=== PATIENT | female | born 1955 ===

== ENCOUNTER 2020-04-24 10:31 | Outpatient (REF) | payer MEDICARE, OTHER, SELFPAY ==
[2020-04-24 15:02] LABS: Creatinine Urine 90.99 mg/dL; Microalbum/Creatinine Ratio Ur 8.7 ug/mg cr
[2020-04-24 15:07] LABS: Alanine Aminotransferase 25 U/L (0-31); Albumin Level 4.7 g/dL (3.5-5.0); Alkaline Phosphatase 141 U/L (39-117); Anion Gap 14 (12-20); Aspartate Amino Transferase 27 U/L (5-31); Bilirubin Total 0.4 mg/dL (0.0-1.0); Blood Urea Nitrogen 20 mg/dL (9-16); Calcium 10.4 mg/dL (8.4-10.2); Carbon Dioxide 24 mmol/L (22-29); Chloride 108 mmol/L (96-108); Cholesterol 198 mg/dL; Estimated Glomerular Filt Rate > 60; Glucose Fasting 105 mg/dL (60-99); HDL Cholesterol 51 mg/dL; LDL Cholesterol Calculated 130 mg/dl; Sodium 141 mmol/L (135-145); Total Protein 7.5 g/dL (6.5-8.0); Triglycerides 89 mg/dL
== END 2020-04-24 10:32 | disposition home or self-care (01) ==
LOC: HO.WFDLDS 10:31
PROVIDERS: PCP Family Medicine; Visit Provider Family Medicine
DX: R73.01 Impaired fasting glucose (principal); E78.1 Pure hyperglyceridemia; Z20.828 Contact with and (suspected) exposure to other viral communicable diseases
CPT/HCPCS: 80053; 80061; 82043; 87635

== ENCOUNTER 2020-04-24 10:53 | Outpatient (REF) | payer MEDICARE, OTHER, SELFPAY | END 2020-04-24 10:54 | disposition home or self-care (01) | LOC: HO.WFDLDS 10:53 | PROVIDERS: Visit Provider Internal Medicine | DX: Z20.828 Contact with and (suspected) exposure to other viral communicable diseases (principal) ==

== ENCOUNTER 2020-05-08 11:03 | Outpatient (REF) | payer MEDICARE, OTHER, SELFPAY ==
[2020-05-14 18:16] LABS: Calprotectin, Fecal 127 mcg/g
== END 2020-05-08 11:04 | disposition home or self-care (01) ==
LOC: HO.LNP 11:03
PROVIDERS: Visit Provider Internal Medicine Gastroenterology
DX: K50.10 Crohn's disease of large intestine without complications (principal)
CPT/HCPCS: 83993

== ENCOUNTER 2020-06-17 14:50 | Outpatient (REF) | payer MEDICARE, OTHER, SELFPAY ==
[2020-06-21 18:22] LABS: Calprotectin, Fecal 90 mcg/g
== END 2020-06-17 14:51 | disposition home or self-care (01) ==
LOC: HO.LNP 14:50
PROVIDERS: Visit Provider Internal Medicine Gastroenterology
DX: K50.10 Crohn's disease of large intestine without complications (principal)
CPT/HCPCS: 83993

== ENCOUNTER 2020-08-04 08:00 | Outpatient (REF) | payer MEDICARE, OTHER, SELFPAY ==
[2020-08-04 11:06] LABS: Estimated Average Glucose 114 mg/dL; Hemoglobin A1c % 5.6 %
[2020-08-04 11:24] LABS: Alanine Aminotransferase 18 U/L (0-31); Albumin Level 4.6 g/dL (3.5-5.0); Alkaline Phosphatase 133 U/L (39-117); Anion Gap 15 (12-20); Aspartate Amino Transferase 19 U/L (5-31); Bilirubin Total 0.2 mg/dL (0.0-1.0); Blood Urea Nitrogen 19 mg/dL (9-16); Calcium 10.2 mg/dL (8.4-10.2); Carbon Dioxide 24 mmol/L (22-29); Chloride 105 mmol/L (96-108); Cholesterol 195 mg/dL; Estimated Glomerular Filt Rate > 60; Glucose Fasting 111 mg/dL (60-99); HDL Cholesterol 48 mg/dL; LDL Cholesterol Calculated 119 mg/dl; Potassium 4.9 mmol/l (3.3-5.1); Sodium 139 mmol/L (135-145); Total Protein 7.4 g/dL (6.5-8.0); Triglycerides 142 mg/dL
[2020-08-04 12:01] LABS: Creatinine Urine 143.73 mg/dL
== END 2020-08-04 08:01 | disposition home or self-care (01) ==
LOC: HO.WFDLDS 08:00
PROVIDERS: Visit Provider Family Medicine
DX: Z00.00 Encounter for general adult medical examination without abnormal findings (principal); R73.01 Impaired fasting glucose; E78.1 Pure hyperglyceridemia; I10 Essential (primary) hypertension
CPT/HCPCS: 36415; 80053; 80061; 82043; 83036

== ENCOUNTER 2020-08-27 09:12 | Outpatient (REF) | payer MEDICARE, OTHER, SELFPAY ==
--- NOTE | ~2020-08-27 | MM_ITS ---
EXAMINATION: MM SCREENING DIGITAL BREAST TOMOSYNTHESIS, BILATERAL CLINICAL INFORMATION: Screening. Asymptomatic. The lifetime risk of breast cancer based on the Tyrer-Cuzick Model is 3.9%. COMPARISON: Mammography: 02/11/2020 and studies dating back to 12/26/2009. TECHNIQUE: Digital breast tomosynthesis is performed in both the craniocaudal and mediolateral oblique views along with computer-aided detection (CAD). Synthesized 2D images are generated from the tomosynthesis. FINDINGS: There are scattered areas of fibroglandular density (ACR BI-RADS breast composition Category b). There is a stable parenchymal pattern within the right breast without new abnormal dominant mass or suspicious grouping of microcalcifications. Within the anterior aspect of the left breast, approximately 3 cm from the nipple, about the inferior aspect, there is an 8 x 4 mm lobular density which is circumscribed, question of a few microcalcifications. The density appears to have been present to some degree but is better seen on today's study. Recommend patient be called back for supplementary imaging with spot compression views of the left breast and left breast ultrasound. MM/MM tomosynthesis screening BI IMPRESSION: Left breast density for further evaluation as described. ASSESSMENT: BI-RADS 0: Incomplete - Need Additional Imaging Evaluation RECOMMENDATION: 1. Additional views of the left breast. 2. Targeted ultrasound if warranted after review of the additional views. 3. Radiology department staff will contact the patient for additional imaging. This patient's information was entered into a reminder system with a target due date for their next mammogram.
== END 2020-08-27 09:13 | disposition home or self-care (01) ==
LOC: HO.MAMMO 09:12
PROVIDERS: PCP Family Medicine; Visit Provider Family Medicine
DX: Z12.31 Encounter for screening mammogram for malignant neoplasm of breast (principal)
CPT/HCPCS: 77063; 77067

== ENCOUNTER 2020-09-19 07:53 | Outpatient (REF) | payer MEDICARE, OTHER, SELFPAY ==
--- NOTE | ~2020-09-19 | MM_ITS ---
EXAMINATION: MM DIAGNOSTIC DIGITAL BREAST TOMOSYNTHESIS, LEFT US DIAGNOSTIC ULTRASOUND BREAST, LEFT CLINICAL INFORMATION: Recall from screening for parenchymal asymmetry anterior lower left breast. The lifetime risk of breast cancer based on the Tyrer-Cuzick Model is 4%. COMPARISON: Mammography 08/27/2020, 08/22/2019, 07/12/2018, 06/30/2017, 05/19/2016, 05/08/2015 TECHNIQUE: Digital breast tomosynthesis is performed. 2D images are generated from the tomosynthesis. The following views are obtained: 3-D spot CC, 3-D spot MLO, 3-D spot ML. Ultrasound lower left breast is performed using grayscale imaging and color Doppler without and with harmonics. FINDINGS: There are scattered areas of fibroglandular density (ACR BI-RADS breast composition Category b). The additional view shows shifting fibroglandular densities without significant change from prior studies. There is no definite three-dimensional lesion or developing density. Ultrasound demonstrates no cystic or solid mass or focal duct ectasia. No architectural abnormality. Results are discussed with the patient at time of visit. Finding on recent screening mammography likely shifting fibroglandular densities. As a precaution to exclude subtle developing density, short interval six-month follow-up left mammography will be requested. MM/MM tomosynthesis added views L IMPRESSION: 1. Additional mammographic views show no definite changes from prior studies. 2. Unremarkable targeted left breast ultrasound. ASSESSMENT: BI-RADS 3: Probably Benign RECOMMENDATION: Diagnostic left mammography in 6 months. This patient's information was entered into a reminder system with a target due date for their next mammogram.
== END 2020-09-19 07:54 | disposition home or self-care (01) ==
LOC: HO.MAMMO 07:53
PROVIDERS: PCP Family Medicine; Visit Provider Family Medicine
DX: R92.2 Inconclusive mammogram (principal)
CPT/HCPCS: 76642; 77061; 77065

== ENCOUNTER 2020-10-01 11:24 | Outpatient (REF) | payer MEDICARE, OTHER, SELFPAY ==
[2020-10-08 22:16] LABS: Calprotectin, Fecal 125 mcg/g
== END 2020-10-01 11:25 | disposition home or self-care (01) ==
LOC: HO.LNP 11:24
PROVIDERS: Visit Provider Internal Medicine Gastroenterology
DX: K50.10 Crohn's disease of large intestine without complications (principal)
CPT/HCPCS: 83993

== ENCOUNTER 2020-11-08 07:44 | Outpatient (REF) | payer MEDICARE, OTHER, SELFPAY ==
[2020-11-14 18:47] LABS: Calprotectin, Fecal 85 mcg/g
== END 2020-11-08 07:45 | disposition home or self-care (01) ==
LOC: HO.LAB 07:44
PROVIDERS: PCP Internal Medicine Gastroenterology; Visit Provider Family Medicine
DX: K50.10 Crohn's disease of large intestine without complications (principal)
CPT/HCPCS: 83993

== ENCOUNTER → 2020-11-11 08:51 | Outpatient (BNVA) | payer MEDICARE, OTHER, SELFPAY | PROVIDERS: PCP Family Medicine; Visit Provider Internal Medicine Gastroenterology | DX: K50.10 Crohn's disease of large intestine without complications (principal); K86.2 Cyst of pancreas; Z79.899 Other long term (current) drug therapy | CPT/HCPCS: 99212 ==

== ENCOUNTER 2021-01-29 07:22 | Outpatient (REF) | payer MEDICARE, OTHER, SELFPAY ==
[2021-01-29 08:15] LABS: Estimated Average Glucose 117 mg/dL; Hemoglobin A1c % 5.7 %
[2021-01-29 08:18] LABS: Alanine Aminotransferase 10 U/L (0-31); Albumin Level 4.3 g/dL (3.5-5.0); Alkaline Phosphatase 124 U/L (39-117); Anion Gap 12 (12-20); Aspartate Amino Transferase 16 U/L (5-31); Bilirubin Total 0.3 mg/dL (0.0-1.0); Blood Urea Nitrogen 15 mg/dL (9-16); Calcium 10.2 mg/dL (8.4-10.2); Carbon Dioxide 24 mmol/L (22-29); Chloride 110 mmol/L (96-108); Cholesterol 202 mg/dL; Estimated Glomerular Filt Rate > 60; Glucose Fasting 117 mg/dL (60-99); HDL Cholesterol 58 mg/dL; LDL Cholesterol Calculated 124 mg/dl; Potassium 5.3 mmol/L (3.3-5.1); Sodium 141 mmol/L (135-145); Total Protein 7.1 g/dL (6.5-8.0); Triglycerides 103 mg/dL
== END 2021-01-29 07:23 | disposition home or self-care (01) ==
LOC: HO.LAB 07:22
PROVIDERS: PCP Family Medicine; Visit Provider Family Medicine
DX: Z00.00 Encounter for general adult medical examination without abnormal findings (principal); E78.1 Pure hyperglyceridemia; R73.01 Impaired fasting glucose
CPT/HCPCS: 36415; 80053; 80061; 83036

== ENCOUNTER 2021-02-02 11:09 | Inpatient (IN) | payer MEDICARE, OTHER, SELFPAY ==
--- NOTE | ~2021-02-02 | CT_ITS ---
EXAMINATION: CT ABDOMEN AND PELVIS WITH CONTRAST CLINICAL INFORMATION: Abdominal pain. History of Crohn's disease and diverticulitis. COMPARISON: Previous CT of the abdomen and pelvis most recent December 2019 TECHNIQUE: Multidetector volumetric images were obtained from the superior aspect of the liver through the pubic symphysis following administration 85 mL of Omnipaque 350 intravenous contrast. Sagittal and coronal reformatted images were obtained on the technologist's workstation. Oral contrast: Yes This CT examination was performed using dose optimization techniques as appropriate, variously including the following: *Automated exposure control *Adjustment of mA and/or kV according to patient size (this includes techniques or standardized protocols for targeted exams where dose is matched to indication/reason for exam; i.e. extremities or head) *Use of iterative reconstruction technique DLP: 445 mGy-cm FINDINGS: LUNG BASES: There is a 3 mm right middle lobe nodule axial image 2 series 5 that is stable. The lung bases are otherwise clear.. LIVER, GALLBLADDER, AND BILIARY TREE: The liver is low in attenuation suggestive of fatty infiltration. There is a small 1 cm cyst in the lateral segment of the left lobe of the liver. The gallbladder is been removed. There is no biliary duct dilatation. PANCREAS: Unremarkable. SPLEEN: Unremarkable. ADRENAL GLANDS: Unremarkable. KIDNEYS AND URETERS: There are small low-attenuation lesions in the right kidney suggestive of stones. BLADDER: Unremarkable. GASTROINTESTINAL TRACT: There is mild wall thickening and edema of the terminal ileum. There is mucosal enhancement of the terminal ileum. More proximal to this segment are dilated fluid and stool-filled loops of small bowel. Small bowel loops measure up to 3 cm in diameter. Appearance is suggestive of active Crohn's disease of the terminal ileum and partial more proximal obstruction. There is diverticulosis of the sigmoid colon. No evidence of diverticulitis is seen. There is low-attenuation in the wall of the colon, the ascending proximal transverse colon suggestive of fatty infiltration. This is a nonspecific finding but can be due to sequela of old colitis. ABDOMINAL WALL: No significant hernia is appreciated. LYMPH NODES: Normal. VASCULAR: Unremarkable. PELVIC VISCERA: Unremarkable. OSSEOUS STRUCTURES: There is a 5 mm anterior subluxation of L4 with respect L5. There are degenerative changes of the lower lumbar spine. CT/CT abdomen pelvis w con IMPRESSION: Active inflammatory bowel disease of the terminal ileum and more proximal small bowel partial obstruction. Diverticulosis of the colon. No evidence of diverticulitis. Fatty liver. Right renal and liver cysts.
[2021-02-02 11:14] VITALS: BP 149/84; PULSE 90; RESP 19; TEMP 36.8; O2SAT 98; BMI 23.9
[2021-02-02 11:41] LABS: Hematocrit 34.8 % (37-47); Hemoglobin 11.7 g/dl (12.0-16.0); Mean Corpuscular HGB Conc 33.6 g/dl (31.0-35.0); Mean Corpuscular Hemoglobin 29.8 pg (27.0-33.0); Mean Corpuscular Volume 88.8 fL (80-98); Mean Platelet Volume 9.7 fL (9.4-12.3); Platelet Count 404 X10*3/uL (160-400); Red Blood Count 3.92 X10*6/uL (4.20-5.50); Red Cell Distribution Width 12.5 % (11.0-16.0); White Blood Count 6.5 X10*3/uL (4.8-10.8)
--- NOTE | 2021-02-02 11:56 | ED.ABDPAIN ---
HPI - Abdominal Pain General Chief Complaint: Abdominal Pain Stated Complaint: abd pain Time Seen by Provider: 02/02/21 11:44 Source: patient Mode of arrival: ambulatory Limitations: no limitations History of Present Illness MD elicited complaint: abdominal pain Pertinent past history: diverticulitis and other (Crohn's) Onset (ago): day(s) (Tuesday) Pain Consistency: constant Location: periumbilical and LLQ Severity: severe Quality: fullness Radiation: none Migration to: no migration Exacerbating factors: movement Relieving factors: nothing Associated symptoms: nausea Related Data Home Medications Medication Instructions Recorded Confirmed calcium carbonate 500 mg(1,250 1 tab PO BID 04/24/20 mg)-vitamin D3 400 unit chewable tablet ergocalciferol (vitamin D2) 1,250 0 mcg PO 04/24/20 mcg (50,000 unit) capsule ibuprofen 800 mg tablet 800 mg PO TID 04/24/20 Previous Rx's Medication Instructions Recorded gemfibrozil 600 mg tablet 600 mg PO BID #180 tab 09/22/20 cyanocobalamin (vitamin B-12) 1,000 mcg IM DIRECTED #25 ml 09/30/20 1,000 mcg/mL injection solution famotidine 40 mg tablet 40 mg PO BEDTIME #90 tab 10/02/20 syringe with needle, safety 3 mL #50 ea 10/02/20 25 gauge x 1 rifaximin 550 mg tablet 550 mg PO TID 14 Days #42 tab 11/11/20 cholecalciferol (vitamin D3) 50 50 mcg PO DAILY #90 tab 12/30/20 mcg (2,000 unit) tablet Allergies Allergy/AdvReac Type Severity Reaction Status Date / Time Penicillins Allergy Severe ANAPHYLAXIS Verified 11/11/20 09:05 [id number]-Duw Reductase Allergy Intermediate muscle Verified 11/11/20 09:05 Inhibitor aches [[id number] REDUCTASE INHIBITOR] Review of Systems Review of Systems Constitutional : No Weight loss, No Fever, No Chills ENT/Mouth : No sore throat, No Rhinorrhea Eyes: No Swelling, No Redness Cardiovascular : No Chest Pain, No SOB, NoEdema Respiratory : No Cough, No Sputum, No Wheezing Gastrointestinal : Positive Nausea, no Vomiting, no Diarrhea, positive abdominal Pain, No Hematochezia, No Melena Genitourinary : No Dysuria, No Urinary Frequency, No Hematuria, No Urgency Musculoskeletal : No joint pain, No Myalgias, No Joint Swelling Skin : No Skin Lesions, No rash Neuro : No Weakness, No Numbness, No Dizziness, No Headache Psych : No Anxiety/Panic, No Depression Heme/Lymph: No Bruising, No Lymphadenopathy Endocrine : No Polyuria, No Polydipsia All other systems reviewed and are negative. Physical Exam Vital Signs: Vital Signs: Last Vital Signs Temp 98.2 F 02/02/21 11:14 Pulse 65 02/02/21 12:31 Resp 16 02/02/21 12:31 BP 159/66 H 02/02/21 12:31 Pulse Ox 98 02/02/21 11:14 Body Mass Index 23.9 Appearance: Alert. Oriented X3. No acute distress. Eyes: Pupils equal, round and reactive to light. ENT: Pharynx normal. Neck: Normal inspection. Neck supple. CVS: Normal heart rate and rhythm. Pulses normal. Respiratory: No respiratory distress. Breath sounds normal. Abdomen: Soft and mild distention with moderate ttp in LLQ no rebound or guarding Skin: Skin warm and dry. Normal skin color. Normal skin turgor. Extremities: No lower extremity edema. No calf ttp Neuro: Oriented X 3. No motor deficit. No sensory deficit. Course Course Course Narrative: message sent to surgery Dr. Moser and GI Dr. Humaira Moser aware most likely medical admit Dr. Gerardo aware recommend abx - has severe allergies to PCN so using levofloxacin and flagyl as well as IV solumedrol 20mg every 8 hours MDM - Abdominal Pain MDM Narrative Medical decision making narrative: 66 yo female with hx of Crohns not on medications at this time c/o pain since Tuesday she is having stool and passing gas at this time labs, IVF, IV morphine, CT scan for diveriticulitis/colitis dispo per results and findings. Differential Diagnosis Differential diagnosis: Likely constipation, diverticulitis and endometriosis; Unlikely aortic dissection Lab Data Result diagrams: 02/02/21 11:34 02/02/21 11:34 Labs: Lab Results 02/02/21 02/02/21 02/02/21 Range/Units 11:34 11:34 12:16 WBC 6.5 (4.8-10.8) X10*3/uL RBC 3.92 L (4.20-5.50) X10*6/uL Hgb 11.7 L (12.0-16.0) g/dl Hct 34.8 L (37-47) % MCV 88.8 (80-98) fL MCH 29.8 (27.0-33.0) pg MCHC 33.6 (31.0-35.0) g/dl RDW 12.5 (11.0-16.0) % Plt Count 404 H (160-400) X10*3/uL MPV 9.7 (9.4-12.3) fL Absolute Nucleated RBC 0.000 (0.0-0.012) X10*3/uL Nucleated RBC % (auto) 0.0 (0.0-0.2) /100WBC Sodium 139 (135-145) mmol/L Potassium 4.5 (3.3-5.1) mmol/L Chloride 109 H (96-108) mmol/L Carbon Dioxide 22 (22-29) mmol/L Anion Gap 13 (12-20) BUN 16 (9-16) mg/dL Creatinine 0.85 (0.5-1.4) mg/dL Estim Creat Clear Calc 51.4 Estimated GFR > 60 Random Glucose 114 (60-115) mg/dL Lactic Acid 1.1 (0.5-2.0) mmol/L Calcium 10.3 H (8.4-10.2) mg/dL Magnesium (1.6-2.6) mg/dL C-Reactive Protein (< or = 0.50) mg/dL Lipase 23 (8-78) U/L Urine Color Urine Appearance Urine pH (5.0-8.0) Ur Specific [place] (1.005-1.025) Urine Protein (NEG-TRACE) MG/DL Urine Glucose (UA) (NEG) MG/DL Urine Ketones (NEG) MG/DL Urine Blood (NEG) Urine Nitrite (NEG) Ur Leukocyte Esterase (NEG) 02/02/21 02/02/21 Range/Units 12:16 12:27 WBC (4.8-10.8) X10*3/uL RBC (4.20-5.50) X10*6/uL Hgb (12.0-16.0) g/dl Hct (37-47) % MCV (80-98) fL MCH (27.0-33.0) pg MCHC (31.0-35.0) g/dl RDW (11.0-16.0) % Plt Count (160-400) X10*3/uL MPV (9.4-12.3) fL Absolute Nucleated RBC (0.0-0.012) X10*3/uL Nucleated RBC % (auto) (0.0-0.2) /100WBC Sodium (135-145) mmol/L Potassium (3.3-5.1) mmol/L Chloride (96-108) mmol/L Carbon Dioxide (22-29) mmol/L Anion Gap (12-20) BUN (9-16) mg/dL Creatinine (0.5-1.4) mg/dL Estim Creat Clear Calc Estimated GFR Random Glucose (60-115) mg/dL Lactic Acid (0.5-2.0) mmol/L Calcium (8.4-10.2) mg/dL Magnesium 2.3 (1.6-2.6) mg/dL C-Reactive Protein 0.71 H (< or = 0.50) mg/dL Lipase (8-78) U/L Urine Color STRAW Urine Appearance CLEAR Urine pH 6.0 (5.0-8.0) Ur Specific [place] <= 1.005 (1.005-1.025) Urine Protein NEG (NEG-TRACE) MG/DL Urine Glucose (UA) NEG (NEG) MG/DL Urine Ketones NEG (NEG) MG/DL Urine Blood NEG (NEG) Urine Nitrite NEG (NEG) Ur Leukocyte Esterase NEG (NEG) Discharge Plan Discharge Clinical Impression: Abdominal pain Qualifiers: Abdominal location: lower abdomen, unspecified Qualified Code(s): R10.30 - Lower abdominal pain, unspecified Crohn's colitis Qualifiers: Digestive disease complication type: with intestinal obstruction Qualified Code(s): K50.112 - Crohn's disease of large intestine with intestinal obstruction Patient Disposition: Admitted As Inpatient [facility] Past Medical History Attestation statement: The following information was validated with the patient. Medical History (Updated 02/02/21 @ 13:21 by Fatou Joshi DO) Crohn's colitis Diverticulitis Hypertriglyceridemia Pancreas cyst Surgical History H/O colonoscopy History of cholecystectomy No history of previous surgery Family History Family History Father CVD (cardiovascular disease) Mother Hypertension Brother Diabetes mellitus Sister Diabetes mellitus Social History Social History (Updated 02/02/21 @ 12:09 by Fatou Joshi DO) Patient Tobacco Use Status: Former Tobacco user Use of substances other than those prescribed or required for medical reasons: Yes Substance Use Type: Marijuana Substance Use Frequency: Occasionally Advance Directives: No Advance Directives Information Provided: No
[2021-02-02 12:18] LABS: Anion Gap 13 (12-20); Blood Urea Nitrogen 16 mg/dL (9-16); Calcium 10.3 mg/dL (8.4-10.2); Carbon Dioxide 22 mmol/L (22-29); Chloride 109 mmol/L (96-108); Creatinine Clr Calc Pharmacy 51.4; Estimated Glomerular Filt Rate > 60; Glucose Random 114 mg/dL (60-115); Lipase 23 U/L (8-78); Potassium 4.5 mmol/L (3.3-5.1); Sodium 139 mmol/L (135-145)
[2021-02-02] MEDS: 0.9 % Sodium Chloride 1,000 ML 999 ML IVCONT (12:24)
[2021-02-02] MEDS: ondansetron HCL 4 MG/2 ML VIAL IVPUSH (12:24)
[2021-02-02] MEDS: Morphine Sulfate 4 MG/ML CARTRIDGE IVPUSH (12:25)
[2021-02-02 12:31] VITALS: BP 159/66; PULSE 65; RESP 16
--- NOTE | 2021-02-02 12:33 | PC.NURSE ---
off unit to ct scan at this time Medicated as charted for 04/26 llq abd pain denies n/v or bloody stools. UA sent. abd distended, +bs x 4 quads
[2021-02-02 12:35] LABS: Glucose Urine UA NEG (NEG); Leukocyte Esterase Urine NEG (NEG); Nitrite Urine NEG (NEG); Specific Gravity - Urine <= 1.005 (1.005-1.025); Urine Blood NEG (NEG); Urine Ketones NEG (NEG); Urine Protein NEG (NEG-TRACE)
[2021-02-02 12:38] LABS: Appearance Urine CLEAR; Color Urine STRAW
[2021-02-02] MEDS: iohexoL 350 MG/ML 100 ML INFUS..BTL 85 ML IV (12:43)
[2021-02-02 12:45] LABS: Lactic Acid 1.1 mmol/L (0.5-2.0)
[2021-02-02 12:52] LABS: C Reactive Protein 0.71 mg/dL (< or = 0.50); Magnesium 2.3 mg/dL (1.6-2.6)
--- NOTE | 2021-02-02 13:56 | PC.NURSE ---
Hospitalist at bedside for eval and plan during admission
[2021-02-02] MEDS: levoFLOXacin/D5W 500 MG/100 ML PIGGYBACK 100 MG IV (14:05)
[2021-02-02] MEDS: methylPREDNISolone Sod Succ 40 MG/ML VIAL 20 MG IVPUSH ×2 (14:05→22:18)
--- NOTE | 2021-02-02 14:07 | PM.IMHP ---
History of Present Illness Date of Service: 02/02/21 Chief Complaint: abdominal pain This is a relatively healthy 66-year-old female with a past medical history of Crohn's disease, currently not on any treatment, hyperlipidemia who presents to the hospital with complaints of abdominal pain of 3-4 days duration with associated nausea which began this morning. She reports that 4 days prior to arrival, her symptoms started with some left lower quadrant/flank pain without any associated nausea or vomiting, diarrhea. She did not make much of this but her pain has now progressed and so she sought care in the emergency room today. She endorses some chills but denies any fevers. In the emergency room her workup revealed a CT scan of the abdomen and pelvis which showed active inflammatory disease. Due to her persistent nausea and severity of her CT scan she will be admitted to the hospital for treatment of her Crohn's flare. The case was discussed by the ED provider with covering auto service instructor who recommended IV antibiotics and IV systemic steroids. Review of Systems Review of Systems: General - denies fevers, +chills HEENT -denies blurred vision, denies headache, denies sore throat Cardiovascular - denies chest pain or palpitations, denies edema Respiratory - denies shortness of breath, coughing, wheezing Gastrointestinal - +abdomina pain and nausea without vomiting or diarrhea - denies flank pain, denies dysuria, denies frequency or urgency Musculoskeletal - denies back pain, denies hip pain, denies knee pain, denies shoulder pain Neurological - denies any focal weakness or numbness Skin, denies any bruising or redness Psychiatric - denies any suicidal ideation, hallucinations, homicidal ideation Endocrinology - denies intolerance to hot / cold temperatures [facility] Medical History (Updated 02/02/21 @ 14:19 by Nelson Bianchi MD) Crohn's colitis Diverticulitis Hypertriglyceridemia Pancreas cyst Family History Father CVD (cardiovascular disease) Mother Hypertension Brother Diabetes mellitus Sister Diabetes mellitus Surgical History H/O colonoscopy History of cholecystectomy No history of previous surgery Social History (Updated 02/02/21 @ 12:09 by Fatou Joshi DO) Patient Tobacco Use Status: Former Tobacco user Use of substances other than those prescribed or required for medical reasons: Yes Substance Use Type: Marijuana Substance Use Frequency: Occasionally Advance Directives: No Advance Directives Information Provided: No Meds Allergies Allergy/AdvReac Type Severity Reaction Status Date / Time Penicillins Allergy Severe ANAPHYLAXIS Verified 11/11/20 09:05 Quaeohs-Fxh-Rta Reductase Allergy Intermediate muscle Verified 11/11/20 09:05 Inhibitor aches [[id number] REDUCTASE INHIBITOR] Active Medications: Current Medications Generic Name Dose Route Start Last Admin Trade Name Freq PRN Reason Stop Dose Admin Acetaminophen 650 mg 02/02/21 14:00 Acetaminophen 325 Mg Tablet PO Q6H PRN Pain, Mild (Pain Scale 1-3) Enoxaparin Sodium 40 mg 02/02/21 14:00 Enoxaparin Sodium 40 Mg/0.4 Ml Syringe SUBCUT Q24H [facility] Metronidazole 500 mg in 100 mls @ 100 mls/hr 02/02/21 13:17 Flagyl IV 02/02/21 14:16 ONCE ONE Levofloxacin 500 mg in 100 mls @ 100 mls/hr 02/02/21 13:18 02/02/21 14:05 Levaquin IV 02/02/21 14:17 100 mls/hr ONCE ONE Administration Dextrose/Sodium Chloride 1,000 mls @ 100 mls/hr 02/02/21 14:00 D51/2ns IVCONT .Q10H [facility] Levofloxacin 500 mg in 100 mls @ 100 mls/hr 02/03/21 14:00 Levaquin IV Q24H [facility] Metronidazole 500 mg in 100 mls @ 100 mls/hr 02/02/21 22:00 Flagyl IV Q8H [facility] Methylprednisolone Sodium Succinate 20 mg 02/02/21 22:00 Methylprednisolone Sod Succ 40 Mg/Ml Vial IVPUSH Q8H [facility] Morphine Sulfate 2 mg 02/02/21 14:05 Morphine Sulfate 4 Mg/Ml Cartridge IVPUSH Q4H PRN Pain, Severe (Pain Scale 7-10) Pharmacy Consult 1 each 02/02/21 13:12 Consult Rx Perform Med Rec MISCELLANE ONCE PRN Consult order Sodium Chloride 3 ml 02/02/21 16:00 0.9 % Sodium Chloride Flush 3 Ml [facility] Medications Medication Instructions Recorded Confirmed Last Taken Type fluticasone propionate [Flonase] 1 spray INTRANASAL DAILY 02/02/21 02/02/21 Unknown History ibuprofen 800 mg PO Q8H PRN 02/02/21 02/02/21 Unknown History loratadine [Claritin] 10 mg PO DAILY PRN 02/02/21 02/02/21 Unknown History multivitamin 1 tab PO DAILY 02/02/21 02/02/21 Unknown History Physical Exam Vital Signs and Narrative: Vital Signs: Last Vital Signs Temp 98.2 F 02/02/21 11:14 Pulse 65 02/02/21 12:31 Resp 16 02/02/21 12:31 BP 159/66 H 02/02/21 12:31 Pulse Ox 98 02/02/21 11:14 Body Mass Index 23.9 Const: Other: Constitutional - Awake and Alert, No apparent distress Eyes - PERRLA, EOMI Cardiovascular - S1S2, RRR, No edema Respiratory - Normal lung expansion, Normal respiratory effort, No respiratory distress, CTA bilaterally Gastrointestinal - Diffuse tenderness R > L; no rebound or guarding - No CVA tenderness Extremities - no calf tenderness bilaterally, no swelling Musculoskeletal - Normal inspection, normal ROM Skin - Warm/Dry Neurological - Alert & oriented x3, No focal deficit Psychological - Appropriate affect Results Labs CBC and Chem 7: 02/02/21 11:34 02/02/21 11:34 Labs: Laboratory Results - last 24 hr 02/02/21 02/02/21 02/02/21 11:34 11:34 12:16 MCV 88.8 MCH 29.8 MCHC 33.6 RDW 12.5 Plt Count 404 H MPV 9.7 Absolute Nucleated RBC 0.000 Nucleated RBC % (auto) 0.0 Anion Gap 13 Estim Creat Clear Calc 51.4 Estimated GFR > 60 Random Glucose 114 Lactic Acid 1.1 Calcium 10.3 H Magnesium C-Reactive Protein Lipase 23 Urine Color Urine Appearance Urine pH Ur Specific [place] Urine Protein Urine Glucose (UA) Urine Ketones Urine Blood Urine Nitrite Ur Leukocyte Esterase 02/02/21 02/02/21 12:16 12:27 MCV MCH MCHC RDW Plt Count MPV Absolute Nucleated RBC Nucleated RBC % (auto) Anion Gap Estim Creat Clear Calc Estimated GFR Random Glucose Lactic Acid Calcium Magnesium 2.3 C-Reactive Protein 0.71 H Lipase Urine Color STRAW Urine Appearance CLEAR Urine pH 6.0 Ur Specific [place] <= 1.005 Urine Protein NEG Urine Glucose (UA) NEG Urine Ketones NEG Urine Blood NEG Urine Nitrite NEG Ur Leukocyte Esterase NEG Imaging Radiologist's Impressions: Impressions Abdomen/Pelvis CT 02/02/21 12:02 IMPRESSION: Active inflammatory bowel disease of the terminal ileum and more proximal small bowel partial obstruction. Diverticulosis of the colon. No evidence of diverticulitis. Fatty liver. Right renal and liver cysts. Assessment and Plan (1) Acute Crohn's disease: Status: Acute This is a 66 yo F with a PMH of Crohn's -- not currently on treatment who presents to the hospital with complaints of abdominal pain and nausea. Her CT scan and clinical history is consistant with acute Crohn's flare. She will be admitted for further management. 1. Acute Crohn's flare IV solu-medrol 20mg TID (needs IV steroids as her nausea preclude the use of oral steroids IV levaquin + flagyl (per GI recs) clear liquids GI on board 2. HLD continue home meds once completed Full Code DVT pptxTomy Anticipate that, due the severity of presentation, she will need >2 midnights in the hospital to treat her condition. Quality Stroke Does the patient have a stroke diagnosis?: No VTE Prior VTE?: No VTE Risk Level:: Medical - moderate - high VTE Device Contraindication: Treatment Not Indicated VTE Drug Contraindication: N/A - Med Ordered
[2021-02-02 14:11] VITALS: BP 145/67; PULSE 80; RESP 16; O2SAT 100
--- NOTE | 2021-02-02 14:18 | PHA.MEDREC ---
Pharmacy Consult ? Medication Reconciliation Pharmacy has completed the medication reconciliation. No remarkable issues for provider attention. Amanda Neumann, NicolaD
[2021-02-02 14:23] LABS: COVID-19 Test Negative (Negative)
[2021-02-02] MEDS: metroNIDAZOLE/NS 500 MG/100 ML PIGGYBACK 100 MG IV ×2 (15:18→22:18)
--- NOTE | 2021-02-02 15:40 | PC.NURSE ---
Pt aware/agreeable for plan to admit. ABX continue to infuse as ordered. Pt given jello as requested and tolerating well. Family at bedside.. Reports pain worse with movement, no facial grimace or guarding with rest noted. Using bedpan to void.
[2021-02-02 16:09] VITALS: BP 145/74; PULSE 70; RESP 20; TEMP 36.4; O2SAT 95
[2021-02-02] MEDS: Dextrose 5 % and 0.45 % NaCl 1,000 ML 100 ML IVCONT (16:55)
[2021-02-02] MEDS: 0.9 % Sodium Chloride Flush 3 ML SYRINGE IVFLUSH (16:57)
[2021-02-02] MEDS: Enoxaparin Sodium 40 MG/0.4 ML SYRINGE SUBCUT (17:05)
[2021-02-02] MEDS: Morphine Sulfate 4 MG/ML CARTRIDGE 2 MG IVPUSH ×2 (17:11→22:27)
--- NOTE | 2021-02-02 17:13 | PC.NURSE ---
fLUIDS INFUSING D5 IN 0.45 ns AT 100ML/HR. mORPHIINE GIVEN FOR LLQ ABD PAIN 02/24
[2021-02-02 19:35] VITALS: BP 137/70; PULSE 72; RESP 17; TEMP 36.5; O2SAT 99
--- NOTE | 2021-02-02 19:36 | PC.NURSE ---
Pt aaox4, resting on stretcher in NAD breathing with ease on RA, pt endorses mild pain. Pt offers no additional complaints. Pt VSS. Pt awaiting bed assignment. Stretcher in low locked position, rails raised, call downing within reach
--- NOTE | 2021-02-02 20:07 | P.CNGI_ITS ---
History of Present Illness Data of Consult Service Date: 02/02/21 Requesting physician: Fatou Joshi Primary Care Provider: Lopez Cote MD [facility] Reason for consult: crohns flare 66-year-old female with a past medical history of Crohn's disease, who had been in remission and hyperlipidemia who I am seeing for assessment for crohns flare up. She c/o severe 10/10 abdominal pain of 3-4 days duration with associated nausea which began this morning and which was mostly in the left flank and lower quadrant. She has poor appetite, no nausea or vomiting. She did not eat any bad foods, and no one around her has been sick. She has passed normal stool, no diarrhea, rectal bleeding or melena. She does feel bloated. CT scan of the abdomen and pelvis which showed active inflammatory disease primarily in the terminal ileum with proximal small bowel partial obstruction.. She is receiving IV antibiotics and IV solumedrol. From my office notes: TESTS: colonoscopy 2005-- normal, mild diverticulitis colonoscopy 2015--diffsue colitis, erosions, from cecum to ascending col on, TI not freely intubated, mild diverticular disease bx TI--enteritis, ascending colon colitis, and descending mild colitis (this was actually a screening colonoscopy but she had some diarrheal sx at the time as well for 1 year at least, she had also been on a lot of nsiads for knee arthritis at the time) MRI 04/2019-- ?pancreas cyst, otherwise normal pancreas CT - no active inflammation, submucosal fat in TI, diverticular disase, spondylolisthesis MRI--03/2020--hepatic steatosis, 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, panc cysts LABS: neg fecal blanca, neg CRP, mild raised ESR< nml HGB, nml ferritin raised alk phos, AMA negative fecal calprotectin has been fluctuating up and down from borderline to mildly positive Review of Systems Review of Systems: General - denies fevers, +chills HEENT -denies blurred vision, denies headache, denies sore throat Cardiovascular - denies chest pain or palpitations, denies edema Respiratory - denies shortness of breath, coughing, wheezing Gastrointestinal - +abdomina pain and nausea without vomiting or diarrhea - denies flank pain, denies dysuria, denies frequency or urgency Musculoskeletal - denies back pain, denies hip pain, denies knee pain, denies shoulder pain Neurological - denies any focal weakness or numbness Skin, denies any bruising or redness Psychiatric - denies any suicidal ideation, hallucinations, homicidal ideation Endocrinology - denies intolerance to hot / cold temperatures [facility] Past Medical History Medical History (Updated 02/02/21 @ 14:19 by Nelson Bianchi MD) Crohn's colitis Diverticulitis Hypertriglyceridemia Pancreas cyst Family History Family History Father CVD (cardiovascular disease) Mother Hypertension Brother Diabetes mellitus Sister Diabetes mellitus Surgical History Surgical History H/O colonoscopy History of cholecystectomy No history of previous surgery Social History Social History (Updated 02/02/21 @ 12:09 by Fatou Joshi DO) Patient Tobacco Use Status: Former Tobacco user Use of substances other than those prescribed or required for medical reasons: Yes Substance Use Type: Marijuana Substance Use Frequency: Occasionally Advance Directives: No Advance Directives Information Provided: No Meds Allergies Allergy/AdvReac Type Severity Reaction Status Date / Time Penicillins Allergy Severe ANAPHYLAXIS Verified 11/11/20 09:05 Vozfvnr-Nlv-Miu Reductase Allergy Intermediate muscle Verified 11/11/20 09:05 Inhibitor aches [[id number]-[id number]-FSR REDUCTASE INHIBITOR] Active Medications: Current Medications Generic Name Dose Route Start Last Admin Trade Name Freq PRN Reason Stop Dose Admin Acetaminophen 650 mg 02/02/21 14:00 Acetaminophen 325 Mg Tablet PO Q6H PRN Pain, Mild (Pain Scale 1-3) Enoxaparin Sodium 40 mg 02/02/21 18:00 02/02/21 17:05 Enoxaparin Sodium 40 Mg/0.4 Ml Syringe SUBCUT 40 mg Q24H PRESTON Administration Dextrose/Sodium Chloride 1,000 mls @ 100 mls/hr 02/02/21 14:00 02/02/21 16:55 D51/2ns IVCONT 100 mls/hr .Q10H PRESTON Administration Levofloxacin 500 mg in 100 mls @ 100 mls/hr 02/03/21 14:00 Levaquin IV Q24H PRESTON Metronidazole 500 mg in 100 mls @ 100 mls/hr 02/02/21 22:00 Flagyl IV Q8H PRESTON Methylprednisolone Sodium Succinate 20 mg 02/02/21 22:00 Methylprednisolone Sod Succ 40 Mg/Ml Vial IVPUSH Q8H PRESTON Morphine Sulfate 2 mg 02/02/21 14:05 02/02/21 17:11 Morphine Sulfate 4 Mg/Ml Cartridge IVPUSH 2 mg Q4H PRN Administration Pain, Severe (Pain Scale 7-10) Pharmacy Consult 1 each 02/02/21 13:12 Consult Rx Perform Med Rec MISCELLANE ONCE PRN Consult order Sodium Chloride 3 ml 02/02/21 16:00 02/02/21 16:57 0.9 % Sodium Chloride Flush 3 Ml Syringe IVFLUSH 3 ml QSHIFT [facility] Administration Home Medications Medication Instructions Recorded Confirmed Last Taken Type fluticasone propionate [Flonase] 1 spray INTRANASAL DAILY 02/02/21 02/02/21 Unknown History ibuprofen 800 mg PO Q8H PRN 02/02/21 02/02/21 Unknown History loratadine [Claritin] 10 mg PO DAILY PRN 02/02/21 02/02/21 Unknown History multivitamin 1 tab PO DAILY 02/02/21 02/02/21 02/02/21 History Physical Exam Vital Signs: Vital Signs: Last Vital Signs Temp 97.7 F 02/02/21 19:35 Pulse 72 02/02/21 19:35 Resp 17 02/02/21 19:35 BP 137/70 02/02/21 19:35 Pulse Ox 99 02/02/21 19:35 Body Mass Index 23.9 Const: Other: Constitutional - Awake and Alert, No apparent distress Eyes - PERRLA, EOMI Cardiovascular - S1S2, RRR, No edema Respiratory - Normal lung expansion, Normal respiratory effort, No respiratory distress, CTA bilaterally Gastrointestinal - Diffuse tenderness R > L; no rebound or guarding - No CVA tenderness Extremities - no calf tenderness bilaterally, no swelling Musculoskeletal - Normal inspection, normal ROM Skin - Warm/Dry Neurological - Alert & oriented x3, No focal deficit Psychological - Appropriate affect Results Labs CBC & Chem 7: 02/02/21 11:34 02/02/21 11:34 Labs: Short CBC 02/02/21 Range/Units 11:34 WBC 6.5 (4.8-10.8) X10*3/uL Hgb 11.7 L (12.0-16.0) g/dl Hct 34.8 L (37-47) % Plt Count 404 H (160-400) X10*3/uL BMP 02/02/21 11:34 Sodium 139 Potassium 4.5 Chloride 109 H Carbon Dioxide 22 BUN 16 Creatinine 0.85 Calcium 10.3 H Urine 02/02/21 Range/Units 12:27 Urine Color STRAW Urine Appearance CLEAR Urine pH 6.0 (5.0-8.0) Ur Specific [place] <= 1.005 (1.005-1.025) Urine Protein NEG (NEG-TRACE) MG/DL Urine Glucose (UA) NEG (NEG) MG/DL Assessment and Plan (1) Acute Crohn's disease: Status: Acute 1/ Acute crohns flare of small bowel, has had prior disease involving large and small bowel. She did appear to be in biochemical and radiological remission for some time and was doing well but unfortunately it seems to have made a dramatic come back. PLAN: 1/ Can allow clears as tolerated and advance diet as allowed 2/ Solumedrol IV 20 mg q8h for 48-72 hrs 3/ Abx for 7 d due to high risk of bacterial translocation, and pneunomia etc 4/ will need steorid taper on dc/ and plan for biologic eventually, check hep b/c and tb screen, will need pneumovax if not had 5/ o/p colonoscopy in near future Procedures Date of Service Date of Service: 02/02/21
--- NOTE | 2021-02-02 21:32 | PC.NURSE ---
This RN attempted report. Previously, Geno SLATERrn discharge attempted report and was told accepting RN would return call.
[2021-02-02 22:03] VITALS: BP 157/82; PULSE 99; RESP 14; TEMP 36.5; O2SAT 99
[2021-02-03] VITALS: BP 118/61; PULSE 74; RESP 16; TEMP 36.9; O2SAT 99
[2021-02-03 04:00] VITALS: BP 116/55; PULSE 59; RESP 16; TEMP 36.1; O2SAT 96
[2021-02-03] MEDS: Dextrose 5 % and 0.45 % NaCl 1,000 ML 100 ML IVCONT ×2 (06:12→19:52)
[2021-02-03] MEDS: metroNIDAZOLE/NS 500 MG/100 ML PIGGYBACK 100 MG IV ×3 (06:13→21:52)
[2021-02-03] MEDS: methylPREDNISolone Sod Succ 40 MG/ML VIAL 20 MG IVPUSH ×2 (06:13→13:28)
[2021-02-03] MEDS: Acetaminophen 325 MG TABLET 650 MG PO ×3 (06:21→21:52)
[2021-02-03] MEDS: Morphine Sulfate 4 MG/ML CARTRIDGE 2 MG IVPUSH (06:22)
[2021-02-03 06:48] LABS: Hematocrit 34.2 % (37-47); Hemoglobin 11.1 g/dl (12.0-16.0); Mean Corpuscular HGB Conc 32.5 g/dl (31.0-35.0); Mean Corpuscular Hemoglobin 29.5 pg (27.0-33.0); Mean Platelet Volume 10.1 fL (9.4-12.3); Platelet Count 383 X10*3/uL (160-400); Red Blood Count 3.76 X10*6/uL (4.20-5.50); Red Cell Distribution Width 12.3 % (11.0-16.0); White Blood Count 7.2 X10*3/uL (4.8-10.8)
[2021-02-03 07:08] LABS: Anion Gap 11 (12-20); Blood Urea Nitrogen 10 mg/dL (9-16); Calcium 9.7 mg/dL (8.4-10.2); Carbon Dioxide 23 mmol/L (22-29); Chloride 111 mmol/L (96-108); Creatinine Clr Calc Pharmacy 59.9; Estimated Glomerular Filt Rate > 60; Glucose Random 163 mg/dL (60-115); Sodium 140 mmol/L (135-145)
[2021-02-03 07:29] VITALS: BP 109/57; PULSE 57; RESP 16; TEMP 36.4; O2SAT 98
[2021-02-03 11:35] VITALS: BP 106/57; PULSE 67; RESP 16; TEMP 36.8; O2SAT 100
--- NOTE | 2021-02-03 12:03 | HO.PM.IMPN ---
Subjective Subjective Date of Service: 02/03/21 Interval History: seen and examined this AM complains of L sided pain for which morphine helps denies any n/v/d denies any fevers ROS General - no fevers or chills Cardiovascular - no chest pain Respiratory - no shortness of breath or cough Abdominal- +left sided pain, negative for: nausea, vomiting, diarrhea Physical Exam Vital Signs: Vital Signs: Last Vital Signs Temp 98.2 F 02/03/21 11:35 Pulse 67 02/03/21 11:35 Resp 16 02/03/21 11:35 BP 106/57 L 02/03/21 11:35 Pulse Ox 100 02/03/21 11:35 Body Mass Index 23.9 Const: Other: General - no acute distress, appears comfortable Cardiovascular - regular rate and rhythm, S1-S2 Lungs - normal respiratory effort, clear to auscultation bilaterally, no wheezing Abdomen - soft, left sided TTP, no rebound or guarding Extremities - no edema bilaterally Neuro - awake and alert, no focal deficits Objective Data Current Medications Generic Name Dose Route Start Last Admin Trade Name Barbara PRN Reason Stop Dose Admin Acetaminophen 650 mg 02/02/21 14:00 02/03/21 06:21 Acetaminophen 325 Mg Tablet PO 650 mg Q6H PRN Administration Pain, Mild (Pain Scale 1-3) Enoxaparin Sodium 40 mg 02/02/21 18:00 02/02/21 17:05 Enoxaparin Sodium 40 Mg/0.4 Ml Syringe SUBCUT 40 mg Q24H PRESTON Administration Dextrose/Sodium Chloride 1,000 mls @ 100 mls/hr 02/02/21 14:00 02/03/21 06:12 D51/2ns IVCONT 100 mls/hr .Q10H PRESTON Administration Levofloxacin 500 mg in 100 mls @ 100 mls/hr 02/03/21 14:00 Levaquin IV Q24H PRESTON Metronidazole 500 mg in 100 mls @ 100 mls/hr 02/02/21 22:00 02/03/21 07:21 Flagyl IV Infused Q8H PRESTON Infusion Methylprednisolone Sodium Succinate 20 mg 02/02/21 22:00 02/03/21 06:13 Methylprednisolone Sod Succ 40 Mg/Ml Vial IVPUSH 20 mg Q8H PRESTON Administration Morphine Sulfate 2 mg 02/02/21 14:05 02/03/21 06:22 Morphine Sulfate 4 Mg/Ml Cartridge IVPUSH 2 mg Q4H PRN Administration Pain, Severe (Pain Scale 7-10) Pharmacy Consult 1 each 02/02/21 13:12 Consult Rx Perform Med Rec MISCELLANE ONCE PRN Consult order Sodium Chloride 3 ml 02/02/21 16:00 02/03/21 11:53 0.9 % Sodium Chloride Flush 3 Ml Syringe IVFLUSH Not Given QSHIFT [facility] Labs CBC & Chem 7: 02/03/21 06:04 02/03/21 06:04 Labs: Laboratory Results - last 24 hr 02/02/21 02/02/21 02/02/21 11:34 12:16 12:16 WBC RBC Hgb Hct MCV MCH MCHC RDW Plt Count MPV Absolute Nucleated RBC Nucleated RBC % (auto) Sodium 139 Potassium 4.5 Chloride 109 H Carbon Dioxide 22 Anion Gap 13 BUN 16 Creatinine 0.85 Estim Creat Clear Calc 51.4 Estimated GFR > 60 Random Glucose 114 Lactic Acid 1.1 Calcium 10.3 H Magnesium 2.3 C-Reactive Protein 0.71 H Lipase 23 Urine Color Urine Appearance Urine pH Ur Specific [place] Urine Protein Urine Glucose (UA) Urine Ketones Urine Blood Urine Nitrite Ur Leukocyte Esterase COVID-19 ([facility]) COVID-NewACT Com 02/02/21 02/02/21 02/03/21 12:27 14:00 06:04 WBC 7.2 RBC 3.76 L Hgb 11.1 L Hct 34.2 L MCV 91.0 MCH 29.5 MCHC 32.5 RDW 12.3 Plt Count 383 MPV 10.1 Absolute Nucleated RBC 0.000 Nucleated RBC % (auto) 0.0 Sodium Potassium Chloride Carbon Dioxide Anion Gap BUN Creatinine Estim Creat Clear Calc Estimated GFR Random Glucose Lactic Acid Calcium Magnesium C-Reactive Protein Lipase Urine Color STRAW Urine Appearance CLEAR Urine pH 6.0 Ur Specific [place] <= 1.005 Urine Protein NEG Urine Glucose (UA) NEG Urine Ketones NEG Urine Blood NEG Urine Nitrite NEG Ur Leukocyte Esterase NEG COVID-19 ([facility]) Negative COVID-[facility] Com See Note 02/03/21 06:04 WBC RBC Hgb Hct MCV MCH MCHC RDW Plt Count MPV Absolute Nucleated RBC Nucleated RBC % (auto) Sodium 140 Potassium 5.0 Chloride 111 H Carbon Dioxide 23 Anion Gap 11 L BUN 10 Creatinine 0.73 Estim Creat Clear Calc 59.9 Estimated GFR > 60 Random Glucose 163 H D Lactic Acid Calcium 9.7 Magnesium C-Reactive Protein Lipase Urine Color Urine Appearance Urine pH Ur Specific [place] Urine Protein Urine Glucose (UA) Urine Ketones Urine Blood Urine Nitrite Ur Leukocyte Esterase COVID-19 ([facility]) COVID-19 Clin Com Quality Stroke Does the patient have a stroke diagnosis?: No VTE Prior VTE?: No VTE Risk Level:: Medical - moderate - high VTE Device Contraindication: Treatment Not Indicated VTE Drug Contraindication: N/A - Med Ordered Assessment and Plan (1) Acute Crohn's disease: Status: Acute Assessment and Plan: This is a 66 yo F with a PMH of Crohn's -- not currently on treatment who presents to the hospital with complaints of abdominal pain and nausea. Her CT scan and clinical history is consistant with acute Crohn's flare. She will be admitted for further management. 1. Acute Crohn's flare clinically improving IV solu-medrol 20mg TID for an additional 24 hours IV levaquin + flagyl (per GI recs) - day #2 advance to full iquids GI on board 2. HLD continue home meds Full Code DVT pptx, Lovenox
[2021-02-03] MEDS: Cholecalciferol (Vitamin D3) 25 MCG TABLET 50 MCG PO (12:19)
[2021-02-03] MEDS: Multivitamin TABLET 1 TAB PO (12:19)
--- NOTE | 2021-02-03 13:14 | MHC.CM.PN ---
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 patient is retired , she lives alone and her daughter ned (also her hcp) lives in the apartment above her, she is retired from the schoold departement , she has not had a flare up in about two years ago she has been followed by dr daniel domingo. uses some marijuana prn, she walks 7 miles a days.she has no vna or dme services in the home and does not anticipated requiring any. plan -iv solumederol for 48hrs, iv levaquin qnd iv flagyl gi consult discharge plan home no services pcp dr natalie arrington, transportation family hcp requested copy be brought in
[2021-02-03] MEDS: levoFLOXacin/D5W 500 MG/100 ML PIGGYBACK 100 MG IV (13:28)
[2021-02-03 15:13] VITALS: BP 126/60; PULSE 74; RESP 15; TEMP 36.3; O2SAT 100
[2021-02-03] MEDS: Enoxaparin Sodium 40 MG/0.4 ML SYRINGE SUBCUT (17:14)
[2021-02-03 19:33] VITALS: BP 104/55; PULSE 63; RESP 15; TEMP 36.3; O2SAT 99
[2021-02-03] MEDS: gemfibroziL 600 MG TABLET PO (21:51)
[2021-02-03] MEDS: Famotidine 20 MG TABLET 40 MG PO (21:51)
[2021-02-03] MEDS: 0.9 % Sodium Chloride Flush 3 ML SYRINGE IVFLUSH (21:52)
[2021-02-04] VITALS: BP 111/55; PULSE 53; RESP 16; TEMP 36.1; O2SAT 93
--- NOTE | 2021-02-04 03:54 | PM.EVENT ---
Event Note Date of Service: 02/04/21 Event Note: Solumedrol Allergy: Patient reported that after she takes Solu-Medrol she felt facial flushing/rash. Mentioned that similar episode happened in the past. Patient reported that she tolerated Budesonide PO well in the past. Defer to the a.m. team to speak to the pharmacy to keep the patient on budesonide as it is non formulary.
[2021-02-04 04:00] VITALS: BP 114/84; PULSE 73; RESP 16; TEMP 36.4; O2SAT 97
[2021-02-04] MEDS: metroNIDAZOLE/NS 500 MG/100 ML PIGGYBACK 100 MG IV (05:51)
[2021-02-04] MEDS: Dextrose 5 % and 0.45 % NaCl 1,000 ML 100 ML IVCONT (06:38)
[2021-02-04 07:32] VITALS: BP 133/70; PULSE 66; RESP 16; TEMP 36.6; O2SAT 97
[2021-02-04] MEDS: Cholecalciferol (Vitamin D3) 25 MCG TABLET 50 MCG PO (07:33)
[2021-02-04] MEDS: gemfibroziL 600 MG TABLET PO (07:33)
[2021-02-04] MEDS: Multivitamin TABLET 1 TAB PO (07:38)
[2021-02-04] MEDS: levoFLOXacin 500 MG TABLET PO (10:23)
[2021-02-04] MEDS: metroNIDAZOLE 500 MG TABLET PO (10:23)
[2021-02-04 11:55] VITALS: BP 150/77; PULSE 79; RESP 18; TEMP 36.2; O2SAT 99
[2021-02-04 15:23] VITALS: BP 132/71; PULSE 61; RESP 14; TEMP 36.2; O2SAT 99
--- NOTE | 2021-02-04 16:28 | P.DS_ITS ---
DS: Providers Provider Date of Service: 02/04/21 Date of admission: 02/02/21 14:01 Date of discharge: 02/04/21 Primary care physician: Lopez Cote MD Consults: 02/02/21 14:00 Consult to Gastroenterology Routine Consulting Provider: Mel Gerardo Reason for consultation: Crohn's flare DS: Diagnosis Discharge Diagnosis (1) Acute Crohn's disease: Status: Acute DS: Medications Discharge Medications Home Medications: Home Medications Medication Instructions Recorded Confirmed fluticasone propionate 1 spray INTRANASAL DAILY 02/02/21 02/02/21 loratadine [Claritin] 10 mg PO DAILY PRN 02/02/21 02/02/21 multivitamin 1 tab PO DAILY 02/02/21 02/02/21 Previous Rx's Medication Instructions Recorded gemfibrozil 600 mg tablet 600 mg PO BID #180 tab 09/22/20 cyanocobalamin (vitamin B-12) 1,000 mcg IM DIRECTED #25 ml 09/30/20 1,000 mcg/mL injection solution famotidine 40 mg tablet 40 mg PO BEDTIME #90 tab 10/02/20 syringe with needle, safety 3 mL #50 ea 10/02/20 25 gauge x 1 cholecalciferol (vitamin D3) 50 50 mcg PO DAILY #90 tab 12/30/20 mcg (2,000 unit) tablet budesonide 3 mg PO DAILY #60 ea MDD take 02/04/21 budesonide 3mg (3 tabs) levofloxacin 500 mg PO Q24H #5 tab 02/04/21 metronidazole 500 mg PO Q12H #10 tab 02/04/21 DS: Summary Hospital Course Hospital Course: History of presenting illness Chief Complaint: abdominal pain This is a relatively healthy 66-year-old female with a past medical history of Crohn's disease, currently not on any treatment, hyperlipidemia who presents to the hospital with complaints of abdominal pain of 3-4 days duration with associated nausea which began this morning. She reports that 4 days prior to arrival, her symptoms started with some left lower quadrant/flank pain without any associated nausea or vomiting, diarrhea. She did not make much of this but her pain has now progressed and so she sought care in the emergency room today. She endorses some chills but denies any fevers. In the emergency room her workup revealed a CT scan of the abdomen and pelvis which showed active inflammatory disease. Due to her persistent nausea and severity of her CT scan she will be admitted to the hospital for treatment of her Crohn's flare. The case was discussed by the ED provider with covering cartoonist special effects who recommended IV antibiotics and IV systemic steroids. Hospital course 66 yo F with a PMH of Crohn's not currently on treatment who presents to the hospital with complaints of abdominal pain and nausea, CT abdomen consistant with acute Crohn's flare, patient admitted to medical floor and started on IV fluid, IV Solu Medrol and IV antibiotic, patient was followed closely by Dr. Shen from Gastroenterology patient's symptoms improved gradually her diet was advanced currently she is tolerating regular diet her abdominal pain nausea vomiting has resolved therefore she is being discharged home on 5 more days of by mouth Flagyl and Levaquin to finish a total 7 day course of antibiotic she is also being discharged on wound budesonide 9 mg daily for 10 days followed by 6 mg daily further taper as per GI. Time Spent with Patient Time attestation: Total time spent providing and/or coordinating discharge services: Discharge coordination time: Greater than 30 minutes Quality: Stroke Does the patient have a stroke diagnosis?: No Physical Exam Vital Signs: Vital Signs: Last Vital Signs Temp 97.2 F 02/04/21 15:23 Pulse 61 02/04/21 15:23 Resp 14 02/04/21 15:23 BP 132/71 02/04/21 15:23 Pulse Ox 99 02/04/21 15:23 Body Mass Index 23.9 General - no acute distress, appears comfortable Cardiovascular - regular rate and rhythm, S1-S2 Lungs - normal respiratory effort, clear to auscultation bilaterally, no wheezing Abdomen - abdomen soft nontender bowel sounds are audible Extremities - no edema bilaterally Neuro - awake and alert, no focal deficits DS: Data Data Completed and Pending Labs on day of discharge: Preliminary micro results at discharge 02/02/21 14:00 Blood Culture - Preliminary Blood - Venous No growth after 48 hours. 02/02/21 14:00 Blood Culture - Preliminary Blood - Venous No growth after 48 hours. Discharge Plan Discharge Patient Disposition: Home, Self-Care Discharge Diagnosis: Acute Crohn's flare Referrals: Lopez Cote MD [Primary Care Provider] - 1 Week Discharge Medications: New metronidazole 500 mg Tablet 500 mg PO Q12H Qty: 10 RF: 0 levofloxacin 500 mg Tablet 500 mg PO Q24H Qty: 5 RF: 0 budesonide 3 mg capsule,delayed,extend.release 3 mg PO DAILY MDD take budesonide 3mg (3 tabs) Qty: 60 RF: 0 Continued gemfibrozil 600 mg tablet 600 mg PO BID Qty: 180 RF: 2 cyanocobalamin (vitamin B-12) 1,000 mcg/mL solution 1,000 mcg IM DIRECTED Qty: 25 RF: 2 famotidine 40 mg tablet 40 mg PO BEDTIME Qty: 90 RF: 1 cholecalciferol (vitamin D3) [Vitamin D3] 50 mcg (2,000 unit) tablet 50 mcg PO DAILY Qty: 90 RF: 0 multivitamin Tablet 1 tab PO DAILY RF: 0 fluticasone propionate 50 mcg/actuation [place],Suspension 1 spray INTRANASAL DAILY RF: 0 loratadine [Claritin] 10 mg Tablet 10 mg PO DAILY PRN (Reason: Allergy Symptoms) RF: 0 Discontinued ibuprofen 800 mg Tablet 800 mg PO Q8H PRN (Reason: Pain) RF: 0 No Action (DME) BD SafetyGlide Syringe 3 mL 25 gauge x 1 syringe See Rx Instructions .ROUTE .MEDSUPPLY Qty: 50 RF: 1 Discharge Orders: Discharge Order (Routine); Ordered 02/04/21 Ordered By: Nona Tillman Diet: advance to usual diet Activity on Discharge: As tolerated Stand Alone Forms: Patient Portal Discharge page Care Plan Goals: Acute Crohn's flare, take Levaquin/Flagyl for 5 more days as prescribed, take budesonide 3 mg tablet, take (3 tablets daily) for total 9 mg for 10 days then take 2 tablets (6 mg daily) for 10 days further tapering as per Gastroenterology Take low residue diet Health Concerns: Take all medications as prescribed Plan of Treatment: Follow up with Dr. Shen and 7-10 days Assessment: As above
== END 2021-02-04 17:33 | disposition home or self-care (01) | DRG 387 ==
LOC: HO.ED 13:21 → HO.EDOVER 15:14 → HO.S3 19:50
PROVIDERS: Admitting Provider Family Medicine; Emergency Provider Emergency Medicine; PCP Family Medicine; Visit Provider Hospitalist
DX: K50.90 Crohn's disease, unspecified, without complications (principal); E78.5 Hyperlipidemia, unspecified; Z20.822 Contact with and (suspected) exposure to COVID-19; Z87.891 Personal history of nicotine dependence; Z88.0 Allergy status to penicillin; Z79.51 Long term (current) use of inhaled steroids; Z79.899 Other long term (current) drug therapy
CPT/HCPCS: 36415; 74177; 80048; 81003; 83605; 83690; 83735; 85027; 86140; 87040; 87635; 99285; J1650; J1956; J2270; J2405; J2920; Q9967

== ENCOUNTER → 2021-02-12 10:51 | Outpatient (BNVA) | payer MEDICARE, OTHER, SELFPAY | PROVIDERS: PCP Family Medicine; Visit Provider Dietitian, Registered | DX: R73.01 Impaired fasting glucose (principal) | CPT/HCPCS: 97802 ==

== ENCOUNTER 2021-03-06 14:49 | Outpatient (REF) | payer MEDICARE, OTHER, SELFPAY ==
[2021-03-06 16:08] LABS: Anion Gap 13 (12-20); Blood Urea Nitrogen 18 mg/dL (9-16); Calcium 10.8 mg/dL (8.4-10.2); Carbon Dioxide 26 mmol/L (22-29); Chloride 106 mmol/L (96-108); Estimated Glomerular Filt Rate > 60; Glucose Random 114 mg/dL (60-115); Potassium 4.6 mmol/L (3.3-5.1); Sodium 140 mmol/L (135-145)
== END 2021-03-06 14:50 | disposition home or self-care (01) ==
LOC: HO.LAB 14:49
PROVIDERS: PCP Family Medicine; Visit Provider Internal Medicine Gastroenterology
DX: K50.10 Crohn's disease of large intestine without complications (principal)
CPT/HCPCS: 36415; 80048

== ENCOUNTER 2021-03-10 13:58 | Outpatient (REF) | payer MEDICARE, OTHER, SELFPAY ==
--- NOTE | ~2021-03-10 | CT_ITS ---
EXAMINATION: CT ENTEROGRAPHY ABDOMEN AND PELVIS WITH CONTRAST CLINICAL INFORMATION: Periumbilical pain COMPARISON: Previous CT scans most recent January 2021, MRI of the abdomen April 2019 and CTA of the abdomen February 2019 TECHNIQUE: Study performed with oral VoLumen (1350 mL) and 480 mL of water to distend the abdomen. The patient was injected with 85 mL Omnipaque 350 intravenous contrast which was administered without adverse effect. Coronal and sagittal reformatted images were obtained at the technologist's workstation. This CT examination was performed using dose optimization techniques as appropriate, variously including the following: *Automated exposure control *Adjustment of mA and/or kV according to patient size (this includes techniques or standardized protocols for targeted exams where dose is matched to indication/reason for exam; i.e. extremities or head) *Use of iterative reconstruction technique DLP: 305 mGy-cm FINDINGS: GASTROINTESTINAL FINDINGS: Stomach: Well-distended and normal in appearance. Small intestine: There is mild dilatation of the distal loops of small bowel and small bowel feces sign probably representing small bowel stasis. All bowel loops measure up to 2 cm. The previously identified small bowel wall thickening and edema on January 2021 exam is no longer seen. Large intestine: Mild diverticulosis of the distal colon. Well-distended and otherwise normal in appearance. No perirectal changes demonstrated. The appendix is is not identified. Additional findings: No abnormal enhancement of the vasa recta or significant mesenteric or retroperitoneal lymphadenopathy is seen. No abdominal abscess or fistulous tract demonstrated. ABDOMINAL AND PELVIC CT FINDINGS: Liver, gallbladder, biliary tract: The liver is low in attenuation suggestive of fatty infiltration. There is a 1 cm cyst in the lateral segment of the left lobe of the liver. The gallbladder is normal. There is no biliary duct dilatation. Pancreas: There is a round high attenuation area in the body of the pancreas. This measures 1 cm axial image 87 series 3. This is similar to previous February 2019 CT and older exams going back to 2016 and 2017. Spleen: There is a 1 cm cyst in the spleen. Adrenal glands and kidneys: The adrenal glands are normal. There are small low-attenuation right renal lesions probably representing small cysts. Largest measures 7 mm in the lower pole of the right kidney. The kidneys are otherwise unremarkable. Ureters and bladder: Normal Lymphovascular structures: Normal Bones: There are degenerative changes of the spine. There is mild anterior subluxation of L4 with respect L5 that is stable. Lung bases: Normal CT/CT enterography IMPRESSION: Mild diverticulosis of the colon. Slightly distended loops of small bowel with small bowel feces sign suggestive of small bowel stasis. No evidence of active inflammatory bowel disease is seen. 1 cm enhancing round enhancing area in the body of the pancreas similar to previous exams. Appearance is questionable for a hypervascular pancreas lesion, particularly a neuroendocrine lesion. Stable small liver, splenic and right renal cysts. Fatty liver.
[2021-03-10] MEDS: Sorbitol/Mannit/Xanth Imaging 500 ML LIQUID 1500 ML PO (15:12)
[2021-03-10] MEDS: iohexoL 350 MG/ML 100 ML INFUS..BTL 85 ML IV (15:12)
== END 2021-03-10 13:59 | disposition home or self-care (01) ==
LOC: HO.US 13:58
PROVIDERS: Visit Provider Internal Medicine Gastroenterology
DX: R10.33 Periumbilical pain (principal)
CPT/HCPCS: 74177; Q9967

== ENCOUNTER 2021-03-25 12:55 | Outpatient (REF) | payer MEDICARE, OTHER, SELFPAY ==
--- NOTE | ~2021-03-25 | MM_ITS ---
EXAMINATION: MM DIAGNOSTIC DIGITAL BREAST TOMOSYNTHESIS, LEFT CLINICAL INFORMATION: Short interval six-month follow-up probable benign fibroglandular density anterior inferior left breast. Assess for developing density. The lifetime risk of breast cancer based on the Tyrer-Cuzick Model is 4%. COMPARISON: Mammography: 09/19/2020, 08/27/2020 (BI-RADS 0), 08/22/2019, 07/12/2018, targeted left breast ultrasound 09/19/2020. TECHNIQUE: Digital breast tomosynthesis is performed in both the craniocaudal and mediolateral oblique views along with computer-aided detection (CAD). Synthesized 2D images are generated from the tomosynthesis. FINDINGS: There are scattered areas of fibroglandular density (ACR BI-RADS breast composition Category b). Parenchymal pattern is similar to prior exam. There is no developing density or interval mass or architectural abnormality. There are no abnormal calcifications. The skin contours are smooth. Left breast will be reassessed again at time of annual bilateral mammography, due in 6 months. Results are provided to the patient at time of visit by the technologist. MM/MM tomosynthesis diagnostic LT IMPRESSION: No developing density. No significant changes. ASSESSMENT: BI-RADS 3: Probably Benign RECOMMENDATION: Diagnostic mammography at time of annual bilateral exam, due in 6 months. This patient's information was entered into a reminder system with a target due date for their next mammogram.
== END 2021-03-25 12:56 | disposition home or self-care (01) ==
LOC: HO.MAMMO 12:55
PROVIDERS: Visit Provider Family Medicine
DX: R92.2 Inconclusive mammogram (principal)
CPT/HCPCS: 77061; 77065

== ENCOUNTER → 2021-04-06 09:21 | Outpatient (BNVA) | payer MEDICARE, OTHER, SELFPAY | PROVIDERS: PCP Family Medicine; Visit Provider Hospitalist | DX: G47.33 Obstructive sleep apnea (adult) (pediatric) (principal); R91.1 Solitary pulmonary nodule | CPT/HCPCS: 99202 ==

== ENCOUNTER 2021-04-21 13:53 | Outpatient (REF) | payer MEDICARE, OTHER, SELFPAY ==
--- NOTE | ~2021-04-21 | CT_ITS ---
EXAMINATION: CT CHEST WITHOUT CONTRAST CLINICAL INFORMATION: Solitary pulmonary nodule. COMPARISON: CT abdomen and pelvis 02/02/2021. TECHNIQUE: Multidetector volumetric CT imaging of the chest was done. Axial MIP volume rendering provided. Sagittal and coronal reformatted images were obtained. This CT examination was performed using dose optimization techniques as appropriate, variously including the following: *Automated exposure control *Adjustment of mA and/or kV according to patient size (this includes techniques or standardized protocols for targeted exams where dose is matched to indication/reason for exam; i.e. extremities or head) *Use of iterative reconstruction technique DLP: 180 mGy-cm FINDINGS: SUPERVISOR LINE DEPARTMENT: Unremarkable. LUNGS: The lungs are well-expanded. There is a 3 mm intrabronchial nodule or debris, image 217/8; 3 mm intrabronchial nodule or debris right lower lobe, image 276/8; minimal peripheral bronchiolar thickening appearing target-like lesion image 24/8; few micronodules in the right lower lobe measuring less than 2 mm, axial image 301/8; target-like lesion right middle lobe, axial image 324/8; 3 mm lesion right middle lobe, axial image 373/8; 2 mm target-like lesion right middle lobe, axial image 366/8. No consolidation or mass seen. MEDIASTINUM: The thyroid lobes are symmetrical and normal. The central trachea and the bronchi are widely patent. Heart size and the great vessels are normal caliber. No abnormal-size mediastinal lymph nodes or mass seen. There is no pericardial effusion. PLEURA: There is no pleural effusion. No pleural mass or thickening. AXILLA: The axilla and the chest wall are unremarkable. UPPER ABDOMEN: 9 mm hypodense lesion is seen in the left hepatic lobe. No additional lesions seen. The gallbladder has been surgically removed. OSSEOUS STRUCTURES: No lytic or sclerotic process seen. CT/CT chest wo con IMPRESSION: Multiple intrabronchial nodules/debris and bronchial wall thickening appearing as target lesion suggestive of small vessel or terminal bronchiolar inflammatory or infectious etiology. The pulmonary nodule seen in the right middle lobe on the previous study is stable. There is no bronchiectasis. No mass or consolidation. No abnormal mediastinal or axillary lymph nodes seen.
== END 2021-04-21 13:54 | disposition home or self-care (01) ==
LOC: HO.CT 13:53
PROVIDERS: PCP Family Medicine; Visit Provider Hospitalist
DX: R91.1 Solitary pulmonary nodule (principal); K50.10 Crohn's disease of large intestine without complications; Z90.49 Acquired absence of other specified parts of digestive tract
CPT/HCPCS: 71250

== ENCOUNTER → 2021-04-22 12:59 | Outpatient (REF) | payer MEDICARE, OTHER, SELFPAY | LOC: HO.SL 12:59 | PROVIDERS: PCP Family Medicine; Visit Provider Hospitalist | DX: G47.33 Obstructive sleep apnea (adult) (pediatric) (principal) | CPT/HCPCS: 95806 ==

== ENCOUNTER 2021-05-28 07:53 | Outpatient (REF) | payer MEDICARE, OTHER, SELFPAY ==
[2021-05-28 09:01] LABS: Appearance Urine CLEAR; Color Urine YELLOW; Glucose Urine UA NEG (NEG); Leukocyte Esterase Urine 1+ (NEG); Nitrite Urine NEG (NEG); Specific Gravity - Urine 1.015 (1.005-1.025); Urine Blood NEG (NEG); Urine Ketones NEG (NEG); Urine Protein NEG (NEG-TRACE)
[2021-05-28 09:14] LABS: Hyaline Casts Urine 0-2 /LPF; RBC Urine 0 /HPF (0); Squamous Epithelial Cell Urine 2+ /LPF
[2021-05-28 09:34] LABS: Alanine Aminotransferase 15 U/L (0-31); Albumin Level 4.6 g/dL (3.5-5.0); Alkaline Phosphatase 132 U/L (39-117); Anion Gap 11 (12-20); Aspartate Amino Transferase 19 U/L (5-31); Bilirubin Total 0.4 mg/dL (0.0-1.0); Blood Urea Nitrogen 13 mg/dL (9-16); Calcium 10.2 mg/dL (8.4-10.2); Carbon Dioxide 25 mmol/L (22-29); Chloride 108 mmol/L (96-108); Cholesterol 212 mg/dL; Estimated Glomerular Filt Rate > 60; Glucose Fasting 111 mg/dL (60-99); HDL Cholesterol 54 mg/dL; LDL Cholesterol Calculated 139 mg/dl; Potassium 5.4 mmol/L (3.3-5.1); Sodium 139 mmol/L (135-145); Total Protein 7.4 g/dL (6.5-8.0); Triglycerides 96 mg/dL
[2021-05-28 09:56] LABS: TSH reflex Free T4 1.08 uIU/mL (0.32-4.0)
== END 2021-05-28 07:54 | disposition home or self-care (01) ==
LOC: HO.LAB 07:53
PROVIDERS: PCP Family Medicine; Visit Provider Family Medicine
DX: Z00.00 Encounter for general adult medical examination without abnormal findings (principal); K50.10 Crohn's disease of large intestine without complications
CPT/HCPCS: 36415; 80053; 80061; 81001; 81003; 84443

== ENCOUNTER 2021-06-18 10:24 | Day surgery (SDC) | payer MEDICARE, OTHER, SELFPAY ==
[2021-06-10 13:09] VITALS: BMI 23.8
--- NOTE | 2021-06-17 13:06 | P.CONAN_ITS ---
Documented by User: Aury Araujo NP 06/17/21 13:07 HPI - Anesthesia Eval Consult details Narrative: 66yo F for Colonoscopy Recent ear infx with drops rx'd 06/17/21 [facility] Active Problems Active Problems: All Active Problems (Updated 06/17/21 @ 08:41 by Nancy Roy NP) Recurrent otitis externa of left ear (Acute) Elevated fasting blood sugar (Acute) Abnormal breast exam (Acute) Encounter for immunization (Acute) Bilateral knee pain (Acute) Pain of left sacroiliac joint (Acute) Fatigue (Acute) Snoring (Acute) Burn of hand (Acute) Hyperlipidemia (Acute) Pancreas cyst (Acute) Postnasal drip (Acute) Otalgia of left ear (Acute) Otitis media, left (Acute) YASMIN (obstructive sleep apnea) (Acute) Pulmonary nodule (Acute) Crohn's colitis (Acute) Past Medical History Medical History (Updated 06/17/21 @ 08:41 by Nancy Roy NP) Arthritis Crohn's colitis Diverticulitis Environmental allergies GERD (gastroesophageal reflux disease) Hx of Lyme disease Hypertriglyceridemia YASMIN (obstructive sleep apnea) Pancreas cyst Pulmonary nodule Seasonal allergies Family History Family History Father CVD (cardiovascular disease) Mother Hypertension Brother Diabetes mellitus Sister Diabetes mellitus Surgical History Surgical History (Updated 06/10/21 @ 13:08 by Sarah Castillo RN) H/O colonoscopy History of cholecystectomy Social History Social History Household Members: Family Housing: House Do you presently have visiting nurse or other home services: No Patient Tobacco Use Status: Former Tobacco user Quit Date: 2015 Substance Use Type: Marijuana Are you DNR?: No Advance Directives: No Advance Directives Information Provided: Yes Advance Directives on File: No service: No Current occupational status: retired Meds Allergies Allergy/AdvReac Type Severity Reaction Status Date / Time methylprednisolone Allergy Severe Rash, Verified 06/17/21 08:25 [From Solu-Medrol] facial swelling Penicillins Allergy Severe ANAPHYLAXIS Verified 06/17/21 08:25 [place]naah-AOA-RhA Reductase Allergy Intermediate muscle Verified 06/17/21 08:25 Inhibitor aches [LCDDAAL-VHG-EDV REDUCTASE INHIBITOR] Home Medications Medication Instructions Recorded Confirmed Last Taken Type fluticasone propionate 50 1 spray INTRANASAL DAILY 02/02/21 06/17/21 Unknown History mcg/actuation nasal spray,suspension loratadine 10 mg tablet (Claritin) 10 mg PO DAILY PRN 02/02/21 06/17/21 Unknown History multivitamin 1 tab PO DAILY 02/02/21 06/17/21 02/02/21 History syringe with needle 3 mL 25 gauge #1 ea 03/05/21 06/17/21 Unknown History x 1 (BD Luer-Lucian Syringe) cetirizine 10 mg capsule (Zyrtec) 10 mg PO DAILY 06/10/21 06/17/21 Unknown History Exam Exam Date and Time: June 17, 2021 1306 Height,Weight and Vital Signs: Height 5 ft 2 in Weight 58.967 kg Assessment and Plan Assessment Anesthesia Assessment: Chart Reviewed Documented by User: Kristen Pastor MD 06/18/21 10:50 [facility] Past Medical History Medical History (Updated 06/17/21 @ 08:41 by Nancy Roy NP) Arthritis Crohn's colitis Diverticulitis Environmental allergies GERD (gastroesophageal reflux disease) Hx of Lyme disease Hypertriglyceridemia YASMIN (obstructive sleep apnea) Pancreas cyst Pulmonary nodule Seasonal allergies Family History Family History Father CVD (cardiovascular disease) Mother Hypertension Brother Diabetes mellitus Sister Diabetes mellitus Family history of problems with anesthesia: No Surgical History Surgical History (Updated 06/10/21 @ 13:08 by Sarah Castillo RN) H/O colonoscopy History of cholecystectomy History of Problems with Anesthesia: No Social History Social History Household Members: Family Housing: House Do you presently have visiting nurse or other home services: No Patient Tobacco Use Status: Former Tobacco user Quit Date: 2015 Substance Use Type: Marijuana Are you DNR?: No Advance Directives: No Advance Directives Information Provided: Yes Advance Directives on File: No service: No Current occupational status: retired Meds Allergies Allergy/AdvReac Type Severity Reaction Status Date / Time methylprednisolone Allergy Severe Rash, Verified 06/17/21 08:25 [From Solu-Medrol] facial swelling Penicillins Allergy Severe ANAPHYLAXIS Verified 06/17/21 08:25 Pusdorz-DMN-OpD Reductase Allergy Intermediate muscle Verified 06/17/21 08:25 Inhibitor aches [[id number] REDUCTASE INHIBITOR] Home Medications Medication Instructions Recorded Confirmed Last Taken Type fluticasone propionate 50 1 spray INTRANASAL DAILY 02/02/21 06/17/21 Unknown History mcg/actuation nasal spray,suspension loratadine 10 mg tablet (Claritin) 10 mg PO DAILY PRN 02/02/21 06/17/21 Unknown History multivitamin 1 tab PO DAILY 02/02/21 06/17/21 02/02/21 History syringe with needle 3 mL 25 gauge #1 ea 03/05/21 06/17/21 Unknown History x 1 (BD Luer-Lucian Syringe) cetirizine 10 mg capsule (Zyrtec) 10 mg PO DAILY 06/10/21 06/17/21 Unknown History Exam Airway Mallampati Class: II TM Dist: >3cm Neck ROM: Full Assessment and Plan Final Anesthetic Review Family History of Problems with Anesthesia: No History of Problems with Anesthesia: No NPO: Yes ASA Class: II Final Preanesthetic Review: No Changes in Pt Med Stat and Consent Obtained/Reviewed Patient Risk: Low Procedure Risk: Low Anesthetic Plan Anesthetic Plan: MAC: Disposition: Standard PACU
--- NOTE | 2021-06-18 10:36 | P.HPSUR_ITS ---
Pre-Procedural Eval Section A Date of Service: 06/18/21 Section B Chief Complaint: Screening Relevant Family History (Specify if Yes): No Relevant Social History: None (THC) Present Medications: see Short Stay Collaborative assessment Medical History: Significant History (Arthritis Crohn's colitis Diverticulitis Environmental allergies GERD (gastroesophageal reflux disease) Hx of Lyme disease Hypertriglyceridemia YASMIN (obstructive sleep apnea) Pancreas cyst Pulmonary nodule Seasonal allergies) History of Previous Operations: Relevant previous surgery/procedure and date(s) (H/O colonoscopy History of cholecystectomy) Allergies: Allergies Allergy/AdvReac Type Severity Reaction Status Date / Time methylprednisolone Allergy Severe Rash, Verified 06/17/21 08:25 [From Solu-Medrol] facial swelling Penicillins Allergy Severe ANAPHYLAXIS Verified 06/17/21 08:25 Phgzxop-VVB-PkA Reductase Allergy Intermediate muscle Verified 06/17/21 08:25 Inhibitor aches [PELQSGK-ZRS-TVR REDUCTASE INHIBITOR] Review of Systems Sugical H&P ROS: Negative: Constitution, Cardiovascular, Respiratory, Neurological, Psychiatric, Hem-Onc, Allergic/Immunologic, Gastrointestinal, Genitourinary, Musculoskeletal, Integumentary, Endocrine and Eyes/Ears /Nose/Throat Exam Surgical H&P Exam: Normal: HEENT, Normal: Heart, Normal: Lungs, Normal: Extremities, Normal: Abdomen, Normal: Skin and Normal: Neurological Plan Diagnosis/Plan: Unchanged I have reviewed the history and physical and performed a pertinent physical examination on my patient. No changes have occurred unless specified.
[2021-06-18] MEDS: Lactated Ringers 1,000 ML 100 ML IVCONT (11:13)
[2021-06-18 11:14] VITALS: BP 131/74; RESP 20
--- NOTE | 2021-06-18 11:15 | P.BOP_ITS ---
Brief Operative Note Date of Service: 06/18/21 Pre-op diagnosis: crohns disease Post-op diagnosis: same Procedure: see op note Surgeon: Mel Gerardo MD Anesthesia: MAC Was an French Translator used for this Procedure?: No Estimated blood loss (mL): 0 Condition: stable Disposition: PACU
--- NOTE | 2021-06-18 11:16 | P.OP_ITS ---
Operative Note Operative Note Date of Service: 06/18/21 Narrative: Operative Information Procedure Description: Colonoscopy COLONOSCOPY Instrument: Olympus variable stiffness pediatric scope 190L Colonoscopy Monitoring: Vital signs and clinical assessment, continuous EKG monitoring, Pulse oximetry, Carbon Dioxide monitoring and blood pressure monitoring were done throughout the procedure. Colon withdrawal time was 10 minutes. Procedure: The patient was placed in the left lateral decubitis position and pre-procedure medications were administered. After a digital rectal examination of the ano-rectum, the video colonoscope was inserted into the rectum and advanced through the colon to the cecum/TI. The colonoscope was slowly withdrawn in a retrograde panoramic fashion and the colon mucosa was carefully examined including a retroflexed view of the rectum. Findings and interventions are described below. Procedure Difficulty: easy Findings: Terminal Ileum-few erosions and mild erythema noted, bx taken bx taken from right colon, then left/transverse and rectum in separate jars Cecum:normal Ascending Colon: normal Transverse Colon -normal Descending Colon:normal Sigmoid Colon: normal Rectum: Retroflexion with small internal hemorrhoids, grade I, mild erythema in distal rectum, bx taken Anorectum - normal Colon preparation: [place] Bowel Preparation Scale Right colon; 3 Transverse colon: 3 Left colon; 3 (0 = Unprepared colon segment with mucosa not seen due to solid stool that cannot be cleared. 1 = Portion of mucosa of the colon segment seen, but other areas of the colon segment not well seen due to staining, residual stool and/or opaque liquid. 2 = Minor amount of residual staining, small fragments of stool and/or opaque liquid, but mucosa of colon segment seen well. 3 = Entire mucosa of colon segment seen well with no residual staining, small fragments of stool or opaque liquid) Impression and Post Procedure Diagnosis: ileitis mild proctitis internal hemorrhoids Plan: High fiber diet leaflet Avoid straining at stool, epsom salts and sitz bath, anusol supps or cream Repeat Colonoscopy in 3-5 years due to hx of crohns or earlier if clinically indicated o/p capsule endoscopy Above findings were reviewed with the patient and relevant handouts were provided if indicated.
[2021-06-18 11:45] VITALS: BP 116/59; PULSE 78; RESP 15; TEMP 36.4; O2SAT 100
[2021-06-18 12:01] VITALS: BP 108/69; PULSE 79; RESP 16; TEMP 36.3; O2SAT 100
== END 2021-06-18 12:27 | disposition home or self-care (01) ==
PROVIDERS: PCP Family Medicine; Visit Provider Internal Medicine Gastroenterology
PROC: 0DJD8ZZ Inspection of Lower Intestinal Tract, Via Natural or Artificial Opening Endoscopic (ICD-10-PCS; CPT 45378; principal; 2021-06-18 11:40)
DX: Z12.11 Encounter for screening for malignant neoplasm of colon (principal); K50.80 Crohn's disease of both small and large intestine without complications; K62.89 Other specified diseases of anus and rectum; K64.0 First degree hemorrhoids; K86.2 Cyst of pancreas; K21.9 Gastro-esophageal reflux disease without esophagitis; R53.83 Other fatigue; R73.01 Impaired fasting glucose; Z79.51 Long term (current) use of inhaled steroids; Z79.899 Other long term (current) drug therapy; Z88.0 Allergy status to penicillin; Z88.8 Allergy status to other drugs, medicaments and biological substances; Z90.49 Acquired absence of other specified parts of digestive tract; Z87.891 Personal history of nicotine dependence; F12.90 Cannabis use, unspecified, uncomplicated
CPT/HCPCS: 45380; 88305

== ENCOUNTER → 2021-08-19 08:26 | Outpatient (BNVA) | payer MEDICARE, OTHER, SELFPAY | PROVIDERS: PCP Family Medicine; Referring Provider Family Medicine; Visit Provider Internal Medicine Gastroenterology | DX: Z13.89 Encounter for screening for other disorder (principal) ==

== ENCOUNTER 2021-08-26 08:06 | Outpatient (REF) | payer MEDICARE, OTHER, SELFPAY ==
[2021-08-26 09:55] LABS: Blood Urea Nitrogen 18 mg/dL (9-16); Estimated Glomerular Filt Rate 57
[2021-08-26 10:08] LABS: Appearance Urine CLEAR; Color Urine YELLOW; Glucose Urine UA NEG (NEG); Leukocyte Esterase Urine TRACE (NEG); Nitrite Urine NEG (NEG); PH 5.5 (5.0-8.0); Specific Gravity - Urine >= 1.030 (1.005-1.025); Urine Blood NEG (NEG); Urine Ketones NEG (NEG); Urine Protein NEG (NEG-TRACE)
[2021-08-26 10:52] LABS: Mucus Urine 1+ /LPF; Renal Epithelial Cells Urine TRACE /LPF; Squamous Epithelial Cell Urine 1+ /LPF
[2021-08-26 10:53] LABS: RBC Urine 0-2 /HPF (0)
== END 2021-08-26 08:07 | disposition home or self-care (01) ==
LOC: HO.LAB 08:06
PROVIDERS: Absent Provider Family Medicine; PCP Family Medicine; Visit Provider Internal Medicine Gastroenterology
DX: K50.10 Crohn's disease of large intestine without complications (principal)
CPT/HCPCS: 36415; 81001; 82565; 84520

== ENCOUNTER → 2021-08-31 13:42 | Outpatient (BNVA) | payer MEDICARE, OTHER, SELFPAY | PROVIDERS: PCP Family Medicine; Referring Provider Family Medicine; Visit Provider Internal Medicine Gastroenterology | DX: K50.10 Crohn's disease of large intestine without complications (principal); Z98.890 Other specified postprocedural states | CPT/HCPCS: 99212 ==

== ENCOUNTER 2021-09-16 09:58 | Emergency (ER) | payer MEDICARE, OTHER, SELFPAY ==
--- NOTE | ~2021-09-16 | CT_ITS ---
EXAMINATION: CT ABDOMEN AND PELVIS WITH CONTRAST CLINICAL INFORMATION: Upper and right February 02, 2021 Lower quadrant pain. History of Crohn's. MRI of April 17, 2019 COMPARISON: None TECHNIQUE: Multidetector volumetric images were obtained from the superior aspect of the liver through the pubic symphysis following administration 85 mL of Omnipaque 350 intravenous contrast. Sagittal and coronal reformatted images were obtained on the technologist's workstation. Oral contrast: No This CT examination was performed using dose optimization techniques as appropriate, variously including the following: *Automated exposure control *Adjustment of mA and/or kV according to patient size (this includes techniques or standardized protocols for targeted exams where dose is matched to indication/reason for exam; i.e. extremities or head) *Use of iterative reconstruction technique DLP: 439 mGy-cm FINDINGS: LUNG BASES: The visualized lung bases are unremarkable. No pleural or pericardial effusion. LIVER, GALLBLADDER, AND BILIARY TREE: There are a few stable subcentimeter low-density lesions consistent with cyst within the liver largest being 8 mm in diameter within segment 2. No intrahepatic bile duct dilatation is seen. Status post cholecystectomy. PANCREAS: There is a 1.2 x 1.1 x 1.1 cm homogeneously enhancing lesion within the body of the pancreas. This has been present dating back to studies of February 22, 2019. SPLEEN: There is a stable low-density lesions seen within the anterior aspect of the spleen. ADRENAL GLANDS: Unremarkable. KIDNEYS AND URETERS: There are again noted to be some subcentimeter low-density lesions bilaterally consistent with cysts. There is fullness of the right upper collecting system and proximal right ureter but without definite radiopaque calculus or stricture identified. BLADDER: Unremarkable GASTROINTESTINAL TRACT: No dilated loops of large or small bowel are seen. No free fluid or free air is identified. There is sigmoid diverticulosis without evidence of acute diverticulitis. There is some fat within the wall of the terminal ileum without adjacent inflammatory stranding within fat. The appendix is not visualized. ABDOMINAL WALL: No significant hernia is appreciated. LYMPH NODES: No lymphadenopathy is seen. VASCULAR: Unremarkable. PELVIC VISCERA: Unremarkable. OSSEOUS STRUCTURES: No destructive bony lesions identified. There is a grade 1 spondylolisthesis L4-L5 with L4-L5 facet arthropathy bilaterally. CT/CT abdomen pelvis w con IMPRESSION: No evidence of free air or free fluid. No specific findings to suggest bowel obstruction. Terminal ileum with fat within its wall but without acute inflammatory change within adjacent fat. Stable pancreatic body lesion. Mild bilateral renal pelvic fullness right greater than left. Hepatic, renal, and splenic low-density lesions consistent with cysts.
[2021-09-16 10:03] VITALS: BP 160/94; PULSE 100; RESP 16; TEMP 36.2; O2SAT 100; BMI 23.0
--- NOTE | 2021-09-16 11:06 | ECG_ITS ---
Test Reason : ABDOMINAL PAIN Blood Pressure : / mmHG Vent. Rate : 069 BPM Atrial Rate : 069 BPM P-R Int : 160 ms QRS Dur : 078 ms QT Int : 360 ms P-R-T Axes : 047 064 051 degrees QTc Int : 385 ms Normal sinus rhythm Normal ECG When compared with ECG of 10-JAN-2020 17:43, No significant change was found Referred By: Marlene Correia Electronically Signed By:Albino Dyer
[2021-09-16] MEDS: 0.9 % Sodium Chloride 1,000 ML 999 ML IV (11:56)
[2021-09-16 12:02] LABS: MANUAL DIFF FLAG NO
[2021-09-16 12:03] LABS: Basophils Percent Auto 0.6 % (0-2); Eosinophils Absolute Auto 0.2 X10*3/uL (0.0-0.4); Eosinophils Percent Auto 2.3 % (0-4); Hematocrit 37.8 % (37.0-47.0); Hemoglobin 12.5 g/dl (12.0-16.0); Imm Gran Abs Auto 0.02 X10*3/uL (0.00-0.03); Imm Gran Pct Auto 0.3 % (0.0-0.4); Lymphocytes Absolute Auto 1.9 X10*3/uL (1.2-4.9); Lymphocytes Percent Auto 26.6 % (20-40); Mean Corpuscular HGB Conc 33.1 g/dl (31.0-35.0); Mean Corpuscular Volume 90.6 fL (80.0-98.0); Mean Platelet Volume 10.1 fL (9.4-12.3); Monocytes Absolute Auto 0.7 X10*3/uL (0.1-1.2); Monocytes Percent Auto 9.2 % (2-11); Neutrophils Absolute Auto 4.3 x10*3/uL (2.0-8.3); Platelet Count 392 X10*3/uL (160-400); Red Blood Count 4.17 X10*6/uL (4.20-5.50); Red Cell Distribution Width 12.6 % (11.0-16.0); White Blood Count 7.1 X10*3/uL (4.8-10.8)
[2021-09-16 12:03] LABS: Appearance Urine CLEAR; Color Urine STRAW; Glucose Urine UA NEG (NEG); Leukocyte Esterase Urine NEG (NEG); Nitrite Urine NEG (NEG); PH 5.5 (5.0-8.0); Specific Gravity - Urine <= 1.005 (1.005-1.025); Urine Blood NEG (NEG); Urine Ketones NEG (NEG); Urine Protein NEG (NEG-TRACE)
[2021-09-16 12:22] LABS: Alanine Aminotransferase 16 U/L (0-31); Albumin Level 4.7 g/dL (3.5-5.0); Alkaline Phosphatase 122 U/L (39-117); Anion Gap 12 (12-20); Aspartate Amino Transferase 20 U/L (5-31); Bilirubin Total 0.3 mg/dL (0.0-1.0); Blood Urea Nitrogen 15 mg/dL (9-16); Calcium 10.8 mg/dL (8.4-10.2); Carbon Dioxide 27 mmol/L (22-29); Chloride 107 mmol/L (96-108); Creatinine Clr Calc Pharmacy 53.8; Estimated Glomerular Filt Rate > 60; Glucose Random 101 mg/dL (60-115); Lipase 25 U/L (8-78); Magnesium 2.4 mg/dL (1.6-2.6); Potassium 4.6 mmol/L (3.3-5.1); Sodium 141 mmol/L (135-145); Total Protein 7.6 g/dL (6.5-8.0)
[2021-09-16 12:23] LABS: COVID-19 Test Negative (Negative); IDNOW Serial# 16C4AD1C
--- NOTE | 2021-09-16 12:24 | ED_ITS ---
HPI - Abdominal Pain General Chief Complaint: Abdominal Pain Stated Complaint: possible pancreatitis Time Seen by Provider: 09/16/21 10:02 Source: patient Mode of arrival: ambulatory History of Present Illness HPI narrative: 66-year-old female with a past medical history of Crohn's, diverticulitis, GERD, YASMIN, HLD, presenting to the ED complaining of LUQ upper abdominal pain since last night described as burning. Denies nausea, vomiting, diarrhea, dysuria/hematuria, fever, chills, flank pain, CP/SOB MD elicited complaint: abdominal pain Onset (ago): day(s) Related Data Home Medications Medication Instructions Recorded Confirmed fluticasone propionate 50 1 spray INTRANASAL DAILY 02/02/21 06/17/21 mcg/actuation nasal spray,suspension loratadine 10 mg tablet (Claritin) 10 mg PO DAILY PRN 02/02/21 06/17/21 multivitamin 1 tab PO DAILY 02/02/21 06/17/21 syringe with needle 3 mL 25 gauge #1 ea 03/05/21 06/17/21 x 1 (BD Luer-Lucian Syringe) Previous Rx's Medication Instructions Recorded syringe with needle, safety 3 mL #50 ea 10/02/20 25 gauge x 1 (BD SafetyGlide Syringe) metronidazole 500 mg tablet 500 mg PO Q12H #10 tab 02/04/21 cyanocobalamin (vitamin B-12) 1,000 mcg IM DIRECTED #25 ml 03/02/21 1,000 mcg/mL injection solution gemfibrozil 600 mg tablet 600 mg PO BID #180 tab 05/05/21 cephalexin 500 mg tablet 500 mg PO Q12H 10 Days #20 tab 07/03/21 cyclobenzaprine 10 mg tablet 10 mg PO BID PRN 10 Days #20 tab 07/08/21 famotidine 40 mg tablet 40 mg PO BID #90 tab 07/31/21 cholecalciferol (vitamin D3) 50 50 mcg PO DAILY #90 cap 08/31/21 mcg (2,000 unit) capsule (Vitamin D3) aluminum-mag hydroxide-simethicone 5 ml PO 5XD PRN #30 ml 09/16/21 200 mg-200 mg-20 mg/5 mL oral susp (Maalox Advanced) dicyclomine 20 mg tablet 20 mg PO TID 5 Days #15 tab 09/16/21 famotidine 20 mg tablet (Pepcid) 20 mg PO DAILY #14 tab 09/16/21 Allergies Allergy/AdvReac Type Severity Reaction Status Date / Time methylprednisolone Allergy Severe Rash, Verified 08/31/21 13:47 [From Solu-Medrol] facial swelling Penicillins Allergy Severe ANAPHYLAXIS Verified 08/31/21 13:47 [id number]-[id number] Reductase Allergy Intermediate muscle Verified 08/31/21 13:47 Inhibitor aches [[id number] REDUCTASE INHIBITOR] Review of Systems Review of Systems Constitutional: No Fever, No Chills, No Fatigue, No Malaise ENT/Mouth: No Ear Pain, No Nasal Congestion, No sore throat, No Rhinorrhea, No Swallowing Difficulty Eyes: No Eye Pain, No Swelling, No Redness, No Discharge Cardiovascular: No Chest Pain, No SOB, No Edema, No Palpitations Respiratory: No Cough, No Sputum, No Dyspnea Gastrointestinal: No Nausea, No Vomiting, No Diarrhea, No Constipation, + Abdominal pain Genitourinary: No Dysuria, No Urinary Frequency, No Hematuria, No Urinary Incontinence, No Urgency, No Flank Pain, No Urinary Flow Changes Musculoskeletal: No joint pain, No Myalgias, No Joint Swelling Skin: No Skin Lesions, No rash Neuro: No Weakness, No Numbness, No Dizziness, No Headache Yes all other systems are reviewed and are negative [facility] Past Medical History Attestation statement: The following information was validated with the patient. Medical History Arthritis Crohn's colitis Diverticulitis Environmental allergies GERD (gastroesophageal reflux disease) Hx of Lyme disease Hypertriglyceridemia YASMIN (obstructive sleep apnea) Pancreas cyst Pulmonary nodule Seasonal allergies Surgical History H/O colonoscopy History of cholecystectomy Family History Family History Father CVD (cardiovascular disease) Mother Hypertension Brother Diabetes mellitus Sister Diabetes mellitus Other Mental health disorder Social History Social History Household Members: Family Housing: House Do you presently have visiting nurse or other home services: No Patient Tobacco Use Status: Former Tobacco user Quit Date: 2015 e-Cigarette/Vaping Use: Never Used Substance Use Type: Marijuana Advance Directives: No Advance Directives Information Provided: No service: No Current occupational status: retired Cognitive needs: No Hearing needs: No Vision needs: No Physical Exam ED Vital Signs: Vital Signs - 24 hr 09/16/21 10:03 09/16/21 12:26 09/16/21 13:44 Temperature 97.2 F 97.7 F Pulse Rate 100 86 86 Respiratory Rate 16 16 16 Blood Pressure 160/94 H 138/75 135/61 Pulse Oximetry 100 100 98 09/16/21 15:19 Temperature Pulse Rate 82 Respiratory Rate 18 Blood Pressure 134/59 L Pulse Oximetry 100 BMI result Body Mass Index 23.0 Const General: cooperative, healthy appearing, no acute distress, alert and awake Orientation/consciousness: patient oriented x3 Limitations: no limitations HENMT Head: Yes normal to inspection Ears: hearing grossly normal bilaterally General nose exam: Normal external nose present Face and sinus: Yes normal facial exam Eyes General: appearance normal, both eyes and all related structures EOM: EOMs intact bilaterally Neck Neck: Yes normal visual inspection and Yes no meningeal signs Resp Effort & Inspection: normal respiratory effort and no respiratory distress Auscultation: clear to auscultation bilaterally, no rales, no rhonchi and no wheezes Cardio Rate: regular rate Heart sounds: S1 normal heart sound present and S2 normal heart sound present GI Inspection: Yes normal to inspection Palpation (GI): Soft to palpation, Tenderness to palpation present (GI) in the epigastrum, in the LLQ, in the RLQ and in the RUQ, no guarding and not rigid General: Yes no CVA tenderness Back/Spine/Pelvis Back: no CVA tenderness Skin Rashes: no rashes Wounds: no wounds Neuro General: patient oriented x3 and no meningeal signs Gait exam (Neuro): Normal gait present Extrem General: Yes normal to inspection Course Course Course Narrative: -no leukocytosis. H&H stable. Labs otherwise unremarkable. UA negative -ESR elevated to 36, ESR wnl. COVID negative -1523--CT abdomen pelvis w con IMPRESSION: No evidence of free air or free fluid. No specific findings to suggest bowel obstruction. Terminal ileum with fat within its wall but without acute inflammatory change within adjacent fat. Stable pancreatic body lesion. Mild bilateral renal pelvic fullness right greater than left. Hepatic, renal, and splenic low-density lesions consistent with cysts. >> case discussed with patient's GI doctor, Dr. Gerardo -Unlikely colitis based on patient's labs and CT. Patient given GI cocktail. Labs and imaging discussed, reports symptomatic improvement since ED arrival. Discussed worrisome signs and symptoms and strict return precautions and needed close follow-up with PCP/GI, she verbalized understanding feel safe for discharge home at this time MDM - Abdominal Pain MDM Narrative Medical decision making narrative: 66-year-old female with a past medical history of Crohn's, diverticulitis, GERD, YASMIN, HLD, presenting to the ED complaining of LUQ upper abdominal pain since last night described as burning. On exam vital signs stable, NAD/nontoxic, con cern for pancreatitis vs appendicitis vs cholecystitis/cholelithiasis vs Crohn's flare vs early shingles without noted rash yet. Plan: EKG, Labs, UA, CT abdomen/pelvis, IVF, re-evaluation Differential Diagnosis Differential diagnosis: Likely abdominal pain, acute appendicitis, diverticulitis, gastroenteritis, gastritis, pancreatitis and small bowel obstruction Medical Records Attestation: I reviewed the patient's medical records. Lab Data Attestation: I reviewed the patient's lab results. Result diagrams: 09/16/21 11:51 09/16/21 11:51 Labs: Lab Results 09/16/21 09/16/21 09/16/21 Range/Units 11:51 11:51 11:51 WBC 7.1 (4.8-10.8) X10*3/uL RBC 4.17 L (4.20-5.50) X10*6/uL Hgb 12.5 (12.0-16.0) g/dl Hct 37.8 (37.0-47.0) % MCV 90.6 (80.0-98.0) fL MCH 30.0 (27.0-33.0) pg MCHC 33.1 (31.0-35.0) g/dl RDW 12.6 (11.0-16.0) % Plt Count 392 (160-400) X10*3/uL MPV 10.1 (9.4-12.3) fL Immature Gran % (Auto) 0.3 (0.0-0.4) % Neut % (Auto) 61.0 (45-73) % Lymph % (Auto) 26.6 (20-40) % [place] % (Auto) 9.2 (2-11) % Eos % (Auto) 2.3 (0-4) % Baso % (Auto) 0.6 (0-2) % Lymph # (Auto) 1.9 (1.2-4.9) X10*3/uL [place] # (Auto) 0.7 (0.1-1.2) X10*3/uL Eos # (Auto) 0.2 (0.0-0.4) X10*3/uL Baso # (Auto) 0.0 (0.0-0.2) X10*3/uL Abs Immat Gran (auto) 0.02 (0.00-0.03) X10*3/uL Absolute Neuts (auto) 4.3 (2.0-8.3) x10*3/uL Absolute Nucleated RBC 0.000 (0.0-0.012) X10*3/uL Nucleated RBC % (auto) 0.0 (0.0-0.2) /100WBC ESR (0-20) MM/HR Sodium 141 (135-145) mmol/L Potassium 4.6 (3.3-5.1) mmol/L Chloride 107 (96-108) mmol/L Carbon Dioxide 27 (22-29) mmol/L Anion Gap 12 (12-20) BUN 15 (9-16) mg/dL Creatinine 0.85 (0.5-1.4) mg/dL Estim Creat Clear Calc 53.8 Estimated GFR > 60 Random Glucose 101 (60-115) mg/dL Calcium 10.8 H (8.4-10.2) mg/dL Magnesium 2.4 (1.6-2.6) mg/dL Total Bilirubin 0.3 (0.0-1.0) mg/dL Direct Bilirubin < 0.2 (0.0-0.5) mg/dL AST 20 (5-31) U/L ALT 16 (0-31) U/L Alkaline Phosphatase 122 H (39-117) U/L C-Reactive Protein 0.24 (< or = 0.50) mg/dL Total Protein 7.6 (6.5-8.0) g/dL Albumin 4.7 (3.5-5.0) g/dL Lipase 25 (8-78) U/L Urine Color Urine Appearance Urine pH (5.0-8.0) Ur Specific Natalia (1.005-1.025) Urine Protein (NEG-TRACE) MG/DL Urine Glucose (UA) (NEG) MG/DL Urine Ketones (NEG) MG/DL Urine Blood (NEG) Urine Nitrite (NEG) Ur Leukocyte Esterase (NEG) COVID-19 (ROCK) Negative (Negative) COVID-19 Clin Com See Note 09/16/21 09/16/21 Range/Units 11:51 11:55 WBC (4.8-10.8) X10*3/uL RBC (4.20-5.50) X10*6/uL Hgb (12.0-16.0) g/dl Hct (37.0-47.0) % MCV (80.0-98.0) fL MCH (27.0-33.0) pg MCHC (31.0-35.0) g/dl RDW (11.0-16.0) % Plt Count (160-400) X10*3/uL MPV (9.4-12.3) fL Immature Gran % (Auto) (0.0-0.4) % Neut % (Auto) (45-73) % Lymph % (Auto) (20-40) % [place] % (Auto) (2-11) % Eos % (Auto) (0-4) % Baso % (Auto) (0-2) % Lymph # (Auto) (1.2-4.9) X10*3/uL [place] # (Auto) (0.1-1.2) X10*3/uL Eos # (Auto) (0.0-0.4) X10*3/uL Baso # (Auto) (0.0-0.2) X10*3/uL Abs Immat Gran (auto) (0.00-0.03) X10*3/uL Absolute Neuts (auto) (2.0-8.3) x10*3/uL Absolute Nucleated RBC (0.0-0.012) X10*3/uL Nucleated RBC % (auto) (0.0-0.2) /100WBC ESR 36 H (0-20) MM/HR Sodium (135-145) mmol/L Potassium (3.3-5.1) mmol/L Chloride (96-108) mmol/L Carbon Dioxide (22-29) mmol/L Anion Gap (12-20) BUN (9-16) mg/dL Creatinine (0.5-1.4) mg/dL Estim Creat Clear Calc Estimated GFR Random Glucose (60-115) mg/dL Calcium (8.4-10.2) mg/dL Magnesium (1.6-2.6) mg/dL Total Bilirubin (0.0-1.0) mg/dL Direct Bilirubin (0.0-0.5) mg/dL AST (5-31) U/L ALT (0-31) U/L Alkaline Phosphatase (39-117) U/L C-Reactive Protein (< or = 0.50) mg/dL Total Protein (6.5-8.0) g/dL Albumin (3.5-5.0) g/dL Lipase (8-78) U/L Urine Color STRAW Urine Appearance CLEAR Urine pH 5.5 (5.0-8.0) Ur Specific Natalia <= 1.005 (1.005-1.025) Urine Protein NEG (NEG-TRACE) MG/DL Urine Glucose (UA) NEG (NEG) MG/DL Urine Ketones NEG (NEG) MG/DL Urine Blood NEG (NEG) Urine Nitrite NEG (NEG) Ur Leukocyte Esterase NEG (NEG) COVID-19 (ROCK) (Negative) COVID-19 Clin Com Discharge Plan Discharge Clinical Impression: Abdominal pain Patient Disposition: Home, Self-Care Instructions: Abdominal Pain (ED) Additional Instructions: Your blood work and CT scan were reassuring today in the emergency department Maalox and Pepcid will help with abdominal acid reduction Bentyl is an antispasmodic Please make sure tolerating enough fluids. Practice bland diet Is possible you have early shingles without a rash, keep a close eye on area, if you do develop a rash please follow-up with her PCP If symptoms persist or worsen, pain becomes unbearable, he developed fever, diarrhea, persistent nausea or vomiting please return to the ED Prescriptions: New famotidine [Pepcid] 20 mg tablet 20 mg PO DAILY Qty: 14 0RF alum-mag hydroxide-simeth [Maalox Advanced] 200-200-20 mg/5 mL suspension 5 ml PO 5XD PRN (Reason: dyspepsia) Qty: 30 0RF Rx Instructions: administer between meals and at bedtime dicyclomine 20 mg tablet 20 mg PO TID 5 Days Qty: 15 0RF No Action (DME) BD SafetyGlide Syringe 3 mL 25 gauge x 1 syringe See Rx Instructions .ROUTE .MEDSUPPLY Qty: 50 1RF Rx Instructions: As directed cyanocobalamin (vitamin B-12) 1,000 mcg/mL solution 1,000 mcg IM DIRECTED Qty: 25 2RF gemfibrozil 600 mg tablet 600 mg PO BID Qty: 180 2RF famotidine 40 mg tablet 40 mg PO BID Qty: 90 1RF multivitamin Tablet 1 tab PO DAILY 0RF fluticasone propionate 50 mcg/actuation [place],Suspension 1 spray INTRANASAL DAILY 0RF loratadine [Claritin] 10 mg Tablet 10 mg PO DAILY PRN (Reason: Allergy Symptoms) 0RF metronidazole 500 mg Tablet 500 mg PO Q12H Qty: 10 0RF (DME) BD Luer-Lucian Syringe 3 mL 25 gauge x 1 syringe See Rx Instructions ea .ROUTE DIRECTED Qty: 1 0RF Rx Instructions: As directed cephalexin 500 mg tablet 500 mg PO Q12H 10 Days Qty: 20 0RF cyclobenzaprine 10 mg tablet 10 mg PO BID PRN (Reason: muscle spasm) 10 Days Qty: 20 0RF cholecalciferol (vitamin D3) [Vitamin D3] 50 mcg (2,000 unit) capsule 50 mcg PO DAILY Qty: 90 0RF Referrals: Lopez Cote MD [Primary Care Provider] - 2 days Mel Gerardo MD [Physician] - 5 days
[2021-09-16 12:26] VITALS: BP 138/75; PULSE 86; RESP 16; TEMP 36.5; O2SAT 100
[2021-09-16 12:38] LABS: Bilirubin Direct < 0.2 mg/dL (0.0-0.5)
[2021-09-16 13:15] LABS: C Reactive Protein 0.24 mg/dL (< or = 0.50)
[2021-09-16 13:44] VITALS: BP 135/61; PULSE 86; RESP 16; O2SAT 98
[2021-09-16] MEDS: iohexoL 350 MG/ML 100 ML INFUS..BTL IV (13:54)
[2021-09-16 13:58] LABS: Erythrocyte Sedimentation Rate 36 MM/HR (0-20)
[2021-09-16 15:19] VITALS: BP 134/59; PULSE 82; RESP 18; O2SAT 100
== END 2021-09-16 16:20 | disposition home or self-care (01) ==
PROVIDERS: Physician Assistant; Emergency Provider Emergency Medicine; PCP Family Medicine
DX: R10.12 Left upper quadrant pain (principal); Z20.822 Contact with and (suspected) exposure to COVID-19; K50.10 Crohn's disease of large intestine without complications
CPT/HCPCS: 36415; 74177; 80048; 80076; 81003; 83690; 83735; 85025; 85652; 86140; 87635; 93005; 96361; 96374; 99284; Q9967

== ENCOUNTER 2021-09-25 09:13 | Outpatient (REF) | payer MEDICARE, OTHER, SELFPAY ==
--- NOTE | ~2021-09-25 | MR_ITS ---
EXAMINATION: MR ABDOMEN AND PELVIS WITH AND WITHOUT CONTRAST CLINICAL INFORMATION: Crohn's disease of the large intestine. COMPARISON: Previous CT of the abdomen and pelvis September [address] enterography February 2021. TECHNIQUE: Sagittal axial and coronal sequences through the abdomen and pelvis with and without IV contrast and following 3, 500 mL bottles of oral Breeza contrast. Patient received 6 mL Gadavist contrast. Exam is limited due to motion. FINDINGS: The lung bases are clear. The liver is normal in size, shape and contour. There is slight signal loss in the liver on [id number] sequences suggestive of mild fatty infiltration. There is a 1 cm cyst in the lateral segment of the left lobe of the liver. No other focal liver lesion is seen. The gallbladder has been removed. There is no biliary duct dilatation. The pancreas is normal. There is a 1 cm lesion in the anterior spleen that is stable and probably represents a small hemangioma. The adrenal glands are normal. There are small right renal cysts. The kidneys are otherwise normal. Evaluation of the bowel is limited due to motion. There is mild diverticulosis of the colon. There is stool throughout the colon suggestive of constipation. No abnormal wall thickening or abnormal signal or enhancement is seen in the colon to suggest active colitis. There is mild wall thickening of the terminal ileum. There is question of mild enhancement. The small bowel is otherwise unremarkable. The appendix is not seen. The stomach is unremarkable. No adenopathy, prominent vasa recta, abscess or sinus tract or fistula is seen. The rectum is normal. The bladder is unremarkable. The uterus and adnexa are unremarkable. No ascites or adenopathy is seen. Vascular structures are normal. There is no hernia. There is mild anterior subluxation of L4 with respect to L5. MR/MR abdomen wo/w con IMPRESSION: Diverticulosis of the colon and stool throughout the colon suggestive of constipation. No evidence of active colitis seen. Mild wall thickening of the terminal ileum and question mild enhancement.
--- NOTE | ~2021-09-25 | MR_ITS ---
EXAMINATION: MR ABDOMEN AND PELVIS WITH AND WITHOUT CONTRAST CLINICAL INFORMATION: Crohn's disease of the large intestine. COMPARISON: Previous CT of the abdomen and pelvis September [address] enterography February 2021. TECHNIQUE: Sagittal axial and coronal sequences through the abdomen and pelvis with and without IV contrast and following 3, 500 mL bottles of oral Breeza contrast. Patient received 6 mL Gadavist contrast. Exam is limited due to motion. FINDINGS: The lung bases are clear. The liver is normal in size, shape and contour. There is slight signal loss in the liver on [id number] sequences suggestive of mild fatty infiltration. There is a 1 cm cyst in the lateral segment of the left lobe of the liver. No other focal liver lesion is seen. The gallbladder has been removed. There is no biliary duct dilatation. The pancreas is normal. There is a 1 cm lesion in the anterior spleen that is stable and probably represents a small hemangioma. The adrenal glands are normal. There are small right renal cysts. The kidneys are otherwise normal. Evaluation of the bowel is limited due to motion. There is mild diverticulosis of the colon. There is stool throughout the colon suggestive of constipation. No abnormal wall thickening or abnormal signal or enhancement is seen in the colon to suggest active colitis. There is mild wall thickening of the terminal ileum. There is question of mild enhancement. The small bowel is otherwise unremarkable. The appendix is not seen. The stomach is unremarkable. No adenopathy, prominent vasa recta, abscess or sinus tract or fistula is seen. The rectum is normal. The bladder is unremarkable. The uterus and adnexa are unremarkable. No ascites or adenopathy is seen. Vascular structures are normal. There is no hernia. There is mild anterior subluxation of L4 with respect to L5. MR/MR pelvis wo/w con IMPRESSION: Diverticulosis of the colon and stool throughout the colon suggestive of constipation. No evidence of active colitis seen. Mild wall thickening of the terminal ileum and question mild enhancement.
== END 2021-09-25 09:14 | disposition home or self-care (01) ==
LOC: HO.MRI 09:13
PROVIDERS: Visit Provider Internal Medicine Gastroenterology
DX: K50.10 Crohn's disease of large intestine without complications (principal)
CPT/HCPCS: 72197; 74183

== ENCOUNTER 2021-09-28 09:22 | Outpatient (REF) | payer MEDICARE, OTHER, SELFPAY ==
--- NOTE | ~2021-09-28 | MM_ITS ---
EXAMINATION: MM DIAGNOSTIC DIGITAL BREAST TOMOSYNTHESIS, BILATERAL CLINICAL INFORMATION: Due for yearly. Also follow-up probable benign fibroglandular density anterior inferior left breast. No known family history breast cancer. The lifetime risk of breast cancer based on the Tyrer-Cuzick Model is 4%. COMPARISON: Mammography: 03/25/2021, 09/19/2020, 08/27/2020 (BI-RADS 0), 02/11/2020, 08/22/2019, targeted left breast ultrasound 09/19/2020. TECHNIQUE: Digital breast tomosynthesis is performed in both the craniocaudal and mediolateral oblique views along with computer-aided detection (CAD). Synthesized 2D images are generated from the tomosynthesis. FINDINGS: There are scattered areas of fibroglandular density (ACR BI-RADS breast composition Category b). Parenchymal pattern is similar to prior studies. There is no interval mass or architectural abnormality or abnormal calcifications. There is no developing density in the area of recent concern anterior inferior left breast. Left breast will be reassessed again at time of annual bilateral exam, due in 12 months. The axilla and skin contours are unremarkable. No significant changes. Results are provided to the patient at time of visit by the technologist. MM/MM tomosynthesis diagnostic BI IMPRESSION: No mammographic evidence of malignancy. No developing density anterior inferior left breast. ASSESSMENT: BI-RADS 3: Probably Benign RECOMMENDATION: Diagnostic mammography at time of next annual exam, due in 12 months. This patient's information was entered into a reminder system with a target due date for their next mammogram.
== END 2021-09-28 09:23 | disposition home or self-care (01) ==
LOC: HO.MAMMO 09:22
PROVIDERS: Visit Provider Family Medicine
DX: R92.2 Inconclusive mammogram (principal)
CPT/HCPCS: 77062; 77066

== ENCOUNTER 2021-11-01 10:43 | Emergency (ER) | payer MEDICARE, OTHER, SELFPAY ==
--- NOTE | ~2021-11-01 | CT_ITS ---
EXAMINATION: CT ABDOMEN AND PELVIS WITH CONTRAST CLINICAL INFORMATION: 66-year-old female with abdominal pain, distention, vomiting, nausea COMPARISON: 09/16/2021 TECHNIQUE: Multidetector volumetric images were obtained from the superior aspect of the liver through the pubic symphysis following administration 85 mL of Omnipaque 350 intravenous contrast. Sagittal and coronal reformatted images were obtained on the technologist's workstation. Oral contrast: No This CT examination was performed using dose optimization techniques as appropriate, variously including the following: *Automated exposure control *Adjustment of mA and/or kV according to patient size (this includes techniques or standardized protocols for targeted exams where dose is matched to indication/reason for exam; i.e. extremities or head) *Use of iterative reconstruction technique DLP: 427 mGy-cm FINDINGS: LUNG BASES: There is 0.2 cm nodule in the right medial lobe LIVER, GALLBLADDER, AND BILIARY TREE: The liver is normal in size, shape, and attenuation. There is 1.1 cm cyst in the left hepatic lobe stable since previous study. Or biliary ductal dilatation is present. Gallbladder is surgically absent. PANCREAS: Negative all lesion in the pancreatic body identified measured 1.1 x 1.2 x 1.1 cm. SPLEEN: Unremarkable. ADRENAL GLANDS: Unremarkable. KIDNEYS AND URETERS: Small cortical cysts seen through the right kidney stable since previous study. There is no hydroureteronephrosis bilaterally and no nephrolithiasis. BLADDER: Unremarkable. GASTROINTESTINAL TRACT: The small and large bowel are unremarkable. The appendix is not identified ABDOMINAL WALL: No significant hernia is appreciated. LYMPH NODES: Normal. VASCULAR: Unremarkable. PELVIC VISCERA: Unremarkable. OSSEOUS STRUCTURES: There is grade 1 anterior listhesis of L4 over L5 and facets hypertrophy at the level of L4 -L5 and L5-S1 CT/CT abdomen pelvis w con IMPRESSION: Stable pancreatic body lesion, stable mild right renal cysts. Stable cyst in the liver. Right middle lobe nodule. Fleischner guidelines were followed.
[2021-11-01 11:33] VITALS: BP 175/84; PULSE 78; RESP 18; TEMP 36.1; O2SAT 100; BMI 23.0
--- NOTE | 2021-11-01 12:42 | ED_ITS ---
HPI - Abdominal Pain General Chief Complaint: Abdominal Pain Stated Complaint: Crohns flare Time Seen by Provider: 11/01/21 12:31 Source: patient Mode of arrival: ambulatory Limitations: no limitations History of Present Illness HPI narrative: 66 y/o female with history of Crohn's disease of the small and large intestine, pancreatic lesion, who presents to the ER for reports of abdominal aching and bloating that started 4 days ago. patient reports 4 days ago she had acute onset of several episodes of nonbloody loose stools and some intermittent bloating. The next day she had 1 episode of vomiting after eating toast in the morning, with decreased appetite throughout that day. Yesterday she was feeling normal. Last night she started developing recurrent abdominal distension and soreness / achiness of the abdomen. Her daughter noted her belly was significantly distended this morning so she came to the ER for further evaluation. MD elicited complaint: abdominal pain Pertinent past history: other ( Crohn's disease) Onset (ago): day(s) (4) Pain Consistency: intermittent Location: diffuse Severity: moderate Quality: aching Radiation: none Migration to: no migration Exacerbating factors: eating Relieving factors: nothing Associated symptoms: nausea, vomiting and diarrhea Related Data Home Medications Medication Instructions Recorded Confirmed fluticasone propionate 50 1 spray INTRANASAL DAILY 02/02/21 06/17/21 mcg/actuation nasal spray,suspension loratadine 10 mg tablet (Claritin) 10 mg PO DAILY PRN 02/02/21 06/17/21 multivitamin 1 tab PO DAILY 02/02/21 06/17/21 syringe with needle 3 mL 25 gauge #1 ea 03/05/21 06/17/21 x 1 (BD Luer-Lucian Syringe) Previous Rx's Medication Instructions Recorded syringe with needle, safety 3 mL #50 ea 10/02/20 25 gauge x 1 (BD SafetyGlide Syringe) metronidazole 500 mg tablet 500 mg PO Q12H #10 tab 02/04/21 gemfibrozil 600 mg tablet 600 mg PO BID #180 tab 05/05/21 cephalexin 500 mg tablet 500 mg PO Q12H 10 Days #20 tab 07/03/21 cyclobenzaprine 10 mg tablet 10 mg PO BID PRN 10 Days #20 tab 07/08/21 famotidine 40 mg tablet 40 mg PO BID #90 tab 07/31/21 aluminum-mag hydroxide-simethicone 5 ml PO 5XD PRN #30 ml 09/16/21 200 mg-200 mg-20 mg/5 mL oral susp (Maalox Advanced) dicyclomine 20 mg tablet 20 mg PO TID 5 Days #15 tab 09/16/21 famotidine 20 mg tablet (Pepcid) 20 mg PO DAILY #14 tab 09/16/21 cholecalciferol (vitamin D3) 50 50 mcg PO DAILY #90 cap 10/08/21 mcg (2,000 unit) capsule (Vitamin D3) cyanocobalamin (vitamin B-12) 1,000 mcg IM DIRECTED #3 ml 10/08/21 1,000 mcg/mL injection solution Allergies Allergy/AdvReac Type Severity Reaction Status Date / Time methylprednisolone Allergy Severe Rash, Verified 08/31/21 13:47 [From Solu-Medrol] facial swelling Penicillins Allergy Severe ANAPHYLAXIS Verified 08/31/21 13:47 Gytases-WKL-FdR Reductase Allergy Intermediate muscle Verified 08/31/21 13:47 Inhibitor aches [[id number] REDUCTASE INHIBITOR] Review of Systems Review of Systems Constitutional: No Fever, No Chills ENT/Mouth: No sore throat, No Rhinorrhea, No Swallowing Difficulty Eyes: No Eye Pain, No Swelling, No Redness Cardiovascular: No Chest Pain, No SOB, No Orthopnea, No Edema Respiratory: No Cough, No Sputum, No Wheezing, No dyspnea Gastrointestinal: + Nausea, +Vomiting, + Diarrhea, + abdominal Pain, No Hematochezia, No Melena Genitourinary: No Dysuria, No Urinary Frequency, No Hematuria Musculoskeletal: No joint pain, No Myalgias Skin: No Skin Lesions, No rash Neuro: No Weakness, No Numbness, No Dizziness, No Headache Psych: + Anxiety/Panic, No Depression Heme/Lymph: No Bruising, No Lymphadenopathy Endocrine: No Polyuria, No Polydipsia PMFSH Past Medical History Medical History Arthritis Crohn's colitis Diverticulitis Environmental allergies GERD (gastroesophageal reflux disease) Hx of Lyme disease Hypertriglyceridemia YASMIN (obstructive sleep apnea) Pancreas cyst Pulmonary nodule Seasonal allergies Surgical History H/O colonoscopy History of cholecystectomy Family History Family History Father CVD (cardiovascular disease) Mother Hypertension Brother Diabetes mellitus Sister Diabetes mellitus Other Mental health disorder Social History Social History Household Members: Family Housing: House Do you presently have visiting nurse or other home services: No Patient Tobacco Use Status: Former Tobacco user Quit Date: 2015 e-Cigarette/Vaping Use: Never Used Substance Use Type: Marijuana Advance Directives: No service: No Current occupational status: retired Cognitive needs: No Hearing needs: No Vision needs: No Physical Exam ED Vital Signs: Vital Signs - 24 hr 11/01/21 11:33 11/01/21 16:08 Temperature 97.0 F 97.6 F Pulse Rate 78 73 Respiratory Rate 18 16 Blood Pressure 175/84 H 125/63 Pulse Oximetry 100 97 BMI result Body Mass Index 23.0 Course Course Course Narrative: 66-year-old female with a history of question Crohn's disease not on any current therapy who presents to the ER with 34 days have intermittent loose stools, abdominal bloating and discomfort. She denies the presence of pain is just sore and she is significantly distended this morning. She is passing gas and not vomiting today. She tolerated some oatmeal this morning with some discomfort. examination she is slightly distended but soft. Will get lab workup and CT scan for further evaluation. Reevaluation(s) Reevaluation #1: Labs show mildly elevated ESR and CRP. These are nonspecific. Her flu and COVID are negative. She appears well. Her abdomen remains soft. CT scan done does not show any evidence of acute colitis or Crohn's flare. Case was dis cussed with Dr. White, at this time she does not require inpatient level of care or any oral steroids given no colitis or inflammatory changes were seen on CT scan. Patient would like to hold off on budesonide, which has worked for her in the past given there are no findings of inflammation on the scan. She will follow-up with Dr. Gerardo and give a trial of simethicone for bloating. Stable for DC. MDM - Abdominal Pain Lab Data Result diagrams: 11/01/21 13:09 11/01/21 13:09 Labs: Lab Results 11/01/21 11/01/21 11/01/21 Range/Units 13:09 13:09 13:09 WBC 6.4 (4.8-10.8) X10*3/uL RBC 4.03 L (4.20-5.50) X10*6/uL Hgb 12.1 (12.0-16.0) g/dl Hct 35.3 L (37.0-47.0) % MCV 87.6 (80.0-98.0) fL MCH 30.0 (27.0-33.0) pg MCHC 34.3 (31.0-35.0) g/dl RDW 12.0 (11.0-16.0) % Plt Count 401 H (160-400) X10*3/uL MPV 9.9 (9.4-12.3) fL Immature Gran % (Auto) 0.2 (0.0-0.4) % Neut % (Auto) 54.0 (45-73) % Lymph % (Auto) 33.4 (20-40) % [place] % (Auto) 9.7 (2-11) % Eos % (Auto) 2.2 (0-4) % Baso % (Auto) 0.5 (0-2) % Lymph # (Auto) 2.1 (1.2-4.9) X10*3/uL [place] # (Auto) 0.6 (0.1-1.2) X10*3/uL Eos # (Auto) 0.1 (0.0-0.4) X10*3/uL Baso # (Auto) 0.0 (0.0-0.2) X10*3/uL Abs Immat Gran (auto) 0.01 (0.00-0.03) X10*3/uL Absolute Neuts (auto) 3.4 (2.0-8.3) x10*3/uL Absolute Nucleated RBC 0.000 (0.0-0.012) X10*3/uL Nucleated RBC % (auto) 0.0 (0.0-0.2) /100WBC ESR 44 H (0-20) MM/HR PT 11.7 (9.9-13.0) SEC INR 1.0 (0.9-1.1) APTT 31.2 (24.1-38.0) SEC Sodium (135-145) mmol/L Potassium (3.3-5.1) mmol/L Chloride (96-108) mmol/L Carbon Dioxide (22-29) mmol/L Anion Gap (12-20) BUN (9-16) mg/dL Creatinine (0.5-1.4) mg/dL Estim Creat Clear Calc Estimated GFR Random Glucose (60-115) mg/dL Lactic Acid (0.5-2.0) mmol/L Calcium (8.4-10.2) mg/dL Magnesium (1.6-2.6) mg/dL Total Bilirubin (0.0-1.0) mg/dL Direct Bilirubin (0.0-0.5) mg/dL AST (5-31) U/L ALT (0-31) U/L Alkaline Phosphatase (39-117) U/L C-Reactive Protein (< or = 0.50) mg/dL Total Protein (6.5-8.0) g/dL Albumin (3.5-5.0) g/dL Lipase (8-78) U/L Urine Color Urine Appearance Urine pH (5.0-8.0) Ur Specific [place] (1.005-1.025) Urine Protein (NEG-TRACE) MG/DL Urine Glucose (UA) (NEG) MG/DL Urine Ketones (NEG) MG/DL Urine Blood (NEG) Urine Nitrite (NEG) Ur Leukocyte Esterase (NEG) COVID-19 (ROCK) (Negative) COVID-19 Clin Com Influenza Type A (YANIQUE) (Negative) Influenza Type B (YANIQUE) (Negative) Influenza A & B Note 11/01/21 11/01/21 11/01/21 Range/Units 13:09 13:09 13:35 WBC (4.8-10.8) X10*3/uL RBC (4.20-5.50) X10*6/uL Hgb (12.0-16.0) g/dl Hct (37.0-47.0) % MCV (80.0-98.0) fL MCH (27.0-33.0) pg MCHC (31.0-35.0) g/dl RDW (11.0-16.0) % Plt Count (160-400) X10*3/uL MPV (9.4-12.3) fL Immature Gran % (Auto) (0.0-0.4) % Neut % (Auto) (45-73) % Lymph % (Auto) (20-40) % [place] % (Auto) (2-11) % Eos % (Auto) (0-4) % Baso % (Auto) (0-2) % Lymph # (Auto) (1.2-4.9) X10*3/uL [place] # (Auto) (0.1-1.2) X10*3/uL Eos # (Auto) (0.0-0.4) X10*3/uL Baso # (Auto) (0.0-0.2) X10*3/uL Abs Immat Gran (auto) (0.00-0.03) X10*3/uL Absolute Neuts (auto) (2.0-8.3) x10*3/uL Absolute Nucleated RBC (0.0-0.012) X10*3/uL Nucleated RBC % (auto) (0.0-0.2) /100WBC ESR (0-20) MM/HR PT (9.9-13.0) SEC INR (0.9-1.1) APTT (24.1-38.0) SEC Sodium 139 (135-145) mmol/L Potassium 4.0 (3.3-5.1) mmol/L Chloride 106 (96-108) mmol/L Carbon Dioxide 21 L (22-29) mmol/L Anion Gap 16 (12-20) BUN 16 (9-16) mg/dL Creatinine 0.82 (0.5-1.4) mg/dL Estim Creat Clear Calc 55.8 Estimated GFR > 60 Random Glucose 106 (60-115) mg/dL Lactic Acid 0.8 (0.5-2.0) mmol/L Calcium 10.6 H (8.4-10.2) mg/dL Magnesium 2.0 (1.6-2.6) mg/dL Total Bilirubin 0.2 (0.0-1.0) mg/dL Direct Bilirubin < 0.2 (0.0-0.5) mg/dL AST 22 (5-31) U/L ALT 19 (0-31) U/L Alkaline Phosphatase 119 H (39-117) U/L C-Reactive Protein 1.26 H (< or = 0.50) mg/dL Total Protein 7.6 (6.5-8.0) g/dL Albumin 4.6 (3.5-5.0) g/dL Lipase 26 (8-78) U/L Urine Color Urine Appearance Urine pH (5.0-8.0) Ur Specific [place] (1.005-1.025) Urine Protein (NEG-TRACE) MG/DL Urine Glucose (UA) (NEG) MG/DL Urine Ketones (NEG) MG/DL Urine Blood (NEG) Urine Nitrite (NEG) Ur Leukocyte Esterase (NEG) COVID-19 (ROCK) Negative (Negative) COVID-19 Clin Com See Note Influenza Type A (YANIQUE) (Negative) Influenza Type B (YANIQUE) (Negative) Influenza A & B Note 11/01/21 11/01/21 Range/Units 13:35 13:35 WBC (4.8-10.8) X10*3/uL RBC (4.20-5.50) X10*6/uL Hgb (12.0-16.0) g/dl Hct (37.0-47.0) % MCV (80.0-98.0) fL MCH (27.0-33.0) pg MCHC (31.0-35.0) g/dl RDW (11.0-16.0) % Plt Count (160-400) X10*3/uL MPV (9.4-12.3) fL Immature Gran % (Auto) (0.0-0.4) % Neut % (Auto) (45-73) % Lymph % (Auto) (20-40) % [place] % (Auto) (2-11) % Eos % (Auto) (0-4) % Baso % (Auto) (0-2) % Lymph # (Auto) (1.2-4.9) X10*3/uL [place] # (Auto) (0.1-1.2) X10*3/uL Eos # (Auto) (0.0-0.4) X10*3/uL Baso # (Auto) (0.0-0.2) X10*3/uL Abs Immat Gran (auto) (0.00-0.03) X10*3/uL Absolute Neuts (auto) (2.0-8.3) x10*3/uL Absolute Nucleated RBC (0.0-0.012) X10*3/uL Nucleated RBC % (auto) (0.0-0.2) /100WBC ESR (0-20) MM/HR PT (9.9-13.0) SEC INR (0.9-1.1) APTT (24.1-38.0) SEC Sodium (135-145) mmol/L Potassium (3.3-5.1) mmol/L Chloride (96-108) mmol/L Carbon Dioxide (22-29) mmol/L Anion Gap (12-20) BUN (9-16) mg/dL Creatinine (0.5-1.4) mg/dL Estim Creat Clear Calc Estimated GFR Random Glucose (60-115) mg/dL Lactic Acid (0.5-2.0) mmol/L Calcium (8.4-10.2) mg/dL Magnesium (1.6-2.6) mg/dL Total Bilirubin (0.0-1.0) mg/dL Direct Bilirubin (0.0-0.5) mg/dL AST (5-31) U/L ALT (0-31) U/L Alkaline Phosphatase (39-117) U/L C-Reactive Protein (< or = 0.50) mg/dL Total Protein (6.5-8.0) g/dL Albumin (3.5-5.0) g/dL Lipase (8-78) U/L Urine Color STRAW Urine Appearance CLEAR Urine pH 5.5 (5.0-8.0) Ur Specific [place] <= 1.005 (1.005-1.025) Urine Protein NEG (NEG-TRACE) MG/DL Urine Glucose (UA) NEG (NEG) MG/DL Urine Ketones NEG (NEG) MG/DL Urine Blood NEG (NEG) Urine Nitrite NEG (NEG) Ur Leukocyte Esterase NEG (NEG) COVID-19 (ROCK) (Negative) COVID-19 Clin Com Influenza Type A (YANIQUE) Negative (Negative) Influenza Type B (YANIQUE) Negative (Negative) Influenza A & B Note See Note Critical Care Time Critical Care Time Critical Care Time: No Discharge Plan Discharge Clinical Impression: Abdominal distension Patient Disposition: Home, Self-Care Instructions: Gas and Bloating (ED) Additional Instructions: your lab workup and CT scans today in the emergency room unremarkable. Recommend [id number] simethicone for gas and bloating. Recommend keeping a food diary to keep track of your symptoms and see if foods correlate. Recommend following up with your GI doctor this week if possible. If you develop new or worsening symptoms call 911 or come back to the ER for further evaluation. Prescriptions: No Action (DME) BD SafetyGlide Syringe 3 mL 25 gauge x 1 syringe See Rx Instructions .ROUTE .MEDSUPPLY Qty: 50 1RF Rx Instructions: As directed gemfibrozil 600 mg tablet 600 mg PO BID Qty: 180 2RF famotidine 40 mg tablet 40 mg PO BID Qty: 90 1RF cholecalciferol (vitamin D3) [Vitamin D3] 50 mcg (2,000 unit) capsule 50 mcg PO DAILY Qty: 90 0RF cyanocobalamin (vitamin B-12) 1,000 mcg/mL solution 1,000 mcg IM DIRECTED Qty: 3 12RF multivitamin Tablet 1 tab PO DAILY 0RF fluticasone propionate 50 mcg/actuation [place],Suspension 1 spray INTRANASAL DAILY 0RF loratadine [Claritin] 10 mg Tablet 10 mg PO DAILY PRN (Reason: Allergy Symptoms) 0RF metronidazole 500 mg Tablet 500 mg PO Q12H Qty: 10 0RF famotidine [Pepcid] 20 mg tablet 20 mg PO DAILY Qty: 14 0RF alum-mag hydroxide-simeth [Maalox Advanced] 200-200-20 mg/5 mL suspension 5 ml PO 5XD PRN (Reason: dyspepsia) Qty: 30 0RF Rx Instructions: administer between meals and at bedtime dicyclomine 20 mg tablet 20 mg PO TID 5 Days Qty: 15 0RF (DME) BD Luer-Lucian Syringe 3 mL 25 gauge x 1 syringe See Rx Instructions ea .ROUTE DIRECTED Qty: 1 0RF Rx Instructions: As directed cephalexin 500 mg tablet 500 mg PO Q12H 10 Days Qty: 20 0RF cyclobenzaprine 10 mg tablet 10 mg PO BID PRN (Reason: muscle spasm) 10 Days Qty: 20 0RF Referrals: Lopez Cote MD [Primary Care Provider] - 1 week (abdominal bloating) Gerardo,Tuyyab, MD [Physician] - 1 week ( Abdominal pain and bloating, acute on chronic)
[2021-11-01 13:14] LABS: MANUAL DIFF FLAG NO
[2021-11-01 13:16] LABS: Basophils Percent Auto 0.5 % (0-2); Eosinophils Absolute Auto 0.1 X10*3/uL (0.0-0.4); Eosinophils Percent Auto 2.2 % (0-4); Hematocrit 35.3 % (37.0-47.0); Hemoglobin 12.1 g/dl (12.0-16.0); Imm Gran Abs Auto 0.01 X10*3/uL (0.00-0.03); Imm Gran Pct Auto 0.2 % (0.0-0.4); Lymphocytes Absolute Auto 2.1 X10*3/uL (1.2-4.9); Lymphocytes Percent Auto 33.4 % (20-40); Mean Corpuscular HGB Conc 34.3 g/dl (31.0-35.0); Mean Corpuscular Volume 87.6 fL (80.0-98.0); Mean Platelet Volume 9.9 fL (9.4-12.3); Monocytes Absolute Auto 0.6 X10*3/uL (0.1-1.2); Monocytes Percent Auto 9.7 % (2-11); Neutrophils Absolute Auto 3.4 x10*3/uL (2.0-8.3); Platelet Count 401 X10*3/uL (160-400); Red Blood Count 4.03 X10*6/uL (4.20-5.50); White Blood Count 6.4 X10*3/uL (4.8-10.8)
[2021-11-01 13:26] LABS: Lactic Acid 0.8 mmol/L (0.5-2.0)
[2021-11-01] MEDS: Ketorolac Tromethamine 30 MG/ML VIAL IVPUSH (13:29)
[2021-11-01] MEDS: 0.9 % Sodium Chloride 1,000 ML 999 ML IVCONT (13:30)
[2021-11-01 13:34] LABS: Alanine Aminotransferase 19 U/L (0-31); Albumin Level 4.6 g/dL (3.5-5.0); Alkaline Phosphatase 119 U/L (39-117); Anion Gap 16 (12-20); Aspartate Amino Transferase 22 U/L (5-31); Bilirubin Direct < 0.2 mg/dL (0.0-0.5); Bilirubin Total 0.2 mg/dL (0.0-1.0); Blood Urea Nitrogen 16 mg/dL (9-16); C Reactive Protein 1.26 mg/dL (< or = 0.50); Calcium 10.6 mg/dL (8.4-10.2); Carbon Dioxide 21 mmol/L (22-29); Chloride 106 mmol/L (96-108); Creatinine Clr Calc Pharmacy 55.8; Estimated Glomerular Filt Rate > 60; Glucose Random 106 mg/dL (60-115); Lipase 26 U/L (8-78); Sodium 139 mmol/L (135-145); Total Protein 7.6 g/dL (6.5-8.0)
[2021-11-01 13:35] LABS: Prothrombin Time 11.7 SEC (9.9-13.0)
[2021-11-01 13:38] LABS: Partial Thromboplastin Time 31.2 SEC (24.1-38.0)
[2021-11-01 13:43] LABS: Appearance Urine CLEAR; Color Urine STRAW; Glucose Urine UA NEG (NEG); Leukocyte Esterase Urine NEG (NEG); Nitrite Urine NEG (NEG); PH 5.5 (5.0-8.0); Specific Gravity - Urine <= 1.005 (1.005-1.025); Urine Blood NEG (NEG); Urine Ketones NEG (NEG); Urine Protein NEG (NEG-TRACE)
[2021-11-01 13:58] LABS: COVID-19 Test Negative (Negative); IDNOW Serial# 16C4AD1C; Influenza A Negative (Negative); Influenza B2 Negative (Negative)
[2021-11-01 14:03] LABS: Erythrocyte Sedimentation Rate 44 MM/HR (0-20)
[2021-11-01] MEDS: iohexoL 350 MG/ML 100 ML INFUS..BTL 85 ML IV (15:23)
[2021-11-01 16:08] VITALS: BP 125/63; PULSE 73; RESP 16; TEMP 36.4; O2SAT 97
== END 2021-11-01 17:19 | disposition home or self-care (01) ==
PROVIDERS: Physician Assistant; Emergency Provider Emergency Medicine; PCP Family Medicine
DX: R14.0 Abdominal distension (gaseous) (principal); R70.0 Elevated erythrocyte sedimentation rate; R79.82 Elevated C-reactive protein (CRP); K50.80 Crohn's disease of both small and large intestine without complications; Z20.822 Contact with and (suspected) exposure to COVID-19
CPT/HCPCS: 74177; 80048; 80076; 81003; 83605; 83690; 83735; 85025; 85610; 85652; 85730; 86140; 87040; 87502; 87635; 96361; 96374; 96375; 99283; 99284; J1885; Q9967

== ENCOUNTER 2021-11-19 07:15 | Outpatient (REF) | payer MEDICARE, OTHER, SELFPAY ==
[2021-11-19 08:12] LABS: Alanine Aminotransferase 15 U/L (0-31); Albumin Level 4.3 g/dL (3.5-5.0); Alkaline Phosphatase 110 U/L (39-117); Anion Gap 13 (12-20); Aspartate Amino Transferase 17 U/L (5-31); Bilirubin Total 0.4 mg/dL (0.0-1.0); Blood Urea Nitrogen 14 mg/dL (9-16); Calcium 10.3 mg/dL (8.4-10.2); Carbon Dioxide 24 mmol/L (22-29); Chloride 108 mmol/L (96-108); Cholesterol 227 mg/dL; Estimated Glomerular Filt Rate > 60; Glucose Fasting 107 mg/dL (60-99); HDL Cholesterol 48 mg/dL; LDL Cholesterol Calculated 150 mg/dl; Potassium 5.2 mmol/L (3.3-5.1); Sodium 140 mmol/L (135-145); Triglycerides 148 mg/dL
[2021-11-19 08:33] LABS: Appearance Urine CLEAR; Color Urine YELLOW; Glucose Urine UA NEG (NEG); Leukocyte Esterase Urine NEG (NEG); Nitrite Urine NEG (NEG); Specific Gravity - Urine >= 1.030 (1.005-1.025); Urine Blood NEG (NEG); Urine Ketones NEG (NEG); Urine Protein NEG (NEG-TRACE)
[2021-11-19 08:34] LABS: TSH reflex Free T4 1.15 uIU/mL (0.32-4.0)
[2021-11-19 09:01] LABS: Creatinine Urine 140.58 mg/dL; Microalbum/Creatinine Ratio Ur 13.5 ug/mg cr
== END 2021-11-19 07:16 | disposition home or self-care (01) ==
LOC: HO.LAB 07:15
PROVIDERS: PCP Family Medicine; Visit Provider Family Medicine
DX: Z00.00 Encounter for general adult medical examination without abnormal findings (principal); I10 Essential (primary) hypertension
CPT/HCPCS: 36415; 80053; 80061; 81003; 82043; 84443

== ENCOUNTER 2021-12-29 14:00 | Outpatient (REF) | payer MEDICARE, OTHER, SELFPAY ==
[2021-12-29 14:19] LABS: MANUAL DIFF FLAG NO
[2021-12-29 14:57] LABS: Basophils Percent Auto 0.6 % (0-2); Eosinophils Absolute Auto 0.1 X10*3/uL (0.0-0.4); Eosinophils Percent Auto 1.7 % (0-4); Hematocrit 36.7 % (37.0-47.0); Hemoglobin 12.2 g/dl (12.0-16.0); Imm Gran Abs Auto 0.02 X10*3/uL (0.00-0.03); Imm Gran Pct Auto 0.3 % (0.0-0.4); Lymphocytes Absolute Auto 2.5 X10*3/uL (1.2-4.9); Lymphocytes Percent Auto 35.5 % (20-40); Mean Corpuscular HGB Conc 33.2 g/dl (31.0-35.0); Mean Corpuscular Volume 90.2 fL (80.0-98.0); Mean Platelet Volume 9.8 fL (9.4-12.3); Monocytes Absolute Auto 0.7 X10*3/uL (0.1-1.2); Monocytes Percent Auto 9.5 % (2-11); Neutrophils Absolute Auto 3.7 x10*3/uL (2.0-8.3); Neutrophils Percent Auto 52.4 % (45-73); Platelet Count 378 X10*3/uL (160-400); Red Blood Count 4.07 X10*6/uL (4.20-5.50); Red Cell Distribution Width 12.8 % (11.0-16.0)
[2021-12-29 15:25] LABS: Alanine Aminotransferase 18 U/L (0-31); Albumin Level 4.4 g/dL (3.5-5.0); Alkaline Phosphatase 97 U/L (39-117); Anion Gap 11 (12-20); Aspartate Amino Transferase 16 U/L (5-31); Bilirubin Total 0.3 mg/dL (0.0-1.0); Blood Urea Nitrogen 17 mg/dL (9-16); C Reactive Protein 0.29 mg/dL (< or = 0.50); Calcium 10.1 mg/dL (8.4-10.2); Carbon Dioxide 27 mmol/L (22-29); Chloride 104 mmol/L (96-108); Estimated Glomerular Filt Rate > 60; Glucose Random 114 mg/dL (60-115); Sodium 137 mmol/L (135-145); Total Protein 7.1 g/dL (6.5-8.0)
[2021-12-29 15:45] LABS: Ferritin 111 ng/mL (10-250)
[2021-12-29 15:47] LABS: Erythrocyte Sedimentation Rate 20 MM/HR (0-20)
== END 2021-12-29 14:01 | disposition home or self-care (01) ==
LOC: HO.LAB 14:00
PROVIDERS: PCP Family Medicine; Visit Provider Internal Medicine Gastroenterology
DX: K50.10 Crohn's disease of large intestine without complications (principal); K75.81 Nonalcoholic steatohepatitis (NASH)
CPT/HCPCS: 36415; 80053; 82728; 85025; 85652; 86140

== ENCOUNTER → 2022-01-01 10:11 | Outpatient (BNVA) | payer MEDICARE, OTHER, SELFPAY | PROVIDERS: PCP Family Medicine; Referring Provider Family Medicine; Visit Provider Internal Medicine Gastroenterology | DX: K50.819 Crohn's disease of both small and large intestine with unspecified complications (principal); K86.89 Other specified diseases of pancreas; Z90.49 Acquired absence of other specified parts of digestive tract | CPT/HCPCS: 99212 ==

== ENCOUNTER 2022-02-19 07:20 | Outpatient (REF) | payer MEDICARE, OTHER, SELFPAY ==
[2022-02-19 08:19] LABS: Cholesterol 211 mg/dL; HDL Cholesterol 66 mg/dL; LDL Cholesterol Calculated 137 mg/dl; Triglycerides 40 mg/dL
== END 2022-02-19 07:21 | disposition home or self-care (01) ==
LOC: HO.LAB 07:20
PROVIDERS: PCP Family Medicine; Visit Provider Family Medicine
DX: Z00.00 Encounter for general adult medical examination without abnormal findings (principal); E78.5 Hyperlipidemia, unspecified
CPT/HCPCS: 36415; 80061

== ENCOUNTER 2022-04-26 10:12 | Outpatient (REF) | payer MEDICARE, OTHER, SELFPAY ==
--- NOTE | ~2022-04-26 | MR_ITS ---
EXAMINATION: MR ABDOMEN WITHOUT AND WITH CONTRAST CLINICAL INFORMATION: Pancreatic cyst COMPARISON: Previous MRI September 2021 and [address] of the abdomen and pelvis, most recent October 2021 TECHNIQUE: MR abdomen was performed without and with use of 5.5 mL intravenous Gadavist gadolinium contrast. Postcontrast images are performed in multiphase dynamic sequences. Imaging was performed in 3 planes. MRCP sequences were also performed. These are limited due to motion artifact. FINDINGS: LUNG BASES: The visualized lung bases are unremarkable. LIVER, GALLBLADDER, AND BILIARY TREE: The liver is normal in size and shape. There is slight signal loss in the liver on out of phase sequences suggestive of mild fatty infiltration. There is a 1 cm cyst in the lateral segment of the left lobe of the liver. No other focal liver lesion is seen. The gallbladder is not seen and has presumably been removed. There is no intra or extrahepatic biliary duct dilatation. MRCP sequences are significantly limited due to motion artifact. PANCREAS: Pancreas is normal in signal. No focal pancreatic lesion or abnormal enhancement of the pancreas is appreciated by MRI. The main pancreatic duct does not appear dilated. There is question of a tiny cyst in the exophytic to the anterior of the pancreas measuring 1 to 2 mm for example axial T2 image 13 series 4. SPLEEN: There is a small cyst in the anterior spleen that is stable. The spleen is otherwise normal. ADRENAL GLANDS: Normal. KIDNEYS AND URETERS: There are small cysts in the right kidney. The kidneys are otherwise normal. GASTROINTESTINAL TRACT: Unremarkable. No ascites. ABDOMINAL WALL: No significant hernia is appreciated. LYMPH NODES: No lymphadenopathy. VASCULAR: Unremarkable. OSSEOUS STRUCTURES: There are degenerative changes of the spine. No fracture or abnormal bone marrow signal is seen. MR/MR abdomen wo/w con IMPRESSION: 1 cm area of increased enhancement in the tail of the pancreas seen by CT not appreciated by MRI. Mild fatty infiltration of the liver. MRCP sequences are limited due to motion artifact. Small liver, spleen and right renal cysts.
== END 2022-04-26 10:13 | disposition home or self-care (01) ==
LOC: HO.MRI 10:12
PROVIDERS: Visit Provider Internal Medicine Gastroenterology
DX: K86.2 Cyst of pancreas (principal)
CPT/HCPCS: 74183; A9585

== ENCOUNTER 2022-05-28 07:19 | Outpatient (REF) | payer MEDICARE, OTHER, SELFPAY ==
[2022-05-28 08:58] LABS: Alanine Aminotransferase 14 U/L (0-31); Albumin Level 4.5 g/dL (3.5-5.0); Alkaline Phosphatase 111 U/L (39-117); Anion Gap 17 (12-20); Aspartate Amino Transferase 15 U/L (5-31); Bilirubin Total 0.4 mg/dL (0.0-1.0); Blood Urea Nitrogen 17 mg/dL (9-16); Calcium 10.6 mg/dL (8.4-10.2); Carbon Dioxide 23 mmol/L (22-29); Chloride 105 mmol/L (96-108); Cholesterol 208 mg/dL; Estimated Glomerular Filt Rate 59; Glucose Fasting 109 mg/dL (60-99); HDL Cholesterol 65 mg/dL; LDL Cholesterol Calculated 130 mg/dl; Potassium 4.8 mmol/L (3.3-5.1); Sodium 140 mmol/L (135-145); Total Protein 7.3 g/dL (6.5-8.0); Triglycerides 66 mg/dL
== END 2022-05-28 07:20 | disposition home or self-care (01) ==
LOC: HO.LAB 07:19
PROVIDERS: Visit Provider Family Medicine
DX: Z00.00 Encounter for general adult medical examination without abnormal findings (principal)
CPT/HCPCS: 36415; 80053; 80061

== ENCOUNTER 2022-08-07 10:48 | Outpatient (REF) | payer MEDICARE, OTHER, SELFPAY ==
[2022-08-07 13:32] LABS: Appearance Urine Cloudy; Color Urine Yellow; Glucose Urine UA Negative (Negative); Leukocyte Esterase Urine Large (3+) (Negative); Nitrite Urine Negative (Negative); PH 5.5 (5.0-9.0); UMIC TRIGGER UACC YES; Urine Blood Small (1+) (Negative); Urine Ketones Negative (Negative); Urine Protein Negative (Neg-Trace)
[2022-08-07 13:40] LABS: Bacteria Urine Trace (None Seen); Hyaline Casts Urine 0-2 /LPF (0-2); RBC Urine 0-2 /HPF (0-2); UACC Culture Trigger YES; WBC Urine >50 /HPF (0-5)
== END 2022-08-07 10:49 | disposition home or self-care (01) ==
LOC: HO.LAB 10:48
PROVIDERS: Visit Provider Nurse Practitioner Acute Care
DX: R30.0 Dysuria (principal)
CPT/HCPCS: 81001; 87086; 87088; 87186

== ENCOUNTER 2022-08-25 07:24 | Outpatient (REF) | payer MEDICARE, OTHER, SELFPAY ==
[2022-08-25 07:33] LABS: MANUAL DIFF FLAG NO
[2022-08-25 07:43] LABS: Basophils Percent Auto 0.6 % (0-2); Eosinophils Absolute Auto 0.1 X10*3/uL (0.0-0.4); Eosinophils Percent Auto 0.8 % (0-4); Hemoglobin 12.6 g/dl (12.0-16.0); Imm Gran Abs Auto 0.02 X10*3/uL (0.00-0.03); Imm Gran Pct Auto 0.3 % (0.0-0.4); Lymphocytes Absolute Auto 1.4 X10*3/uL (1.2-4.9); Lymphocytes Percent Auto 21.3 % (20-40); Mean Corpuscular HGB Conc 34.1 g/dl (31.0-35.0); Mean Corpuscular Hemoglobin 30.6 pg (27.0-33.0); Mean Corpuscular Volume 89.8 fL (80.0-98.0); Mean Platelet Volume 9.8 fL (9.4-12.3); Monocytes Absolute Auto 0.6 X10*3/uL (0.1-1.2); Monocytes Percent Auto 8.8 % (2-11); Neutrophils Absolute Auto 4.5 x10*3/uL (2.0-8.3); Neutrophils Percent Auto 68.2 % (45-73); Platelet Count 471 X10*3/uL (160-400); Red Blood Count 4.12 X10*6/uL (4.20-5.50); Red Cell Distribution Width 12.5 % (11.0-16.0); White Blood Count 6.6 X10*3/uL (4.8-10.8)
[2022-08-25 07:49] LABS: Estimated Average Glucose 117 mg/dL; Hemoglobin A1c % 5.7 %
[2022-08-25 08:20] LABS: Alanine Aminotransferase 15 U/L (0-31); Albumin Level 4.8 g/dL (3.5-5.0); Alkaline Phosphatase 123 U/L (39-117); Anion Gap 17 (12-20); Aspartate Amino Transferase 18 U/L (5-31); Bilirubin Total 0.4 mg/dL (0.0-1.0); Blood Urea Nitrogen 18 mg/dL (9-16); Calcium 10.9 mg/dL (8.4-10.2); Carbon Dioxide 20 mmol/L (22-29); Chloride 107 mmol/L (96-108); Estimated Glomerular Filt Rate 53; Glucose Fasting 128 mg/dL (60-99); Potassium 5.3 mmol/L (3.3-5.1); Sodium 139 mmol/L (135-145); Total Protein 7.5 g/dL (6.5-8.0)
[2022-08-25 08:34] LABS: TSH reflex Free T4 1.24 uIU/mL (0.32-4.0)
[2022-08-25 08:58] LABS: Appearance Urine Clear; Color Urine Yellow; Glucose Urine UA Negative (Negative); Leukocyte Esterase Urine Trace (Negative); Nitrite Urine Negative (Negative); PH 5.5 (5.0-9.0); Specific Gravity - Urine <= 1.005 (1.005-1.025); UMIC TRIGGER UA YES; UMIC TRIGGER UACC YES; Urine Blood Negative (Negative); Urine Ketones Negative (Negative); Urine Protein Negative (Neg-Trace)
[2022-08-25 09:01] LABS: Bacteria Urine None Seen (None Seen); Hyaline Casts Urine 0-2 /LPF (0-2); RBC Urine 0-2 /HPF (0-2); WBC Urine 0-5 /HPF (0-5)
[2022-08-25 09:30] LABS: Creatinine Urine 82.21 mg/dL; Microalbum/Creatinine Ratio Ur 14.5 ug/mg cr
== END 2022-08-25 07:25 | disposition home or self-care (01) ==
LOC: HO.LAB 07:24
PROVIDERS: Nurse Practitioner Acute Care; PCP Family Medicine; Visit Provider Family Medicine
DX: Z00.00 Encounter for general adult medical examination without abnormal findings (principal); R73.01 Impaired fasting glucose; I10 Essential (primary) hypertension
CPT/HCPCS: 36415; 80053; 81001; 82043; 83036; 84443; 85025

== ENCOUNTER 2022-09-06 09:25 | Outpatient (REF) | payer MEDICARE, OTHER, SELFPAY ==
[2022-09-06 09:33] LABS: MANUAL DIFF FLAG NO
[2022-09-06 09:45] LABS: Basophils Absolute Auto 0.1 X10*3/uL (0.0-0.2); Basophils Percent Auto 0.7 % (0-2); Eosinophils Absolute Auto 0.2 X10*3/uL (0.0-0.4); Eosinophils Percent Auto 2.7 % (0-4); Hematocrit 35.6 % (37.0-47.0); Hemoglobin 11.7 g/dl (12.0-16.0); Imm Gran Abs Auto 0.02 X10*3/uL (0.00-0.03); Imm Gran Pct Auto 0.3 % (0.0-0.4); Lymphocytes Absolute Auto 2.4 X10*3/uL (1.2-4.9); Lymphocytes Percent Auto 33.5 % (20-40); Mean Corpuscular HGB Conc 32.9 g/dl (31.0-35.0); Mean Corpuscular Hemoglobin 30.3 pg (27.0-33.0); Mean Corpuscular Volume 92.2 fL (80.0-98.0); Mean Platelet Volume 9.9 fL (9.4-12.3); Monocytes Absolute Auto 0.9 X10*3/uL (0.1-1.2); Monocytes Percent Auto 12.3 % (2-11); Neutrophils Absolute Auto 3.6 x10*3/uL (2.0-8.3); Neutrophils Percent Auto 50.5 % (45-73); Platelet Count 415 X10*3/uL (160-400); Red Blood Count 3.86 X10*6/uL (4.20-5.50); Red Cell Distribution Width 12.6 % (11.0-16.0); White Blood Count 7.1 X10*3/uL (4.8-10.8)
[2022-09-06 10:14] LABS: Alanine Aminotransferase 12 U/L (0-31); Albumin Level 4.1 g/dL (3.5-5.0); Alkaline Phosphatase 106 U/L (39-117); Anion Gap 13 (12-20); Aspartate Amino Transferase 14 U/L (5-31); Bilirubin Total 0.3 mg/dL (0.0-1.0); Blood Urea Nitrogen 18 mg/dL (9-16); Calcium 10.1 mg/dL (8.4-10.2); Carbon Dioxide 24 mmol/L (22-29); Chloride 102 mmol/L (96-108); Estimated Glomerular Filt Rate > 60; Glucose Random 95 mg/dL (60-115); Potassium 5.1 mmol/L (3.3-5.1); Sodium 134 mmol/L (135-145); Total Protein 6.5 g/dL (6.5-8.0)
== END 2022-09-06 09:26 | disposition home or self-care (01) ==
LOC: HO.LAB 09:25
PROVIDERS: PCP Family Medicine; Visit Provider Family Medicine
DX: D75.839 Thrombocytosis, unspecified (principal); E87.5 Hyperkalemia
CPT/HCPCS: 36415; 80053; 85025

== ENCOUNTER → 2022-09-17 09:57 | Outpatient (BNVA) | payer MEDICARE, OTHER, SELFPAY | PROVIDERS: PCP Family Medicine; Visit Provider Internal Medicine Gastroenterology | DX: R53.83 Other fatigue (principal); R14.0 Abdominal distension (gaseous); Z90.49 Acquired absence of other specified parts of digestive tract | CPT/HCPCS: 99212 ==

== ENCOUNTER 2022-10-07 08:56 | Outpatient (REF) | payer MEDICARE, OTHER, SELFPAY ==
--- NOTE | ~2022-10-07 | MM_ITS ---
EXAMINATION: MM DIAGNOSTIC DIGITAL BREAST TOMOSYNTHESIS, BILATERAL CLINICAL INFORMATION: Due for yearly. Also follow-up probable benign fibroglandular density anterior left breast, initially described on screening exam 08/27/2020. The lifetime risk of breast cancer based on the Tyrer-Cuzick Model is 3%. COMPARISON: Multiple prior breast imaging exams, most recent 09/28/2021. TECHNIQUE: Digital breast tomosynthesis is performed in both the craniocaudal and mediolateral oblique views along with computer-aided detection (CAD). Synthesized 2D images are generated from the tomosynthesis. FINDINGS: There are scattered areas of fibroglandular density (ACR BI-RADS breast composition Category b). There are no significant masses, abnormal calcifications, or other abnormalities. Parenchymal pattern is similar to prior studies. There is no developing density or architectural abnormality. The axilla and skin contours are unremarkable. No significant changes. Results are provided to the patient at time of visit by the technologist. Return to screening. MM/MM tomosynthesis diagnostic BI IMPRESSION: No mammographic evidence of malignancy. ASSESSMENT: BI-RADS 1: Negative RECOMMENDATION: Routine annual mammography screening. This patient's information was entered into a reminder system with a target due date for their next mammogram.
== END 2022-10-07 08:57 | disposition home or self-care (01) ==
LOC: HO.MAMMO 08:56
PROVIDERS: PCP Family Medicine; Visit Provider Family Medicine
DX: N64.59 Other signs and symptoms in breast (principal)
CPT/HCPCS: 77062; 77066

== ENCOUNTER 2022-10-08 12:37 | Emergency (ER) | payer MEDICARE, OTHER, SELFPAY ==
--- NOTE | ~2022-10-08 | CT_ITS ---
EXAMINATION: CT ABDOMEN AND PELVIS WITH CONTRAST CLINICAL INFORMATION: Diffuse pain COMPARISON: 11/01/2021 TECHNIQUE: Multidetector volumetric images were obtained from the superior aspect of the liver through the pubic symphysis following administration 85 mL of Omnipaque 350 intravenous contrast. Sagittal and coronal reformatted images were obtained on the technologist's workstation. Oral contrast: No This CT examination was performed using dose optimization techniques as appropriate, variously including the following: *Automated exposure control *Adjustment of mA and/or kV according to patient size (this includes techniques or standardized protocols for targeted exams where dose is matched to indication/reason for exam; i.e. extremities or head) *Use of iterative reconstruction technique DLP: 376 mGy-cm FINDINGS: LUNG BASES: The visualized lung bases are unremarkable. LIVER, GALLBLADDER, AND BILIARY TREE: Hepatic cysts stable. No new abnormality. No biliary ductal dilatation. Clips consistent with cholecystectomy. PANCREAS: Stable. Known hyperenhancing distal pancreatic body/tail lesion similar. No pancreatic duct dilatation. SPLEEN: Unremarkable. ADRENAL GLANDS: Unremarkable. KIDNEYS AND URETERS: The kidneys are normal in size, shape, and attenuation. No hydronephrosis, hydroureter, or calculi seen. No perinephric stranding. No change in low-density lesions lower pole and midpole cortex right kidney. BLADDER: Unremarkable. GASTROINTESTINAL TRACT: Relative pronounced diverticulosis throughout the colon. No acute inflammatory changes grossly. No small bowel pathology. ABDOMINAL WALL: No significant hernia is appreciated. LYMPH NODES: Normal. VASCULAR: Unremarkable. PELVIC VISCERA: Unremarkable. OSSEOUS STRUCTURES: Unremarkable. CT/CT abdomen pelvis w IV con IMPRESSION: No acute findings. Stable findings as above. Incidental diverticulosis without definite acute inflammatory changes. Pancreatic lesion similar. Fleischner guidelines were followed.
[2022-10-08 12:54] VITALS: BP 142/87; PULSE 88; RESP 16; TEMP 36.6; O2SAT 100; BMI 21.2
--- NOTE | 2022-10-08 12:54 | ED.ABDPAIN ---
HPI - Abdominal Pain General Chief Complaint: Abdominal Pain <JU Durant - Last Filed: 10/08/22 12:59> Stated Complaint: ABD PAIN CHRONS DISEASE <JU Durant Last Filed: 10/08/22 12:59> Time Seen by Provider: 10/08/22 16:23 <JU Durant - Last Filed: 10/08/22 12:59> Source: patient <JU Gregory - Last Filed: 10/08/22 19:04> Mode of arrival: ambulatory <JU Gregory Last Filed: 10/08/22 19:04> Limitations: no limitations <JU Gregory Last Filed: 10/08/22 19:04> History of Present Illness HPI narrative: 67-year-old female, GERD, obstructive sleep apnea, Anxiety, Crohn's Disease, endocrine neoplasm, meningioma in the frontal lobe, presenting to the emergency department for evaluation of diffuse abdominal pain, nausea, diarrhea (started today soft stool not completly liquid), fatigue, bloating going on for the past few weeks progressively worsening over the past few days. Tells me this feels like a Crohns flare. Patient is followed by Dr. Gerardo and recently had a medication change ( Rifaximin added to meds and taking for the past two weeks), however, feels like its not helping. Denies fevers, vomiting, hematochezia, chest pain, shortness of breath, changes in diet, recent antibiotic use, recent travel. <JU Gregory Last Filed: 10/08/22 19:04> Related Data Home Medications: Home Medications Medication Instructions Recorded Confirmed fluticasone propionate 50 1 spray intranasal DAILY 02/02/21 10/05/22 mcg/actuation nasal spray,suspension multivitamin 1 tab PO DAILY 02/02/21 10/05/22 syringe with needle, safety 3 mL #50 ea 03/02/22 10/05/22 25 gauge x 1 (BD Integra Syringe) loratadine 10 mg tablet (Claritin) 10 mg PO DAILY 10/05/22 10/05/22 Previous Rx's Medication Instructions Recorded cyanocobalamin (vitamin B-12) 1,000 mcg IM DIRECTED #3 mL 10/08/21 1,000 mcg/mL injection solution cholecalciferol (vitamin D3) 50 50 mcg PO DAILY 90 days #90 caps 04/02/22 mcg (2,000 unit) capsule gemfibrozil 600 mg tablet 600 mg PO BID 90 days #180 tabs 04/02/22 rifaximin 550 mg tablet 550 mg PO TID 2 weeks #42 tabs 09/17/22 famotidine 40 mg tablet 40 mg PO BID #180 tabs 09/20/22 rifaximin 200 mg tablet 400 mg PO TID 2 weeks #84 tabs 09/21/22 loperamide 2 mg capsule 2 mg PO Q6H PRN loose stool #20 10/08/22 caps ondansetron 4 mg disintegrating 4 mg PO Q6H PRN nausea and 10/08/22 tablet vomiting #14 tabs simethicone 180 mg capsule 180 mg PO BID PRN abdominal 10/08/22 distention #20 caps <JU Durant - Last Filed: 10/08/22 12:59> Allergies/Adverse Reactions: Allergies Allergy/AdvReac Type Severity Reaction Status Date / Time methylprednisolone Allergy Severe Rash, Verified 09/21/22 12:47 [From Solu-Medrol] facial swelling Penicillins Allergy Severe ANAPHYLAXIS Verified 09/21/22 12:47 [id number]-[id number] Reductase Allergy Intermediate muscle Verified 09/21/22 12:47 Inhibitor aches [[id number] REDUCTASE INHIBITOR] <JU Durant - Last Filed: 10/08/22 12:59> Review of Systems Review of Systems Constitutional : No Weight loss, No Fever, No Chills, No Fatigue, No Malaise ENT/Mouth : No sore throat, No Rhinorrhea Eyes: No Eye Pain, No Swelling, No Redness Cardiovascular : No Chest Pain, No SOB, No Dyspnea on Exertion, No Orthopnea, No Edema, No Palpitations Respiratory : No Cough, No Sputum, No Wheezing Gastrointestinal : + Nausea, No Vomiting, + Diarrhea, No Constipation, + abdominal Pain, No Hematochezia, No Melena Genitourinary : No Dysuria, No Urinary Frequency, No Hematuria, Musculoskeletal : No joint pain, No Myalgias, No Joint Swelling Skin : No Skin Lesions, No rash Neuro : No Weakness, No Numbness, No Dizziness, No Headache Psych : No Anxiety/Panic, No Depression All other systems reviewed and are negative <JU Gregory - Last Filed: 10/08/22 19:04> Yes all other systems are reviewed and are negative <JU Gregory - Last Filed: 10/08/22 19:04> PMFSH Past Medical History Attestation statement: The following information was validated with the patient. <JU Gregory - Last Filed: 10/08/22 19:04> Source: old records reviewed and nursing notes reviewed <JU Gregory - Last Filed: 10/08/22 19:04> Medical History: Medical History Arthritis Crohn's colitis Diverticulitis Environmental allergies GERD (gastroesophageal reflux disease) Hx of Lyme disease Hypertriglyceridemia YASMIN (obstructive sleep apnea) Pancreas cyst Pulmonary nodule Seasonal allergies <JU Durant - Last Filed: 10/08/22 12:59> Surgical History: Surgical History H/O colonoscopy History of cholecystectomy History of cholecystectomy <JU Durant - Last Filed: 10/08/22 12:59> Family History Family History: Family History Father CVD (cardiovascular disease) Mother Hypertension Renal failure Blood disorder Brother Diabetes mellitus Sister Diabetes mellitus <JU Durant - Last Filed: 10/08/22 12:59> Social History Social History: Social History Household Members: Family Housing: Apartment Do you presently have visiting nurse or other home services: No Patient Tobacco Use Status: Former Tobacco user Quit Date: 2015 Tobacco use type: Cigarette Smoked in Last 30 Days: No e-Cigarette/Vaping Use: Never Used Second Hand Smoke Exposure: No Use of substances other than those prescribed or required for medical reasons: No Substance Use Type: Marijuana Advance Directives: No Advance Directives Information Provided: No service: No Current occupational status: retired Current occupational exposures/hazards: No Cognitive needs: No Hearing needs: No Vision needs: No <UJ Durant - Last Filed: 10/08/22 12:59> Physical Exam ED Vital Signs: Vital Signs - 24 hr 10/08/22 12:54 Temperature 97.9 F Pulse Rate 88 Respiratory Rate 16 Blood Pressure 142/87 H Pulse Oximetry 100 Oxygen Delivery Method Room Air BMI result Body Mass Index 21.2 <JU Durant - Last Filed: 10/08/22 12:59> Vital Signs - 24 hr 10/08/22 12:54 Temperature 97.9 F Pulse Rate 88 Respiratory Rate 16 Blood Pressure 142/87 H Pulse Oximetry 100 Oxygen Delivery Method Room Air BMI result Body Mass Index 21.2 vss <JU Gregory - Last Filed: 10/08/22 19:04> Appearance: Alert.? Oriented X3.? No acute distress.? Head: Normocephalic, atraumatic, no step-offs or deformities Eyes: Pupils equal, round and reactive to light.? Neck: Normal inspection.? Neck supple.? CVS: Normal heart rate and rhythm.? Pulses normal.? Respiratory: No respiratory distress.? Breath sounds normal.? Abdomen: Soft and diffusely tender slightly distended w/ nomoactive bowel sounds throughout. Skin: Skin warm and dry.? Normal skin color.? Normal skin turgor.? Extremities: No lower extremity edema.? No calf ttp. 5/5 strength to bilateral upper and lower extremities Neuro: Oriented X 3.? No motor deficit.? No sensory deficit. CN 2-12 intact <JU Gregory - Last Filed: 10/08/22 19:04> Course Course Course Narrative: RME--67yo F w/PMHx chron's disease, HERD, YASMIN, c/o abdominal pain, bloating, nausea, diarrhea and fatigue x few weeks. Recently saw Dr. Gerardo has been on Rifaximin x2 weeks w/o relief. Denies fever, vomiting VSS, NAD, non toxic appearing Labs, UA ordered <JU Durant - Last Filed: 10/08/22 12:59> Reevaluation(s) Reevaluation #1: Spoke to Dr. Minor, recommends CT scan for further eval if inflammation then 125 mg of solumedrol then hospital admission for IV steroids. <JU Gregory - Last Filed: 10/08/22 19:04> Time: 17:29 <JU Gregory - Last Filed: 10/08/22 19:04> Reevaluation #2: CBC within normal limits. Chemistry unremarkable. Normal CRP, slightly elevated ESR, unlikely acute Crohn's flare, likely viral illness. Patient tolerating p.o. without difficulty. Tells me she is feeling much better. Tells me the simethicone worked well. Abdomen no longer tender to palpation. Patient comfortable appearing. Will have her follow-up with GI. No signs of acute abdomen, SBP, ascites. Patient to be discharged home. Will give her Zofran, loperamide for diarrhea. Educated patient on diagnosis and treatment plan, answered all question, patient verbalizes understanding. At this time patient will be discharged home, advised to return with new or worsening symptoms. Educated on worrisome signs and symptoms and when to return. At this time I feel comfortable discharge home. <JU Gregory - Last Filed: 10/08/22 19:04> Time: 19:03 <JU Gregory - Last Filed: 10/08/22 19:04> Medical Decision Making Medical Decision Making [facility] Narrative: [id number] 67 year old female presents w/ nausea, diarrhea, fatigue, diffuse abd pain times a few weeks Recent medication changes by Gastroenterology. PE w/ Soft and diffusely tender slightly distended w/ nomoactive bowel sounds throughout. Likely crohns colitis. Unlikely Cdiff, acute abdomen, obstruction. Plan- labs, CT abd and pelvis, inflammatory markers, UA. Will give simethacone and steroids. Upon chart review: Patient was seen by Dr. Gerardo on 09/17/22 where she presented w/ a similar presentation plan at that time was She may have had crohns disease vs nsaid related colitis but her sx and objective data seem to suggest she is in biochemical and clinical remission with neg calprotectin and CTe, some of her symptoms maybe due to IBS or SIBO vs carb rich diet. she was advised to stop pentasa and given rifaximin Based off of GI note fecal calprotectin has been fluctuating up and down from borderline to mild + <JU Gregory - Last Filed: 10/08/22 19:04> Differential Diagnosis Differential Diagnoses: The differential diagnosis associated with the presentation includes <JU Gregory - Last Filed: 10/08/22 19:04> Likely crohns colitis. Unlikle Cdiff, acute abdomen, obstruction. <JU Gregory - Last Filed: 10/08/22 19:04> Admission/Observation Consideration of admission/observation: Escalation of care including admission/observation considered <JU Gregory - Last Filed: 10/08/22 19:04> No indicated <JU Gregory - Last Filed: 10/08/22 19:04> Consult Healthcare Provider Management of the patient was discussed with: Union Steward (GI Dr. Minor ) <JU Gregory - Last Filed: 10/08/22 19:04> Lab Data MDM Lab Attestation statement: I reviewed the patient's lab results. <JU Gregory - Last Filed: 10/08/22 19:04> Result Diagrams: 10/08/22 13:47 10/08/22 13:47 <JU Durant - Last Filed: 10/08/22 12:59> Labs: Lab Results 10/08/22 10/08/22 10/08/22 Range/Units 13:47 13:47 13:47 WBC 6.6 (4.8-10.8) X10*3/uL RBC 4.07 L (4.20-5.50) X10*6/uL Hgb 12.4 (12.0-16.0) g/dl Hct 37.4 (37.0-47.0) % MCV 91.9 (80.0-98.0) fL MCH 30.5 (27.0-33.0) pg MCHC 33.2 (31.0-35.0) g/dl RDW 12.5 (11.0-16.0) % Plt Count 403 H (160-400) X10*3/uL MPV 10.1 (9.4-12.3) fL Immature Gran % (Auto) 0.5 H (0.0-0.4) % Neut % (Auto) 59.7 (45-73) % Lymph % (Auto) 28.4 (20-40) % Potter % (Auto) 9.1 (2-11) % Eos % (Auto) 1.7 (0-4) % Baso % (Auto) 0.6 (0-2) % Lymph # (Auto) 1.9 (1.2-4.9) X10*3/uL Potter # (Auto) 0.6 (0.1-1.2) X10*3/uL Eos # (Auto) 0.1 (0.0-0.4) X10*3/uL Baso # (Auto) 0.0 (0.0-0.2) X10*3/uL Abs Immat Gran (auto) 0.03 (0.00-0.03) X10*3/uL Absolute Neuts (auto) 3.9 (2.0-8.3) x10*3/uL Absolute Nucleated RBC 0.000 (0.0-0.012) X10*3/uL Nucleated RBC % (auto) 0.0 (0.0-0.2) /100WBC ESR 29 H (0-20) MM/HR Sodium 142 (135-145) mmol/L Potassium 4.5 (3.3-5.1) mmol/L Chloride 110 H (96-108) mmol/L Carbon Dioxide 23 (22-29) mmol/L Anion Gap 14 (12-20) BUN 16 (9-16) mg/dL Creatinine 0.83 (0.5-1.4) mg/dL Estim Creat Clear Calc 54.4 Estimated GFR > 60 Random Glucose 93 (60-115) mg/dL Calcium 10.3 H (8.4-10.2) mg/dL Magnesium 2.3 (1.6-2.6) mg/dL Total Bilirubin 0.3 (0.0-1.0) mg/dL Direct Bilirubin < 0.2 (0.0-0.5) mg/dL AST 16 (5-31) U/L ALT 13 (0-31) U/L Alkaline Phosphatase 113 (39-117) U/L C-Reactive Protein 0.17 (< or = 0.50) mg/dL Total Protein 6.8 (6.5-8.0) g/dL Albumin 4.2 (3.5-5.0) g/dL Lipase 14 (8-78) U/L Urine Color Urine Appearance Urine pH (5.0-9.0) Ur Specific [place] (1.005-1.025) Urine Protein (Neg-Trace) mg/dL Urine Glucose (UA) (Negative) mg/dL Urine Ketones (Negative) mg/dL Urine Blood (Negative) Urine Nitrite (Negative) Ur Leukocyte Esterase (Negative) Urine RBC (0-2) /HPF Urine WBC (0-5) /HPF Ur Squamous Epith Cells (0-2) /HPF Urine Bacteria (None Seen) Hyaline Casts (0-2) /LPF 10/08/22 Range/Units 17:08 WBC (4.8-10.8) X10*3/uL RBC (4.20-5.50) X10*6/uL Hgb (12.0-16.0) g/dl Hct (37.0-47.0) % MCV (80.0-98.0) fL MCH (27.0-33.0) pg MCHC (31.0-35.0) g/dl RDW (11.0-16.0) % Plt Count (160-400) X10*3/uL MPV (9.4-12.3) fL Immature Gran % (Auto) (0.0-0.4) % Neut % (Auto) (45-73) % Lymph % (Auto) (20-40) % Potter % (Auto) (2-11) % Eos % (Auto) (0-4) % Baso % (Auto) (0-2) % Lymph # (Auto) (1.2-4.9) X10*3/uL Potter # (Auto) (0.1-1.2) X10*3/uL Eos # (Auto) (0.0-0.4) X10*3/uL Baso # (Auto) (0.0-0.2) X10*3/uL Abs Immat Gran (auto) (0.00-0.03) X10*3/uL Absolute Neuts (auto) (2.0-8.3) x10*3/uL Absolute Nucleated RBC (0.0-0.012) X10*3/uL Nucleated RBC % (auto) (0.0-0.2) /100WBC ESR (0-20) MM/HR Sodium (135-145) mmol/L Potassium (3.3-5.1) mmol/L Chloride (96-108) mmol/L Carbon Dioxide (22-29) mmol/L Anion Gap (12-20) BUN (9-16) mg/dL Creatinine (0.5-1.4) mg/dL Estim Creat Clear Calc Estimated GFR Random Glucose (60-115) mg/dL Calcium (8.4-10.2) mg/dL Magnesium (1.6-2.6) mg/dL Total Bilirubin (0.0-1.0) mg/dL Direct Bilirubin (0.0-0.5) mg/dL AST (5-31) U/L ALT (0-31) U/L Alkaline Phosphatase (39-117) U/L C-Reactive Protein (< or = 0.50) mg/dL Total Protein (6.5-8.0) g/dL Albumin (3.5-5.0) g/dL Lipase (8-78) U/L Urine Color Yellow Urine Appearance Clear Urine pH 6.0 (5.0-9.0) Ur Specific [place] <= 1.005 (1.005-1.025) Urine Protein Negative (Neg-Trace) mg/dL Urine Glucose (UA) Negative (Negative) mg/dL Urine Ketones Negative (Negative) mg/dL Urine Blood Negative (Negative) Urine Nitrite Negative (Negative) Ur Leukocyte Esterase Small (1+) H (Negative) Urine RBC 0-2 (0-2) /HPF Urine WBC 0-5 (0-5) /HPF Ur Squamous Epith Cells 0-2 (0-2) /HPF Urine Bacteria None Seen (None Seen) Hyaline Casts 0-2 (0-2) /LPF <JU Durant - Last Filed: 10/08/22 12:59> Lab Results 10/08/22 10/08/22 10/08/22 Range/Units 13:47 13:47 13:47 WBC 6.6 (4.8-10.8) X10*3/uL RBC 4.07 L (4.20-5.50) X10*6/uL Hgb 12.4 (12.0-16.0) g/dl Hct 37.4 (37.0-47.0) % MCV 91.9 (80.0-98.0) fL MCH 30.5 (27.0-33.0) pg MCHC 33.2 (31.0-35.0) g/dl RDW 12.5 (11.0-16.0) % Plt Count 403 H (160-400) X10*3/uL MPV 10.1 (9.4-12.3) fL Immature Gran % (Auto) 0.5 H (0.0-0.4) % Neut % (Auto) 59.7 (45-73) % Lymph % (Auto) 28.4 (20-40) % Potter % (Auto) 9.1 (2-11) % Eos % (Auto) 1.7 (0-4) % Baso % (Auto) 0.6 (0-2) % Lymph # (Auto) 1.9 (1.2-4.9) X10*3/uL Potter # (Auto) 0.6 (0.1-1.2) X10*3/uL Eos # (Auto) 0.1 (0.0-0.4) X10*3/uL Baso # (Auto) 0.0 (0.0-0.2) X10*3/uL Abs Immat Gran (auto) 0.03 (0.00-0.03) X10*3/uL Absolute Neuts (auto) 3.9 (2.0-8.3) x10*3/uL Absolute Nucleated RBC 0.000 (0.0-0.012) X10*3/uL Nucleated RBC % (auto) 0.0 (0.0-0.2) /100WBC ESR 29 H (0-20) MM/HR Sodium 142 (135-145) mmol/L Potassium 4.5 (3.3-5.1) mmol/L Chloride 110 H (96-108) mmol/L Carbon Dioxide 23 (22-29) mmol/L Anion Gap 14 (12-20) BUN 16 (9-16) mg/dL Creatinine 0.83 (0.5-1.4) mg/dL Estim Creat Clear Calc 54.4 Estimated GFR > 60 Random Glucose 93 (60-115) mg/dL Calcium 10.3 H (8.4-10.2) mg/dL Magnesium 2.3 (1.6-2.6) mg/dL Total Bilirubin 0.3 (0.0-1.0) mg/dL Direct Bilirubin < 0.2 (0.0-0.5) mg/dL AST 16 (5-31) U/L ALT 13 (0-31) U/L Alkaline Phosphatase 113 (39-117) U/L C-Reactive Protein 0.17 (< or = 0.50) mg/dL Total Protein 6.8 (6.5-8.0) g/dL Albumin 4.2 (3.5-5.0) g/dL Lipase 14 (8-78) U/L Urine Color Urine Appearance Urine pH (5.0-9.0) Ur Specific [place] (1.005-1.025) Urine Protein (Neg-Trace) mg/dL Urine Glucose (UA) (Negative) mg/dL Urine Ketones (Negative) mg/dL Urine Blood (Negative) Urine Nitrite (Negative) Ur Leukocyte Esterase (Negative) Urine RBC (0-2) /HPF Urine WBC (0-5) /HPF Ur Squamous Epith Cells (0-2) /HPF Urine Bacteria (None Seen) Hyaline Casts (0-2) /LPF 10/08/22 Range/Units 17:08 WBC (4.8-10.8) X10*3/uL RBC (4.20-5.50) X10*6/uL Hgb (12.0-16.0) g/dl Hct (37.0-47.0) % MCV (80.0-98.0) fL MCH (27.0-33.0) pg MCHC (31.0-35.0) g/dl RDW (11.0-16.0) % Plt Count (160-400) X10*3/uL MPV (9.4-12.3) fL Immature Gran % (Auto) (0.0-0.4) % Neut % (Auto) (45-73) % Lymph % (Auto) (20-40) % Potter % (Auto) (2-11) % Eos % (Auto) (0-4) % Baso % (Auto) (0-2) % Lymph # (Auto) (1.2-4.9) X10*3/uL Potter # (Auto) (0.1-1.2) X10*3/uL Eos # (Auto) (0.0-0.4) X10*3/uL Baso # (Auto) (0.0-0.2) X10*3/uL Abs Immat Gran (auto) (0.00-0.03) X10*3/uL Absolute Neuts (auto) (2.0-8.3) x10*3/uL Absolute Nucleated RBC (0.0-0.012) X10*3/uL Nucleated RBC % (auto) (0.0-0.2) /100WBC ESR (0-20) MM/HR Sodium (135-145) mmol/L Potassium (3.3-5.1) mmol/L Chloride (96-108) mmol/L Carbon Dioxide (22-29) mmol/L Anion Gap (12-20) BUN (9-16) mg/dL Creatinine (0.5-1.4) mg/dL Estim Creat Clear Calc Estimated GFR Random Glucose (60-115) mg/dL Calcium (8.4-10.2) mg/dL Magnesium (1.6-2.6) mg/dL Total Bilirubin (0.0-1.0) mg/dL Direct Bilirubin (0.0-0.5) mg/dL AST (5-31) U/L ALT (0-31) U/L Alkaline Phosphatase (39-117) U/L C-Reactive Protein (< or = 0.50) mg/dL Total Protein (6.5-8.0) g/dL Albumin (3.5-5.0) g/dL Lipase (8-78) U/L Urine Color Yellow Urine Appearance Clear Urine pH 6.0 (5.0-9.0) Ur Specific [place] <= 1.005 (1.005-1.025) Urine Protein Negative (Neg-Trace) mg/dL Urine Glucose (UA) Negative (Negative) mg/dL Urine Ketones Negative (Negative) mg/dL Urine Blood Negative (Negative) Urine Nitrite Negative (Negative) Ur Leukocyte Esterase Small (1+) H (Negative) Urine RBC 0-2 (0-2) /HPF Urine WBC 0-5 (0-5) /HPF Ur Squamous Epith Cells 0-2 (0-2) /HPF Urine Bacteria None Seen (None Seen) Hyaline Casts 0-2 (0-2) /LPF <JU Gregory - Last Filed: 10/08/22 19:04> Independent Interpretation I performed an independent interpretation of an: CT Scan (CT/CT abdomen pelvis w IV con IMPRESSION: No acute findings. Stable findings as above. Incidental diverticulosis without definite acute inflammatory changes. Pancreatic lesion similar. Fleischner guidelines were followed.) <JU Gregory - Last Filed: 10/08/22 19:04> Radiology Impression Discussion of test interpretation with radiology: I have reviewed the radiologist's reading. <JU Gregory - Last Filed: 10/08/22 19:04> Core Measures AMI core measures followed: Yes <JU Gregory - Last Filed: 10/08/22 19:04> Measure exclusions: not indicated <JU Gregory - Last Filed: 10/08/22 19:04> Medications Administered Discontinued Medications Generic Name Dose Route Start Last Admin Trade Name Freq PRN Reason Stop Dose Admin Iohexol 100 ml 10/08/22 17:25 10/08/22 17:26 Iohexol 350 Mg/Ml 100 Ml Infus..Btl IV 10/08/22 17:26 85 ml ONCE ONE Administration Morphine Sulfate 4 mg 10/08/22 17:29 10/08/22 17:37 Morphine Sulfate 4 Mg/Ml Cartridge IVPUSH 10/08/22 17:30 4 mg ONCE ONE Administration Protocol Simethicone 80 mg 10/08/22 16:28 10/08/22 16:37 Simethicone 80 Mg Tab.Chew PO 10/08/22 16:29 80 mg ONCE ONE Administration <JU Durant - Last Filed: 10/08/22 12:59> Medications Administered Discontinued Medications Generic Name Dose Route Start Last Admin Trade Name Freq PRN Reason Stop Dose Admin Iohexol 100 ml 10/08/22 17:25 10/08/22 17:26 Iohexol 350 Mg/Ml 100 Ml Infus..Btl IV 10/08/22 17:26 85 ml ONCE ONE Administration Morphine Sulfate 4 mg 10/08/22 17:29 10/08/22 17:37 Morphine Sulfate 4 Mg/Ml Cartridge IVPUSH 10/08/22 17:30 4 mg ONCE ONE Administration Protocol Simethicone 80 mg 10/08/22 16:28 10/08/22 16:37 Simethicone 80 Mg Tab.Chew PO 10/08/22 16:29 80 mg ONCE ONE Administration <JU Gregory Last Filed: 10/08/22 19:04> Critical Care Time Critical Care Time Critical Care Time: No <JU Gregory Last Filed: 10/08/22 19:04> Discharge Plan Discharge Clinical Impression: Abdominal pain, Abdominal bloating <JU Durant Last Filed: 10/08/22 12:59> Patient Disposition: Home, Self-Care <JU Durant Last Filed: 10/08/22 12:59> Instructions: Gas and Bloating (ED), Abdominal Pain (ED) <JU Durant Last Filed: 10/08/22 12:59> Additional Instructions: Take your medications as prescribed. If you were prescribed antibiotics today, it is important that you take your medication to their entirety, do not skip any doses, do not finish them early. Follow-up with your primary care provider this week. Follow up with GI in the next day or two Return to the emergency department with new or worsening symptoms. Such as fevers, chills, chest pain, shortness of breath, nausea, vomiting, dizziness, headache, vision changes, lethargy In case of emergency call 911 Loperamide has been sent to her pharmacy for diarrhea. Zofran has been sent for nausea and vomiting. Simethicone for gas pain CT/CT abdomen pelvis w IV con IMPRESSION: No acute findings. Stable findings as above. Incidental diverticulosis without definite acute inflammatory changes. Pancreatic lesion similar. ? Fleischner guidelines were followed. <JU Durant Last Filed: 10/08/22 12:59> Prescriptions: New simethicone 180 mg capsule 180 mg PO BID PRN (Reason: abdominal distention) Qty: 20 0RF loperamide 2 mg capsule 2 mg PO Q6H PRN (Reason: loose stool) Qty: 20 0RF ondansetron 4 mg tablet,disintegrating 4 mg PO Q6H PRN (Reason: nausea and vomiting) Qty: 14 0RF No Action cyanocobalamin (vitamin B-12) 1,000 mcg/mL solution 1,000 mcg IM DIRECTED Qty: 3 12RF cholecalciferol (vitamin D3) 50 mcg (2,000 unit) capsule 50 mcg PO DAILY 90 Days Qty: 90 3RF gemfibrozil 600 mg tablet 600 mg PO BID 90 Days Qty: 180 2RF famotidine 40 mg tablet 40 mg PO BID Qty: 180 0RF rifaximin 200 mg tablet 400 mg PO TID 14 Days Qty: 84 0RF multivitamin Tablet 1 tab PO DAILY fluticasone propionate 50 mcg/actuation Adah,Suspension 1 spray INTRANASAL DAILY loratadine [Claritin] 10 mg Tablet 10 mg PO DAILY (DME) BD Integra Syringe 3 mL 25 gauge x 1 syringe See Rx Instructions .ROUTE DIRECTED Qty: 50 Rx Instructions: As directed rifaximin 550 mg tablet 550 mg PO TID 14 Days Qty: 42 0RF <JU Durant - Last Filed: 10/08/22 12:59> Referrals: Lopez Cote MD [Primary Care Provider] - 2 days <JU Durant - Last Filed: 10/08/22 12:59> Stand Alone Forms: Work/School Release <JU Durant - Last Filed: 10/08/22 12:59>
[2022-10-08 13:56] LABS: MANUAL DIFF FLAG NO
[2022-10-08 14:03] LABS: Basophils Percent Auto 0.6 % (0-2); Eosinophils Absolute Auto 0.1 X10*3/uL (0.0-0.4); Eosinophils Percent Auto 1.7 % (0-4); Hematocrit 37.4 % (37.0-47.0); Hemoglobin 12.4 g/dl (12.0-16.0); Imm Gran Abs Auto 0.03 X10*3/uL (0.00-0.03); Imm Gran Pct Auto 0.5 % (0.0-0.4); Lymphocytes Absolute Auto 1.9 X10*3/uL (1.2-4.9); Lymphocytes Percent Auto 28.4 % (20-40); Mean Corpuscular HGB Conc 33.2 g/dl (31.0-35.0); Mean Corpuscular Hemoglobin 30.5 pg (27.0-33.0); Mean Corpuscular Volume 91.9 fL (80.0-98.0); Mean Platelet Volume 10.1 fL (9.4-12.3); Monocytes Absolute Auto 0.6 X10*3/uL (0.1-1.2); Monocytes Percent Auto 9.1 % (2-11); Neutrophils Absolute Auto 3.9 x10*3/uL (2.0-8.3); Neutrophils Percent Auto 59.7 % (45-73); Platelet Count 403 X10*3/uL (160-400); Red Blood Count 4.07 X10*6/uL (4.20-5.50); Red Cell Distribution Width 12.5 % (11.0-16.0); White Blood Count 6.6 X10*3/uL (4.8-10.8)
[2022-10-08 14:28] LABS: Alanine Aminotransferase 13 U/L (0-31); Albumin Level 4.2 g/dL (3.5-5.0); Alkaline Phosphatase 113 U/L (39-117); Anion Gap 14 (12-20); Aspartate Amino Transferase 16 U/L (5-31); Bilirubin Direct < 0.2 mg/dL (0.0-0.5); Bilirubin Total 0.3 mg/dL (0.0-1.0); Blood Urea Nitrogen 16 mg/dL (9-16); C Reactive Protein 0.17 mg/dL (< or = 0.50); Calcium 10.3 mg/dL (8.4-10.2); Carbon Dioxide 23 mmol/L (22-29); Chloride 110 mmol/L (96-108); Creatinine Clr Calc Pharmacy 54.4; Estimated Glomerular Filt Rate > 60; Glucose Random 93 mg/dL (60-115); Lipase 14 U/L (8-78); Magnesium 2.3 mg/dL (1.6-2.6); Potassium 4.5 mmol/L (3.3-5.1); Sodium 142 mmol/L (135-145); Total Protein 6.8 g/dL (6.5-8.0)
[2022-10-08 14:52] LABS: Erythrocyte Sedimentation Rate 29 MM/HR (0-20)
[2022-10-08] MEDS: Simethicone 80 MG TAB.CHEW PO ×2 (16:37→19:06)
[2022-10-08 17:20] LABS: Appearance Urine Clear; Color Urine Yellow; Glucose Urine UA Negative (Negative); Leukocyte Esterase Urine Small (1+) (Negative); Nitrite Urine Negative (Negative); Specific Gravity - Urine <= 1.005 (1.005-1.025); UMIC TRIGGER UACC YES; Urine Blood Negative (Negative); Urine Ketones Negative (Negative); Urine Protein Negative (Neg-Trace)
[2022-10-08] MEDS: iohexoL 350 MG/ML 100 ML INFUS..BTL IV (17:26)
[2022-10-08 17:34] LABS: Bacteria Urine None Seen (None Seen); Hyaline Casts Urine 0-2 /LPF (0-2); RBC Urine 0-2 /HPF (0-2); Squamous Epithelial Cell Urine 0-2 /HPF (0-2); UACC Culture Trigger YES; WBC Urine 0-5 /HPF (0-5)
[2022-10-08] MEDS: Morphine Sulfate 4 MG/ML CARTRIDGE IVPUSH (17:37)
--- NOTE | 2022-10-08 18:57 | PC.NURSE ---
Report received from day shift team.
== END 2022-10-08 19:16 | disposition home or self-care (01) ==
PROVIDERS: Physician Assistant; Emergency Provider Emergency Medicine; PCP Family Medicine
DX: R14.0 Abdominal distension (gaseous) (principal); K50.10 Crohn's disease of large intestine without complications; G47.33 Obstructive sleep apnea (adult) (pediatric); Z87.891 Personal history of nicotine dependence; Z79.899 Other long term (current) drug therapy
CPT/HCPCS: 36415; 74177; 80048; 80076; 81001; 83690; 83735; 85025; 85652; 86140; 87086; 96374; 99284; J2270; Q9967

== ENCOUNTER 2023-01-10 14:57 | Emergency (ER) | payer MEDICARE, OTHER, SELFPAY ==
--- NOTE | ~2023-01-10 | CT_ITS ---
EXAMINATION: CT ABDOMEN AND PELVIS WITH CONTRAST CLINICAL INFORMATION: Crohn's disease, abdominal distention diffuse pain COMPARISON: CT abdomen and pelvis without contrast 10/08/2022 TECHNIQUE: Multidetector volumetric images were obtained from the superior aspect of the liver through the pubic symphysis following administration 85 mL of Omnipaque 350 intravenous contrast. Sagittal and coronal reformatted images were obtained on the technologist's workstation. Oral contrast: No This CT examination was performed using dose optimization techniques as appropriate, variously including the following: *Automated exposure control *Adjustment of mA and/or kV according to patient size (this includes techniques or standardized protocols for targeted exams where dose is matched to indication/reason for exam; i.e. extremities or head) *Use of iterative reconstruction technique DLP: 375 mGy-cm FINDINGS: LUNG BASES: The visualized lung bases are unremarkable. LIVER, GALLBLADDER, AND BILIARY TREE: The liver is normal in size, shape, and attenuation. There is a left hepatic cyst which appears stable. Mild prominence of intrahepatic ducts is noted. The gallbladder has been surgically removed. PANCREAS: Unremarkable. SPLEEN: Unremarkable. ADRENAL GLANDS: Unremarkable. KIDNEYS AND URETERS: The kidneys are normal in size, shape, and attenuation. No hydronephrosis, hydroureter, or calculi seen. No perinephric stranding. There are small hypodense areas in the right kidney probable small cyst. There are stable BLADDER: Unremarkable. GASTROINTESTINAL TRACT: There is scattered stool, diverticula and gas seen throughout the colon without distention or diverticulitis. There is intramural fat in the terminal ileum, nonspecific and unchanged. Rest of the small bowel loops are unremarkable. The stomach is nondistended and appears unremarkable. ABDOMINAL WALL: No significant hernia is appreciated. LYMPH NODES: Normal. VASCULAR: Unremarkable. PELVIC VISCERA: The uterus is anteverted and appears unremarkable. There is no adnexal mass or free fluid. OSSEOUS STRUCTURES: Mild degenerative disc changes with vacuum disc phenomena and spondylosis L5-S1 disc level. There is grade [address] over L[address]/CT abdomen pelvis w IV con IMPRESSION: Colonic diverticulosis without diverticulitis. Mild constipation. Nonspecific intramural fat stranding distal ileum. This can be secondary to chronic long-standing Crohn's disease. No active inflammatory process seen. Right renal cyst and left hepatic lobe cyst are stable. New intrahepatic mild ductal dilatation. Cholecystectomy is stable. Fleischner guidelines were followed.
[2023-01-10 15:24] VITALS: BP 157/69; PULSE 75; RESP 18; TEMP 36.1; O2SAT 99; BMI 21.6
--- NOTE | 2023-01-10 15:26 | ED_ITS ---
HPI - Abdominal Pain General Chief Complaint: Abdominal Pain Stated Complaint: Abd pain/Nausea/Weakness Time Seen by Provider: 01/10/23 16:01 Source: patient and other (Friend, Rodri) Mode of arrival: ambulatory Limitations: no limitations History of Present Illness HPI narrative: 67-year-old female who presents emergency department for evaluation of nausea, abdominal pain, fatigue and bloated sensation. Patient states she has a history of Crohn's disease but has not had any abdominal surgeries. She states that since Tuesday (2 days prior to evaluation) she has developed a non comfortable abdominal sensation which is located diffusely throughout her abdomen. She states that the pain is constant and is 10/10. The pain is gotten worse. She states the pain is exacerbated by eating but she has been able to eat small amounts of food . She states she can drink liquids without any difficulty. Patient states she has a history of Crohn's disease but does not take any medications for the Crohn's. She cannot recount when she last had a Crohn's flare-up. She believes that her pain feels like an exacerbation of her Crohn's disease. She denied fever, chills, cough, chest pain, shortness of breath. The patient had nausea with no vomiting or diarrhea. She has not noticed any blood per rectum, dark tarry stools or melanotic stools. She denied frequency, urgency or dysuria. Patient did contact her covering machine operator Dr. Gerardo who advised the patient to go to the emergency department for evaluation. Related Data Home Medications Medication Instructions Recorded Confirmed fluticasone propionate 50 1 spray intranasal DAILY 02/02/21 10/05/22 mcg/actuation nasal spray,suspension multivitamin 1 tab PO DAILY 02/02/21 10/05/22 syringe with needle, safety 3 mL #50 ea 03/02/22 10/05/22 25 gauge x 1 (BD Integra Syringe) loratadine 10 mg tablet (Claritin) 10 mg PO DAILY 10/05/22 10/05/22 Previous Rx's Medication Instructions Recorded cholecalciferol (vitamin D3) 50 50 mcg PO DAILY 90 days #90 caps 04/02/22 mcg (2,000 unit) capsule rifaximin 550 mg tablet 550 mg PO TID 2 weeks #42 tabs 09/17/22 famotidine 40 mg tablet 40 mg PO BID #180 tabs 09/20/22 rifaximin 200 mg tablet 400 mg PO TID 2 weeks #84 tabs 09/21/22 loperamide 2 mg capsule 2 mg PO Q6H PRN loose stool #20 10/08/22 caps ondansetron 4 mg disintegrating 4 mg PO Q6H PRN nausea and 10/08/22 tablet vomiting #14 tabs simethicone 180 mg capsule 180 mg PO BID PRN abdominal 10/08/22 distention #20 caps cyanocobalamin (vitamin B-12) 1,000 mcg IM DIRECTED #3 mL 10/21/22 1,000 mcg/mL injection solution gemfibrozil 600 mg tablet 600 mg PO BID 90 days #180 tabs 01/03/23 aluminum hydrox-magnesium carb 254 10 ml PO QID PRN dyspepsia #355 mL 01/10/23 mg-237.5 mg/5 mL oral suspension (Gaviscon Extra Strength) morphine 15 mg immediate release 15 mg PO Q4-6H PRN pain #8 tabs 01/10/23 tablet Allergies Allergy/AdvReac Type Severity Reaction Status Date / Time methylprednisolone Allergy Severe Rash, Verified 01/10/23 15:33 [From Solu-Medrol] facial swelling Penicillins Allergy Severe ANAPHYLAXIS Verified 01/10/23 15:33 Uomogoe-EVT-PmE Reductase Allergy Intermediate muscle Verified 01/10/23 15:33 Inhibitor aches [[id number] REDUCTASE INHIBITOR] Review of Systems Review of Systems Yes all other systems are reviewed and are negative [facility] Past Medical History [facility] Narrative: Social history: She denies tobacco, alcohol and drug use. Medical History Arthritis Crohn's colitis Diverticulitis Environmental allergies GERD (gastroesophageal reflux disease) Hx of Lyme disease Hypertriglyceridemia YASMIN (obstructive sleep apnea) Pancreas cyst Pulmonary nodule Seasonal allergies Surgical History H/O colonoscopy History of cholecystectomy History of cholecystectomy Family History Family History Father CVD (cardiovascular disease) Mother Hypertension Renal failure Blood disorder Brother Diabetes mellitus Sister Diabetes mellitus Social History Social History Household Members: Family Housing: Apartment Do you presently have visiting nurse or other home services: No Patient Tobacco Use Status: Former Tobacco user Quit Date: 2015 Tobacco use type: Cigarette Smoked in Last 30 Days: No e-Cigarette/Vaping Use: Never Used Second Hand Smoke Exposure: No Use of substances other than those prescribed or required for medical reasons: No Substance Use Type: Marijuana Advance Directives: No Advance Directives Information Provided: No service: No Current occupational status: retired Current occupational exposures/hazards: No Cognitive needs: No Hearing needs: No Vision needs: No Physical Exam ED Vital Signs: Vital Signs - 24 hr 01/10/23 15:24 01/10/23 16:34 01/10/23 17:20 Temperature 96.9 F Pulse Rate 75 Respiratory Rate 18 14 14 Blood Pressure 157/69 H Pulse Oximetry 99 Oxygen Delivery Method Room Air BMI result Body Mass Index 21.6 Const General: cooperative and no acute distress Orientation/consciousness: oriented to person and oriented to place Limitations: no limitations HENMT Head: Yes normal to inspection, Yes normocephalic and Yes atraumatic Ears: external ears normal General nose exam: Normal external nose present Face and sinus: Yes normal facial exam Mouth: Normal oral and palatal mucosa present Throat: Yes posterior oropharynx normal Eyes General: appearance normal, both eyes and all related structures Pupils: Equal, round and reactive pupils present Neck Neck: Yes normal visual inspection, Yes no lymphadenopathy, Yes trachea midline and Yes supple Chest Chest palpation & inspection: normal inspection of the chest and normal palpation of entire chest wall Resp Effort & Inspection: normal respiratory effort and able to speak in complete sentences Auscultation: clear to auscultation bilaterally Cardio Rate: regular rate Rhythm: regular rhythm Heart sounds: S1 normal heart sound present, S2 normal heart sound present and no murmurs GI Other: Patient's abdomen does appear to be distended, she has normoactive bowel sounds, she has diffuse, [id number] tenderness with no localizing tenderness, she has no voluntary or involuntary guarding General: Yes no CVA tenderness Back/Spine/Pelvis Back: no CVA tenderness Skin General skin exam: no rashes or lesions noted Neuro General: oriented to person and oriented to place Cranial nerves: Yes Equal, round and reactive pupils present Cognition (Neuro): normal cognition Motor exam (neuro): 5/5 motor strength present throughout Extrem General: Yes normal to inspection Psych Appearance: grossly normal Speech and movement: Normal speech and movement present Affect: normal affect Attitude: cooperative Course Course Course Narrative: RME - 67 yo female with history of Crohn's disease, pancreatic endocrine tumor (following at [facility]) who presents to the ER for evaluation of a couple of days of worsening abdominal pain, nausea, and weakness. Reporting nonbloody mushy stools. Follows w/ Dr. Gerardo who recommended she come to the ER for evaluation. Plan: lab workup, defer imaging for now (ask Humaira what he prefers?) Medical Decision Making Medical Decision Making [facility] Narrative: 67-year-old female with a history of Crohn's disease, no abdominal surgeries who presents emergency department for evaluation of 2 days of abdominal distension, diffuse abdominal pain, nausea with no vomiting, diarrhea, fever or chills. Patient states the pain is worse with eating food but she has been able eat and she is able to drink fluids without any difficulty. She states that the pain feels like a Crohn's flare up. She took Tylenol with no relief for symptoms. Examination did reveal distended abdomen with normoactive bowel sounds and [id number] diffuse tenderness. Following tests were ordered: CBC, BMP, LFTs, magnesium, lipase, urinalysis, CT scan of the abdomen pelvis with IV contrast 1837: Patient's laboratory evaluation was unremarkable. CT scan abdomen pelvis did not reveal a etiology for the patient's pain, there was some nonspecific intramural fat stranding to the distal ileum for which the radial felt was chronic . There were no clear signs of a Crohn's exacerbation. Patient is feeling better, she still feels bloated Patient was advised to continue taking her medications as prescribed, she was started on extra-strength Gaviscon 10 cc 4 times a day for the next 3-4 days see if this improves her symptoms She was advised to take Tylenol for pain and for pain not relieved by Tylenol she was prescribed morphine 15 mg every 6 hours as needed dispense 8 pills She was advised to follow-up with her GI doctor for re-evaluation Differential Diagnosis Differential diagnosis includes was not limited to bowel obstruction, diverticulitis, Crohn's exacerbation, GERD, IBS Admission/Observation Consideration of admission/observation: Escalation of care including admission/observation considered Lab Data [facility] Lab Attestation statement: I reviewed the patient's lab results. My interpretation patient's laboratory evaluation: CBC, CMP magnesium lipase unremarkable. 01/10/23 15:51 01/10/23 15:51 Labs: Lab Results 01/10/23 01/10/23 01/10/23 Range/Units 15:51 15:51 17:45 WBC 6.1 (4.8-10.8) X10*3/uL RBC 4.06 L (4.20-5.50) X10*6/uL Hgb 12.1 (12.0-16.0) g/dl Hct 36.5 L (37.0-47.0) % MCV 89.9 (80.0-98.0) fL MCH 29.8 (27.0-33.0) pg MCHC 33.2 (31.0-35.0) g/dl RDW 12.7 (11.0-16.0) % Plt Count 367 (160-400) X10*3/uL MPV 9.7 (9.4-12.3) fL Immature Gran % (Auto) 0.3 (0.0-0.4) % Neut % (Auto) 52.8 (45-73) % Lymph % (Auto) 34.6 (20-40) % [place] % (Auto) 9.6 (2-11) % Eos % (Auto) 2.0 (0-4) % Baso % (Auto) 0.7 (0-2) % Lymph # (Auto) 2.1 (1.2-4.9) X10*3/uL [place] # (Auto) 0.6 (0.1-1.2) X10*3/uL Eos # (Auto) 0.1 (0.0-0.4) X10*3/uL Baso # (Auto) 0.0 (0.0-0.2) X10*3/uL Abs Immat Gran (auto) 0.02 (0.00-0.03) X10*3/uL Absolute Neuts (auto) 3.2 (2.0-8.3) x10*3/uL Absolute Nucleated RBC 0.000 (0.0-0.012) X10*3/uL Nucleated RBC % (auto) 0.0 (0.0-0.2) /100WBC Sodium 143 (135-145) mmol/L Potassium 3.6 (3.3-5.1) mmol/L Chloride 110 H (96-108) mmol/L Carbon Dioxide 25 (22-29) mmol/L Anion Gap 12 (12-20) BUN 15 (9-16) mg/dL Creatinine 0.76 (0.5-1.4) mg/dL Estim Creat Clear Calc 59.4 Estimated GFR > 60 Random Glucose 86 (60-115) mg/dL Calcium 10.7 H (8.4-10.2) mg/dL Magnesium 2.3 (1.6-2.6) mg/dL Total Bilirubin 0.3 (0.0-1.0) mg/dL Direct Bilirubin 0.1 (0.0-0.5) mg/dL AST 18 (5-31) U/L ALT 14 (0-31) U/L Alkaline Phosphatase 113 (39-117) U/L Total Protein 7.2 (6.5-8.0) g/dL Albumin 4.3 (3.5-5.0) g/dL Lipase 20 (8-78) U/L Urine Color Yellow Urine Appearance Clear Urine pH 6.0 (5.0-9.0) Ur Specific [place] 1.015 (1.005-1.025) Urine Protein Negative (Neg-Trace) mg/dL Urine Glucose (UA) Negative (Negative) mg/dL Urine Ketones Negative (Negative) mg/dL Urine Blood Negative (Negative) Urine Nitrite Negative (Negative) Ur Leukocyte Esterase Trace H (Negative) Urine RBC 0-2 (0-2) /HPF Urine WBC 0-5 (0-5) /HPF Ur Squamous Epith Cells 0-2 (0-2) /HPF Urine Bacteria None Seen (None Seen) Hyaline Casts 0-2 (0-2) /LPF Radiology Impression Discussion of test interpretation with radiology: I have reviewed the radiologist's reading. Radiologist Impression: IMPRESSION: Colonic diverticulosis without diverticulitis. Mild constipation. Nonspecific intramural fat stranding distal ileum. This can be secondary to chronic long-standing Crohn's disease. No active inflammatory process seen. Right renal cyst and left hepatic lobe cyst are stable. New intrahepatic mild ductal dilatation. Cholecystectomy is stable. Fleischner guidelines were followed. Dictated By:aG York MD Independent Historian Clinical information obtained from an independent historian. History obtained from or confirmed by: Other (Friend, Rodri) External Record Review External record reviewed: Office record Prescription Management I considered prescription management with: Pain Medication and Other (Antacid) Chronic Conditions Patient?s care impacted by: Other (Crohn's disease) Medications Administered Discontinued Medications Generic Name Dose Route Start Last Admin Trade Name Freshannan PRN Reason Stop Dose Admin Sodium Chloride 1,000 mls @ 999 mls/hr 01/10/23 16:16 01/10/23 17:35 Ns IV 01/10/23 17:16 Infused .Q1H1M STA Infusion Iohexol 85 ml 01/10/23 17:25 01/10/23 17:25 Iohexol 350 Mg/Ml 75 Ml Infus..Btl IV 01/10/23 17:26 85 ml ONCE ONE Administration Morphine Sulfate 4 mg 01/10/23 16:16 01/10/23 16:34 Morphine Sulfate 4 Mg/Ml Cartridge IVPUSH 01/10/23 16:17 4 mg ONCE STA Administration Protocol Ondansetron HCl 4 mg 01/10/23 16:16 01/10/23 16:34 Ondansetron Hcl 4 Mg/2 Ml Vial IVPUSH 01/10/23 16:17 4 mg ONCE ONE Administration Discharge Plan Discharge Clinical Impression: Abdominal bloating Abdominal pain Qualifiers: Abdominal location: generalized Qualified Code(s): R10.84 - Generalized abdominal pain Patient Disposition: Home, Self-Care Additional Instructions: Your blood work was normal. The CT scan of your abdomen pelvis with IV contrast did not reveal a clear cause for your pain, there is no evidence on the CT scan for flare-up of your Crohn's disease I am going to treat you for increase acid increased gas with extra-strength Gaviscon 10 mL (2 tsp) 4 times a day as needed for abdominal pain. Take Tylenol (acetaminophen) 2 pills every 4-6 hours as needed for pain. For pain not relieved by extra-strength Gaviscon and Tylenol take morphine 15 mg pills, 1 pill every 6 hours as needed for pain. This medication will make you sleepy, do not drive or work while taking this medication. Morphine is a narcotic medication and can be addicting. If you are concerned about addiction you can ask the pharmacist for less pills or do not get this prescription filled. Follow-up with your doctor in 2 days. Follow-up with your covering machine operator in 1 week Please return to the emergency department if your symptoms get worse or if you develop any symptoms that are concerning to you. Prescriptions: New Gaviscon Extra Strength 254-237.5 mg/5 mL suspension 10 ml PO QID PRN (Reason: dyspepsia) Qty: 355 0RF morphine 15 mg tablet 15 mg PO Q4-6H PRN (Reason: pain) Qty: 8 0RF Rx Instructions: The patient may ask for partial fill; Partial Fill upon patient request. No Action cholecalciferol (vitamin D3) 50 mcg (2,000 unit) capsule 50 mcg PO DAILY 90 Days Qty: 90 3RF famotidine 40 mg tablet 40 mg PO BID Qty: 180 0RF rifaximin 200 mg tablet 400 mg PO TID 14 Days Qty: 84 0RF cyanocobalamin (vitamin B-12) 1,000 mcg/mL solution 1,000 mcg IM DIRECTED Qty: 3 12RF gemfibrozil 600 mg tablet 600 mg PO BID 90 Days Qty: 180 2RF multivitamin Tablet 1 tab PO DAILY fluticasone propionate 50 mcg/actuation [place],Suspension 1 spray INTRANASAL DAILY loratadine [Claritin] 10 mg Tablet 10 mg PO DAILY simethicone 180 mg capsule 180 mg PO BID PRN (Reason: abdominal distention) Qty: 20 0RF loperamide 2 mg capsule 2 mg PO Q6H PRN (Reason: loose stool) Qty: 20 0RF ondansetron 4 mg tablet,disintegrating 4 mg PO Q6H PRN (Reason: nausea and vomiting) Qty: 14 0RF (DME) BD Integra Syringe 3 mL 25 gauge x 1 syringe See Rx Instructions .ROUTE DIRECTED Qty: 50 Rx Instructions: As directed rifaximin 550 mg tablet 550 mg PO TID 14 Days Qty: 42 0RF
[2023-01-10 15:56] LABS: MANUAL DIFF FLAG NO
[2023-01-10 15:59] LABS: Basophils Percent Auto 0.7 % (0-2); Eosinophils Absolute Auto 0.1 X10*3/uL (0.0-0.4); Hematocrit 36.5 % (37.0-47.0); Hemoglobin 12.1 g/dl (12.0-16.0); Imm Gran Abs Auto 0.02 X10*3/uL (0.00-0.03); Imm Gran Pct Auto 0.3 % (0.0-0.4); Lymphocytes Absolute Auto 2.1 X10*3/uL (1.2-4.9); Lymphocytes Percent Auto 34.6 % (20-40); Mean Corpuscular HGB Conc 33.2 g/dl (31.0-35.0); Mean Corpuscular Hemoglobin 29.8 pg (27.0-33.0); Mean Corpuscular Volume 89.9 fL (80.0-98.0); Mean Platelet Volume 9.7 fL (9.4-12.3); Monocytes Absolute Auto 0.6 X10*3/uL (0.1-1.2); Monocytes Percent Auto 9.6 % (2-11); Neutrophils Absolute Auto 3.2 x10*3/uL (2.0-8.3); Neutrophils Percent Auto 52.8 % (45-73); Platelet Count 367 X10*3/uL (160-400); Red Blood Count 4.06 X10*6/uL (4.20-5.50); Red Cell Distribution Width 12.7 % (11.0-16.0); White Blood Count 6.1 X10*3/uL (4.8-10.8)
[2023-01-10 16:16] LABS: Alanine Aminotransferase 14 U/L (0-31); Albumin Level 4.3 g/dL (3.5-5.0); Alkaline Phosphatase 113 U/L (39-117); Anion Gap 12 (12-20); Aspartate Amino Transferase 18 U/L (5-31); Bilirubin Direct 0.1 mg/dL (0.0-0.5); Bilirubin Total 0.3 mg/dL (0.0-1.0); Blood Urea Nitrogen 15 mg/dL (9-16); Calcium 10.7 mg/dL (8.4-10.2); Carbon Dioxide 25 mmol/L (22-29); Chloride 110 mmol/L (96-108); Creatinine Clr Calc Pharmacy 59.4; Estimated Glomerular Filt Rate > 60; Glucose Random 86 mg/dL (60-115); Lipase 20 U/L (8-78); Magnesium 2.3 mg/dL (1.6-2.6); Potassium 3.6 mmol/L (3.3-5.1); Sodium 143 mmol/L (135-145); Total Protein 7.2 g/dL (6.5-8.0)
[2023-01-10 16:34] VITALS: RESP 14
[2023-01-10] MEDS: Morphine Sulfate 4 MG/ML CARTRIDGE IVPUSH (16:34)
[2023-01-10] MEDS: ondansetron HCL 4 MG/2 ML VIAL IVPUSH (16:34)
[2023-01-10] MEDS: 0.9 % Sodium Chloride 1,000 ML 999 ML IV (16:34)
--- NOTE | 2023-01-10 16:40 | PC.NURSE ---
Pt medicated per sep. Pts friend at bedside. Iv fluid started. wctm.
[2023-01-10 17:20] VITALS: RESP 14
[2023-01-10] MEDS: iohexoL 350 MG/ML 75 ML INFUS..BTL 85 ML IV (17:25)
[2023-01-10 17:53] LABS: Appearance Urine Clear; Color Urine Yellow; Glucose Urine UA Negative (Negative); Leukocyte Esterase Urine Trace (Negative); Nitrite Urine Negative (Negative); Specific Gravity - Urine 1.015 (1.005-1.025); UMIC TRIGGER UACC YES; Urine Blood Negative (Negative); Urine Ketones Negative (Negative); Urine Protein Negative (Neg-Trace)
[2023-01-10 17:58] LABS: Bacteria Urine None Seen (None Seen); Hyaline Casts Urine 0-2 /LPF (0-2); RBC Urine 0-2 /HPF (0-2); Squamous Epithelial Cell Urine 0-2 /HPF (0-2); WBC Urine 0-5 /HPF (0-5)
--- NOTE | 2023-01-10 18:22 | PC.NURSE ---
Pt ca&ox3 requesting to turn lights down. Friend remains at bedside. Reports pain 01/24. wctm.
== END 2023-01-10 19:30 | disposition home or self-care (01) ==
PROVIDERS: Physician Assistant; Emergency Provider Emergency Medicine Emergency Medical Services; PCP Family Medicine
DX: R14.0 Abdominal distension (gaseous) (principal); K50.90 Crohn's disease, unspecified, without complications; F12.90 Cannabis use, unspecified, uncomplicated; Z87.891 Personal history of nicotine dependence; Z79.899 Other long term (current) drug therapy
CPT/HCPCS: 36415; 74177; 80048; 80076; 81001; 83690; 83735; 85025; 96374; 96375; 99284; J2270; J2405; Q9967

== ENCOUNTER 2023-02-09 07:29 | Outpatient (REF) | payer MEDICARE, OTHER, SELFPAY ==
[2023-02-09 09:09] LABS: Alanine Aminotransferase 14 U/L (0-31); Albumin Level 4.3 g/dL (3.5-5.0); Alkaline Phosphatase 129 U/L (39-117); Anion Gap 12 (12-20); Aspartate Amino Transferase 16 U/L (5-31); Bilirubin Total 0.3 mg/dL (0.0-1.0); Blood Urea Nitrogen 14 mg/dL (9-16); Calcium 10.3 mg/dL (8.4-10.2); Carbon Dioxide 25 mmol/L (22-29); Chloride 108 mmol/L (96-108); Cholesterol 186 mg/dL; Estimated Glomerular Filt Rate > 60; Glucose Fasting 103 mg/dL (60-99); HDL Cholesterol 62 mg/dL; LDL Cholesterol Calculated 113 mg/dl; Potassium 4.8 mmol/L (3.3-5.1); Sodium 140 mmol/L (135-145); Total Protein 7.4 g/dL (6.5-8.0); Triglycerides 58 mg/dL
[2023-02-09 09:27] LABS: TSH reflex Free T4 0.97 uIU/mL (0.32-4.0)
[2023-02-09 10:15] LABS: Appearance Urine Clear; Color Urine Yellow; Glucose Urine UA Negative (Negative); Leukocyte Esterase Urine Small (1+) (Negative); Nitrite Urine Negative (Negative); PH 5.5 (5.0-9.0); Specific Gravity - Urine 1.015 (1.005-1.025); UMIC TRIGGER UA YES; Urine Blood Negative (Negative); Urine Ketones Negative (Negative); Urine Protein Negative (Neg-Trace)
[2023-02-09 10:56] LABS: Bacteria Urine None Seen (None Seen); Hyaline Casts Urine 0-2 /LPF (0-2); RBC Urine 0-2 /HPF (0-2); WBC Urine 0-5 /HPF (0-5)
[2023-02-09 11:16] LABS: Microalbum/Creatinine Ratio Ur 8.5 ug/mg cr
== END 2023-02-09 07:30 | disposition home or self-care (01) ==
LOC: HO.LAB 07:29
PROVIDERS: PCP Family Medicine; Visit Provider Family Medicine
DX: Z00.00 Encounter for general adult medical examination without abnormal findings (principal); I10 Essential (primary) hypertension
CPT/HCPCS: 36415; 80053; 80061; 81001; 82043; 84443

== ENCOUNTER 2023-03-11 11:38 | Outpatient (AMB) | payer MEDICARE, OTHER, SELFPAY ==
[2023-03-11 11:59] VITALS: BP 118/68; TEMP 36.7; BMI 21.7
--- NOTE | 2023-03-11 11:59 | MHC.PC.OV ---
Vital Signs 03/11/23 11:59 Height 5 ft 3 in Weight 122 lb 6 oz BMI 21.7 BP 118/68 Blood Pressure Location Rt radial Temp 98.1 F Temp Source Oral Intake Visit Reasons: follow up chronic conditions Intake Note: Patient is here for follow up on chronic conditions, feels she may have a sinus infection, and has a stye in her eye. Allergies methylprednisolone [From Solu-Medrol] Allergy (Severe, Verified 03/11/23 12:04) Rash, facial swelling Penicillins Allergy (Severe, Verified 03/11/23 12:04) ANAPHYLAXIS Pymkwtf-YII-QvJ Reductase Inhibitor [JFABKNG-MKU-COW REDUCTASE INHIBITOR] Allergy (Intermediate, Verified 03/11/23 12:04) muscle aches Tobacco use date assessed: 03/11/23 Fall risk assessment: No Falls in past year Last assessed Fall Risk: 03/11/23 Dental Screening Dental Screen Date: 03/11/23 Did you have a dental visit in the last 12 months?: Yes Did you have a dental problem in the last 6 months where you did not have access to dental care?: No Was dental information given to patient?: Patient has dentist HPI follow up chronic conditions HPI Details 68 y/o female presents to f/u chronic conditions. Hx of Pancreas cyst and meningioma, she had undergone a PET scan and had found an incidental pituitary cyst. She continues to follow up with [facility] and has an appt. with them March. Pt has ? of a sinus infection today. She also has complaints of a stye. HPI Comments History of Present Illness Details Documentation assistance for Lopez Cote MD, was provided by Cameron Cruz,? Box Strapper on 03/11/2023 12:34 PM EDGAR. I, Dr. Cote, have read, observed, and verified documentation.? PFSH Medical History Arthritis Crohn's colitis Diverticulitis Environmental allergies GERD (gastroesophageal reflux disease) Hx of Lyme disease Hypertriglyceridemia YASMIN (obstructive sleep apnea) Pancreas cyst Pulmonary nodule Seasonal allergies Surgical History H/O colonoscopy History of cholecystectomy History of cholecystectomy Family History Father CVD (cardiovascular disease) Mother Hypertension Renal failure Blood disorder Brother Diabetes mellitus Sister Diabetes mellitus Social History Household Members: Family Housing: Apartment Do you presently have visiting nurse or other home services: No Patient Tobacco Use Status: Former Tobacco user Quit Date: 2015 Tobacco use type: Cigarette e-Cigarette/Vaping Use: Never Used Second Hand Smoke Exposure: No Substance Use Type: Marijuana service: No Current occupational status: retired Current occupational exposures/hazards: No Cognitive needs: No Hearing needs: No Vision needs: No Questionnaire Thrive Questionnaire Date Thrive assessed: 09/01/22 TREI-7 AMB Questionnaire TERI-7 Date TERI - 7 assessed: 09/01/22 Source: Developed by Drs. Yasmani Rodriguez, Sophia Torres, Manuel Olson and colleagues, with an educational rubi from [employer]. Physical exam (Primary Care) Vital Signs: Last Vital Signs Temp 98.1 F 03/11/23 11:59 BP 118/68 03/11/23 11:59 BMI result Body Mass Index 21.7 Tobacco/Smoking Status: Tobacco use Status Tobacco use date assessed 03/11/23 03/11/23 12:06 Patient Tobacco Use Status Former Tobacco user 03/11/23 12:06 Tobacco use type Cigarette 03/11/23 12:06 e-Cigarette/Vaping Use Never Used 03/11/23 12:06 Thrive Assessment: Date of Thrive Assessment Date Thrive assessed 09/01/22 03/11/23 12:06 Assessment and Plan Assessment & Plan (1) Sinusitis: Code(s): J32.9 - Chronic sinusitis, unspecified Plan: Likely bacterial sinus infection Allergic to penicillins Will give her levofloxacin. Advised her to watch for any GI tract issues. She will call me if she has any problems Advised warm compresses on face (2) Stye: Code(s): H00.019 - Hordeolum externum unspecified eye, unspecified eyelid Plan: Right eye stye Warm compresses should help this resolve (3) Mild anemia: Code(s): D64.9 - Anemia, unspecified Plan: Mild anemia and Heme-Onc has evaluated. Mild iron deficiency anemia with reactive thrombocytosis. Anemia likely secondary to Crohn's She declines iron infusion Encouraged her to look for foods that she tolerates that have plenty of iron Will repeat her CBC prior to her next visit. (4) Pancreatic tumor: Code(s): D49.0 - Neoplasm of unspecified behavior of digestive system Plan: History of pancreatic neuroendocrine tumor Followed by [facility] and gets regular PET scans and MRI She has declined biopsies and surgical intervention in favor of close surveillance No changes in pancreatic tumor thus far. However PET scan has showed meningioma and a pituitary cyst - see below (5) Pituitary cyst: Code(s): E23.6 - Other disorders of pituitary gland Plan: Likely benign but Hematology-Oncology recommends surveillance along with meningiomas below. Follow-up with Hematology-Oncology as recommended (6) Meningioma: Code(s): D32.9 - Benign neoplasm of meninges, unspecified Plan: Follow-up with Hematology-Oncology as recommended Orders: Orders Vitamin B12 and Folate Today E53.8 - Deficiency of other specified B group vitamins Comprehensive Bertrand. Panel Fast Today Z00.00 - Encounter for general adult medical examination without abnormal findings Lipid Panel Today Z00.00 - Encounter for general adult medical examination without abnormal findings TSH reflex Free T4 Today Z00.00 - Encounter for general adult medical examination without abnormal findings Vitamin D 25-OH Total Today E55.9 - Vitamin D deficiency, unspecified Microalbumin, Random (w Creat) Today I10 - Essential (primary) hypertension Complete Blood Count Auto Diff Today Z00.00 - Encounter for general adult medical examination without abnormal findings UA and rflx microscopic Today Z00.00 - Encounter for general adult medical examination without abnormal findings Coding Level of Care Code Est Pt Level 4 (56830) Diagnoses Sinusitis J32.9 Stye H00.019 Mild anemia D64.9 Pancreatic tumor D49.0 Pituitary cyst E23.6 Meningioma D32.9
== END 2023-03-11 13:17 | disposition home or self-care (01) ==
PROVIDERS: PCP Family Medicine; Visit Provider Family Medicine
DX: J32.9 Chronic sinusitis, unspecified (principal); D32.9 Benign neoplasm of meninges, unspecified; E23.6 Other disorders of pituitary gland; H00.013 Hordeolum externum right eye, unspecified eyelid; D64.9 Anemia, unspecified; D49.0 Neoplasm of unspecified behavior of digestive system
CPT/HCPCS: 99214

== ENCOUNTER 2023-03-25 09:53 | Outpatient (REF) | payer MEDICARE, OTHER, SELFPAY ==
[2023-03-25 12:23] LABS: Alanine Aminotransferase 15 U/L (0-31); Albumin Level 4.8 g/dL (3.5-5.0); Alkaline Phosphatase 117 U/L (39-117); Anion Gap 13 (12-20); Aspartate Amino Transferase 18 U/L (5-31); Bilirubin Total 0.3 mg/dL (0.0-1.0); Blood Urea Nitrogen 14 mg/dL (9-16); Calcium 11.3 mg/dL (8.4-10.2); Carbon Dioxide 26 mmol/L (22-29); Chloride 107 mmol/L (96-108); Estimated Glomerular Filt Rate 58; Glucose Random 110 mg/dL (60-115); Phosphorus 2.5 mg/dL (2.7-4.5); Sodium 142 mmol/L (135-145); Total Protein 8.1 g/dL (6.5-8.0)
[2023-03-25 12:29] LABS: Vitamin D 25-OH Total 106.3 ng/mL (>30)
[2023-03-25 12:45] LABS: Folate > 20.0 ng/mL (> or = 4.0); Vitamin B12 370 pg/mL (200-900)
[2023-03-27 12:39] LABS: PTHI 82 pg/mL (16-77)
[2023-03-28 20:53] LABS: Lyme Abs Screen <0.90 index
[2023-03-31 10:59] LABS: Calcium, Ionized 5.6 mg/dL (4.7-5.5)
[2023-03-31 17:48] LABS: Alk.Phos Iso. Macrohepatic 0 % (<=0); Alk.Phos Isoenzymes Bone 28 % (28-66); Alk.Phos Isoenzymes Intest 16 % (1-24); Alk.Phos Isoenzymes Liver 56 % (25-69); Alk.Phos Isoenzymes Placental 0 % (<=0); Alk.Phos Isoenzymes Total 104 U/L (37-153)
[2023-04-01 18:24] LABS: Parathyroid Hormone Related Pr 14 pg/mL (11-20)
== END 2023-03-25 09:54 | disposition home or self-care (01) ==
LOC: HO.LAB 09:53
PROVIDERS: PCP Family Medicine; Visit Provider Internal Medicine Gastroenterology
DX: E83.52 Hypercalcemia (principal); D49.0 Neoplasm of unspecified behavior of digestive system; M25.561 Pain in right knee; M25.562 Pain in left knee; R53.83 Other fatigue; K75.81 Nonalcoholic steatohepatitis (NASH)
CPT/HCPCS: 36415; 80053; 82306; 82330; 82607; 82746; 83519; 83970; 84080; 84100; 86617; 86618; 99212

== ENCOUNTER 2023-03-25 09:53 | Outpatient (AMB) | payer MEDICARE, OTHER, SELFPAY ==
--- NOTE | 2023-03-25 09:55 | A.OFFVIS_ITS ---
Intake Vital Signs 03/25/23 09:57 Height 5 ft 3 in Weight 123 lb 7.342 oz BMI 21.9 BP 177/78 H Blood Pressure Location Lt brachial Position Sitting Pulse 83 Intake Visit Reasons: 6 month fu Intake Note: Renu presents in the office as a 6 month follow up. CC: She states that she is concerned of her iron. She is tired and not sure because of her Crohn's disease she is unable to take iron pills. Allergies methylprednisolone [From Solu-Medrol] Allergy (Severe, Verified 03/25/23 09:58) Rash, facial swelling Penicillins Allergy (Severe, Verified 03/25/23 09:58) ANAPHYLAXIS Guwnodw-ZYH-JpM Reductase Inhibitor [UJUGNAA-UCB-JKQ REDUCTASE INHIBITOR] Allergy (Intermediate, Verified 03/25/23 09:58) muscle aches HPI 6 month fu HPI Details 68 yr old f w hx of cholecystectomy michelle g seen for f/u? RECAP:index visit 08/07/2019 ? Her major issue wass fatigue and bloating ? she has indigestion all her life, if she eats fried foods she can feel reflux ? eggs make her feel really unwell ? weight is going up, she is on crohns diet, full of carbs ? she has bursitis left shoudler and chronuc right knee pain from meniscal tear ? no skin rashes or eye complaints ? no jaundice ? denies stress or anxiety ?She may have had crohns disease vs nsaid related colitis but her sx and objective data seem to suggest she is in biochemical and clinical remission with neg calprotectin and CTe, some of her symptoms maybe due to IBS or SIBO vs carb rich diet ? she was advised to stop pentasa and given rifaximin TESTS: ? colonoscopy 2005-- normal, mild diverticulitis ? colonoscopy 2016--diffsue colitis, erosions, from cecum to ascending colon, TI not freely intubated, mild diverticular disease ? bx TI--enteritis, ascending colon colitis, and descending mild colitis ? (this was actually a screening colonoscopy but she had some diarrheal sx at the time as well for 1 year at least, she had also been on a lot of nsiads for knee arthritis at the time) ? MRI 04/2019-- ?pancreas cyst, otherwise normal pancreas ? CT -2019- no active inflammation, submucosal fat in TI, diverticular disase, spondylolisthesis ? MRI--03/2020--hepatic steatosis, 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, panc cysts CT 02/2021---?hypervascular pancreas lesion, otherwise nml MRI 04/2021-- pancreas cysts, ?neuroendocrine focus--[place] [facility] [place] 09/2021- diverticulosis, ?mild enhancement TI CT 10/2021- stable pancreas lesion, no acute findings . LABS: neg fecal blanca, neg CRP, mild raised ESR< nml HGB, nml ferritin ? ? ? raised alk phos, AMA negative fecal calprotectin has been fluctuating up and down from borderline to mildly positive ? Colonoscopy:06/2021--ileal erosions noted PATH: A.? Terminal ileum, biopsy:? Chronic active ileitis with mild activity. B.? Colon, right, biopsy:? Colonic mucosa within normal limits; negative for active, chronic or microscopic colitis.? C.? Colon, transverse and left, biopsy:? Colonic mucosa within normal limits; negative for active, chronic or microscopic colitis.? D.? Rectum, biopsy:? Chronic inactive colitis. INTERIM: she is feeling overwhelmed by her different health issues she is feeling tired all the time following [place] [facility] [place] her frontal lobe tumor, ? XRT no abdominal pain ?no blood in stool no nausea or vomiting appetite is good following up with pancreas center at [facility] as well-on surveillance LABS: 02/06-- borderline HGB, and Na, LFT nml, ferritin 111 from 09/2022 ? EXAM: GENERAL: The patient is well developed and nontoxic. VITAL SIGNS:see workflow HEENT: Nonicteric sclerae, PERRLA, EOMI. Oropharynx clear. Moist mucous membranes. Conjunctivae appear well perfused. No thyroid mass. CHEST: Chest wall is nontender. HEART: Regular rate and rhythm without murmurs. LUNGS: Clear to auscultation bilaterally. ABDOMEN: Soft, positive bowel sounds, mildly tender epigastrium, no organomegaly.no flank tenderness SKIN: No rash, no excessive bruising, petechiae, or purpura. NEUROLOGIC: Cranial nerves II-XII intact without motor/sensory deficit. ? Psych--appropriate affect ? Assessments ? 1. Crohn''s disease of small and large i ntestines with complication, stable at this time 2. Pancreatic lesion with cysts and sple nule, went to [facility] and following there for this 3. meningioma, 4. borderline Ca, PLAN: 1/ check labs as below for Ix for Hyperc alcemia and her fatigue 2/ check stool lactoferrin [facility] Medical History (Updated 03/25/23 @ 10:11 by Mel Gerardo MD) Arthritis Hx of Lyme disease Environmental allergies Seasonal allergies GERD (gastroesophageal reflux disease) YASMIN (obstructive sleep apnea) Pulmonary nodule Diverticulitis Pancreas cyst Hypertriglyceridemia Crohn's colitis Surgical History (Updated 03/25/23 @ 09:57 by ENE Craft) Hx of right cataract extraction History of cholecystectomy History of cholecystectomy H/O colonoscopy Family History Father CVD (cardiovascular disease) Mother Hypertension Renal failure Blood disorder Brother Diabetes mellitus Sister Diabetes mellitus Social History Household Members: Family Housing: Apartment Do you presently have visiting nurse or other home services: No Patient Tobacco Use Status: Former Tobacco user Quit Date: 2015 Tobacco use type: Cigarette e-Cigarette/Vaping Use: Never Used Second Hand Smoke Exposure: No Substance Use Type: Marijuana service: No Current occupational status: retired Current occupational exposures/hazards: No Cognitive needs: No Hearing needs: No Vision needs: No Assessment & Plan Assessment & Plan (1) Hypercalcemia: Code(s): E83.52 - Hypercalcemia (2) Pancreatic tumor: Code(s): D49.0 - Neoplasm of unspecified behavior of digestive system Orders: Orders Calcium, Ionized Today D49.0 - Neoplasm of unspecified behavior of digestive system, E83.52 - Hypercalcemia Parathyroid Hormone Related Pr Today D49.0 - Neoplasm of unspecified behavior of digestive system, E83.52 - Hypercalcemia Lactoferrin, Fecal, Quant. Today K51.50 - Left sided colitis without complications Comprehensive Met. Panel Today D49.0 - Neoplasm of unspecified behavior of digestive system, E83.52 - Hypercalcemia, K75.81 - Nonalcoholic steatohepatitis (DIAZ) Vitamin D 25-OH Total Today D49.0 - Neoplasm of unspecified behavior of digestive system, E83.52 - Hypercalcemia Alkaline Phosphatase Isoenzyme Today D49.0 - Neoplasm of unspecified behavior of digestive system, E83.52 - Hypercalcemia Phosphorus Today D49.0 - Neoplasm of unspecified behavior of digestive system, E83.52 - Hypercalcemia PTHI Today D49.0 - Neoplasm of unspecified behavior of digestive system, E83.52 - Hypercalcemia Coding Level of Care Code Est Pt Level 3 (76164) Diagnoses Hypercalcemia E83.52 Pancreatic tumor D49.0
[2023-03-25 09:57] VITALS: BP 177/78; PULSE 83; BMI 21.9
== END 2023-03-25 10:19 | disposition home or self-care (01) ==
PROVIDERS: PCP Family Medicine; Visit Provider Internal Medicine Gastroenterology
DX: E83.52 Hypercalcemia (principal); D49.0 Neoplasm of unspecified behavior of digestive system
CPT/HCPCS: 99213

== ENCOUNTER 2023-03-28 11:41 | Outpatient (REF) | payer MEDICARE, OTHER, SELFPAY ==
[2023-04-02 17:13] LABS: Lactoferrin, Fecal, Quant. <6.25 mcg/mL (<7.25)
== END 2023-03-28 11:42 | disposition home or self-care (01) ==
LOC: HO.LNP 11:41
PROVIDERS: Visit Provider Internal Medicine Gastroenterology
DX: K51.50 Left sided colitis without complications (principal)
CPT/HCPCS: 83631

== ENCOUNTER 2023-05-18 14:11 | Outpatient (REF) | payer MEDICARE, OTHER, SELFPAY ==
--- NOTE | ~2023-05-18 | MM_ITS ---
EXAMINATION: BONE DENSITOMETRY CLINICAL INDICATION: Encounter for screening for osteoporosis. COMPARISON: Previous BD dated 02/05/2020 and baseline BD dated 04/03/2013. TECHNIQUE: Using a [employer] DXA System (software version: 13.1) manufactured by [employer], dual-energy x-ray absorptiometry was performed of the lumbar spine and left hip. The images are of good technical quality. Summary results are attached. FINDINGS: LEFT FEMUR, NECK: Current: BMD 0.666 g/cm2, Z-score -0.8, T-score -2.7, osteoporosis. Prior: BMD 0.700 g/cm2. Baseline: BMD 0.777 g/cm2. LEFT FEMUR, TOTAL: Current: BMD 0.736 g/cm2, Z-score -0.5, T-score -2.2, osteopenia, 3.8% decrease from previous, 13.0% decrease from baseline (<5% change is not significant). Prior: BMD 0.765 g/cm2. Baseline: BMD 0.846 g/cm2. AP SPINE L1-L4: Current: BMD 0.987 g/cm2, Z-score 0.4, T-score -1.6, osteopenia, 10.6% decrease from previous, 14.8% decrease from baseline (<5% change is not significant). Prior: BMD 1.105 g/cm2. Baseline: BMD 1.158 g/cm2. LEFT FOREARM RADIUS 33%: BMD 0.637 g/cm2, Z-score -1.1, T-score -2.7, osteoporosis. IDENTIFIED RISK FACTORS: Glucocorticoids (chronic), history of fracture (adult), hyperparathyroid, menopause, secondary osteoporosis. HISTORY OF FRACTURE: Wrist. MEDICATIONS: Vitamin D. MM/XR DEXA axial skeleton IMPRESSION: 1. DIAGNOSIS: Severe osteoporosis based on the lowest T-score value of -2.7 in the femur neck and forearm radius 33%, and the history of a wrist fracture, applying World Health Organization criteria. 2. 10-YEAR FRACTURE RISK PREDICTION, FRAX: According to the guidelines, FRAX calculation should only be performed on patients in the osteopenia bone density category. Therefore, FRAX was not performed on this patient. 3. Treatment Recommendations: NOF guidelines recommend consideration for treatment in postmenopausal women and men age 50 and older presenting with the following: -A hip or vertebral (clinical or morphometric) fracture. -T-score less than or equal to -2.5 at the femoral neck or spine after appropriate evaluation to exclude secondary causes. -Low bone mass at the hip or spine and a 10-year fracture probability by FRAX of greater than or equal to 3% for hip fracture or greater than or equal to 20% for major osteoporotic fracture based on the [place] adapted WHO algorithm. 4. Other Recommendations: All treatment decisions require clinical judgment and consideration of individual patient factors, including patient preferences, comorbidities, previous drug use, risk factors not captured in the FRAX model (e.g. frailty, falls, vitamin D deficiency, increased bone turnover, interval significant decline in bone density) and possible under or overestimation of fracture risk by FRAX. Additional medical evaluation for secondary cause of low bone mineral density may be appropriate. FUTURE SCAN RECOMMENDATION: People with diagnosed cases of osteoporosis or at high risk for fracture should have regular bone mineral density tests. For patients eligible for Medicare, routine testing is allowed once every 2 years. The testing frequency can be increased to one year for patients who have rapidly progressing disease, those who are receiving or discontinuing medical therapy to restore bone mass, or have additional risk factors.
== END 2023-05-18 14:12 | disposition home or self-care (01) ==
LOC: HO.MAMMO 14:11
PROVIDERS: PCP Family Medicine; Visit Provider Internal Medicine Endocrinology, Diabetes & Metabolism
DX: Z13.820 Encounter for screening for osteoporosis (principal); Z78.0 Asymptomatic menopausal state; E21.3 Hyperparathyroidism, unspecified
CPT/HCPCS: 77080

== ENCOUNTER 2023-06-20 10:55 | Outpatient (REF) | payer MEDICARE, OTHER, SELFPAY ==
[2023-06-20 11:13] LABS: MANUAL DIFF FLAG NO
[2023-06-20 11:42] LABS: Basophils Absolute Auto 0.1 X10*3/uL (0.0-0.2); Eosinophils Absolute Auto 0.2 X10*3/uL (0.0-0.4); Eosinophils Percent Auto 2.9 % (0-4); Hematocrit 38.7 % (37.0-47.0); Hemoglobin 12.5 g/dl (12.0-16.0); Imm Gran Abs Auto 0.01 X10*3/uL (0.00-0.03); Imm Gran Pct Auto 0.2 % (0.0-0.4); Lymphocytes Absolute Auto 1.9 X10*3/uL (1.2-4.9); Lymphocytes Percent Auto 36.3 % (20-40); Mean Corpuscular HGB Conc 32.3 g/dl (31.0-35.0); Mean Corpuscular Hemoglobin 29.7 pg (27.0-33.0); Mean Corpuscular Volume 91.9 fL (80.0-98.0); Mean Platelet Volume 10.2 fL (9.4-12.3); Monocytes Absolute Auto 0.6 X10*3/uL (0.1-1.2); Monocytes Percent Auto 11.8 % (2-11); Neutrophils Absolute Auto 2.5 x10*3/uL (2.0-8.3); Neutrophils Percent Auto 47.8 % (45-73); Platelet Count 349 X10*3/uL (160-400); Red Blood Count 4.21 X10*6/uL (4.20-5.50); Red Cell Distribution Width 12.4 % (11.0-16.0); White Blood Count 5.3 X10*3/uL (4.8-10.8)
[2023-06-20 12:23] LABS: Alanine Aminotransferase 12 U/L (0-31); Albumin Level 4.3 g/dL (3.5-5.0); Alkaline Phosphatase 120 U/L (39-117); Anion Gap 12 (12-20); Aspartate Amino Transferase 16 U/L (5-31); Bilirubin Total 0.3 mg/dL (0.0-1.0); Blood Urea Nitrogen 20 mg/dL (9-16); C Reactive Protein 0.23 mg/dL (< or = 0.50); Calcium 10.3 mg/dL (8.4-10.2); Carbon Dioxide 25 mmol/L (22-29); Chloride 110 mmol/L (96-108); Estimated Glomerular Filt Rate > 60; Glucose Random 121 mg/dL (60-115); Potassium 4.6 mmol/L (3.3-5.1); Sodium 142 mmol/L (135-145); Total Protein 7.4 g/dL (6.5-8.0)
[2023-06-20 12:29] LABS: Erythrocyte Sedimentation Rate 22 MM/HR (0-20); Ferritin 120 ng/mL (10-250)
== END 2023-06-20 10:56 | disposition home or self-care (01) ==
LOC: HO.LAB 10:55
PROVIDERS: PCP Family Medicine; Visit Provider Internal Medicine Gastroenterology
DX: K75.81 Nonalcoholic steatohepatitis (NASH) (principal); K50.10 Crohn's disease of large intestine without complications
CPT/HCPCS: 36415; 80053; 82728; 85025; 85652; 86140

== ENCOUNTER 2023-06-21 08:49 | Outpatient (REF) | payer MEDICARE, OTHER, SELFPAY ==
[2023-06-25 15:28] LABS: Lactoferrin, Fecal, Quant. <6.25 mcg/mL (<7.25)
== END 2023-06-21 08:50 | disposition home or self-care (01) ==
LOC: HO.LNP 08:49
PROVIDERS: Visit Provider Internal Medicine Gastroenterology
DX: K50.10 Crohn's disease of large intestine without complications (principal)
CPT/HCPCS: 83631

== ENCOUNTER 2023-07-22 09:53 | Outpatient (AMB) | payer MEDICARE, OTHER, SELFPAY ==
--- NOTE | 2023-07-22 09:55 | MHC.OFFVIS ---
Intake Vital Signs 07/22/23 09:59 Height 5 ft 3 in Weight 125 lb 10.616 oz BMI 22.3 BP 116/64 Blood Pressure Location Lt brachial Position Sitting Pulse 73 Intake Visit Reasons: 4 month follow up Intake Note: Renu presents in the office as a 4 month follow up. CC: She states that she was having blood in her stools and was not feeling good. She hasnt seen blood since it occured. She was told by her pancreatic Dr that she needs a Colonoscopy. Allergies methylprednisolone [From Solu-Medrol] Allergy (Severe, Verified 07/22/23 09:59) Rash, facial swelling Penicillins Allergy (Severe, Verified 07/22/23 09:59) ANAPHYLAXIS Ucmidde-HPM-VqY Reductase Inhibitor [EHTWFSD-HKQ-YTQ REDUCTASE INHIBITOR] Allergy (Intermediate, Verified 07/22/23 09:59) muscle aches HPI 4 month follow up HPI Details 68 yr old f w hx of cholecystectomy being seen for f/u? RECAP:index visit 08/07/2019 ? Her major issue wass fatigue and bloating ? she has indigestion all her life, if she eats fried foods she can feel reflux ? eggs make her feel really unwell ? weight is going up, she is on crohns diet, full of carbs ? she has bursitis left shoudler and chronuc right knee pain from meniscal tear ? no skin rashes or eye complaints ? no jaundice ? denies stress or anxiety ?She may have had crohns disease vs nsaid related colitis but her sx and objective data seem to suggest she is in biochemical and clinical remission with neg calprotectin and CTe, some of her symptoms maybe due to IBS or SIBO vs carb rich diet ? she was advised to stop pentasa and given rifaximin TESTS: ? colonoscopy 2005-- normal, mild diverticulitis ? colonoscopy 2016--diffsue colitis, erosions, from cecum to ascending colon, TI not freely intubated, mild diverticular disease ? bx TI--enteritis, ascending colon colitis, and descending mild colitis ? (this was actually a screening colonoscopy but she had some diarrheal sx at the time as well for 1 year at least, she had also been on a lot of nsiads for knee arthritis at the time) ? MRI 04/2019-- ?pancreas cyst, otherwise normal pancreas ? CT -2019- no active inflammation, submucosal fat in TI, diverticular disase, spondylolisthesis ? 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 LABS: neg fecal blanca, neg CRP, mild raised ESR< nml HGB, nml ferritin ? ? ? raised alk phos, AMA negative fecal calprotectin has been fluctuating up and down from borderline to mildly positive ? Colonoscopy:06/2021--ileal erosions noted PATH: A.? Terminal ileum, biopsy:? Chronic active ileitis with mild activity. B.? Colon, right, biopsy:? Colonic mucosa within normal limits; negative for active, chronic or microscopic colitis.? C.? Colon, transverse and left, biopsy:? Colonic mucosa within normal limits; negative for active, chronic or microscopic colitis.? D.? Rectum, biopsy:? Chronic inactive colitis. INTERIM: she is still getting ca work up--parathyroid scan was neg she has fatigue and tiredness she had an episode of rectal bleeding, no nausea or vomiting appetite is good still seeing pancreas center for her cysts monitoring for her frontal lobe tumour LABS: `07/09-- HGB 12, ? EXAM: GENERAL: The patient is well developed and nontoxic. VITAL SIGNS:see workflow HEENT: Nonicteric sclerae, PERRLA, EOMI. Oropharynx clear. Moist mucous membranes. Conjunctivae appear well perfused. No thyroid mass. CHEST: Chest wall is nontender. HEART: Regular rate and rhythm without murmurs. LUNGS: Clear to auscultation bilaterally. ABDOMEN: Soft, positive bowel sounds, mildly tender epigastrium, no organomegaly.no flank tenderness SKIN: No rash, no excessive bruising, petechiae, or purpura. NEUROLOGIC: Cranial nerves II-XII intact without motor/sensory deficit. ? Psych--appropriate affect ? Assessments ? 1. Crohn''s disease of small and large intestines, rectal bleeding 2. Pancreatic lesion with cysts and splenule, went to [facility] and following there for this 3. meningioma, 4. borderline Ca, getting work up, might be causing some of her sx PLAN: 1/ colonoscopy now with suprep 2/ advised to take bisphosphanates roni as she has osteoporosis and this will also help her high calcium PFSH Medical History Arthritis Hx of Lyme disease Environmental allergies Seasonal allergies GERD (gastroesophageal reflux disease) YASMIN (obstructive sleep apnea) Pulmonary nodule Diverticulitis Pancreas cyst Hypertriglyceridemia Crohn's colitis Surgical History Hx of right cataract extraction History of cholecystectomy History of cholecystectomy H/O colonoscopy Family History Father CVD (cardiovascular disease) Mother Hypertension Renal failure Blood disorder Brother Diabetes mellitus Sister Diabetes mellitus Social History Household Members: Family Housing: Apartment Do you presently have visiting nurse or other home services: No Patient Tobacco Use Status: Former Tobacco user Quit Date: 2015 Tobacco use type: Cigarette e-Cigarette/Vaping Use: Never Used Second Hand Smoke Exposure: No Substance Use Type: Marijuana service: No Current occupational status: retired Current occupational exposures/hazards: No Cognitive needs: No Hearing needs: No Vision needs: No Physical Exam Vital Signs: Last Vital Signs Pulse 73 07/22/23 09:59 BP 116/64 07/22/23 09:59 BMI result Body Mass Index 22.3 Assessment & Plan Assessment & Plan (1) Crohn's colitis: Code(s): K50.10 - Crohn's disease of large intestine without complications Plan ? 1. Crohn''s disease of small and large intestines, rectal bleeding 2. Pancreatic lesion with cysts and splenule, went to [facility] and following there for this 3. meningioma, 4. borderline Ca, getting work up, might be causing some of her sx PLAN: 1/ colonoscopy now with suprep 2/ advised to take bisphosphanates roni as she has osteoporosis and this will also help her high calcium Coding Level of Care Code Est Pt Level 3 (45862) Diagnoses Crohn's colitis K50.10
[2023-07-22 09:59] VITALS: BP 116/64; PULSE 73; BMI 22.3
== END 2023-07-22 10:38 | disposition home or self-care (01) ==
PROVIDERS: PCP Family Medicine; Visit Provider Internal Medicine Gastroenterology
DX: K50.10 Crohn's disease of large intestine without complications (principal)
CPT/HCPCS: 99213

== ENCOUNTER → 2023-07-22 09:53 | Outpatient (BNVA) | payer MEDICARE, OTHER, SELFPAY | PROVIDERS: PCP Family Medicine; Visit Provider Internal Medicine Gastroenterology | DX: K50.10 Crohn's disease of large intestine without complications (principal) | CPT/HCPCS: 99212 ==

== ENCOUNTER 2023-07-27 07:54 | Day surgery (SDC) | payer MEDICARE, OTHER, SELFPAY ==
--- NOTE | 2023-07-26 10:53 | HO.ANESPROP2 ---
Documented by User: Aury Araujo NP 07/26/23 10:57 HPI - Anesthesia Eval Consult details Narrative: 68yo F for Colonoscopy PMFSH Active Problems Active Problems: All Active Problems (Updated 03/25/23 @ 10:11 by Mel Gerardo MD) Hypercalcemia (Acute) Stye (Acute) Sinusitis (Acute) Pituitary cyst (Acute) Elevated fasting blood sugar (Acute) Abnormal breast exam (Acute) Encounter for immunization (Acute) Bilateral knee pain (Acute) Pain of left sacroiliac joint (Acute) Fatigue (Acute) Snoring (Acute) Burn of hand (Acute) Hyperlipidemia (Acute) Pancreas cyst (Acute) Postnasal drip (Acute) Otalgia of left ear (Acute) Otitis media, left (Acute) Recurrent otitis externa of left ear (Acute) Screening for colon cancer (Acute) Left serous otitis media (Acute) Environmental allergies (Acute) Elevated blood pressure reading (Acute) Dental abscess (Acute) TMJ (dislocation of temporomandibular joint) (Acute) Anxiety (Acute) Atypical chest pain (Acute) Elevated fasting blood sugar (Acute) Screening breast examination (Acute) Abdominal bloating (Acute) Prediabetes (Acute) Abnormal mammogram (Acute) Acute sinusitis (Acute) Urinary tract infection (Acute) Dysuria (Acute) Breast cancer screening by mammogram (Acute) Screening for cervical cancer (Acute) Adult general medical exam (Acute) Meningioma (Acute) Allergies (Acute) Screening for osteoporosis (Acute) Thrombocytosis (Acute) Mild anemia (Acute) Pancreatic tumor (Acute) Hyperkalemia (Acute) Hyponatremia (Acute) YASMIN (obstructive sleep apnea) (Acute) Pulmonary nodule (Acute) Crohn's colitis (Acute) Past Medical History Medical History Arthritis Hx of Lyme disease Environmental allergies Seasonal allergies GERD (gastroesophageal reflux disease) YASMIN (obstructive sleep apnea) Pulmonary nodule Diverticulitis Pancreas cyst Hypertriglyceridemia Crohn's colitis Family History Family History Father CVD (cardiovascular disease) Mother Hypertension Renal failure Blood disorder Brother Diabetes mellitus Sister Diabetes mellitus Family history of problems with anesthesia: No Surgical History Surgical History Hx of right cataract extraction History of cholecystectomy History of cholecystectomy H/O colonoscopy History of Problems with Anesthesia: No Social History Social History Household Members: Family Housing: Apartment Do you presently have visiting nurse or other home services: No Patient Tobacco Use Status: Former Tobacco user Quit Date: 2015 Tobacco use type: Cigarette e-Cigarette/Vaping Use: Never Used Second Hand Smoke Exposure: No Substance Use Type: Marijuana Are you DNR?: No Advance Directives: No Advance Directives Information Provided: Yes Nutrition Risks: No Nutritional Risk service: No Current occupational status: retired Current occupational exposures/hazards: No Cognitive needs: No Hearing needs: No Vision needs: No Meds Allergies Allergy/AdvReac Type Severity Reaction Status Date / Time methylprednisolone Allergy Severe Rash, Verified 07/22/23 09:59 [From Solu-Medrol] facial swelling Penicillins Allergy Severe ANAPHYLAXIS Verified 07/22/23 09:59 Bfrlbag-TJN-BuG Reductase Allergy Intermediate muscle Verified 07/22/23 09:59 Inhibitor aches [CWRRMMK-KJD-NQJ REDUCTASE INHIBITOR] Home Medications Medication Instructions Recorded Confirmed Last Taken Type fluticasone propionate 50 1 spray intranasal DAILY 02/02/21 10/05/22 06/18/21 07:30 History mcg/actuation nasal spray,suspension multivitamin 1 tab PO DAILY 02/02/21 10/05/22 02/02/21 History syringe with needle, safety 3 mL #50 ea 03/02/22 10/05/22 Unknown History 25 gauge x 1 (BD Integra Syringe) loratadine 10 mg tablet (Claritin) 10 mg PO DAILY 10/05/22 10/05/22 Unknown History aluminum hydrox-magnesium carb 254 10 ml PO QID PRN dyspepsia 03/25/23 Unknown History mg-237.5 mg/5 mL oral suspension (Gaviscon Extra Strength) Exam Pertinent Lab Results Pertinent Lab Results: Laboratory Tests 06/20/23 11:12 WBC 5.3 Hgb 12.5 Hct 38.7 Plt Count 349 Sodium 142 Potassium 4.6 Chloride 110 H Carbon Dioxide 25 BUN 20 H Creatinine 0.84 Assessment and Plan Assessment Anesthesia Assessment: Chart Reviewed Final Anesthetic Review Family History of Problems with Anesthesia: No History of Problems with Anesthesia: No Documented by User: Sandra Kang MD 07/27/23 09:15 PMFSH Past Medical History Medical History Arthritis Hx of Lyme disease Environmental allergies Seasonal allergies GERD (gastroesophageal reflux disease) YASMIN (obstructive sleep apnea) Pulmonary nodule Diverticulitis Pancreas cyst Hypertriglyceridemia Crohn's colitis Family History Family History Father CVD (cardiovascular disease) Mother Hypertension Renal failure Blood disorder Brother Diabetes mellitus Sister Diabetes mellitus Surgical History Surgical History Hx of right cataract extraction History of cholecystectomy History of cholecystectomy H/O colonoscopy Social History Social History Household Members: Family Housing: Apartment Do you presently have visiting nurse or other home services: No Patient Tobacco Use Status: Former Tobacco user Quit Date: 2015 Tobacco use type: Cigarette e-Cigarette/Vaping Use: Never Used Second Hand Smoke Exposure: No Substance Use Type: Marijuana Are you DNR?: No Advance Directives: No Advance Directives Information Provided: Yes Nutrition Risks: No Nutritional Risk service: No Current occupational status: retired Current occupational exposures/hazards: No Cognitive needs: No Hearing needs: No Vision needs: No Meds Allergies Allergy/AdvReac Type Severity Reaction Status Date / Time methylprednisolone Allergy Severe Rash, Verified 07/22/23 09:59 [From Solu-Medrol] facial swelling Penicillins Allergy Severe ANAPHYLAXIS Verified 07/22/23 09:59 Wyrxqoe-DRN-WuA Reductase Allergy Intermediate muscle Verified 07/22/23 09:59 Inhibitor aches [[id number] REDUCTASE INHIBITOR] Home Medications Medication Instructions Recorded Confirmed Last Taken Type fluticasone propionate 50 1 spray intranasal DAILY 02/02/21 10/05/22 06/18/21 07:30 History mcg/actuation nasal spray,suspension multivitamin 1 tab PO DAILY 02/02/21 10/05/22 02/02/21 History syringe with needle, safety 3 mL #50 ea 03/02/22 10/05/22 Unknown History 25 gauge x 1 (BD Integra Syringe) loratadine 10 mg tablet (Claritin) 10 mg PO DAILY 10/05/22 10/05/22 Unknown History aluminum hydrox-magnesium carb 254 10 ml PO QID PRN dyspepsia 03/25/23 Unknown History mg-237.5 mg/5 mL oral suspension (Gaviscon Extra Strength) Exam Airway Mallampati Class: II (caps laterally, one too front right) TM Dist: >3cm Neck ROM: Full Heart: rrr Lungs: cta Assessment and Plan Assessment Anesthesia Assessment: Anesthesia Plan Discussed Final Anesthetic Review NPO: Yes ASA Class: II Final Preanesthetic Review: No Changes in Pt Med Stat, Meds/Allgs Chart Reviewed and Consent Obtained/Reviewed Patient Risk: Intermediate Procedure Risk: Intermediate Anesthetic Plan Anesthetic Plan: MAC: Disposition: Standard PACU
[2023-07-27 08:01] VITALS: BP 139/83; PULSE 82; RESP 18; TEMP 36.2; O2SAT 97; BMI 21.7
[2023-07-27] MEDS: Lactated Ringers 1,000 ML 100 ML IVCONT (08:21)
--- NOTE | 2023-07-27 09:14 | MHC.SHP ---
Pre-Procedural Eval Section A Date of Service: 07/27/23 The patient is an INPATIENT: No The History & Physical has been completed within 30 days and I have reviewed it.: Yes Section B Chief Complaint: rectal bleeding Allergies: Allergies Allergy/AdvReac Type Severity Reaction Status Date / Time methylprednisolone Allergy Severe Rash, Verified 07/22/23 09:59 [From Solu-Medrol] facial swelling Penicillins Allergy Severe ANAPHYLAXIS Verified 07/22/23 09:59 Ofsrobw-KAM-WmI Reductase Allergy Intermediate muscle Verified 07/22/23 09:59 Inhibitor aches [KTLBMOB-BSD-AHN REDUCTASE INHIBITOR] Plan Diagnosis/Plan: Unchanged I have reviewed the history and physical and performed a pertinent physical examination on my patient. No changes have occurred unless specified. Time Spent With Patient Time: Total time managing care of this patient today ____ minutes.
--- NOTE | 2023-07-27 09:14 | W.PM.OPN ---
Operative Note Operative Note Date of Service: 07/27/23 Narrative: Operative Information Procedure Description: Colonoscopy Indication: rectal bleeding Anesthesia: MAC COLONOSCOPY Instrument: Olympus variable stiffness pediatric scope 190L Colonoscopy Monitoring: Vital signs and clinical assessment, continuous EKG monitoring, Pulse oximetry, Carbon Dioxide monitoring and blood pressure monitoring were done throughout the procedure. Colon withdrawal time was 6 minutes. Procedure: The patient was placed in the left lateral decubitis position and pre-procedure medications were administered. After a digital rectal examination of the ano-rectum, the video colonoscope was inserted into the rectum and advanced through the colon to the cecum/TI. The colonoscope was slowly withdrawn in a retrograde panoramic fashion and the colon mucosa was carefully examined including a retroflexed view of the rectum. Findings and interventions are described below. Procedure Difficulty: easy Findings: Terminal Ileum- scattered erosions and ulcerations Cecum: mild erythema and one erosion, bx taken Ascending Colon: 5-6 mm sessile polyp removed with cold forceps Transverse Colon -normal Descending Colon:normal Sigmoid Colon: moderate diverticulosis, 8-9 mm sessile polyp removed with cold snare Rectum: Retroflexion with small internal hemorrhoids, grade I Anorectum - normal Colon preparation: Humphreys Bowel Preparation Scale Right colon; 2 Transverse colon: 2 Left colon; 3 (0 = Unprepared colon segment with mucosa not seen due to solid stool that cannot be cleared. 1 = Portion of mucosa of the colon segment seen, but other areas of the colon segment not well seen due to staining, residual stool and/or opaque liquid. 2 = Minor amount of residual staining, small fragments of stool and/or opaque liquid, but mucosa of colon segment seen well. 3 = Entire mucosa of colon segment seen well with no residual staining, small fragments of stool or opaque liquid) Impression and Post Procedure Diagnosis: polyps internal hemorrhoids diverticular disease erosive ileitis midl coltiis Plan: High fiber diet leaflet Avoid straining at stool, epsom salts and sitz bath, anusol supps or cream Repeat Colonoscopy in 1-2 years or earlier if clinically indicated consider katelyn Above findings were reviewed with the patient and relevant handouts were provided if indicated.
[2023-07-27 10:08] VITALS: BP 101/57; PULSE 79; RESP 16; TEMP 36.2; O2SAT 98
[2023-07-27 10:23] VITALS: BP 126/68; PULSE 74; RESP 16; TEMP 36.1; O2SAT 100
== END 2023-07-27 11:21 | disposition home or self-care (01) ==
PROVIDERS: PCP Family Medicine; Visit Provider Internal Medicine Gastroenterology
PROC: 0DJD8ZZ Inspection of Lower Intestinal Tract, Via Natural or Artificial Opening Endoscopic (ICD-10-PCS; CPT 45378; principal; 2023-07-27 10:00)
DX: K62.5 Hemorrhage of anus and rectum (principal); K63.5 Polyp of colon; K51.40 Inflammatory polyps of colon without complications; K57.30 Diverticulosis of large intestine without perforation or abscess without bleeding; K52.89 Other specified noninfective gastroenteritis and colitis; K64.0 First degree hemorrhoids; K50.80 Crohn's disease of both small and large intestine without complications; K86.2 Cyst of pancreas; E78.1 Pure hyperglyceridemia; E83.52 Hypercalcemia; G47.33 Obstructive sleep apnea (adult) (pediatric); M81.0 Age-related osteoporosis without current pathological fracture; Z79.51 Long term (current) use of inhaled steroids; Z79.899 Other long term (current) drug therapy; Z88.0 Allergy status to penicillin; Z88.8 Allergy status to other drugs, medicaments and biological substances; Z90.49 Acquired absence of other specified parts of digestive tract; Z87.891 Personal history of nicotine dependence
CPT/HCPCS: 45385; 45380; 88305; J2704

== ENCOUNTER → 2023-07-27 07:54 | Outpatient (BNV) | payer MEDICARE, OTHER, SELFPAY | PROVIDERS: PCP Family Medicine; Visit Provider Internal Medicine Gastroenterology | DX: K62.5 Hemorrhage of anus and rectum (principal); K63.5 Polyp of colon; K52.9 Noninfective gastroenteritis and colitis, unspecified | CPT/HCPCS: 45380; 45385 ==

== ENCOUNTER 2023-08-26 07:30 | Outpatient (REF) | payer MEDICARE, OTHER, SELFPAY ==
[2023-08-26 07:46] LABS: MANUAL DIFF FLAG NO
[2023-08-26 08:08] LABS: Appearance Urine Clear; Basophils Percent Auto 0.4 % (0-2); Color Urine Yellow; Eosinophils Absolute Auto 0.2 X10*3/uL (0.0-0.4); Eosinophils Percent Auto 3.7 % (0-4); Glucose Urine UA Negative (Negative); Hematocrit 36.4 % (37.0-47.0); Hemoglobin 12.1 g/dl (12.0-16.0); Imm Gran Abs Auto 0.02 X10*3/uL (0.00-0.03); Imm Gran Pct Auto 0.4 % (0.0-0.4); Leukocyte Esterase Urine Small (1+) (Negative); Lymphocytes Absolute Auto 1.9 X10*3/uL (1.2-4.9); Mean Corpuscular HGB Conc 33.2 g/dl (31.0-35.0); Mean Corpuscular Hemoglobin 29.8 pg (27.0-33.0); Mean Corpuscular Volume 89.7 fL (80.0-98.0); Mean Platelet Volume 10.2 fL (9.4-12.3); Monocytes Absolute Auto 0.6 X10*3/uL (0.1-1.2); Neutrophils Absolute Auto 2.2 x10*3/uL (2.0-8.3); Neutrophils Percent Auto 44.5 % (45-73); Nitrite Urine Negative (Negative); Platelet Count 343 X10*3/uL (160-400); Red Blood Count 4.06 X10*6/uL (4.20-5.50); Red Cell Distribution Width 12.4 % (11.0-16.0); UMIC TRIGGER UA YES; Urine Blood Negative (Negative); Urine Ketones Negative (Negative); Urine Protein Negative (Neg-Trace); White Blood Count 4.8 X10*3/uL (4.8-10.8)
[2023-08-26 08:35] LABS: Bacteria Urine None Seen (None Seen); Hyaline Casts Urine 0-2 /LPF (0-2); RBC Urine 0-2 /HPF (0-2); WBC Urine 0-5 /HPF (0-5)
[2023-08-26 08:43] LABS: Alanine Aminotransferase 10 U/L (0-31); Albumin Level 3.9 g/dL (3.5-5.0); Alkaline Phosphatase 113 U/L (39-117); Anion Gap 12 (12-20); Aspartate Amino Transferase 13 U/L (5-31); Bilirubin Total 0.3 mg/dL (0.0-1.0); Blood Urea Nitrogen 17 mg/dL (9-16); Calcium 9.7 mg/dL (8.4-10.2); Carbon Dioxide 25 mmol/L (22-29); Chloride 108 mmol/L (96-108); Cholesterol 202 mg/dL (<200); Estimated Glomerular Filt Rate > 60; Glucose Fasting 102 mg/dL (60-99); HDL Cholesterol 49 mg/dL (>40); LDL Cholesterol Calculated 130 mg/dL (<100); Potassium 4.8 mmol/L (3.3-5.1); Sodium 140 mmol/L (135-145); Total Protein 6.9 g/dL (6.5-8.0); Triglycerides 119 mg/dL (<150)
[2023-08-26 08:52] LABS: Microalbumin Urine < 5.0 mg/L
[2023-08-26 09:03] LABS: TSH reflex Free T4 1.14 uIU/mL (0.32-4.0); Vitamin D 25-OH Total 63.1 ng/mL (>30)
[2023-08-26 09:11] LABS: Folate 9.1 ng/mL (> or = 4.0); Vitamin B12 792 pg/mL (200-900)
== END 2023-08-26 07:31 | disposition home or self-care (01) ==
LOC: HO.LAB 07:30
PROVIDERS: PCP Family Medicine; Visit Provider Family Medicine
DX: Z00.00 Encounter for general adult medical examination without abnormal findings (principal); I10 Essential (primary) hypertension; E55.9 Vitamin D deficiency, unspecified; E53.8 Deficiency of other specified B group vitamins
CPT/HCPCS: 36415; 80053; 80061; 81001; 82306; 82570; 82607; 82746; 84443; 85025

== ENCOUNTER 2023-09-02 08:59 | Outpatient (AMB) | payer MEDICARE, OTHER, SELFPAY ==
[2023-09-02 09:06] VITALS: BP 124/76; PULSE 76; O2SAT 100; BMI 22.0
--- NOTE | 2023-09-02 09:06 | A.OFFPC_ITS ---
Vital Signs 09/02/23 09:06 Height 5 ft 3 in Weight 124 lb 2 oz BMI 22.0 BP 124/76 Pulse 76 Pulse Source Pulse Oximeter Pulse Oximetry (%) 100 Oxygen Delivery Method Room Air Intake Visit Reasons: CPE Intake Note: Patient is here for her physical today. Allergies methylprednisolone [From Solu-Medrol] Allergy (Severe, Verified 09/02/23 09:09) Rash, facial swelling Penicillins Allergy (Severe, Verified 09/02/23 09:09) ANAPHYLAXIS Tpeuuef-RWF-SgB Reductase Inhibitor [RUGZLZA-VPQ-SZR REDUCTASE INHIBITOR] Allergy (Intermediate, Verified 09/02/23 09:09) muscle aches Tobacco use date assessed: 09/02/23 Fall risk assessment: No Falls in past year Last assessed Fall Risk: 09/02/23 Dental Screening Dental Screen Date: 09/02/23 Did you have a dental visit in the last 12 months?: Yes Did you have a dental problem in the last 6 months where you did not have access to dental care?: No Was dental information given to patient?: Patient has dentist HPI CPE HPI Details 68 y/o female presents for an extended e xam with f/u labs and health maintenance. Labs were drawn 08/26/23. Reviewed labs with pt. Mild anemia. Elevated fasting glucose of 102. A1c today 09/02/23 is 7.0%. She has crohn's and has difficulty tolerating food, eats and tolerates carbs. Triglycerides 119. C 202. LDL 130. HDL 49. She is on gemfibrozil 600mg b.i.d. Pt reports abdominal pain. [facility] Medical History Arthritis Hx of Lyme disease Environmental allergies Seasonal allergies GERD (gastroesophageal reflux disease) YASMIN (obstructive sleep apnea) Pulmonary nodule Diverticulitis Pancreas cyst Hypertriglyceridemia Crohn's colitis Surgical History Hx of right cataract extraction History of cholecystectomy History of cholecystectomy H/O colonoscopy Family History Father CVD (cardiovascular disease) Mother Hypertension Renal failure Blood disorder Brother Diabetes mellitus Sister Diabetes mellitus Social History Household Members: Family Housing: Apartment Do you presently have visiting nurse or other home services: No Patient Tobacco Use Status: Former Tobacco user Quit Date: 2015 Tobacco use type: Cigarette e-Cigarette/Vaping Use: Never Used Second Hand Smoke Exposure: No Substance Use Type: Marijuana service: No Current occupational status: retired Current occupational exposures/hazards: No Cognitive needs: No Hearing needs: No Vision needs: No Questionnaire PHQ-9 Over the last 2 weeks, how often have you been bothered by any of the following problems? 1. Little interest or pleasure in doing things: not at all 2. Feeling down, depressed, or hopeless: not at all 3. Trouble falling or staying asleep, or sleeping too much: not at all 4. Feeling tired or having little energy: not at all 5. Poor appetite or overeating: not at all 6. Feeling bad about yourself - or that you are a failure or have let yourself or your family down: not at all 7. Trouble concentrating on things, such as reading the newspaper or watching television: not at all 8. Moving or speaking so slowly that other people could have noticed. Or the opposite - being so fidgety or restless that you have been moving around a lot more than usual: not at all 9. Thoughts that you would be better off or of hurting yourself in some way: not at all Total score: 0 Source: Developed by Drs. Yasmani Rodriguez, Sophia Torres, Manuel Olson and colleagues, with an educational rubi from [employer]. Thrive Questionnaire Date Thrive assessed: 09/02/23 I am a: Patient What is your living situation today?: I have a steady place to live Within the past 12 months, did the food you bought not last and you didn't have the money to get more?: Never true Within the past 12 months, did you worry whether your food would run out before you got money to buy more?: Never true Do you have trouble paying for medicines?: No Do you have trouble getting transportation to medical appointments?: No Do you have trouble paying your heating and electricity bill?: No Do you have trouble taking care of your child, family member or friend?: No Do you have trouble with day-to-day activities such as bathing, preparing meals, shopping, managing finances, etc.?: No Are you currently unemployed and looking for a job?: No Are you interested in more education?: No THRIVE Score: 0 AUDIT C Alcohol Use Questionnaire (AUDIT-C) 1. How often do you have a drink containing alcohol?: Never 3. How often do you have six or more drinks on one occasion?: Never Total Score: 0 TERI-7 AMB Questionnaire TERI-7 Date TERI - 7 assessed: 09/02/23 Feeling nervous, anxious, or on edge: 0 = Not at all Not being able to stop or control worryin = Not at all Worrying too much about different things: 0 = Not at all Trouble relaxin = Not at all Being so restless that it is hard to sit still: 0 = Not at all Becoming easily annoyed or irritable: 0 = Not at all Feeling afraid as if something awful might happen: 0 = Not at all Total TERI-7 score (0-4 normal; 5-9 mild; 10-14 moderate; 15-21 severe): 0 Source: Developed by Drs. Yasmani Rodriguez, Sophia Torres, Manuel Olson and colleagues, with an educational rubi from [employer]. Review of Systems Const Denies chills, Denies fatigue, Denies fever(s), Denies headache(s) and Denies weakness Eyes Denies change in vision ENT Denies dizziness, Denies headache(s), Denies hearing loss, Denies nasal congestion, Denies sinus pain, Denies sinus pressure and Denies sore throat Card Denies chest pain, Denies lightheadedness, Denies dyspnea and Denies other (palpitations) Resp Denies cough, Denies dyspnea and Denies wheezing GI Reports abdominal pain, Denies melena, Denies hematochezia, Denies change in bowel habits, Denies dyspepsia and Denies nausea Denies hematuria and Denies dysuria Musc Denies abnormal gait, Denies myalgias, Denies arthralgias, Denies numbness and Denies tingling Skin/Breast Denies rash, Denies unusual bruising and Denies wounds Neuro Denies abnormal gait, Denies dizziness, Denies headache(s), Denies memory loss, Denies numbness, Denies Sensory deficit (Neuro), Denies tingling and Denies weakness Psych Denies anxiety, Denies depression and Denies memory loss Endo Denies cold intolerance, Denies fatigue, Denies heat intolerance, Denies polydipsia and Denies polyuria Jonathan/Lymph Denies easy bleeding and Denies easy bruising Aller/Immun Denies wheezing Physical exam (Primary Care) Vital Signs: Last Vital Signs Pulse 76 09/02/23 09:06 BP 124/76 09/02/23 09:06 Pulse Ox 100 09/02/23 09:06 Oxygen Delivery Method Room Air 09/02/23 09:06 BMI result Body Mass Index 22.0 Tobacco/Smoking Status: Tobacco use Status Tobacco use date assessed 09/02/23 09/02/23 09:10 Patient Tobacco Use Status Former Tobacco user 09/02/23 09:10 Tobacco use type Cigarette 09/02/23 09:10 e-Cigarette/Vaping Use Never Used 09/02/23 09:10 PHQ-9: PHQ-9 Score PHQ-9: Total score 0 09/02/23 09:31 Thrive Assessment: Date of Thrive Assessment Date Thrive assessed 09/02/23 09/02/23 09:18 Const General: no acute distress, well developed, alert and awake Nutritional Appearance: well nourished Orientation/consciousness: patient oriented x3 HENMT Head: Yes normocephalic and Yes atraumatic Ears: hearing grossly normal bilaterally and TM's normal bilaterally General nose exam: Normal external nose present and Normal nares present Mouth: Normal oral and palatal mucosa present and moist mucous membranes Teeth and gingiva: dentition normal Throat: Yes posterior oropharynx normal Eyes General: appearance normal, both eyes and all related structures Pupils: Equal, round and reactive pupils present and Pupil accommodation reflex normal EOM: EOMs intact bilaterally Neck Neck: Yes normal visual inspection, Yes no lymphadenopathy and Yes trachea midline Thyroid: Thyroid normal Carotids: no bruits Lymphatic: no lymphadenopathy noted Chest Chest palpation & inspection: normal inspection of the chest Resp Effort & Inspection: normal respiratory effort Auscultation: clear to auscultation bilaterally Cardio Rate: regular rate Rhythm: regular rhythm Heart sounds: S1 normal heart sound present, S2 normal heart sound present, no gallops, no murmurs and no rubs Bruits: no abdominal aortic bruits and no carotid bruits GI Other: Tenderness to palpation on LLQ, tenderness to palpation Palpation (GI): No Abdominal aortic bruit present, Soft to palpation, nontender, No hepatosplenomegaly present and No Rebound tenderness present Auscultation: normal bowel sounds General: Yes no CVA tenderness Back/Spine/Pelvis Back: no CVA tenderness Cervical Spine: cervical ROM normal and No Cervical spine tenderness Thoracic/Lumbar Spine: thoraco-lumbar ROM normal, No pain with thoraco-lumbar ROM, No thoracic spinal tenderness and No lumbar spinal tenderness Skin Lesions: no lesions Rashes: no rashes Trauma: no lacerations or abrasions Wounds: no wounds Nails: normal Neuro General: patient oriented x3 Cranial nerves: Yes Equal, round and reactive pupils present Cognition (Neuro): normal cognition Gait exam (Neuro): Normal gait present Motor exam (neuro): 5/5 motor strength present throughout Sensory Exam: No Sensory deficit (Neuro) Deep tendon reflexes (DTR's): Right patellar reflex intensity grade: 2+ and Left patellar reflex intensity grade: 2+ Extrem General: Yes normal to inspection and No edema Psych Appearance: grossly normal Affect: normal affect Attitude: cooperative Thought process: Normal thought process present Results AMB Hemoglobin (HGB) AMB Hemoglobin (HGB) 7.0 g/dL Last Edit by Marybel Anderson CMA on 09/02/23 09:54 AMB Hemoglobin A1c AMB Hemoglobin A1c 7.0 % Last Edit by Marybel Anderson CMA on 09/02/23 09:56 Assessment and Plan Assessment & Plan (1) Borderline anemia: Code(s): D64.9 - Anemia, unspecified Plan: Mild.??Likely?secondary?to?Recent?rectal?bleeding?which?has?stopped (2) Hyperlipidemia: Code(s): E78.5 - Hyperlipidemia, unspecified Plan: Mild?hyperlipidemia Work?on?lifestyle?changes (3) Diabetes: Code(s): E11.9 - Type 2 diabetes mellitus without complications Plan: A1c?7.0 Patient?has?Crohn's?and?has?difficulty?tolerating?foods?besides?rather?simple?st arches?and?sugars.??Principally?eats?and?tolerates?carbohydrates. Will?give?her?a?script?for?glipizide Follow-up?in?3?months (4) Breast cancer screening by mammogram: Code(s): Z12.31 - Encounter for screening mammogram for malignant neoplasm of breast Plan: Has?her?next?mammogram?scheduled.??Order?is?made (5) Screening for osteoporosis: Code(s): Z13.820 - Encounter for screening for osteoporosis Plan: Severe?osteoporosis.??She?has?already?been?given?a?script?for?alendr carson?but?has?not?begun?yet?due?to?Crohn's?flare She?plans?to?start?this?when?Crohn's?flare?has?subsided (6) Screening for colon cancer: Code(s): Z12.11 - Encounter for screening for malignant neoplasm of colon Plan: Followed?by??His?saw (7) Adult general medical exam: Code(s): Z00.00 - Encounter for general adult medical examination without abnormal findings Plan: 68-year-old?female?presents?for?extended?exam (8) Abdominal pain: Code(s): R10.9 - Unspecified abdominal pain Qualifiers: Abdominal location: lower abdomen, unspecified Qualified Code(s): R10.30 - Lower abdominal pain, unspecified Plan: Chronic?abdominal?pain?secondary?to?Crohns?and?currently?in?flare?up Will?be?starting?budesonide?prescribed?by?Gastroenterology Follow-up?with?GI?as?recommended (9) Elevated fasting blood sugar: Code(s): R73.01 - Impaired fasting glucose Plan: A1c?in?diabetic?range See?below Orders: Orders MM tomosynthesis screening BI Today Z12.31 - Encounter for screening mammogram for malignant neoplasm of breast AMB Hemoglobin A1c Today Z13.9 - Encounter for screening, unspecified Medications: New glipizide Take 10 min before 1st meal of day 2.5 mg PO DAILY 30 tabs 2RF 30 days Coding Level of Care Code Est Pt Level 4 (16390) Diagnoses Borderline anemia D64.9 Hyperlipidemia E78.5 Diabetes E11.9 Breast cancer screening by mammogram Z12.31 Screening for osteoporosis Z13.820 Screening for colon cancer Z12.11 Adult general medical exam Z00.00 Abdominal pain R10.30 Abdominal location: lower abdomen, unspecified Elevated fasting blood sugar R73.01
== END 2023-09-02 10:05 | disposition home or self-care (01) ==
PROVIDERS: PCP Family Medicine; Visit Provider Family Medicine
DX: E11.69 Type 2 diabetes mellitus with other specified complication (principal); D64.9 Anemia, unspecified; E78.5 Hyperlipidemia, unspecified; Z12.31 Encounter for screening mammogram for malignant neoplasm of breast; Z13.820 Encounter for screening for osteoporosis; Z12.11 Encounter for screening for malignant neoplasm of colon; Z00.00 Encounter for general adult medical examination without abnormal findings; R10.30 Lower abdominal pain, unspecified
CPT/HCPCS: 83036; 85018; 99214

== ENCOUNTER 2023-10-11 08:24 | Outpatient (REF) | payer MEDICARE, OTHER, SELFPAY | END 2023-10-11 08:25 | disposition home or self-care (01) | LOC: HO.MAMMO 08:24 | PROVIDERS: PCP Family Medicine; Visit Provider Internal Medicine Endocrinology, Diabetes & Metabolism | DX: Z12.31 Encounter for screening mammogram for malignant neoplasm of breast (principal) | CPT/HCPCS: 77063; 77067 ==

== ENCOUNTER → 2023-10-11 08:30 | Outpatient (BNV) | payer MEDICARE, OTHER, SELFPAY | PROVIDERS: PCP Family Medicine; Visit Provider Radiology Diagnostic Radiology | DX: Z12.31 Encounter for screening mammogram for malignant neoplasm of breast (principal) | CPT/HCPCS: 77063; 77067 ==

== ENCOUNTER 2023-11-21 16:45 | Outpatient (REF) | payer MEDICARE, OTHER, SELFPAY | END 2023-11-21 16:46 | disposition home or self-care (01) | LOC: HO.LAB 16:45 | PROVIDERS: Visit Provider Family Medicine | DX: Z13.89 Encounter for screening for other disorder (principal) ==

== ENCOUNTER 2023-11-22 08:57 | Outpatient (REF) | payer MEDICARE, OTHER, SELFPAY ==
--- NOTE | ~2023-11-22 | XR_ITS ---
EXAMINATION: XR CHEST CLINICAL INFORMATION: Cough unspecified COMPARISON: None available. TECHNIQUE: 2 views of the chest were obtained. FINDINGS: Lungs clear. No pleural effusions. Heart and pulmonary vessels normal. XR/XR chest 2V IMPRESSION: No active disease.
[2023-11-22 09:07] LABS: MANUAL DIFF FLAG NO
[2023-11-22 09:44] LABS: Basophils Percent Auto 0.5 % (0-2); Eosinophils Absolute Auto 0.2 X10*3/uL (0.0-0.4); Eosinophils Percent Auto 2.9 % (0-4); Hematocrit 38.4 % (37.0-47.0); Hemoglobin 12.9 g/dl (12.0-16.0); Imm Gran Abs Auto 0.01 X10*3/uL (0.00-0.03); Imm Gran Pct Auto 0.2 % (0.0-0.4); Lymphocytes Percent Auto 32.2 % (20-40); Mean Corpuscular HGB Conc 33.6 g/dl (31.0-35.0); Mean Corpuscular Hemoglobin 30.6 pg (27.0-33.0); Mean Corpuscular Volume 91.2 fL (80.0-98.0); Mean Platelet Volume 9.9 fL (9.4-12.3); Monocytes Absolute Auto 0.7 X10*3/uL (0.1-1.2); Monocytes Percent Auto 10.5 % (2-11); Neutrophils Absolute Auto 3.4 x10*3/uL (2.0-8.3); Neutrophils Percent Auto 53.7 % (45-73); Platelet Count 358 X10*3/uL (160-400); Red Blood Count 4.21 X10*6/uL (4.20-5.50); Red Cell Distribution Width 13.6 % (11.0-16.0); White Blood Count 6.3 X10*3/uL (4.8-10.8)
[2023-11-22 10:13] LABS: Influenza A PCR NEGATIVE (Negative); Influenza B PCR NEGATIVE (Negative); Resp Syncy Virus RNA Qual PCR NEGATIVE (Negative); SARS COV2 PCR INHOUSE NEGATIVE (Negative)
[2023-11-22 10:17] LABS: Anion Gap 15 (12-20); Blood Urea Nitrogen 21 mg/dL (9-16); Calcium 11.4 mg/dL (8.4-10.2); Carbon Dioxide 25 mmol/L (22-29); Chloride 108 mmol/L (96-108); Estimated Glomerular Filt Rate > 60; Glucose Random 127 mg/dL (60-115); Sodium 143 mmol/L (135-145)
[2023-11-22 10:22] LABS: Troponin-I High Sensitivity < 2.7 ng/L (<3.5-17.0)
== END 2023-11-22 08:58 | disposition home or self-care (01) ==
LOC: HO.LAB 08:57
PROVIDERS: PCP Family Medicine; Visit Provider Family Medicine
DX: Z00.00 Encounter for general adult medical examination without abnormal findings (principal); R05.9 Cough, unspecified; R06.02 Shortness of breath; Z20.822 Contact with and (suspected) exposure to COVID-19
CPT/HCPCS: 0241U; 71046; 80048; 84484; 85025

== ENCOUNTER 2023-11-25 08:37 | Outpatient (AMB) | payer MEDICARE, OTHER, SELFPAY ==
--- NOTE | 2023-11-25 08:48 | A.OFFPC_ITS ---
Vital Signs 11/25/23 08:53 Height 5 ft 3 in Weight 132 lb 8 oz BMI 23.5 BP 128/72 Blood Pressure Location Lt brachial Position Sitting Respiration 16 Pulse 71 Pulse Source Pulse Oximeter Temp 98.3 F Temp Source Oral Pulse Oximetry (%) 97 Oxygen Delivery Method Room Air Intake Visit Reasons: Follow up diabetes Intake Note: Follow up. Bronchitis last week. Conveyor Worker Required: No Allergies methylprednisolone [From Solu-Medrol] Allergy (Severe, Verified 11/25/23 08:52) Rash, facial swelling Penicillins Allergy (Severe, Verified 11/25/23 08:52) ANAPHYLAXIS Ipfmsbd-IMH-CoQ Reductase Inhibitor [NOGIUMM-BMQ-MIC REDUCTASE INHIBITOR] Allergy (Intermediate, Verified 11/25/23 08:52) muscle aches Medication List - Last Reconciled 11/25/23 by Lopez Cote MD albuterol sulfate 90 mcg/actuation (Ventolin HFA) 2 puffs inhalation QID PRN 30 days azithromycin (Zithromax Z-Vlad) take 500 mg today (day 1), then 250 mg for 4 days (days 2-5) PO 5 days cholecalciferol (vitamin D3) 50 mcg PO DAILY 90 days cyanocobalamin (vitamin B-12) 1,000 mcg IM DIRECTED famotidine 40 mg PO BID fluticasone propionate 50 mcg/actuation 1 spray intranasal DAILY gemfibrozil 600 mg PO BID 90 days glimepiride 1 mg PO QAM 30 days loratadine (Claritin) 10 mg PO DAILY multivitamin 1 tab PO DAILY ondansetron 4 mg PO Q6H PRN sodium,potassium,mag sulfates 17.5-3.13-1.6 gram (Suprep Bowel Prep Kit) DILUTE; drink 1/2 at 6-8 pm and half at 11 PM- 1AM syringe with needle, safety (BD Integra Syringe) As directed Tobacco use date assessed: 11/21/23 Fall risk assessment: No Falls in past year Dental Screening Dental Screen Date: 09/02/23 HPI Follow up diabetes HPI Details Patient?presents?to?follow- up?diabetes?and?also?following?up?on?recent?illness?with?cough?and?shortness?of? breath. Shortness?of?breath?has?resolved?and?patient?is?no?longer?fe eling?sick.??She?still?has?a?lingering?cough?which?is?improving?slowly. Chest?x-ray?was?negative.??No?elevated?white?count. She?had?had?a?mild/borderline?anemia?which?has?resolved Mild?hypercalcemia?is?seen. [facility] Medical History Arthritis Hx of Lyme disease Environmental allergies Seasonal allergies GERD (gastroesophageal reflux disease) YASMIN (obstructive sleep apnea) Pulmonary nodule Diverticulitis Pancreas cyst Hypertriglyceridemia Crohn's colitis Surgical History Hx of right cataract extraction History of cholecystectomy History of cholecystectomy H/O colonoscopy Family History Father CVD (cardiovascular disease) Mother Hypertension Renal failure Blood disorder Brother Diabetes mellitus Sister Diabetes mellitus Social History Household Members: Family Housing: Apartment Do you presently have visiting nurse or other home services: No Patient Tobacco Use Status: Former Tobacco user Quit Date: 2015 Tobacco use type: Cigarette e-Cigarette/Vaping Use: Never Used Second Hand Smoke Exposure: No Substance Use Type: Marijuana service: No Current occupational status: retired Current occupational exposures/hazards: No Cognitive needs: No Hearing needs: No Vision needs: No Questionnaire Thrive Questionnaire Date Thrive assessed: 09/02/23 TERI-7 AMB Questionnaire TERI-7 Date TERI - 7 assessed: 09/02/23 Source: Developed by Drs. Yasmani Rodriguez, Sophia Torres, Manuel Olson and colleagues, with an educational rubi from [employer]. Review of Systems Const Denies chills, Denies fatigue, Denies fever(s), Denies headache(s) and Denies weakness ENT Denies dizziness and Denies headache(s) Card Denies chest pain, Denies lightheadedness, Denies dyspnea and Denies other (Pal pitations) Resp Denies cough, Denies dyspnea, Denies wheezing and Denies other ( shortness of breath) Musc Denies numbness and Denies tingling Neuro Denies dizziness, Denies headache(s), Denies numbness, Denies tingling, Denies paresthesias and Denies weakness Psych Denies anxiety and Denies depression Endo Denies fatigue Aller/Immun Denies wheezing Physical exam (Primary Care) Vital Signs: Last Vital Signs Temp 98.3 F 11/25/23 08:53 Pulse 71 11/25/23 08:53 Resp 16 11/25/23 08:53 BP 128/72 11/25/23 08:53 Pulse Ox 97 11/25/23 08:53 Oxygen Delivery Method Room Air 11/25/23 08:53 BMI result Body Mass Index 23.5 Tobacco/Smoking Status: Tobacco use Status Tobacco use date assessed 11/21/23 11/25/23 08:48 Patient Tobacco Use Status Former Tobacco user 11/25/23 08:48 Tobacco use type Cigarette 11/25/23 08:48 e-Cigarette/Vaping Use Never Used 11/25/23 08:48 Thrive Assessment: Date of Thrive Assessment Date Thrive assessed 09/02/23 11/25/23 08:48 Const General: no acute distress and well developed Nutritional Appearance: well nourished Orientation/consciousness: patient oriented x3 [facility] Head: Yes normocephalic and Yes atraumatic Eyes General: appearance normal, both eyes and all related structures Pupils: Equal, round and reactive pupils present EOM: EOMs intact bilaterally Resp Effort & Inspection: normal respiratory effort Auscultation: clear to auscultation bilaterally Cardio Rate: regular rate Rhythm: regular rhythm Heart sounds: S1 normal heart sound present, S2 normal heart sound present, no gallops, no murmurs and no rubs Neuro General: patient oriented x3 and gait normal Cranial nerves: Yes Equal, round and reactive pupils present Psych Affect: normal affect Results AMB Hemoglobin A1c AMB Hemoglobin A1c 5.7 % Last Edit by Arleth Daniel CMA on 11/25/23 08:59 Assessment and Plan Assessment & Plan (1) Diabetes: Code(s): E11.9 - Type 2 diabetes mellitus without complications Plan: A1c?was?at?7.0?%?at?last?Check.??Had?encouraged?patient?to?use?glimepiride. She?has?gastrointestinal?issues?and?had?only?been?co mfortable?with?carbohydrates. More?recently,?she?is?questioning?her?diagnosis?and?is?trying?more?foods?in?mode ration. A1c?today?is?5.7%.??Good?control. Continue?glimepiride (2) Cough: Code(s): R05.9 - Cough, unspecified Plan: Patient?is?feeling?better.??Still?has?mild?irritating?cough?wh ich?should?resolve?on?its?own. Chest?x-ray?was?negative (3) Hypercalcemia: Code(s): E83.52 - Hypercalcemia Plan: Mild?hypercalcemia. Encouraged?increase?hydration (4) Borderline anemia: Code(s): D64.9 - Anemia, unspecified Plan: She?had?had?a?borderline?anemia?and?this?is?resolved. Orders: Orders AMB Hemoglobin A1c Today E11.9 - Type 2 diabetes mellitus without complications Coding Level of Care Code Est Pt Level 4 (46763) Diagnoses Diabetes E11.9 Cough R05.9 Hypercalcemia E83.52 Borderline anemia D64.9
[2023-11-25 08:53] VITALS: BP 128/72; PULSE 71; RESP 16; TEMP 36.8; O2SAT 97; BMI 23.5
== END 2023-11-25 09:18 | disposition home or self-care (01) ==
PROVIDERS: PCP Family Medicine; Visit Provider Family Medicine
DX: E11.9 Type 2 diabetes mellitus without complications (principal); R05.9 Cough, unspecified; E83.52 Hypercalcemia; D64.9 Anemia, unspecified
CPT/HCPCS: 83036; 99214

== ENCOUNTER 2024-02-24 08:47 | Outpatient (AMB) | payer MEDICARE, OTHER, SELFPAY ==
--- NOTE | 2024-02-24 08:56 | A.OFFPC_ITS ---
Vital Signs 02/24/24 09:03 Height 5 ft 2.32 in Weight 130 lb BMI 23.5 BP 120/70 Blood Pressure Location Lt brachial Position Sitting Respiration 16 Pulse 88 Pulse Source Pulse Oximeter Temp 98 F Temp Source Tympanic Pulse Oximetry (%) 98 Oxygen Delivery Method Room Air Intake Visit Reasons: Follow up diabetes Intake Note: follow up on diatetes pt not feeling well on diabetic medication she states she has been feeling weak, heart palpitations,not sleeping well and weight loss. Allergies methylprednisolone [From Solu-Medrol] Allergy (Severe, Verified 02/24/24 08:59) Rash, facial swelling Penicillins Allergy (Severe, Verified 02/24/24 08:59) ANAPHYLAXIS Ekfjieq-WNJ-BnJ Reductase Inhibitor [JWQHHNB-QJD-ZHE REDUCTASE INHIBITOR] Allergy (Intermediate, Verified 02/24/24 08:59) muscle aches Medication List - Last Reconciled 02/24/24 by Lopez Cote MD albuterol sulfate 90 mcg/actuation (Ventolin HFA) 2 puffs inhalation QID PRN 30 days cholecalciferol (vitamin D3) 50 mcg PO DAILY 90 days cyanocobalamin (vitamin B-12) 1,000 mcg IM DIRECTED famotidine 40 mg PO BID fluticasone propionate 50 mcg/actuation 1 spray intranasal DAILY gemfibrozil 600 mg PO BID 90 days glimepiride 1 mg PO QAM 30 days loratadine (Claritin) 10 mg PO DAILY multivitamin 1 tab PO DAILY ondansetron 4 mg PO Q6H PRN syringe with needle, safety (BD Integra Syringe) As directed Tobacco use date assessed: 11/21/23 Dental Screening Dental Screen Date: 09/02/23 HPI Follow up diabetes HPI Details 69 y/o female presents to f/u diabetes. Last A1c 11/25/23 5.7%. She is on glimepiride. A1c today 02/24/24 5.7%. Pt reports heart palpitations, fatigue, and weight loss. She questions whether or not symptoms could be from her glimeperide. Hx of hypercalcemia. HPI Comments History of Present Illness Details Documentation assistance for Lopez Cote MD, was provided by Cameron Cruz,? Automatic Pad Making Machine Operator on 02/24/2024 at 9:17 AM EST. I, Dr. Cote, have read, observed, and verified documentation. PFSH Medical History Arthritis Hx of Lyme disease Environmental allergies Seasonal allergies GERD (gastroesophageal reflux disease) YASMIN (obstructive sleep apnea) Pulmonary nodule Diverticulitis Pancreas cyst Hypertriglyceridemia Crohn's colitis Surgical History Hx of right cataract extraction History of cholecystectomy History of cholecystectomy H/O colonoscopy Family History Father CVD (cardiovascular disease) Mother Hypertension Renal failure Blood disorder Brother Diabetes mellitus Sister Diabetes mellitus Social History Household Members: Family Housing: Apartment Do you presently have visiting nurse or other home services: No Patient Tobacco Use Status: Former Tobacco user Tobacco use type: Cigarette e-Cigarette/Vaping Use: Never Used Second Hand Smoke Exposure: No Substance Use Type: Marijuana service: No Current occupational status: retired Current occupational exposures/hazards: No Cognitive needs: No Hearing needs: No Vision needs: No Questionnaire Thrive Questionnaire Date Thrive assessed: 09/02/23 TERI-7 AMB Questionnaire TERI-7 Date TERI - 7 assessed: 09/02/23 Source: Developed by Drs. Yasmani Rodriguez, Sophia Torres, Manuel Olson and colleagues, with an educational rubi from [employer]. Review of Systems Const Denies chills, Denies fatigue, Denies fever(s), Denies headache(s) and Denies weakness ENT Denies dizziness and Denies headache(s) Card Denies dyspnea Resp Denies cough, Denies dyspnea, Denies wheezing and Denies other (shortness of breath) Musc Denies numbness and Denies tingling Neuro Denies dizziness, Denies headache(s), Denies numbness, Denies tingling and Denies weakness Psych Denies anxiety and Denies depression Endo Denies fatigue Aller/Immun Denies wheezing Physical exam (Primary Care) Vital Signs: Last Vital Signs Temp 98 F 02/24/24 09:03 Pulse 88 02/24/24 09:03 Resp 16 02/24/24 09:03 BP 120/70 02/24/24 09:03 Pulse Ox 98 02/24/24 09:03 Oxygen Delivery Method Room Air 02/24/24 09:03 BMI result Body Mass Index 23.5 Tobacco/Smoking Status: Tobacco use Status Tobacco use date assessed 11/21/23 02/24/24 09:04 Patient Tobacco Use Status Former Tobacco user 02/24/24 09:04 Tobacco use type Cigarette 02/24/24 09:04 e-Cigarette/Vaping Use Never Used 02/24/24 09:04 Thrive Assessment: Date of Thrive Assessment Date Thrive assessed 09/02/23 02/24/24 09:04 Const General: well developed; No acute distress Nutritional Appearance: well nourished Orientation/consciousness: patient oriented x3 HEN[facility] Head: Yes normocephalic and Yes atraumatic Eyes General: appearance normal, both eyes and all related structures Pupils: Equal, round and reactive pupils present EOM: EOMs intact bilaterally Resp Effort & Inspection: normal respiratory effort Auscultation: clear to auscultation bilaterally Cardio Rate: regular rate Rhythm: regular rhythm Heart sounds: S1 normal heart sound present, S2 normal heart sound present, no gallops, no murmurs and no rubs Neuro General: patient oriented x3 and gait normal Cranial nerves: Yes Equal, round and reactive pupils present Psych Affect: normal affect Assessment and Plan Assessment & Plan (1) Diabetes: Code(s): E11.9 - Type 2 diabetes mellitus without complications Plan: A1c?again?5.7%.??Controlled?and?steady.??Goal?is?less?than?7.0% How ever,?patient?thinks?that?this?is?causing?some?fatigue?so?she?is?going?to?try?br eaking?this?in?half Continue?diabetic (2) Hypercalcemia: Code(s): E83.52 - Hypercalcemia Plan: History?of?hypercalcemia Encouraged?good?hydration?which?she?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 (4) Muscle weakness: Code(s): M62.81 - Muscle weakness (generalized) Plan: As?above Orders: Orders AMB Hemoglobin A1c Today Z13.9 - Encounter for screening, unspecified Complete Blood Count Auto Diff Today D64.9 - Anemia, unspecified, Z00.00 - Encounter for general adult medical examination without abnormal findings Comprehensive Met. Panel Today M62.81 - Muscle weakness (generalized) Magnesium Today M62.81 - Muscle weakness (generalized) Vitamin D 25-OH Total Today E55.9 - Vitamin D deficiency, unspecified, M62.81 - Muscle weakness (generalized) Erythrocyte Sedimentation Rate Today M62.81 - Muscle weakness (generalized) IRON PROFILE Today D64.9 - Anemia, unspecified Phosphorus Today M62.81 - Muscle weakness (generalized) Parathyroid Hormone Intact Today M62.81 - Muscle weakness (generalized) CRP High Sensitivity Today M62.81 - Muscle weakness (generalized) TSH reflex Free T4 Today M62.81 - Muscle weakness (generalized), Z00.00 - Encounter for general adult medical examination without abnormal findings Coding Level of Care Code Est Pt Level 4 (01365) Diagnoses Diabetes E11.9 Hypercalcemia E83.52 Fatigue R53.83 Muscle weakness M62.81
[2024-02-24 09:03] VITALS: BP 120/70; PULSE 88; RESP 16; TEMP 36.6; O2SAT 98; BMI 23.5
== END 2024-02-24 09:41 | disposition home or self-care (01) ==
PROVIDERS: PCP Family Medicine; Visit Provider Family Medicine
DX: E11.9 Type 2 diabetes mellitus without complications (principal); E83.52 Hypercalcemia; R53.83 Other fatigue; M62.81 Muscle weakness (generalized)
CPT/HCPCS: 99214

== ENCOUNTER 2024-02-24 09:52 | Outpatient (REF) | payer MEDICARE, OTHER, SELFPAY ==
[2024-02-24 10:57] LABS: MANUAL DIFF FLAG NO
[2024-02-24 11:03] LABS: Appearance Urine Clear; Color Urine Yellow; Glucose Urine UA Negative (Negative); Leukocyte Esterase Urine Negative (Negative); Nitrite Urine Negative (Negative); PH 5.5 (5.0-9.0); Specific Gravity - Urine <= 1.005 (1.005-1.025); Urine Blood Negative (Negative); Urine Ketones Negative (Negative); Urine Protein Negative (Neg-Trace)
[2024-02-24 11:10] LABS: Basophils Percent Auto 0.7 % (0-2); Eosinophils Absolute Auto 0.2 X10*3/uL (0.0-0.4); Eosinophils Percent Auto 3.6 % (0-4); Hematocrit 37.5 % (37.0-47.0); Hemoglobin 12.7 g/dl (12.0-16.0); Imm Gran Abs Auto 0.02 X10*3/uL (0.00-0.03); Imm Gran Pct Auto 0.4 % (0.0-0.4); Lymphocytes Absolute Auto 1.7 X10*3/uL (1.2-4.9); Lymphocytes Percent Auto 31.1 % (20-40); Mean Corpuscular HGB Conc 33.9 g/dl (31.0-35.0); Mean Corpuscular Hemoglobin 30.8 pg (27.0-33.0); Mean Corpuscular Volume 90.8 fL (80.0-98.0); Mean Platelet Volume 10.2 fL (9.4-12.3); Monocytes Absolute Auto 0.7 X10*3/uL (0.1-1.2); Monocytes Percent Auto 12.5 % (2-11); Neutrophils Absolute Auto 2.8 x10*3/uL (2.0-8.3); Neutrophils Percent Auto 51.7 % (45-73); Platelet Count 372 X10*3/uL (160-400); Red Blood Count 4.13 X10*6/uL (4.20-5.50); Red Cell Distribution Width 12.2 % (11.0-16.0); White Blood Count 5.5 X10*3/uL (4.8-10.8)
[2024-02-24 11:54] LABS: Parathyroid Hormone Intact 99.4 pg/mL (8.7-77.1)
[2024-02-24 12:01] LABS: Alanine Aminotransferase 11 U/L (0-31); Albumin Level 4.6 g/dL (3.5-5.0); Alkaline Phosphatase 136 U/L (39-117); Anion Gap 12 (12-20); Aspartate Amino Transferase 15 U/L (5-31); Bilirubin Total 0.3 mg/dL (0.0-1.0); Blood Urea Nitrogen 21 mg/dL (9-16); Calcium 10.6 mg/dL (8.4-10.2); Carbon Dioxide 25 mmol/L (22-29); Chloride 109 mmol/L (96-108); Estimated Glomerular Filt Rate > 60; Glucose Random 100 mg/dL (60-115); Iron 81 mcg/dL (30-160); Magnesium 2.2 mg/dL (1.6-2.6); Percent Iron Saturation 25 % (15-50); Phosphorus 2.8 mg/dL (2.7-4.5); Potassium 4.5 mmol/L (3.3-5.1); Sodium 141 mmol/L (135-145); Total Iron Binding Capacity 328 mcg/dL (228-428); Total Protein 7.9 g/dL (6.5-8.0); Unsaturated Iron Binding 247 ug/dL
[2024-02-24 12:08] LABS: TSH reflex Free T4 0.94 uIU/mL (0.32-4.0); Vitamin D 25-OH Total 83.3 ng/mL (>30)
[2024-02-24 12:46] LABS: Erythrocyte Sedimentation Rate 39 MM/HR (0-20)
[2024-02-27 07:34] LABS: CRP High Sensitivity 3.6 mg/L
== END 2024-02-24 09:53 | disposition home or self-care (01) ==
LOC: HO.WFDLDS 09:52
PROVIDERS: Visit Provider Family Medicine
DX: Z00.00 Encounter for general adult medical examination without abnormal findings (principal); M62.81 Muscle weakness (generalized); D64.9 Anemia, unspecified; E55.9 Vitamin D deficiency, unspecified
CPT/HCPCS: 36415; 80053; 81003; 82306; 83540; 83735; 83970; 84100; 84443; 85025; 85652; 86141

== ENCOUNTER 2024-03-07 13:43 | Outpatient (AMB) | payer MEDICARE, OTHER, SELFPAY ==
--- NOTE | 2024-03-07 13:53 | MHC.PC.OV ---
Vital Signs 03/07/24 13:57 Height 5 ft 3 in Weight 130 lb 8 oz BMI 23.1 BP 130/70 Blood Pressure Location Rt brachial Position Sitting Respiration 16 Pulse 66 Pulse Source Pulse Oximeter Temp 97.5 F Temp Source Tympanic Pulse Oximetry (%) 97 Oxygen Delivery Method Room Air Intake Visit Reasons: f/u labs via telemedicine Intake Note: f/u labs Allergies methylprednisolone [From Solu-Medrol] Allergy (Severe, Verified 03/07/24 13:54) Rash, facial swelling Penicillins Allergy (Severe, Verified 03/07/24 13:54) ANAPHYLAXIS Iwjqehq-TEK-UfZ Reductase Inhibitor [AOAQIHT-UEJ-FRR REDUCTASE INHIBITOR] Allergy (Intermediate, Verified 03/07/24 13:54) muscle aches Tobacco use date assessed: 11/21/23 Dental Screening Dental Screen Date: 09/02/23 HPI f/u labs via telemedicine HPI Details 69 y/o female presents to review electrolytes and lab work. Pt had complaints of significant muscle discomfort, weakness and fatigue. Labs drawn 02/24/24. Reviewed labs with pt. Elevated ESR at 39 MM/HR. CRP 3.6. Ongoing elevated calcium. PTH 99.4 pg/mL. Had an qualitative researcher out in [place] but had not been seeing anyone. HPI Comments History of Present Illness Details Documentation assistance for Lopez Cote MD, was provided by Cameron Cruz, Store Merchandiser on 03/07/2024 at 2:06 PM EST. I, Dr. Cote, have read, observed, and verified documentation. PFSH Medical History Arthritis Hx of Lyme disease Environmental allergies Seasonal allergies GERD (gastroesophageal reflux disease) YASMIN (obstructive sleep apnea) Pulmonary nodule Diverticulitis Pancreas cyst Hypertriglyceridemia Crohn's colitis Surgical History Hx of right cataract extraction History of cholecystectomy History of cholecystectomy H/O colonoscopy Family History Father CVD (cardiovascular disease) Mother Hypertension Renal failure Blood disorder Brother Diabetes mellitus Sister Diabetes mellitus Social History Household Members: Family Housing: Apartment Do you presently have visiting nurse or other home services: No Patient Tobacco Use Status: Former Tobacco user Tobacco use type: Cigarette e-Cigarette/Vaping Use: Never Used Second Hand Smoke Exposure: No Substance Use Type: Marijuana service: No Current occupational status: retired Current occupational exposures/hazards: No Cognitive needs: No Hearing needs: No Vision needs: No Questionnaire Thrive Questionnaire Date Thrive assessed: 09/02/23 TERI-7 AMB Questionnaire TERI-7 Date TERI - 7 assessed: 09/02/23 Source: Developed by Drs. Yasmani Rodriguez, Sophia Torres, Manuel Olson and colleagues, with an educational rubi from [employer]. Review of Systems Const Reports fatigue, Denies headache(s) and Denies weakness ENT Denies dizziness and Denies headache(s) Card Denies dyspnea Resp Denies cough, Denies dyspnea, Denies wheezing and Denies other (shortness of breath) Musc Denies numbness and Denies tingling Neuro Denies dizziness, Denies headache(s), Denies numbness, Denies tingling and Denies weakness Psych Denies anxiety and Denies depression Endo Reports fatigue Aller/Immun Denies wheezing Physical exam (Primary Care) Vital Signs: Last Vital Signs Temp 97.5 F 03/07/24 13:57 Pulse 66 03/07/24 13:57 Resp 16 03/07/24 13:57 BP 130/70 03/07/24 13:57 Pulse Ox 97 03/07/24 13:57 Oxygen Delivery Method Room Air 03/07/24 13:57 BMI result Body Mass Index 23.1 Tobacco/Smoking Status: Tobacco use Status Tobacco use date assessed 11/21/23 03/07/24 13:57 Patient Tobacco Use Status Former Tobacco user 03/07/24 13:57 Tobacco use type Cigarette 03/07/24 13:57 e-Cigarette/Vaping Use Never Used 03/07/24 13:57 Thrive Assessment: Date of Thrive Assessment Date Thrive assessed 09/02/23 03/07/24 13:57 Const General: well developed; No acute distress Nutritional Appearance: well nourished Orientation/consciousness: patient oriented x3 HENMT Head: Yes normocephalic and Yes atraumatic Eyes General: appearance normal, both eyes and all related structures Pupils: Equal, round and reactive pupils present EOM: EOMs intact bilaterally Resp Effort & Inspection: normal respiratory effort Neuro General: patient oriented x3 and gait normal Cranial nerves: Yes Equal, round and reactive pupils present Psych Affect: normal affect Assessment and Plan Assessment & Plan (1) Fatigue: Code(s): R53.83 - Other fatigue Plan: She?returns?to?follow-up?fatigue?and?muscle?weakness Her?calcium?levels?have?been?somewhat?high?and?parathyroid?hormone?level?is?high?again. She?had?an?qualitative researcher?out?in?[place]?but?has?not?been?seeing?anyone. Will?refer?her?to?endocrinology Patient?also?has?history?of?Crohn's?disease?and?this?may?be?contributing?to?her?fatigue?as?well (2) Muscle weakness: Code(s): M62.81 - Muscle weakness (generalized) Plan: As?above (3) Hypercalcemia: Code(s): E83.52 - Hypercalcemia Plan: As?above (4) Hyperparathyroidism: Code(s): E21.3 - Hyperparathyroidism, unspecified Plan: As?above,?referring?her?to?endocrinology (5) Crohn's colitis: Code(s): K50.10 - Crohn's disease of large intestine without complications Plan: Patient?had?seen?Gastroenterology?and?they?had?recommended?Humira Patient?has?been?apprehensive?to?start?this?medication. ESR?and?CRP?are?somewhat?elevated?and?she?has?some?ongoing?fatigue We?had?a?discussion?about?Humira?and?I?recommended?she?review?with?her?acquisition cost estimator?again?to?reconsider?it She?says?she?has?an?upcoming?appointment?with?GI?and?will?do?so. Coding Level of Care Code Est Pt Level 4 (59358) Diagnoses Fatigue R53.83 Muscle weakness M62.81 Hypercalcemia E83.52 Hyperparathyroidism E21.3 Crohn's colitis K50.10
[2024-03-07 13:57] VITALS: BP 130/70; PULSE 66; RESP 16; TEMP 36.4; O2SAT 97; BMI 23.1
== END 2024-03-07 14:19 | disposition home or self-care (01) ==
PROVIDERS: PCP Family Medicine; Visit Provider Family Medicine
DX: R53.83 Other fatigue (principal); K50.10 Crohn's disease of large intestine without complications; M62.81 Muscle weakness (generalized); E83.52 Hypercalcemia
CPT/HCPCS: 99214

== ENCOUNTER 2024-06-05 08:33 | Outpatient (AMB) | payer MEDICARE, OTHER, SELFPAY ==
--- NOTE | 2024-06-05 08:54 | MHC.PC.OV ---
Vital Signs 06/05/24 08:56 06/05/24 08:58 Height 5 ft 3 in Weight 133 lb 4 oz BMI 23.6 BP 145/63 H 130/60 Blood Pressure Location Rt brachial Rt brachial Position Sitting Sitting Respiration 16 Pulse 68 Pulse Source Pulse Oximeter Temp 97.7 F Temp Source Temporal Artery Scan Pulse Oximetry (%) 100 Oxygen Delivery Method Room Air Intake Visit Reasons: f/u diabetes, chronic conditions Intake Note: f/u DM and chronic conditions Allergies methylprednisolone [From Solu-Medrol] Allergy (Severe, Verified 06/05/24 08:55) Rash, facial swelling Penicillins Allergy (Severe, Verified 06/05/24 08:55) ANAPHYLAXIS Wlcmzos-RCR-PtT Reductase Inhibitor [FZKOUDM-FTK-SWD REDUCTASE INHIBITOR] Allergy (Intermediate, Verified 06/05/24 08:55) muscle aches Medication List - Last Reconciled 06/05/24 by Lopez Cote MD cholecalciferol (vitamin D3) 50 mcg PO DAILY 90 days cyanocobalamin (vitamin B-12) 1,000 mcg IM DIRECTED famotidine 40 mg PO BID fluticasone propionate 50 mcg/actuation 1 spray intranasal DAILY gemfibrozil 600 mg PO BID 90 days glimepiride 1 mg PO QAM 30 days loratadine (Claritin) 10 mg PO DAILY ondansetron 4 mg PO Q6H PRN syringe with needle, safety (BD Integra Syringe) As directed Tobacco use date assessed: 11/21/23 Dental Screening Dental Screen Date: 09/02/23 HPI f/u diabetes, chronic conditions HPI Details 69 y/o female presents to f/u diabetes, chronic conditions. Prior A1c in November 5.7%. A1c today 06/05/24 5.7%. She is on glimepiride 1mg. Notes she is up to date with her diabetic eye exam. Elevated parathyroid hormone and elevated calcium level 02/24/24. Notes she had seen a specialist for this and she states they did not recommend any additional care. HPI Comments History of Present Illness Details Documentation assistance for Lopez Cote MD, was provided by Cameron Cruz,? Manager Of Application Development on 06/05/2024 at 9:14 AM EST. I, Dr. Cote, have read, observed, and verified documentation. [facility] Medical History Arthritis Hx of Lyme disease Environmental allergies Seasonal allergies GERD (gastroesophageal reflux disease) YASMIN (obstructive sleep apnea) Pulmonary nodule Diverticulitis Pancreas cyst Hypertriglyceridemia Crohn's colitis Surgical History Hx of right cataract extraction History of cholecystectomy History of cholecystectomy H/O colonoscopy Family History Father CVD (cardiovascular disease) Mother Hypertension Renal failure Blood disorder Brother Diabetes mellitus Sister Diabetes mellitus Social History Household Members: Family Housing: Apartment Do you presently have visiting nurse or other home services: No Patient Tobacco Use Status: Former Tobacco user Tobacco use type: Cigarette e-Cigarette/Vaping Use: Never Used Second Hand Smoke Exposure: No Substance Use Type: Marijuana service: No Current occupational status: retired Current occupational exposures/hazards: No Cognitive needs: No Hearing needs: No Vision needs: No Questionnaire Thrive Questionnaire Date Thrive assessed: 09/02/23 TERI-7 AMB Questionnaire TERI-7 Date TERI - 7 assessed: 09/02/23 Source: Developed by Drs. Yasmani Rodriguez, Sophia Torres, Manuel Olson and colleagues, with an educational rubi from [employer]. Review of Systems Const Denies chills, Denies fatigue, Denies fever(s), Denies headache(s) and Denies weakness ENT Denies dizziness and Denies headache(s) Card Denies dyspnea Resp Denies cough, Denies dyspnea, Denies wheezing and Denies other (shortness of breath) Musc Denies numbness and Denies tingling Neuro Denies dizziness, Denies headache(s), Denies numbness, Denies tingling and Denies weakness Psych Denies anxiety and Denies depression Endo Denies fatigue Aller/Immun Denies wheezing Physical exam (Primary Care) Vital Signs: Last Vital Signs Temp 97.7 F 06/05/24 08:56 Pulse 68 06/05/24 08:56 Resp 16 06/05/24 08:56 BP 130/60 06/05/24 08:58 Pulse Ox 100 06/05/24 08:56 Oxygen Delivery Method Room Air 06/05/24 08:56 BMI result Body Mass Index 23.6 Tobacco/Smoking Status: Tobacco use Status Tobacco use date assessed 11/21/23 06/05/24 08:58 Patient Tobacco Use Status Former Tobacco user 06/05/24 08:58 Tobacco use type Cigarette 06/05/24 08:58 e-Cigarette/Vaping Use Never Used 06/05/24 08:58 Thrive Assessment: Date of Thrive Assessment Date Thrive assessed 09/02/23 06/05/24 08:58 Const General: well developed; No acute distress Nutritional Appearance: well nourished Orientation/consciousness: patient oriented x3 HENMT Head: Yes normocephalic and Yes atraumatic Eyes General: appearance normal, both eyes and all related structures Pupils: Equal, round and reactive pupils present EOM: EOMs intact bilaterally Resp Effort & Inspection: normal respiratory effort Auscultation: clear to auscultation bilaterally Cardio Rate: regular rate Rhythm: regular rhythm Heart sounds: S1 normal heart sound present, S2 normal heart sound present, no gallops, no murmurs and no rubs Neuro General: patient oriented x3 and gait normal Cranial nerves: Yes Equal, round and reactive pupils present Psych Affect: normal affect Results AMB Hemoglobin A1c AMB Hemoglobin A1c 5.7 % Last Edit by DAVEY Nova on 06/05/24 09:05 Results Reviewed Results Reviewed: Laboratory Last Values Hgb A1c (Clinic) 5.7 % (4.0-6.0) 06/05/24 09:04 Coding Level of Care Code Est Pt Level 4 (59313) Diagnoses Diabetes E11.9 Hyperparathyroidism E21.3 Hypercalcemia E83.52 Assessment & Plan Assessment & Plan (1) Diabetes: Code(s): E11.9 - Type 2 diabetes mellitus without complications Category: Medical Plan: A1c?5.7%?is?well?controlled?and?stable.??Goal?is?less?than?7.0% Continue?glimepiride?as?prescribed Continue?exercise?and?diabetic?diet Recent?eye?exam?including?diabetic?retinal?exam.??Up-to-date (2) Hyperparathyroidism: Code(s): E21.3 - Hyperparathyroidism, unspecified Category: Medical Plan: Followed?at[facility]?by?endocrinology I?do?not?have?their?recent?no?in?request?this (3) Hypercalcemia: Code(s): E83.52 - Hypercalcemia Category: Medical Plan: Mild/moderate?hypercalcemia?and?elevated?parathyroid?hormone. She?is?followed?by?[facility]?endocrinology.??Patient?says?that?she?was?told?that?fitness studies teacher?is?worried?about?levels. I?do?not?have?a?recent?note?from?her?fitness studies teacher?and?have?requested?this Had?try?to?get?her?a?local?fitness studies teacher?some?time?ago.??She?declines this today Orders: Orders AMB Hemoglobin A1c Today E11.9 - Type 2 diabetes mellitus without complications
[2024-06-05 08:56] VITALS: BP 145/63; PULSE 68; RESP 16; TEMP 36.5; O2SAT 100; BMI 23.6
[2024-06-05 08:58] VITALS: BP 130/60
== END 2024-06-05 09:35 | disposition home or self-care (01) ==
PROVIDERS: PCP Family Medicine; Visit Provider Family Medicine
DX: E11.9 Type 2 diabetes mellitus without complications (principal); E83.52 Hypercalcemia

== ENCOUNTER → 2024-06-05 08:33 | Outpatient (BNVA) | payer MEDICARE, OTHER, SELFPAY | PROVIDERS: PCP Family Medicine; Visit Provider Family Medicine | DX: E11.9 Type 2 diabetes mellitus without complications (principal); E21.3 Hyperparathyroidism, unspecified | CPT/HCPCS: 83036; 99212 ==

== ENCOUNTER 2024-09-14 07:57 | Outpatient (REF) | payer MEDICARE, OTHER, SELFPAY ==
--- OUTSIDE RECORDS SUMMARY | 2024-09-14 08:02 | XMS_ITS | Patient Health Record ---
Author Organization [facility] Address [address] [address] Care Team Providers Care Rf Test Engineer Name Role Phone Lopez Cote MD Primary Care Provider Pina Jackson Unavailable [phone] Allergies Allergen (clinical drug ingredient) Drug/Non Drug Allergy documented on EMR Reaction Allergy Type Onset Date Status piroxicam Feldene Unknown Drug Allergy Active Penicillin rash Drug Allergy Active Results Component Value Reference Range Notes X ray : Foot, left 3V Reviewed date:07/06/2024 01:36:20 PM Interpretation:See Examination above Performing Lab: Notes/Report: See Examination above X ray : Foot, right 3V Reviewed date:07/06/2024 01:36:09 PM Interpretation:See Examination above Performing Lab: Notes/Report: See Examination above Reason For Referral No Information Medications Medication SIG (Take, Route, Frequency, Duration) Notes Start Date End Date Status Feldene 20 MG 1 capsule with food Orally Once a day for 30 day(s) 03/20/2014 Unknown Glimepiride Not-Taki ng ZyrTEC Unknown Gemfibrozil Unknown Night Splint AFO - L1930 as directed 04/25/2014 Unknown Lopid Active Famotidine Active Flonase Active Social History Tobacco Use: Social History Observation Description Date Details (start date - stop date) Former Smoker NA - NA Tobacco Use/Smoking Question Answer Notes Are you a: former smoker Additional Findings: Tobacco Non-User Current no n-smoker Alcohol Screen Question Answer Notes Did you have a drink containing alcohol in the p ast year? No Points 0 Interpretation Negative Tobacco use other than smoking: Question Answer Notes Are you an other tobacco user? 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 Problem [id number] Plantar fasciitis, bilateral (M72.2) Active confirmed Vital Signs Blood pressure diastolic 80 mm Hg 07/06/2024 Height 5 ft 3 in in 07/06/2024 Blood pressure systolic 141 mm Hg 07/06/2024 Weight 127 lbs 07/06/2024 BMI 22.49 kg/m2 07/06/2024 Encounters Encounter Location Date Provider Diagnosis [address] [address] 07/06/2024 Pina Black Pain in right foot M79.671 ; Calcaneal spur, right foot M77.31 ; Plantar fasciitis, bilateral M72.2 ; Other myositis of right foot M60.871 ; Bursitis of right foot M77.51 ; Pain in left foot M79.672 ; Other myositis of left foot M60.872 and Bursitis of left foot M77.[address] [facility] [address] 05/09/2024 Pina Bryant [facility] [address] [address] 07/06/2024 Pina Black Assessments Encounter Date Diagnosis (ICD Code) Assessment Notes Treatment Notes Treatment Clinical Notes Section Notes 07/06/2024 Pain in right foot (ICD-10 - M79.671) 07/06/2024 Calcaneal spur, right foot (ICD-10 - M77.31) 07/06/2024 Other myositis of right foot (ICD-10 - M60.871) 07/06/2024 Plantar fasciitis, bilateral (ICD-10 - M72.2) Patient Educated with: HEEL CORD STRETCHES.pdf (HEEL CORD STRETCHES.pdf) Patient Educated with: RICE THERAPY.pdf (RICE THERAPY.pdf) 07/06/2024 Bursitis of right foot (ICD-10 - M77.51) 07/06/2024 Pain in left foot (ICD-10 - M79.672) 07/06/2024 Other myositis of left foot (ICD-10 - M60.872) 07/06/2024 Bursitis of left foot (ICD-10 - M77.52) Plan Of Treatment Next Appt Details Provider Name:Pina Bryant , 10/04/2024 08:30:00 AM, [address] [place], [address], Insurance Providers Payer Name Payer Address Payer Phone Subscriber Number Group Number Insured Name Patient Relationship to Insured Coverage Start Date Coverage End Date Medicare [facility] [address] [place] [address] [id number] Renu Orozco Self - patient is the insured 0 [facility] [address] [place] [address] [id number] Renu Orozco Self - patient is the insured 0 Medical (General) History Medical History History ICD Code Glaucoma Chicken pox Measles Mumps Lyme disease Sinus conditions Arthritis CAD (Cholesterol) Cancer Cataracts covid-19 Crohns disease type II diabetes Diverticulosis Gall bladder problems Osteoporosis Sciatica thyroid pancreatic tumor Surgical History Surgery Date(Month/Year) cholecystectomy 12/1997
--- OUTSIDE RECORDS SUMMARY | 2024-09-14 08:02 | XMS_ITS ---
Author Organization [facility] [place] Address [address] [facility] [place] [address] Care Team Providers Care Saturation Equipment Operator Name Role Phone Kera POTTER, Lopez Primary Care Provider Pina Jackson Unavailable [phone] Allergies Allergen (clinical drug ingredient) Drug/Non Drug [...] above Performing Lab: Notes/Report: See Examination above REASON FOR VISIT pcp-04/2024, Heel pain Medications Medication SIG (Take, Route, Frequency, Duration) Notes Start Date End Date Status Feldene 20 MG 1 capsule with food Orally Once a day for 30 day(s) 03/20/2014 Unknown Gemfibrozil Unknown Night Splint AFO - L1930 as directed 04/25/2014 Unknown Lopid Active Famotidine Active Glimepiride Not-Taki ng ZyrTEC Unknown Flonase Active Social History Tobacco Use: Social [...] W/U Status Risk Notes Problem 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 Problem [id number] Plantar fasciitis, bilateral (M72.2) Active confirmed Vital Signs Height 5 ft 3 in in 07/06/2024 Weight 127 lbs 07/06/2024 BMI 22.49 kg/m2 07/06/2024 Blood pressure systolic 141 mm Hg 07/06/20 24 Blood pressure diastolic 80 mm Hg 024 Encounters Encounter Location Date Provider Diagnosis [facility] [address] 07/06/2024 Pina Black Pain in right foot M79.671 ; Calcaneal spur, right foot M77.31 ; Plantar fasciitis, bilateral M72.2 ; Other myositis of right foot M60.871 ; Bursitis of right foot M77.51 ; Pain in left foot M79.672 ; Other myositis of left foot M60.872 and Bursitis of left foot M77.52 Assessments Encounter Date Diagnosis (ICD Code) Assessment Notes Treatment Notes Treatment Clinical Notes Section Notes 07/06/2024 Pain in right foot (ICD-10 - M79.671) 07/06/2024 Calcaneal spur, right foot (ICD-10 - M77.31) 07/06/2024 Plantar fasciitis, bilateral (ICD-10 - M72.2) Patient Educated with: HEEL CORD STRETCHES.pdf (HEEL CORD STRETCHES.pdf) Patient Educated with: RICE THERAPY.pdf (RICE THERAPY.pdf) 07/06/2024 Other myositis of right foot (ICD-10 - M60.871) 07/06/2024 Bursitis of right foot (ICD-10 - M77.51) 07/06/2024 Pain in left foot (ICD-10 - M79.672) 07/06/2024 Other myositis of left foot (ICD-10 - M60.872) 07/06/2024 Bursitis of left foot (ICD-10 - M77.52) Plan Of Treatment Treatment Notes Assessment Notes Plantar fasciitis, bilateral Patient Edu cated with: HEEL CORD STRETCHES.pdf (HEEL CORD STRETCHES.pdf) Patient Educated with: RICE THERAPY.pdf (RICE THERAPY.pdf) Next Appt Details Follow Up: 2 Months, Reason: Provider Name:Pina Bryant , 10/04/2024 08:30:00 AM, [address] [place], [address], Progress Notes * NICHOLASADAMNicanorAniyahOB:1955 (69 yo F)Acc No.[id number]:07/06/2024 Progress Notes Patient:?Renu OROZCO Provider:?Pina Bryant DPM :1955???Age:69 Y???Sex:Female D ate:07/06/2024 Address:[address] [place] [address], [facility] Pcp:Lopez Cote MD Subjective: * Chief Complaints: * ???Pcp-04/2024Heel pain * HPI: ???Heel pain:?Nature:?tightness, turning in.?Location:?, Arch, B/L.?Duration:?, several months.?Course:?worse.?Aggravated:?standing, walking, walking first thing in the morning/after rest.?Treatments:?rest/alter normal daily activity.? * ROS:?General/Constitutional:?Nausea?denies.?Vomiting?denies.?Hunger Thirst?denies.?Loss appetite?denies.?Chills?denies.?Fatigue?admits.?Fever?denies.?Night Sweats?denies.?Unexplained weight loss?denies.?Unexplained weight gain?denies.?HEENTM:?Dentures?denies.?Dizziness?denies.?Glasses/contacts?admits.?Retinopathy?de nies.?Blurred/double vision?denies.?TMJ?denies.?Discharge/drainage?denies.?Implants?denies.?Sore throat?denies.?Dental implants?denies.?Hard of hearing ?denies.?Difficulty chewing/swallowing/speaking?denies.?Nose bleeds?denies.?Sore mouth?denies.?Respiratory:?On Oxygen?denies.?Pneumonia/pleurisy?denies.?Bronchitis?denies.?Emphysema?denies.?C oughing?denies.?Cough blood?denies.?Shortness of breath?denies.?Wheezing?denies.?Cardiovascular:?Pacemaker?denies.?MVP?denies.?WPW?denies.?CHF?denies.?Heart attack?denies.?Septal defect?denies.?Rapid beat?denies.?Chest pain ?denies.?Atrial Fib.?denies.?Murmur/Palpitations?denies.?Gastrointestinal:?Hemorrhoids?denies.?Stomach/Abdominal pain?denies.?Dark blood stool?denies.?Irritable bowel ?denies.?Constipation?denies.?Diarrhea?denies.?Hematology:?Swelling?denies.?Clots?denies.?Varicose Veins?admits.?Bruising?denies.?Bleeding problem?denies.?Genitourinary:?Blood urine?denies.?Frequent/Painfu/urination/bladder control?denies.?Kidney stones?denies.?Infection (UTI)?denies.?Nephropathy?denies.?sex trans dis (STD)?denies.?Prostate?denies.?Musculoskeletal:?Hammertoes?denies.?Bunions?denies.?Back Pain?denies.?Muscle Cramps/ Resting?admits.?Muscle cramps / walking?denies.?Generalized aches and pains?admits.?Weakness?denies.?Integ.:?Leal?denies.?Scars?denies.?Corns/calluses?denies.?Ingrown nails?denies.?Painful nails?denies.?Open Sores?denies.?Rashes?denies.?Neurologic:?Difficulty sleeping?denies.?Brain disorder?admits.?Numbness?denies.?Balance trouble?admits.?Confusion?denies.?Fainting/blackouts?denies.?Tingling?denies.?Tr emors?denies.? * Medical History:? * Surgical History:?cholecyste ctomy 12/1997 * Hospitalization/Major Diagno stic Procedure:?Denies Past Hospitalization * Family History:?Mother: dece ased, kidney failure, diagnosed with Unspecified essential hypertension.?Father: , diagnosed with Unspecified heart disease.?Siblings: diabetes, kidney/liver disease.? * Social History:?Tobacco Use:?Tobacco Use/Smoking?Are you a:?former smoker ?Additional Findings: Tobacco Non-User?Current non-smoker ?Tobacco use other than smoking?Are you an other tobacco user??No ???Drugs/Alcohol:?Drugs?Have you used drugs other than those for medical reasons in the past 12 months??Yes ?Alcohol Screen?Did you have a drink containing alcohol in the past year??No ?Points?0 ?Interpretation?Negative ???Miscellaneous:?Caffeine: yes, 1-2 cups per day. ?Children: yes, 1. ?Exercise: no. 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 * Medications:?TakingLopid Fam otidine Flonase Taking Lopid Taking Famotidine Taking Flonase Not-Taking/PRNGlimepiride Not-Taking/PRN Glimepiride UnknownZyrTEC Gemfibrozil Night Splint AFO - L1930 as directed Feldene 20 MG Capsule 1 capsule with food Orally Once a day Medication List reviewed and reconciled with the patientUnknown ZyrTEC Unknown Gemfibrozil Unknown Night Splint AFO - L1930 as directed Unknown Feldene 20 MG Capsule 1 capsule with food Orally Once a day Medication List reviewed and reconciled with the patient * Allergies:?Penicillin: Esteban morgan[Allergies Verified] Objective: * Vitals:?Ht: 5 ft 3 in, Wt:12 7, BMI:22.49, Shoe size: 6.5, BP:141/80mm Hg, Ht-cm: 160.02 cm, Wt-k.61 kg. * Examination: ???General Examination: ?GENERAL APPEARANCE:?Reveals a pleasant, alert, well nourished, well- developed, well hydrated individual, who demonstrates proper attention to hygiene/body habitus, and is in no acute distress, Pt serves as own historian for office visit today.?ORIENTED:?person, place, and time.?Heel Pain: ?INSPECTION:? Pain on Palpation to Plantar Fascia med. and central bands, intrinsic musc., infra-calcaneal bursa, and med calc tubercle , LEFT foot, No pain: posterior/superior heel, achilles bursa/tendon, sinus tarsi, peroneals, or with lateral heel compression; no limited STJ ROM, calor, or ecchymosis,Equinus contracture knee extended,Neg Euceda's,B/L.?Orthopedic: ?MUSCLE STRENGTH:?5/5 all groups in a symmetrical fashion, B/L.?GAIT ABNORMALITY:?antalgic.?FOOT MORPHOLOGY:?Decreased Ankle joint dorsiflexion ROM, knee extended, B/L.?DIGITAL DEFORMITIES:?Digital contracture, PIPJ, 2-5 B/L, incompl-reducible with WB, or to push-up test, no over, nor underlapping.?FOOTWEAR:?shoe gear properties exacerbate patients foot/toe deformity.?Neurological: ?SENSORY:?Neurological exam reveals intact sensorium, pain sensation normal, vibration sensation intact, pinprick sensation is normal in the lower extremities, Pt denies, anesthesia, burning, paresthesia, tingling, B/L.?TINEL'S COMPRESSION:?Negative tarsal tunnel, brittney pedis, and medial calcaneal nerves.?Vascular: ?DP PULSES (B):?2/4, B/L.?PT PULSES (B):?2/4, B/L.?CAPILLARY FILL TIME:?immediate, all digits, B/L.?TROPHIC CONDITION-TEXTURE/ELASTICITY/TURGOR/HAIR GROWTH (B):?normal, B/L.?TEMPERTURE GRADIENT (C):?normal, warm to cool, proximal to distal, B/L, B/L.?PIGMENTATION:?normal, B/L.?EDEMA (C):?absent, B/L.?X-Rays - IMAGING REPORT: ?Clinical Indication(s):? Evaluate for Fracture, Evaluate Biomechanical Deformity.?Views:?3 views of Foot, LAT, AP, MO, LEFT??Taken by trained?Podiatric Tip Puncher (?TG ).?Findings:? normal bone and soft tissue density consistent for patients age and sex, navicular/cuneiform plantar subluxation with anterior cyma line, positive infra-calcaneal exostosis right, no coalitions identified.?Foot structure:? reveals excess pronation with, anterior break in cyme line,.?Digits:?show asymmetrical joint space narrowing at the PIPJ consistent with clinical finding of hammertoe deformity, show enlarged/hypertrophied phalangeal head(s) consistent for clinical finding of hammertoe deformity.?Fracture:?Negative fractures identified.? * Physical Examination:?L2999 Supplies:?Insoles-pedag?#38 x 2.? Assessment: * Assessment: 1.?Pain in right foot - M79. 671???2.?Calcaneal spur, right foot - M77.31???3.?Plantar fasciitis, bilateral - M72.2 (Primary)???Specify :Acute problem, Complicated w/ Multiple Tx Options(4),Dx New problem, Prognosis Uncertain (4)???4.?Other myositis of right foot - M60.871???5.?Bursitis of right foot - M77.51???6.?Pain in left foot - M79.672???7.?Other myositis of left foot - M60.872???8.?Bursitis of left foot - M77.52??? Plan: * Treatment: 2.?Pain in right foot?Imaging: X ray : Foot, right 3V (Performed Date - 07/06/2024)?See Examination above 3.?Pain in left foot?Imaging: X ray : Foot, left 3V (Performed Date - 07/06/2024)?See Examination above * Procedure Codes:?54498 X-RAY EXAM OF LEFT FOOT 3V, Modifiers: 26 , [id number] X-RAY EXAM OF RIGHT FOOT 3V, Modifiers: 26 , RT * Preventive Medicine:? ??Counseling:?Discussion:?-04: Office or other outpatient visit for the evaluation and management of a new patient, which required a medically appropriate history and/or examination and MODERATE level of DECISION MAKING for: 1 OR MORE CHRONIC PROBLEM(S) THATS WORSENING, 2 STABLE CHRONIC PROBLEMS, A NEWLY DIAGNOSED PROBLEM WITH UNCERTAIN PROGNOSIS, AN ACUTE COMPLICATED INJURY WITH MULTIPLE TREATMENT OPTIONS, OR AN ACUTE PROBLEM WITH ACCOMPANYING SYSTEMIC SYMPTOMS, THAT POSE(S) A MODERATE RISK OF MORBIDITY. THIS CONDITION MAY ALSO INCLUDE RX DRUG MANAGEMENT, OR A DECISON FOR MINOR SURGERY. The visit on the day of the encounter encompassed interpreting the data and educating the patient as to the nature of their condition, treatment options available according to their individual PMH, meds, allergies, and overall health/living conditions, as well as any potential risks or complications that may occur from a failure to adhere to, and participate in, the recommended course of therapy. The discussion included a complete verbal, and/or written explanation of the examination results, any x-rays taken, the proposed diagnosis, and outline of the treatment plan. A schedule for future care needs was also explained. The patient verbalized an understanding of the instructions at this time and agreed to be an active participant in their treatment. If the patient should think of any questions or concerns after the visit, I have encouraged the patient to call the office.?BioMech.:?I discussed the Pts foot biomechanics with them and how it relates to their problem, Discussed and reviewed the X-rays with the patient. We discussed how the findings relate to the patients symptoms/complaints. Answered any and all questions..?Heel pain:?FASCIITIS: I explained to the patient the possible etiologies of Plantar Fasciitis including foot type/shoegear/activity level/exercise routine and the risks/benefits of all the different treatment options for heel pain including: No treatment at all, Rest, Ice, NSAIDs(only if well tolerated after meals), New/supportive Shoegear, Strappings and Tapings, Stretching exercises, Deep Tissue Massage, Heel cups/cushions, Arch support/shoe inserts, Custom orthoses, Topical analgesics including Aspercream/Voltaren gel, Night splint AFO for am stiffness, Cortisone injection therapy, Cast boot with crutches/cane/or walker for assisted ambulation, Physical Therapy, EPAT/ESWT, Interfil injection therapy, as well as surgical [place]/Endoscopic Fasciitomy surgical procedures if needed. Recommendations were made to limit barefoot walking, eliminate wearing nonsupportive shoegear (i.e. flip-flops or sandals, or a shoe with an easily bendable, foldable, or twistable sole) and wear shoegear with a good solid sole, a supportive arch, and plenty of room for an insert/orthotic if necessary. If wearing sandals was required by the patient, we recommended orthopedic sandals such as Orthoheel or Birkenstock even while in the home. If the patient wore heels in the past, we recommended they continue, but eliminate the use of flats. The advantages and disadvantages of each option were discussed and the patients questions re: types of shoegear, custom vs prefabricated inserts, activity level, PO vs Topical medications (and their respective potential complications/drug interactions/side effects), and consistency in home treatment regimens for optimal success were answered to their satisfaction. Literature detailing plantar fasciitis and the various treatment options were dispensed and reviewed, Stretching exercises for the patients injury/diagnosis were discussed and demonstrated, Handouts were also given.?Orthotic Dispensing:?The OTC inserts are properly fitted to the patient's feet in both weight-bearing and non-weight bearing attitudes. The patient was instructed to gradually increase the amount of time they are wearing the orthoses, starting with one hour the first day and thereon progressively increasing the amount of time used until they are comfortable to be worn all day and with all activities. They were asked to call the office if any signs of skin irritation were noted including redness, blistering or callous formation. The patient verbally indicated a full understanding of all the above information.?Shoe Gear Counseling:?The patient and I reviewed the types of shoes they should be wearing. My recommendation included obtaining a well-fitted shoe with a good supportive, non-foldable nor twistable sole, plenty of toe/room for the forefoot, and proper arch support. Based on todays examination, I recommended the patient look for new shoes, by having their feet professionally measured. We discussed that generally the best time of the day for a shoe fitting is the afternoon. Different shoes types and brands to best match the patients occupation and vocation were discussed. Specific brand selection will be up to the patient, their individual foot condition/deformities, and fit. The patient and I reviewed the standard new shoe break in period by wearing them for a few hours a day while checking for redness or sores as wear time is increased. The patient verbally confirmed to understanding the information discussed, Recommend supportive running shoes for patient, discussed various shoe brands including Swanson, Asics, New Balance, Saucony. Discussed types of shoes to avoid for patients foot type..? ??Screening/Special Tests:?Fall Risk?Screening:?No falls in the past year * Follow Up:?2 Months * Images: * Sign off status: Completed true * Provider:?Pina Bryant DPM Date:?2023 Generated for Aaliyah landa/Tatianna/eTransmitting on:?09/14/2024 08:02 AM EST History and Physical Notes * HPI (History of Present Illness) Category Sub-Category Detail Notes Category Not es Heel pain Duration: , several months Nature: tightness, turning i n Location: , Arch, B/L Aggravated: standing, walking, w alking first thing in the morning/after rest Course: worse Treatments: rest/alter normal da amelie activity Physical Examination Category Sub-Category Detail Notes Section Note s L2999 Supplies Insoles-pedag #38 x 2 Examination Category Sub-Category Detail Notes Category Not es Neurological SENSORY: Neurological exa m reveals intact sensorium, pain sensation normal, vibration sensation intact, pinprick sensation is normal in the lower extremities, Pt denies, anesthesia, burning, paresthesia, tingling, B/L TINEL'S COMPRESSION: Negative tarsal evangelista aj, brittney pedis, and medial calcaneal nerves Orthopedic GAIT ABNORMALITY: antalgic FOOT MORPHOLOGY: Decreased Ankle join t dorsiflexion ROM, knee extended, B/L FOOTWEAR: shoe gear properties exacerbate patients foot/toe deformity DIGITAL DEFORMITIES: Digital contracture , PIPJ, 2-5 B/L, incompl-reducible with WB, or to push-up test, no over, nor underlapping MUSCLE STRENGTH: 5/5 all groups in a symmetrical fashion, B/L General Examination GENERAL APPEARANCE: Reveals a pleasant, alert, well nourished, well-developed, well hydrated individual, who demonstrates proper attention to hygiene/body habitus, and is in no acute distress, Pt serves as own historian for office visit today ORIENTED: person, place, and t higinio Vascular DP PULSES (B): 2/4, B/L PT PULSES (B): 2/4, B/L CAPILLARY FILL TIME: immediate, all digi ts, B/L TEMPERTURE GRADIENT (C): normal, warm to cool, proximal to distal, B/L, B/L TROPHIC CONDITION-TEXTURE/ELASTICITY/TURGOR/HAIR GROWTH (B): normal, B/L EDEMA (C): absent, B/L PIGMENTATION: normal, B/L X-Rays - IMAGING REPORT Findings: normal b one and soft tissue density consistent for patients age and sex, navicular/cuneiform plantar subluxation with anterior cyma line, positive infra-calcaneal exostosis right, no coalitions identified Fracture: Negative fractures i dentified Digits: show asymmetrical willie int space narrowing at the PIPJ consistent with clinical finding of hammertoe deformity, show enlarged/hypertrophied phalangeal head(s) consistent for clinical finding of hammertoe deformity Foot structure: reveals excess prona tion with, anterior break in cyme line, Views: 3 views of Foot, LAT , AP, MO, LEFT Taken by trained Podiatric Tip Puncher ( TG ) Clinical Indication(s): Evaluate for Fra cture, Evaluate Biomechanical Deformity Heel Pain INSPECTION: Pain on Palpatio n to Plantar Fascia med. and central bands, intrinsic musc., infra-calcaneal bursa, and med calc tubercle , LEFT foot, No pain: posterior/superior heel, achilles bursa/tendon, sinus tarsi, peroneals, or with lateral heel compression; no limited STJ ROM, calor, or ecchymosis,Equinus contracture knee extended,Neg Euceda's,B/L
--- OUTSIDE RECORDS SUMMARY | 2024-09-14 08:02 | XMS_ITS ---
Author Organization [facility] Address [address] [place] [address] Care Team Providers Care Supervisor Contact Lens Name Role Phone Kera POTTER, Lopez Primary Care Provider Pina Jackson Unavailable [phone] REASON FOR VISIT bought Pedag #37 beige 2 pairs Encounters Encounter Location Date Provider Diagnosis [facility] [address] [place] [address] 07/06/2024 Pina Bryant Plan Of Treatment Next Appt Details Provider Name:Pina A Manny , 10/04/2024 08:30:00 AM, [address] [place], [address], Progress Notes * Aniyah OROZCOOB:1955 (69 yo F)Acc No.[id number]:07/06/2024 Patient:?Renu OROZCO :1955???Age:69 Y???Sex:Female Address:[address] [facility] [address], [place], [address] * true * Date:? Generated for Lilai syeda/Tatianna/eTransmitting on:?09/14/2024 08:02 AM EST
--- OUTSIDE RECORDS SUMMARY | 2024-09-14 08:02 | XMS_ITS ---
Author Organization [facility] Address [address] [place] [address] Care Team Providers Care Brick Setter Operator Name Role Phone Lopez Cote MD Primary Care Provider Pina Jackson Unavailable [phone] REASON FOR VISIT HEALTH CARE COORDINATOR PPWK Entered Encounters Encounter Location Date Provider Diagnosis [address] [address] 05/09/2024 Pina Bryant Plan Of Treatment Next Appt Details Provider Name:Pina Bryant , 10/04/2024 08:30:00 AM, [address] [place], [address], Progress Notes * Aniyah OROZCOOB:1955 (69 yo F)Acc No.[id number]:05/09/2024 Patient:?Renu Orozco :1955???Age:69 Y???Sex:Female Address:[address] [facility] [address] [facility] [address], [place], [id number] * true * Date:? Generated for Lilai syeda/Tatianna/eTransmitting on:?09/14/2024 08:02 AM EST
[2024-09-14 08:05] LABS: MANUAL DIFF FLAG NO
[2024-09-14 08:29] LABS: Basophils Percent Auto 0.9 % (0-2); Eosinophils Absolute Auto 0.2 X10*3/uL (0.0-0.4); Eosinophils Percent Auto 4.1 % (0-4); Hemoglobin 12.2 g/dl (12.0-16.0); Imm Gran Abs Auto 0.01 X10*3/uL (0.00-0.03); Imm Gran Pct Auto 0.2 % (0.0-0.4); Lymphocytes Absolute Auto 1.8 X10*3/uL (1.2-4.9); Lymphocytes Percent Auto 40.5 % (20-40); Mean Corpuscular Hemoglobin 29.5 pg (27.0-33.0); Mean Corpuscular Volume 89.4 fL (80.0-98.0); Mean Platelet Volume 9.8 fL (9.4-12.3); Monocytes Absolute Auto 0.6 X10*3/uL (0.1-1.2); Monocytes Percent Auto 13.6 % (2-11); Neutrophils Absolute Auto 1.8 x10*3/uL (2.0-8.3); Neutrophils Percent Auto 40.7 % (45-73); Platelet Count 354 X10*3/uL (160-400); Red Blood Count 4.14 X10*6/uL (4.20-5.50); Red Cell Distribution Width 12.4 % (11.0-16.0); White Blood Count 4.4 X10*3/uL (4.8-10.8)
[2024-09-14 08:34] LABS: Appearance Urine Clear; Color Urine Yellow; Glucose Urine UA Negative (Negative); Leukocyte Esterase Urine Moderate (2+) (Negative); Nitrite Urine Negative (Negative); PH 5.5 (5.0-9.0); Specific Gravity - Urine 1.015 (1.005-1.025); UMIC TRIGGER UA YES; Urine Blood Negative (Negative); Urine Ketones Negative (Negative); Urine Protein Negative (Neg-Trace)
[2024-09-14 08:39] LABS: Bacteria Urine None Seen (None Seen); Hyaline Casts Urine 0-2 /LPF (0-2); RBC Urine 0-2 /HPF (0-2)
[2024-09-14 09:16] LABS: Creatinine Urine 89.18 mg/dL; Microalbum/Creatinine Ratio Ur 17.9 ug/mg cr (<30)
[2024-09-14 09:18] LABS: Alanine Aminotransferase 17 U/L (0-31); Albumin Level 4.2 g/dL (3.5-5.0); Alkaline Phosphatase 117 U/L (39-117); Anion Gap 11 (12-20); Aspartate Amino Transferase 23 U/L (5-31); Bilirubin Total 0.4 mg/dL (0.0-1.0); Blood Urea Nitrogen 18 mg/dL (9-16); Calcium 10.1 mg/dL (8.4-10.2); Carbon Dioxide 25 mmol/L (22-29); Chloride 109 mmol/L (96-108); Cholesterol 187 mg/dL (<200); Estimated Glomerular Filt Rate > 60; Glucose Fasting 106 mg/dL (60-99); HDL Cholesterol 52 mg/dL (>40); LDL Cholesterol Calculated 118 mg/dL (<100); Potassium 4.3 mmol/L (3.3-5.1); Sodium 141 mmol/L (135-145); Total Protein 7.6 g/dL (6.5-8.0); Triglycerides 85 mg/dL (<150)
[2024-09-14 09:38] LABS: TSH reflex Free T4 1.51 uIU/mL (0.32-4.0); Vitamin D 25-OH Total 61.8 ng/mL (>30)
== END 2024-09-14 07:58 | disposition home or self-care (01) ==
LOC: HO.LAB 07:57
PROVIDERS: PCP Family Medicine; Visit Provider Family Medicine
DX: Z00.00 Encounter for general adult medical examination without abnormal findings (principal); I10 Essential (primary) hypertension; E55.9 Vitamin D deficiency, unspecified
CPT/HCPCS: 36415; 80053; 80061; 81001; 82043; 82306; 82570; 84443; 85025

== ENCOUNTER 2024-09-21 08:50 | Outpatient (AMB) | payer MEDICARE, OTHER, SELFPAY ==
--- NOTE | 2024-09-21 09:14 | MHC.PC.OV ---
Vital Signs 09/21/24 09:24 Height 5 ft 3 in Weight 133 lb 2 oz BMI 23.6 BP 130/68 Blood Pressure Location Lt brachial Position Sitting Respiration 14 Pulse 75 Pulse Source Pulse Oximeter Temp 97.9 F Temp Source Oral Pulse Oximetry (%) 98 Oxygen Delivery Method Room Air Intake Visit Reasons: Extended exam with f/u labs and health maint Intake Note: Patient is here for extended exam [employer] Team Member Required: No Allergies methylprednisolone [From Solu-Medrol] Allergy (Severe, Verified 09/21/24 09:22) Rash, facial swelling Penicillins Allergy (Severe, Verified 09/21/24 09:22) ANAPHYLAXIS Sohqgds-QRP-NrK Reductase Inhibitor [LECMQXT-PKN-TGN REDUCTASE INHIBITOR] Allergy (Intermediate, Verified 09/21/24 09:22) muscle aches Medication List - Last Reconciled 09/21/24 by Lopez Cote MD cholecalciferol (vitamin D3) 50 mcg PO DAILY 90 days cyanocobalamin (vitamin B-12) 1,000 mcg IM DIRECTED famotidine 40 mg PO BID fluticasone propionate 50 mcg/actuation 1 spray intranasal DAILY gemfibrozil 600 mg PO BID 90 days glimepiride 1 mg PO QAM 30 days loratadine (Claritin) 10 mg PO DAILY ondansetron 4 mg PO Q6H PRN syringe with needle, safety (BD Integra Syringe) As directed Tobacco use date assessed: 11/21/23 Dental Screening Dental Screen Date: 09/02/23 HPI Extended exam with f/u labs and health maint HPI Details 69 y/o female presents for an extended exam with f/u labs and health maintenance. Labs drawn 09/14/24. Reviewed labs with pt. Fasting glucose of 106. Last A1c 06/05/24 5.7%. Triglycerides 85. TC 187. LDL 118. HDL 52. A1c today 09/21/24 is 5.8%. Has difficulty avoiding startches due to Crohn's. Mammogram last year was normal. Has an upcoming appt. Hx of osteoporosis. HPI Comments History of Present Illness Details Documentation assistance for Lopez Cote MD, was provided by Cameron Cruz,? [employer] on 09/21/2024 at 10:14 AM EST. I, Dr. Cote, have read, observed, and verified documentation. ?? [facility] Medical History Arthritis Hx of Lyme disease Environmental allergies Seasonal allergies GERD (gastroesophageal reflux disease) YASMIN (obstructive sleep apnea) Pulmonary nodule Diverticulitis Pancreas cyst Hypertriglyceridemia Crohn's colitis Surgical History Hx of right cataract extraction History of cholecystectomy History of cholecystectomy H/O colonoscopy Family History Father CVD (cardiovascular disease) Mother Hypertension Renal failure Blood disorder Brother Diabetes mellitus Sister Diabetes mellitus Social History Household Members: Family Housing: Apartment Do you presently have visiting nurse or other home services: No Patient Tobacco Use Status: Former Tobacco user Tobacco use type: Cigarette e-Cigarette/Vaping Use: Never Used Second Hand Smoke Exposure: No Substance Use Type: Marijuana service: No Current occupational status: retired Current occupational exposures/hazards: No Cognitive needs: No Hearing needs: No Vision needs: No Questionnaire PHQ-9 Over the last 2 weeks, how often have you been bothered by any of the following problems? 1. Little interest or pleasure in doing things: not at all 2. Feeling down, depressed, or hopeless: not at all 3. Trouble falling or staying asleep, or sleeping too much: not at all 4. Feeling tired or having little energy: nearly every day 5. Poor appetite or overeating: not at all 6. Feeling bad about yourself - or that you are a failure or have let yourself or your family down: not at all 7. Trouble concentrating on things, such as reading the newspaper or watching television: not at all 8. Moving or speaking so slowly that other people could have noticed. Or the opposite - being so fidgety or restless that you have been moving around a lot more than usual: not at all 9. Thoughts that you would be better off or of hurting yourself in some way: not at all Total score: 3 Depression Screening Interpretation: Negative Depression Screening Done: Yes 88912 - PHQ-9 Billing: Yes Source: Developed by Drs. Yasmani Rodriguez, Manuel Lopez and colleagues, with an educational rubi from [employer]. Thrive Questionnaire Date Thrive assessed: 09/21/24 I am a: Patient What is your living situation today?: I have a steady place to live Within the past 12 months, did the food you bought not last and you didn't have the money to get more?: Never true Within the past 12 months, did you worry whether your food would run out before you got money to buy more?: Never true Do you have trouble paying for medicines?: No Do you have trouble getting transportation to medical appointments?: No Do you have trouble paying your heating and electricity bill?: No Do you have trouble taking care of your child, family member or friend?: No Do you have trouble with day-to-day activities such as bathing, preparing meals, shopping, managing finances, etc.?: No Are you currently unemployed and looking for a job?: No Are you interested in more education?: No Please select the resources that you would like help with: None Currently or been in a relationship where the following occur: No concerns reported THRIVE Score: 0 AUDIT C Alcohol Use Questionnaire (AUDIT-C) 1. How often do you have a drink containing alcohol?: Never 3. How often do you have six or more drinks on one occasion?: Never Total Score: 0 Score Reviewed/Action Taken: Yes TERI-7 AMB Questionnaire TERI-7 Date TERI - 7 assessed: 09/21/24 Feeling nervous, anxious, or on edge: 0 = Not at all Not being able to stop or control worryin = Not at all Worrying too much about different things: 0 = Not at all Trouble relaxin = Not at all Being so restless that it is hard to sit still: 0 = Not at all Becoming easily annoyed or irritable: 0 = Not at all Feeling afraid as if something awful might happen: 0 = Not at all Total TERI-7 score (0-4 normal; 5-9 mild; 10-14 moderate; 15-21 severe): 0 Source: Developed by Drs. Yasmani Rodriguez, Manuel Lopez and colleagues, with an educational rubi from [employer]. TERI-7 Assessment Billing TEIR-7 Assessment Tool: TERI-7 Assessment 25508 Review of Systems Const Denies chills, Denies fatigue, Denies fever(s), Denies headache(s) and Denies weakness Eyes Denies change in vision ENT Denies dizziness, Denies headache(s), Denies hearing loss, Denies nasal congestion, Denies sinus pain, Denies sinus pressure and Denies sore throat Card Denies chest pain, Denies lightheadedness, Denies dyspnea and Denies other (palpitations) Resp Denies cough, Denies dyspnea and Denies wheezing GI Denies abdominal pain, Denies melena, Denies hematochezia, Denies change in bowel habits, Denies dyspepsia and Denies nausea Denies hematuria and Denies dysuria Musc Denies abnormal gait, Denies myalgias, Denies arthralgias, Denies numbness and Denies tingling Skin/Breast Denies rash, Denies unusual bruising and Denies wounds Neuro Denies abnormal gait, Denies dizziness, Denies headache(s), Denies memory loss, Denies numbness, Denies Sensory deficit (Neuro), Denies tingling and Denies weakness Psych Denies anxiety, Denies depression and Denies memory loss Endo Denies cold intolerance, Denies fatigue, Denies heat intolerance, Denies polydipsia and Denies polyuria Jonathan/Lymph Denies easy bleeding and Denies easy bruising Aller/Immun Denies wheezing Physical exam (Primary Care) Vital Signs: Last Vital Signs Temp 97.9 F 09/21/24 09:24 Pulse 75 09/21/24 09:24 Resp 14 09/21/24 09:24 BP 130/68 09/21/24 09:24 Pulse Ox 98 09/21/24 09:24 Oxygen Delivery Method Room Air 09/21/24 09:24 BMI result Body Mass Index 23.6 Tobacco/Smoking Status: Tobacco use Status Tobacco use date assessed 11/21/23 09/21/24 09:20 Patient Tobacco Use Status Former Tobacco user 09/21/24 09:20 Tobacco use type Cigarette 09/21/24 09:20 e-Cigarette/Vaping Use Never Used 09/21/24 09:20 PHQ-9: PHQ-9 Score PHQ-9: Total score 3 09/21/24 09:39 Depression Screening Interpretation: Negative Thrive Assessment: Date of Thrive Assessment Date Thrive assessed 09/21/24 09/21/24 09:20 Currently or been in a relationship where the following occur: No concerns reported Const General: no acute distress, well developed, alert and awake Nutritional Appearance: well nourished Orientation/consciousness: patient [facility]: Yes normocephalic and Yes atraumatic Ears: hearing grossly normal bilaterally and TM's normal bilaterally General nose exam: Normal external nose present and Normal nares present Mouth: Normal oral and palatal mucosa present and moist mucous membranes Teeth and gingiva: dentition normal Throat: Yes posterior oropharynx normal Eyes General: appearance normal, both eyes and all related structures Pupils: Equal, round and reactive pupils present and Pupil accommodation reflex normal EOM: EOMs intact bilaterally Neck Neck: Yes normal visual inspection, Yes no lymphadenopathy and Yes trachea midline Thyroid: Thyroid normal Carotids: no bruits Lymphatic: no lymphadenopathy noted Chest Chest palpation & inspection: normal inspection of the chest Resp Effort & Inspection: normal respiratory effort Auscultation: clear to auscultation bilaterally Cardio Rate: regular rate Rhythm: regular rhythm Heart sounds: S1 normal heart sound present, S2 normal heart sound present, no gallops, no murmurs and no rubs Bruits: no abdominal aortic bruits and no carotid bruits GI Palpation (GI): No Abdominal aortic bruit present, Soft to palpation, nontender, No hepatosplenomegaly present and No Rebound tenderness present Auscultation: normal bowel sounds General: Yes no CVA tenderness Back/Spine/Pelvis Back: no CVA tenderness Cervical Spine: cervical ROM normal and No Cervical spine tenderness Thoracic/Lumbar Spine: thoraco-lumbar ROM normal, No pain with thoraco-lumbar ROM, No thoracic spinal tenderness and No lumbar spinal tenderness Skin Lesions: no lesions Rashes: no rashes Trauma: no lacerations or abrasions Wounds: no wounds Nails: normal Neuro General: patient oriented x3 Cranial nerves: Yes Equal, round and reactive pupils present Cognition (Neuro): normal cognition Gait exam (Neuro): Normal gait present Motor exam (neuro): 5/5 motor strength present throughout Sensory Exam: No Sensory deficit (Neuro) Deep tendon reflexes (DTR's): Right patellar reflex intensity grade: 2+ and Left patellar reflex intensity grade: 2+ Extrem General: Yes normal to inspection and No edema Psych Appearance: grossly normal Affect: normal affect Attitude: cooperative Thought process: Normal thought process present Results AMB Hemoglobin A1c AMB Hemoglobin A1c 5.8 % Last Edit by DAVEY Nova on 09/21/24 09:52 Results Reviewed Results Reviewed: Laboratory Last Values Hgb A1c (Clinic) 5.8 % (4.0-6.0) 09/21/24 09:51 Coding Level of Care Code Est Pt Level 4 (00509) Diagnoses Hyperparathyroidism E21.3 Prediabetes R73.03 Breast cancer screening by mammogram Z. Screening for osteoporosis Z13.820 Screening for colon cancer Z12. Meningioma D32.9 Adult general medical exam Z00.00 Additional Codes TERI-7 Assessment Billing - TERI-7 Assessment Tool: TERI-7 Assessment 15486 ([id number]) PHQ-9 - 90838 - PHQ-9 Billing: Yes ([id number]) Assessment & Plan Assessment & Plan (1) Hyperparathyroidism: Code(s): E21.3 - Hyperparathyroidism, unspecified Category: Medical Plan: Followed?by?endocrinology Has?upcoming?appointment Calcium?level?is?stable?at?present Follow-up?with?endocrinology?as?recommended (2) Prediabetes: Code(s): R73.03 - Prediabetes Category: Medical Plan: A1c?5.8%. Continue?to?work?at?diet?low?in?sugars?and?starches?as?tolerated. She?has?some?difficulties?avoiding?starches?due?to?Crohn's (3) Breast cancer screening by mammogram: Code(s): Z.31 - Encounter for screening mammogram for malignant neoplasm of breast Category: Medical Plan: Mammogram?last?September?was?within?normal?limits She?is?scheduled?again?this?month (4) Screening for osteoporosis: Code(s): Z13.820 - Encounter for screening for osteoporosis Category: Medical Plan: Due?for?bone?density?test?later?this?year History?of?severe?osteoporosis Bone?density?test?ordered (5) Screening for colon cancer: Code(s): Z12.11 - Encounter for screening for malignant neoplasm of colon Category: Medical Plan: Followed?by??Ja (6) Meningioma: Code(s): D32.9 - Benign neoplasm of meninges, unspecified Category: Medical Plan: History?of?meningioma.??She?is?followed?by?[facility] I?have?requested?most?recent?note (7) Adult general medical exam: Code(s): Z00.00 - Encounter for general adult medical examination without abnormal findings Category: Medical Plan: 69-year-old?female?presents?for?an?extended?exam Orders: Orders AMB Hemoglobin A1c Today E11.9 - Type 2 diabetes mellitus without complications XR DEXA axial skeleton Today M81.0 - Age-related osteoporosis without current pathological fracture Medications: New diclofenac sodium 1% (Arthritis Pain (diclofenac)) apply to single knee, ankle, foot; for foot includes sole/toes/top of foot 4 grams topical BID 30 days 200 grams 2RF
[2024-09-21 09:24] VITALS: BP 130/68; PULSE 75; RESP 14; TEMP 36.6; O2SAT 98; BMI 23.6
--- OUTSIDE RECORDS SUMMARY | 2024-09-21 09:24 | XMS_ITS | Patient Health Record ---
[facility] Address [address] [place] [address] Care Team Providers Care Manager Clinical Services Name Role Phone Lopez Cote MD Primary Care Provider Pina Jackson Unavailable [phone] Allergies Allergen (clinical drug ingredient) Drug/Non Drug [...] W/U Status Risk Notes Problem Interstitial myositis (68709653) Interstitial myositis of left foot (M60.172) Active confirmed Problem [id number] Plantar fasciitis, bilateral (M72.2) Active confirmed Vital Signs Blood pressure diastolic 80 mm Hg 07/06/2024 Height 5 ft 3 in in 07/06/2024 Blood pressure systolic 141 mm Hg 07/06/2024 Weight 127 lbs 07/06/2024 BMI 22.49 kg/m2 07/06/2024 Encounters Encounter Location Date Provider Diagnosis [address] [address] 07/06/2024 Pina Black Pain in right foot M79.671 ; Calcaneal spur, right foot M77.31 ; Plantar fasciitis, bilateral M72.2 ; Other myositis of right foot M60.871 ; Bursitis of right foot M77.51 ; Pain in left foot M79.672 ; Other myositis of left foot M60.872 and Bursitis of left foot M77.[address] [facility] [address] 05/09/2024 Pina Bryant [facility] [address] [address] 07/06/2024 Pina Black Assessments Encounter Date Diagnosis [...] Name:Pina Bryant , 10/04/2024 08:30:00 AM, [address] [place], [address], Insurance Providers Payer Name Payer Address Payer Phone Subscriber Number Group Number Insured Name Patient Relationship to Insured Coverage Start Date Coverage End Date Medicare [facility] [address] [place] [address] [id number] Renu Orozco Self - patient is the insured 0 [facility] [address] [place] [address] [id number] Renu Orozco Self - patient is the insured 0 Medical (General) History Medical History History ICD Code Glaucoma Chicken pox Measles Mumps Lyme disease Sinus conditions Arthritis CAD (Cholesterol) Cancer Cataracts covid-19 Crohns disease type II diabetes Diverticulosis Gall bladder problems Osteoporosis Sciatica thyroid pancreatic tumor Surgical History Surgery Date(Month/Year) cholecystectomy 12/1997
--- OUTSIDE RECORDS SUMMARY | 2024-09-21 09:24 | XMS_ITS ---
Author Organization [facility] Address [address] [place] [address] Care Team Providers Care Galley Worker Name Role Phone Kera POTTER, Lopez Primary Care Provider Pina Jackson Unavailable [phone] REASON FOR VISIT bought Pedag #37 beige 2 pairs Encounters Encounter Location Date Provider Diagnosis [facility] [address] [place] [address] 07/06/2024 Pina Bryant Plan Of Treatment Next Appt Details Provider Name:Pina A Manny , 10/04/2024 08:30:00 AM, [address] [place], [address], Progress Notes * Aniyah OROZCOOB:1955 (69 yo F)Acc No.[id number]:07/06/2024 Patient:?Renu OROZCO :1955???Age:69 Y???Sex:Female Address:[address], [place], [address] * true * Date:? Generated for Lilai syeda/Tatianna/eTransmitting on:?09/21/2024 09:24 AM EST
--- OUTSIDE RECORDS SUMMARY | 2024-09-21 09:25 | XMS_ITS ---
Author Organization [facility] Address [address] [place] [address] Care Team Providers Care Meteorological Aide Name Role Phone Lopez Cote MD Primary Care Provider Pina Jackson Unavailable [phone] REASON FOR VISIT [employer] DEVELOPMENT ENGINEER PPWK Entered Encounters Encounter Location Date Provider Diagnosis [address] [address] 05/09/2024 Pina Bryant Plan Of Treatment Next Appt Details Provider Name:Pina Bryant , 10/04/2024 08:30:00 AM, [address] [place], [address], Progress Notes * Aniyah OROZCOOB:1955 (69 yo F)Acc No.[id number]:05/09/2024 Patient:?Renu Orozco :1955???Age:69 Y???Sex:Female Address:[address], [place], [address] * true * Date:? Generated for Lilai syeda/Tatianna/eTransmitting on:?09/21/2024 09:24 AM EST
--- OUTSIDE RECORDS SUMMARY | 2024-09-21 09:25 | XMS_ITS ---
Author [facility] [place] Address [address] [place] [address] Care Team Providers Care Ems Driver Name Role Phone Kera POTTER, Lopez Primary Care Provider Pina Jackson Unavailable [phone] Allergies Allergen (clinical drug ingredient) Drug/Non Drug [...] W/U Status Risk Notes Problem Interstitial myositis (06941169) Interstitial myositis of left foot (M60.172) Active confirmed Problem [id number] Plantar fasciitis, bilateral (M72.2) Active confirmed Vital Signs Height 5 ft 3 in in 07/06/2024 Weight 127 lbs 07/06/2024 BMI 22.49 kg/m2 07/06/2024 Blood pressure systolic 141 mm Hg 07/06/20 24 Blood pressure diastolic 80 mm Hg 024 Encounters Encounter Location Date Provider Diagnosis [facility] [address] 07/06/2024 Pina Black Pain in right foot [...] Name:Pina Bryant , 10/04/2024 08:30:00 AM, [address] [place], [address], Progress Notes * NICHOLASADAMNicanorAniyahOB:1955 (69 yo F)Acc No.[id number]:07/06/2024 Progress Notes Patient:?Renu OROZCO Provider:?Pina Bryant DPM :1955???Age:69 Y???Sex:Female D ate:07/06/2024 Address:[address] [place] [address], [facility] Pcp:Lopez Cote MD Subjective: * Chief Complaints: [...] ?Exercise: no. 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 * Medications:?TakingLopid Fam otidine Flonase Taking Lopid [...] Foot, LAT, AP, MO, LEFT??Taken by trained?Podiatric Can Filling Machine Operator (?TG ).?Findings:? normal bone and soft tissue [...] Date - 07/06/2024)?See Examination above * Procedure Codes:?69218 X-RAY EXAM OF LEFT FOOT 3V, Modifiers: 26 , [id number] X-RAY EXAM OF RIGHT FOOT 3V, Modifiers: [...] Interfil injection therapy, as well as surgical [place]/Endoscopic Fasciitomy surgical procedures if needed. Recommendations were [...] Provider:?Pina Bryant DPM Date:?2023 Generated for Aaliyah landa/Tatianna/eTransagaritting on:?09/21/2024 09:25 AM EST History and Physical Notes * [...] AP, MO, LEFT Taken by trained Podiatric Can Filling Machine Operator ( TG ) Clinical Indication(s): Evaluate for [...]
== END 2024-09-21 10:12 | disposition home or self-care (01) ==
PROVIDERS: PCP Family Medicine; Visit Provider Family Medicine
DX: E11.9 Type 2 diabetes mellitus without complications (principal); E21.3 Hyperparathyroidism, unspecified; D32.9 Benign neoplasm of meninges, unspecified; Z12.31 Encounter for screening mammogram for malignant neoplasm of breast; Z13.820 Encounter for screening for osteoporosis; Z12.11 Encounter for screening for malignant neoplasm of colon; Z00.00 Encounter for general adult medical examination without abnormal findings

== ENCOUNTER → 2024-09-21 08:50 | Outpatient (BNVA) | payer MEDICARE, OTHER, SELFPAY | PROVIDERS: PCP Family Medicine; Visit Provider Family Medicine | DX: Z00.00 Encounter for general adult medical examination without abnormal findings (principal); R73.03 Prediabetes; E21.3 Hyperparathyroidism, unspecified; D32.9 Benign neoplasm of meninges, unspecified | CPT/HCPCS: 83036; 96127; 99212 ==

== ENCOUNTER 2024-10-12 08:09 | Outpatient (REF) | payer MEDICARE, OTHER, SELFPAY | END 2024-10-12 08:10 | disposition home or self-care (01) | LOC: HO.MAMMO 08:09 | PROVIDERS: PCP Family Medicine; Visit Provider Family Medicine | DX: Z12.31 Encounter for screening mammogram for malignant neoplasm of breast (principal) | CPT/HCPCS: 77063; 77067 ==

== ENCOUNTER → 2024-10-12 08:15 | Outpatient (BNV) | payer MEDICARE, OTHER, SELFPAY | PROVIDERS: PCP Family Medicine; Visit Provider Internal Medicine | DX: Z12.31 Encounter for screening mammogram for malignant neoplasm of breast (principal) | CPT/HCPCS: 77063; 77067 ==

== ENCOUNTER 2024-12-19 14:13 | Outpatient (REF) | payer MEDICARE, OTHER, SELFPAY ==
--- OUTSIDE RECORDS SUMMARY | 2024-12-19 14:17 | XMS_ITS | Data Portability ---
Author Organization [facility] Peewee Myles [facility], [facility] Address [address] [place] [address] Assessment No assessment recorded. Plan of Treatment Reminders Order Date Submit Date Provider Last Modified By Organization Details Last Modified Time Details Appointments None record ed. Lab None record ed. Referral None record ed. Procedures None record ed. Surgeries None record ed. Imaging None record ed. Medication Orders None record ed. Patient TargetsNo targets recorded. Patient InstructionsNo instructions recorded. Reason for Referral None Reported. Results Created Date Observation Date Name Description Value Unit Range Abnormal Flag Note LastModifiedBy Organization Detail LastModifiedTime 03/16/20 24 08/31/2020 imagi ng/di agnos tic resul t No observ ation record ed. [email or web address] Not Available 02/17 02:01:09 03/16/20 24 08/31/2020 imagi ng/di agnos tic resul t No observ ation record ed. [email or web address] Not Available 02/17 02:01:10 03/16/20 24 01/17/2020 imagi ng/di agnos tic resul t No observ ation record ed. [email or web address] Not Available 02/17 02:02:05 03/16/20 24 01/17/2020 imagi ng/di agnos tic resul t No observ ation record ed. [email or web address] Not Available 02/17 02:02:07 03/16/20 24 03/30/2023 imagi ng/di agnos tic resul t No observ ation record ed. [email or web address] Not Available 02/17 02:03:35 Result Notes None recorded. Problems Name Problem SNOMED Code Status Onset Date Resolution Date Notes Provider Name and Address Organization Details Recorded Time No complaint s [id number] Active Status: 'I'; Not Available [facility] 4 09:16:57 Impingeme nt syndrome of left shoulder region 947150717327 104 Active 2019 Problem Code: M75.42; Problem Code Type: ICD-10; Status: 'A'; Not Available [facility] 4 11:42:01 Problem Notes None recorded. Procedures Surgical History Date Name Laterality Status Provider Name and Address Organization Details Recorded Time 5 Hip Kenalog 1cc Injection, L/R completed JU Galvin-Trae [address] [facility], [place], [address], [facility] 11/08/2024 15:14:32 4 Hip Kenalog 1cc Injection, L/R completed JU Galvin-Trae [address] [facility], [place], [address], [facility] 04/17/2024 15:57:41 4 Hip Kenalog 1cc Injection, L/R completed JU Galvin-Trae [address] [facility], [place], [address], [facility] 10/27/2023 15:48:44 Imaging Results None recorded. Procedure Notes None recorded. Medical Equipment None Reported. Allergies Allergen ID Allergen Name Allergen Category Reaction Reaction Severity Criticality Documentation Date Start Date Code Code System Note Provider Name and Address Organization Details Recorded Time 711146 Product containin g 3-hydroxy -3-methyl glutaryl- coenzyme A reductase inhibitor (product) medicatio n Not available Not available Not available 10/27/2023 37750 009 SNOMED FELTON lo [facility] 4 15:03:33 010892 Solu-Medr ol medicatio n Not available Not available Not available 10/27/2023 10075 6 RxNorm FELTON lo [facility] 4 15:04:10 66788 Product containin g penicilli n (product) medicatio n anaphylax is Not available Not available 09/19/20232018 79916 8001 SNOMED Not Available [facility] 4 14:23:13 Medications Name Sig Start Date Stop Date Status Note LastModified by Organization Details LastModified Time azithromycin 250 mg tablet TAKE 2 TABLETS BY MOUTH TODAY, THEN TAKE 1 TABLET DAILY FOR 4 DAYS DIRECTED active Not Available Not Available No t Available famotidine 40 mg tablet TAKE 1 TABLET BY MOUTH TWICE A DAY active Not Available Not Available No t Available alendronate 70 mg tablet PLEASE SEE ATTACHED FOR DETAILED DIRECTIONS active Not Available Not Available N ot Available glimepiride 1 mg tablet TAKE 1 TABLET BY MOUTH EVERY MORNING WITH BREAKFAST active Not Available Not Available No t Available imiquimod 5 % topical cream packet PLEASE SEE ATTACHED FOR DETAILED DIRECTIONS active Not Available Not Available N ot Available gemfibrozil 600 mg tablet TAKE 1 TABLET BY MOUTH TWICE A DAY FOR 90 DAYS' active Not Available Not Available No t Available cyanocobalam in (vit B-12) 1,000 mcg/mL injection solution INJECT 1,000 MCG INTRAMUSCUL VICKY DIRECTED active Not Available Not Available No t Available budesonide DR - ER 3 mg capsule,stanley yed,extended release OPEN 3 CAPSULES AND MIX WITH APPLE SAUCE AND TAKE BY MOUTH DAILY active Not Available Not Available Not Available levofloxacin 500 mg tablet TAKE 1 TABLET BY MOUTH ONCE A DAY FOR 7 DAYS active Not Available Not Available No t Available albuterol sulfate HFA 90 mcg/actuatio n aerosol inhaler USE 2 PUFFS 4 TIMES A DAY NEEDED FOR SHORTNESS OF BREATH OR WHEEZING FOR 30 DAYS active Not Available Not Available Not Available morphine 15 mg immediate release tablet TAKE 1 TABLET BY MOUTH EVERY 4 TO 6 HOURS NEEDED FOR PAIN active Not Available Not Available No t Available Heartburn Relief 254 mg-237.5 mg/5 mL oral suspension 10 ML ORALLY 4 TIMES A DAY NEEDED FOR DYSPEPSIA active Not Available Not Available No t Available moxifloxacin 0.5 % eye drops INSTILL 1 DROP IN OPERATIVE EYE 3 TIMES A DAY STARTING 1 DAY PRE-OP, CONTINUE FOR 7 DAYS AFTER active Not Available Not Available No t Available sodium fluoride 1.1 %-potassium nitrate 5 % dental paste APPLY A SMALL AMOUNT TO TEETH ONCE A DAY active Not Available Not Available No t Available BD Integra Syringe 3 mL 25 gauge x 1 USE DIRECTED active Not Available Not Available No t Available sodium,potas sium,mag sulfates 17.5 gram-3.13 gram-1.6 gram oral soln DILUTE DRINK 1/2 AT 6-8 PM AND HALF AT 11 PM- 1AM active Not Available Not Available N ot Available Vitamin D3 50 mcg (2,000 unit) capsule TAKE 1 CAPSULE BY MOUTH EVERY DAY active Not Available Not Available No t Available Prolensa 0.07 % eye drops INSTILL 1 DROP IN OPERATIVE EYE DAILY FOR 21 DAYS. START 1 DAY PRE-OP active Not Available Not Available No t Available Lotemax SM 0.38 % eye gel drops USE 1 APPLICATION INTO THE OPERATIVE EYE TWICE A DAY FOR 21 DAYS THEN ONCE A DAY FOR 7 DAYS active Not Available Not Available N ot Available Vitals Date Recorded Body height Provider Name an d Address Organization Details Last Updated DateTime 10/27/2023 160.02 cm FELTON MUELLER [facility] 10/27/2023 14:57:25 Date Recorded Body height Body mass index (BMI) Body weight Provider Name and Address Organization Details Last Updated DateTime 11/08/2024 160.02 cm 24.4 kg/m2 99560.75 g Yocasta Parekh [facility] 11/08/2024 14:57:47 Date Recorded Body height Body mass index (BMI) Body weight Provider Name and Address Organization Details Last Updated DateTime 04/17/2024 160.02 cm 24.4 kg/m2 63490.75 g ANSHUL PABLO [facility] 04/17/2024 15:17:50 Social History None recorded. Functional Status None recorded. Mental Status None recorded. Family History Nothing Reported. Medical History Condition Response Arthritis Y Cholesterol Y Osteoporosis Y Gynecological HistoryNo gynecological history recorded. Obstetrics History GPAL:G 0 P 0 0 0 0 Past Encounters Encounter ID Performer Location Encounter Start Date Encounter Closed Date Diagnosis/Indication Diagnosis SNOMED-CT Code Diagnosis ICD10 Code Diagnosis Note [id number] RAFAL Galvin [address] [place] [address] 10/27/2023 14:44:33 11/16/2023 12:40:14 Trochanteric bursitis of left hip [id number] 57905 M70.62 You have been provided with a cortisone injection in order to reduce the pain and inflammati on that you are experienci ng. The injection consists of two medication s. Cortisone (an anti-infla mmatory that will take 48-72 hours to take effect) and Lidocaine (a numbing agent that will last 2-3 hours). Please note that not everyone will have a lasting response following the injection. PATIENT INSTRUCTIO NSOnce the Lidocaine wears off, you may have an increase in your pain. I recommend icing the affected area for 20 minutes 3-4 times per day.It is recommende d that you refrain from any high level activities using the joint or limb that was injected for approximat wan 24-48 hours. Normal day-to-day activities are generally not a problem.PO SSIBLE SIDE EFFECTSInd ividuals with dark complexion s may experience some skin discolorat ion locally at the site of the injection. There is the possibilit y of an increase in discomfort within 48 hours following the injection. This is called a ? f lare? . To help minimize the chances of this, please see the post-injec tion instructio ns above.Ther e is a less than 1% chance of an infection. If you notice any signs of infection (redness, warmth, drainage, fever greater than 100 degrees) please call our office or contact us through the portal [facility]. [id number] RAFAL Galvin [address] [place] [address] 04/17/2024 14:50:20 05/11/2024 15:11:28 Trochanteric bursitis of left hip [id number] 29088 M70.62 You have been provided with a cortisone injection in order to reduce the pain and inflammati on that you are experienci ng. The injection consists of two medication s. Cortisone (an anti-infla mmatory that will take 48-72 hours to take effect) and Lidocaine (a numbing agent that will last 2-3 hours). Please note that not everyone will have a lasting response following the injection. PATIENT INSTRUCTIO NSOnce the Lidocaine wears off, you may have an increase in your pain. I recommend icing the affected area for 20 minutes 3-4 times per day.It is recommende d that you refrain from any high level activities using the joint or limb that was injected for approximat wan 24-48 hours. Normal day-to-day activities are generally not a problem.PO SSIBLE SIDE EFFECTSInd ividuals with dark complexion s may experience some skin discolorat ion locally at the site of the injection. There is the possibilit y of an increase in discomfort within 48 hours following the injection. This is called a ? f lare? . To help minimize the chances of this, please see the post-injec tion instructio ns above.Ther e is a less than 1% chance of an infection. If you notice any signs of infection (redness, warmth, drainage, fever greater than 100 degrees) please call our office or contact us through the portal [facility]. [id number] RAFAL Galvin [address] [facility] [place] [address] 11/08/2024 14:47:05 11/21/2024 10:24:21 Trochanteric bursitis of left hip [id number] 64732 M70.62 You have been provided with a cortisone injection in order to reduce the pain and inflammati on that you are experienci ng. The injection consists of two medication s. Cortisone (an anti-infla mmatory that will take 48-72 hours to take effect) and Lidocaine (a numbing agent that will last 2-3 hours). Please note that not everyone will have a lasting response following the injection. PATIENT INSTRUCTIO NSOnce the Lidocaine wears off, you may have an increase in your pain. I recommend icing the affected area for 20 minutes 3-4 times per day.It is recommende d that you refrain from any high level activities using the joint or limb that was injected for approximat wan 24-48 hours. Normal day-to-day activities are generally not a problem.PO SSIBLE SIDE EFFECTSInd ividuals with dark complexion s may experience some skin discolorat ion locally at the site of the injection. There is the possibilit y of an increase in discomfort within 48 hours following the injection. This is called a ? f lare? . To help minimize the chances of this, please see the post-injec tion instructio ns above.Ther e is a less than 1% chance of an infection. If you notice any signs of infection (redness, warmth, drainage, fever greater than 100 degrees) please call our office or contact us through the portal [facility]. Health Concerns Section Related Observation LastModified by Organization Detai ls LastModified Time None Recorded Concern Status LastModified by Organization Details LastModified Time None Recorded Advance Directives Directive None Recorded Payers Encounter Date Sequence Insurance Name Policy Number Policy Law Covered Member ID Law Member ID Guarantor Name 10/27/2023 1 [place] [employer] Renu C Barsalou [id number] Renu Barsalou 10/27/2023 2 [employer] - [employer] IN[employer]MNITY PLAN (MEDICARE SUPPLEMENT) [id number] Renu C Barsalou [id number] Renu Barsalou 04/17/2024 1 [place] [employer] Renu C Barsalou [id number] Renu Barsalou 04/17/2024 2 [employer] IN[employer]ITY [employer]AN (MEDICARE SUPPLEMENT) [id number] Renu C Barsalou [id number] Renu Barsalou Notes Date Note Type Note Provider Name and Address Organization Details Recorded Time 10/27/2023 text/html I am seeing the patient today under the supervision of Dr. Durand who was available but who did not see the patient. The patient presents today for follow-up. Has known trochanteric bursitis of the Left hip. Has had previous cortisone injection which gave relief until recently. Has had no recent trauma, no fevers or chills, no neurovascular changes. Presents today for further evaluation. PAST MEDICAL/SURGICAL HISTORY Past medical history is reviewed per intake sheet. PHYSICAL FINDINGS On physical examination, the patient is well appearing and in no apparent distress, alert and oriented x3. Gait is symmetric. Examination of the hip reveals the skin to be intact, normal musculature, continued tenderness on palpation over the greater trochanter. No pain with range of motion of the hip, has full range of motion, no crepitus noted with range of motion. No significant pain with straight leg raise. ASSESSMENT Symptomatic trochanteric bursitis of the Left hip. PLAN I reviewed the findings with the patient, discussed different treatment options which included medications physical therapy and injections The patient wishes to proceed with cortisone injection. Please see procedure note. Monitor the effects and follow-up as directed. Bjorn Fair PA-C [address], [place], [address], [facility] 10/27/2023 15:48:58 04/17/2024 text/html I am seeing the patient today under the supervision of Dr. Gilmore who was available but who did not see the patient. The patient presents today for follow-up. Has known trochanteric bursitis of the Left hip. Has had previous cortisone injection which gave relief until recently. Has had no recent trauma, no fevers or chills, no neurovascular changes. Presents today for further evaluation. PAST MEDICAL/SURGICAL HISTORY Past medical history is reviewed per intake sheet. PHYSICAL FINDINGS On physical examination, the patient is well appearing and in no apparent distress, alert and oriented x3. Gait is symmetric. Examination of the hip reveals the skin to be intact, normal musculature, continued tenderness on palpation over the greater trochanter. No pain with range of motion of the hip, has full range of motion, no crepitus noted with range of motion. No significant pain with straight leg raise. ASSESSMENT Symptomatic trochanteric bursitis of the Left hip. PLAN I reviewed the findings with the patient, discussed different treatment options which included medications physical therapy and injections The patient wishes to proceed with cortisone injection. Please see procedure note. Monitor the effects and follow-up as directed. Bjorn Fair PA-C [address], [place], [address], [facility] 04/17/2024 15:57:52 11/08/2024 text/html I am seeing the patient today under the supervision of Dr. Geno Boyd who was available but who did not see the patient. The patient presents today for follow-up. Has known trochanteric bursitis of the Left hip. Has had previous cortisone injection which gave relief until recently. Has had no recent trauma, no fevers or chills, no neurovascular changes. Presents today for further evaluation. Patient seems to state that he had exacerbated from a change in orthotics due to plantar fasciitis PAST MEDICAL/SURGICAL HISTORY Past medical history is reviewed per intake sheet. PHYSICAL FINDINGS On physical examination, the patient is well appearing and in no apparent distress, alert and oriented x3. Gait is symmetric. Examination of the hip reveals the skin to be intact, normal musculature, continued tenderness on palpation over the greater trochanter. No pain with range of motion of the hip, has full range of motion, no crepitus noted with range of motion. No significant pain with straight leg raise. ASSESSMENT Symptomatic trochanteric bursitis of the Left hip. PLAN I reviewed the findings with the patient, discussed different treatment options which included medications physical therapy and injections The patient wishes to proceed with cortisone injection. Please see procedure note. Monitor the effects and follow-up as directed. Bjorn Fair PA-C [address] [facility] [address], [place], [address], [facility] [place] 11/08/2024 15:14:53 OBGyn Episode No OBEpisode recorded.
[2024-12-19 14:26] LABS: MANUAL DIFF FLAG NO
[2024-12-19 15:34] LABS: Appearance Urine Clear; Color Urine Yellow; Glucose Urine UA Negative (Negative); Leukocyte Esterase Urine Negative (Negative); Nitrite Urine Negative (Negative); Specific Gravity - Urine <= 1.005 (1.005-1.025); Urine Blood Negative (Negative); Urine Ketones Negative (Negative); Urine Protein Negative (Neg-Trace)
[2024-12-19 15:49] LABS: Basophils Absolute Auto 0.1 X10*3/uL (0.0-0.2); Basophils Percent Auto 0.7 % (0-2); Eosinophils Absolute Auto 0.1 X10*3/uL (0.0-0.4); Eosinophils Percent Auto 1.5 % (0-4); Hematocrit 37.4 % (37.0-47.0); Hemoglobin 12.8 g/dl (12.0-16.0); Imm Gran Abs Auto 0.02 X10*3/uL (0.00-0.03); Imm Gran Pct Auto 0.3 % (0.0-0.4); Lymphocytes Absolute Auto 2.6 X10*3/uL (1.2-4.9); Lymphocytes Percent Auto 38.1 % (20-40); Mean Corpuscular HGB Conc 34.2 g/dl (31.0-35.0); Mean Corpuscular Hemoglobin 30.3 pg (27.0-33.0); Mean Corpuscular Volume 88.6 fL (80.0-98.0); Mean Platelet Volume 9.9 fL (9.4-12.3); Monocytes Absolute Auto 0.7 X10*3/uL (0.1-1.2); Monocytes Percent Auto 10.3 % (2-11); Neutrophils Absolute Auto 3.4 x10*3/uL (2.0-8.3); Neutrophils Percent Auto 49.1 % (45-73); Platelet Count 470 X10*3/uL (160-400); Red Blood Count 4.22 X10*6/uL (4.20-5.50); Red Cell Distribution Width 13.1 % (11.0-16.0); White Blood Count 6.8 X10*3/uL (4.8-10.8)
[2024-12-19 16:15] LABS: Creatinine Urine 28.82 mg/dL; Microalbumin Urine < 5.0 mg/L
[2024-12-19 16:20] LABS: Alanine Aminotransferase 16 U/L (0-31); Albumin Level 4.8 g/dL (3.5-5.0); Alkaline Phosphatase 108 U/L (39-117); Anion Gap 14 (12-20); Aspartate Amino Transferase 21 U/L (5-31); Bilirubin Total 0.3 mg/dL (0.0-1.0); Blood Urea Nitrogen 18 mg/dL (9-16); Calcium 10.6 mg/dL (8.4-10.2); Carbon Dioxide 26 mmol/L (22-29); Chloride 105 mmol/L (96-108); Estimated Glomerular Filt Rate > 60; Glucose Random 80 mg/dL (60-115); Potassium 4.7 mmol/L (3.3-5.1); Sodium 140 mmol/L (135-145)
[2024-12-19 16:39] LABS: Vitamin D 25-OH Total 72.1 ng/mL (>30)
== END 2024-12-19 14:14 | disposition home or self-care (01) ==
LOC: HO.LAB 14:13
PROVIDERS: PCP Family Medicine; Visit Provider Family Medicine
DX: Z00.00 Encounter for general adult medical examination without abnormal findings (principal); E11.9 Type 2 diabetes mellitus without complications; E83.52 Hypercalcemia; I10 Essential (primary) hypertension; D64.9 Anemia, unspecified
CPT/HCPCS: 36415; 80053; 81003; 82043; 82306; 82570; 85025

== ENCOUNTER 2024-12-24 10:36 | Outpatient (AMB) | payer MEDICARE, OTHER, SELFPAY ==
[2024-12-24 10:59] VITALS: BP 130/72; PULSE 69; RESP 14; TEMP 36.9; O2SAT 98; BMI 23.6
--- NOTE | 2024-12-24 10:59 | MHC.PC.OV ---
Vital Signs 12/24/24 10:59 Height 5 ft 3 in Weight 133 lb 8 oz BMI 23.6 BP 130/72 Blood Pressure Location Rt brachial Position Sitting Respiration 14 Pulse 69 Pulse Source Pulse Oximeter Temp 98.4 F Temp Source Oral Pulse Oximetry (%) 98 Oxygen Delivery Method Room Air Intake Visit Reasons: f/u HTN, preDM Allergies methylprednisolone [From Solu-Medrol] Allergy (Severe, Verified 09/21/24 09:22) Rash, facial swelling Penicillins Allergy (Severe, Verified 09/21/24 09:22) ANAPHYLAXIS Hmhfoep-BBV-BqJ Reductase Inhibitor [EKPGKZY-VRY-YDO REDUCTASE INHIBITOR] Allergy (Intermediate, Verified 09/21/24 09:22) muscle aches Medication List - Last Reconciled 12/24/24 by Lopez Cote MD cholecalciferol (vitamin D3) 50 mcg PO DAILY 90 days cyanocobalamin (vitamin B-12) 1,000 mcg IM DIRECTED diclofenac sodium 1% (Arthritis Pain (diclofenac)) 4 grams topical BID 30 days famotidine 40 mg PO BID fluticasone propionate 50 mcg/actuation 1 spray intranasal DAILY gemfibrozil 600 mg PO BID 90 days glimepiride 1 mg PO QAM 30 days loratadine (Claritin) 10 mg PO DAILY ondansetron 4 mg PO Q6H PRN syringe with needle, safety (BD Integra Syringe) As directed Tobacco use date assessed: 11/21/23 Dental Screening Dental Screen Date: 09/02/23 HPI f/u HTN, preDM HPI Details 69 y/o female presents to f/u HTN, preDM. BP today 130/72, 69p. She is not on any meds for blood pressure. Prior A1c 5.8%. A1c now 6.0%. She?is?followed?by?endocrinology?for?hyperparathyroidism She?is?followed?by?Neurology,?history?meningioma.?? Reports allergies. She is workingon getting an appt. with ENT. [facility] Medical History Arthritis Hx of Lyme disease Environmental allergies Seasonal allergies GERD (gastroesophageal reflux disease) YASMIN (obstructive sleep apnea) Pulmonary nodule Diverticulitis Pancreas cyst Hypertriglyceridemia Crohn's colitis Surgical History Hx of right cataract extraction History of cholecystectomy History of cholecystectomy H/O colonoscopy Family History Father CVD (cardiovascular disease) Mother Hypertension Renal failure Blood disorder Brother Diabetes mellitus Sister Diabetes mellitus Social History Household Members: Family Housing: Apartment Do you presently have visiting nurse or other home services: No Patient Tobacco Use Status: Former Tobacco user Tobacco use type: Cigarette e-Cigarette/Vaping Use: Never Used Second Hand Smoke Exposure: No Substance Use Type: Marijuana service: No Current occupational status: retired Current occupational exposures/hazards: No Cognitive needs: No Hearing needs: No Vision needs: No Questionnaire PHQ-9 Over the last 2 weeks, how often have you been bothered by any of the following problems? 1. Little interest or pleasure in doing things: not at all 2. Feeling down, depressed, or hopeless: not at all 3. Trouble falling or staying asleep, or sleeping too much: not at all 4. Feeling tired or having little energy: not at all 5. Poor appetite or overeating: not at all 6. Feeling bad about yourself - or that you are a failure or have let yourself or your family down: not at all 7. Trouble concentrating on things, such as reading the newspaper or watching television: not at all 8. Moving or speaking so slowly that other people could have noticed. Or the opposite - being so fidgety or restless that you have been moving around a lot more than usual: not at all 9. Thoughts that you would be better off or of hurting yourself in some way: not at all Total score: 0 Source: Developed by Drs. Yasmani Rodriguez, Sophia Torres, Manuel Olson and colleagues, with an educational rubi from [employer]. Thrive Questionnaire Date Thrive assessed: 09/21/24 I am a: Patient What is your living situation today?: I choose not to answer this question Within the past 12 months, did the food you bought not last and you didn't have the money to get more?: I choose not to answer this question Within the past 12 months, did you worry whether your food would run out before you got money to buy more?: I choose not to answer this question Do you have trouble paying for medicines?: I choose not to answer this question Do you have trouble getting transportation to medical appointments?: I choose not to answer this question Do you have trouble paying your heating and electricity bill?: I choose not to answer this question Do you have trouble taking care of your child, family member or friend?: I choose not to answer this question Do you have trouble with day-to-day activities such as bathing, preparing meals, shopping, managing finances, etc.?: I choose not to answer this question Are you currently unemployed and looking for a job?: I choose not to answer this question Are you interested in more education?: I choose not to answer this question Please select the resources that you would like help with: None Currently or been in a relationship where the following occur: I choose not to answer THRIVE Score: 0 AUDIT C Alcohol Use Questionnaire (AUDIT-C) 1. How often do you have a drink containing alcohol?: Never Total Score: 0 TERI-7 AMB Questionnaire TERI-7 Date TERI - 7 assessed: 09/21/24 Feeling nervous, anxious, or on edge: 0 = Not at all Not being able to stop or control worryin = Not at all Worrying too much about different things: 0 = Not at all Trouble relaxin = Not at all Being so restless that it is hard to sit still: 0 = Not at all Becoming easily annoyed or irritable: 0 = Not at all Feeling afraid as if something awful might happen: 0 = Not at all Total TERI-7 score (0-4 normal; 5-9 mild; 10-14 moderate; 15-21 severe): 0 Source: Developed by Drs. Yasmani Rodriguez, Sophia Torres, Manuel Olson and colleagues, with an educational rubi from [employer]. Review of Systems Const Denies chills, Denies fatigue, Denies fever(s), Denies headache(s) and Denies weakness ENT Denies dizziness and Denies headache(s) Card Denies dyspnea Resp Denies cough, Denies dyspnea, Denies wheezing and Denies other (shortness of breath) Musc Denies numbness and Denies tingling Neuro Denies dizziness, Denies headache(s), Denies numbness, Denies tingling and Denies weakness Psych Denies anxiety and Denies depression Endo Denies fatigue Aller/Immun Denies wheezing Physical exam (Primary Care) Vital Signs: Last Vital Signs Temp 98.4 F 12/24/24 10:59 Pulse 69 12/24/24 10:59 Resp 14 12/24/24 10:59 BP 130/72 12/24/24 10:59 Pulse Ox 98 12/24/24 10:59 Oxygen Delivery Method Room Air 12/24/24 10:59 BMI result Body Mass Index 23.6 Tobacco/Smoking Status: Tobacco use Status Tobacco use date assessed 11/21/23 12/24/24 11:02 Patient Tobacco Use Status Former Tobacco user 12/24/24 11:02 Tobacco use type Cigarette 12/24/24 11:02 e-Cigarette/Vaping Use Never Used 12/24/24 11:02 PHQ-9: PHQ-9 Score PHQ-9: Total score 0 12/24/24 11:11 Thrive Assessment: Date of Thrive Assessment Date Thrive assessed 09/21/24 12/24/24 11:02 Currently or been in a relationship where the following occur: I choose not to answer Const General: well developed; No acute distress Nutritional Appearance: well nourished Orientation/consciousness: patient oriented [facility]3 [facility]: Yes normocephalic and Yes atraumatic Eyes General: appearance normal, both eyes and all related structures Pupils: Equal, round and reactive pupils present EOM: EOMs intact bilaterally Resp Effort & Inspection: normal respiratory effort Auscultation: clear to auscultation bilaterally Cardio Rate: regular rate Rhythm: regular rhythm Heart sounds: S1 normal heart sound present, S2 normal heart sound present, no gallops, no murmurs and no rubs Neuro General: patient oriented x3 and gait normal Cranial nerves: Yes Equal, round and reactive pupils present Psych Affect: normal affect Coding Level of Care Code Est Pt Level 4 (09519) Diagnoses Prediabetes R73.03 Pre-hypertension R03.0 Allergies T78.40XA Hyperparathyroidism E21.3 Assessment & Plan Assessment & Plan (1) Prediabetes: Code(s): R73.03 - Prediabetes Category: Medical Plan: A1c?climbed?from?5.8%?to?6.0% Encouraged?diet?lower?in?sugars?and?starches I?will?continue?to?monitor (2) Pre-hypertension: Code(s): R03.0 - Elevated blood-pressure reading, without diagnosis of hypertension Category: Medical Plan: Stable Will?continue?to?monitor (3) Allergies: Code(s): T78.40XA - Allergy, unspecified, initial encounter Category: Medical Plan: Patient?is?working?on?getting?an?appointment?with?an?ear?nose?and?throat?specialist She?notes?that?her?symptoms?were?gone?when[place]and[place]also[place]when?she?went?to[place] She?can?continue?using?a?daytime?antihistamine She?can use?a?nasal?steroid HEPA?filtration Advised?nasal?saline (4) Hyperparathyroidism: Code(s): E21.3 - Hyperparathyroidism, unspecified Category: Medical Plan She?is?followed?by?endocrinology?for?hyperparathyroidism She?is?followed?by?Neurology,?history?meningioma.?? Again requesting most?recent?notes Orders: Orders AMB Hemoglobin A1c Today E11.9 - Type 2 diabetes mellitus without complications
--- OUTSIDE RECORDS SUMMARY | 2024-12-24 11:55 | XMS_ITS | Data Portability ---
Author Organization [facility] Peewee Myles [facility], [facility] Address [address] [place] [address] Assessment No assessment recorded. Plan of Treatment [...] Organization Details Recorded Time No complaint s [id number] Active Status: 'I'; Not Available [facility] 4 09:16:57 Impingeme nt syndrome of left shoulder region [id number] 104 Active 2019 Problem Code: M75.42; Problem Code Type: ICD-10; Status: 'A'; Not Available [facility] 4 11:42:01 Problem Notes None recorded. Procedures Surgical History Date Name Laterality Status Provider Name and Address Organization Details Recorded Time 5 Hip Kenalog 1cc Injection, L/R completed JU Galvin-Trae [address] [facility], [place], [address], [facility] 11/08/2024 15:14:32 4 Hip Kenalog 1cc Injection, L/R completed JU Galvin-Trae [address] [facility], [place], [address], [facility] 04/17/2024 15:57:41 4 Hip Kenalog 1cc Injection, L/R completed JU Galvin-Trae [address] [facility], [place], [address], [facility] 10/27/2023 15:48:44 Imaging Results None recorded. Procedure Notes None recorded. Medical Equipment None Reported. Allergies Allergen ID Allergen Name Allergen Category Reaction Reaction Severity Criticality Documentation Date Start Date Code Code System Note Provider Name and Address Organization Details Recorded Time 602392 Product containin g 3-hydroxy -3-methyl glutaryl- coenzyme A reductase inhibitor (product) medicatio n Not available Not available Not available 10/27/2023 22208 009 SNOMED FELTON lo [facility] 4 15:03:33 854499 Solu-Medr ol medicatio n Not available Not available Not available 10/27/2023 80237 6 RxNorm [facility] 4 15:04:10 80665 Product containin g penicilli n (product) medicatio n anaphylax is Not available Not available 09/19/20232018 14267 8001 SNOMED Not Available [facility] 4 14:23:13 Medications Name Sig Start Date [...] Updated DateTime 10/27/2023 160.02 cm FELTON MUELLER [facility] 10/27/2023 14:57:25 Date Recorded Body height Body mass index (BMI) Body weight Provider Name and Address Organization Details Last Updated DateTime 11/08/2024 160.02 cm 24.4 kg/m2 97846.75 g Yocasta Parekh [facility] 11/08/2024 14:57:47 Date Recorded Body height Body mass index (BMI) Body weight Provider Name and Address Organization Details Last Updated DateTime 04/17/2024 160.02 cm 24.4 kg/m2 44550.75 g ANSHUL PABLO [facility] 04/17/2024 15:17:50 Social History None recorded. Functional Status None recorded. Mental Status None recorded. Family History Nothing Reported. Medical History Condition Response Arthritis Y Cholesterol Y Osteoporosis Y Gynecological HistoryNo gynecological history recorded. Obstetrics History GPAL:G 0 P 0 0 0 0 Past Encounters Encounter ID Performer Location Encounter Start Date Encounter Closed Date Diagnosis/Indication Diagnosis SNOMED-CT Code Diagnosis ICD10 Code Diagnosis Note [id number] RAFAL Galvin [address] [place] [address] 10/27/2023 14:44:33 11/16/2023 12:40:14 Trochanteric bursitis of left hip [id number] 84229 M70.62 You have been provided with a [...] office or contact us through the portal [facility]. [id number] RAFAL Galvin [address] [place] [address] 04/17/2024 14:50:20 05/11/2024 15:11:28 Trochanteric bursitis of left hip [id number] 54309 M70.62 You have been provided with a [...] office or contact us through the portal [facility]. [id number] RAFAL Galvin [address] floor [address] [facility] [place] [address] 11/08/2024 14:47:05 11/21/2024 10:24:21 Trochanteric bursitis of left hip [id number] 42578 M70.62 You have been provided with a [...] [place]: [employer] Renu C Barsalou [id number] Renu Barsalou 10/27/2023 2 UNICARE - GIC INDEMNITY PLAN (MEDICARE SUPPLEMENT) [id number] Renu C Barsalou [id number] Renu Barsalou 04/17/2024 1 [place] [employer] Renu C Barsalou [id number] Renu Barsalou 04/17/2024 2 [employer] - [employer]IC INDEMNITY PLAN (MEDICARE SUPPLEMENT) [id number] Renu C Barsalou [id number] Renu Barsalou Notes Date Note Type Note [...] follow-up as directed. Bjorn Fair PA-C [address], [place], [address], [facility] 10/27/2023 15:48:58 04/17/2024 text/html I am seeing [...] Fair PA-C [address], [place], [address], [facility] 04/17/2024 15:57:52 11/08/2024 text/html I am seeing [...] follow-up as directed. Bjorn Fair PA-C [address] [facility] [address], [place], [address], [facility] 11/08/2024 15:14:53 OBGyn Episode No OBEpisode recorded.
== END 2024-12-24 11:37 | disposition home or self-care (01) ==
LOC: HO.HMCFM 10:37
PROVIDERS: PCP Family Medicine; Visit Provider Family Medicine
DX: R73.03 Prediabetes (principal); R03.0 Elevated blood-pressure reading, without diagnosis of hypertension; T78.40XA Allergy, unspecified, initial encounter; E21.3 Hyperparathyroidism, unspecified

== ENCOUNTER → 2024-12-24 10:36 | Outpatient (BNVA) | payer MEDICARE, OTHER, SELFPAY | PROVIDERS: PCP Family Medicine; Visit Provider Family Medicine | DX: R73.03 Prediabetes (principal); R03.0 Elevated blood-pressure reading, without diagnosis of hypertension; E21.3 Hyperparathyroidism, unspecified; T78.40XD Allergy, unspecified, subsequent encounter | CPT/HCPCS: 99212 ==

== ENCOUNTER 2025-01-28 15:25 | Outpatient (AMB) | payer MEDICARE, OTHER, SELFPAY ==
--- NOTE | 2025-01-28 15:58 | MHC.PC.OV ---
Vital Signs 01/28/25 16:04 Height 5 ft 3 in Weight 130 lb BMI 23.0 BP 130/60 Blood Pressure Location Rt brachial Position Sitting Respiration 14 Pulse 92 Pulse Source Pulse Oximeter Temp 98.2 F Temp Source Oral Pulse Oximetry (%) 97 Oxygen Delivery Method Room Air Intake Visit Reasons: ED Follow-up [facility] Intake Note: patient is here to follow up on ed discharge from a fall [employer] Worker Required: No Allergies methylprednisolone (From Solu-Medrol) Allergy (Severe, Verified 01/28/25 16:00) Rash, facial swelling Penicillins Allergy (Severe, Verified 01/28/25 16:00) ANAPHYLAXIS Cbcfkpm-PQG-MkP Reductase Inhibitor (WJNXJGM-LXK-DGD REDUCTASE INHIBITOR) Allergy (Intermediate, Verified 01/28/25 16:00) muscle aches Medication List - Last Reconciled 01/28/25 by Lopez Cote MD cholecalciferol (vitamin D3) 50 mcg PO DAILY 90 days cyanocobalamin (vitamin B-12) 1,000 mcg IM DIRECTED diclofenac sodium 1% (Arthritis Pain (diclofenac)) 4 grams topical BID 30 days famotidine 40 mg PO BID fluticasone propionate 50 mcg/actuation 1 spray intranasal DAILY gemfibrozil 600 mg PO BID 90 days glimepiride 1 mg PO QAM 30 days loratadine (Claritin) 10 mg PO DAILY ondansetron 4 mg PO Q6H PRN syringe with needle, safety (BD Integra Syringe) As directed Tobacco use date assessed: 11/21/23 Dental Screening Dental Screen Date: 09/02/23 HPI ED Follow-up [facility] HPI Details 70 y/o female presents to f/u ED visit 01/18/25 d/c 01/19/25 for abd. pain and back pain. Evaluation of L low back pain ongoing for past 2 weeks after a fall. Abd. benign, no signs of symptoms of obstruction. Plain films with questionable sacral fracture, subsequent CT without fracture but noted gluteal contusion. Pain improved with morphine in the ED. Discussed supportive care with OTC meds, short course of morphine for severe pain. [facility] Medical History Arthritis Hx of Lyme disease Environmental allergies Seasonal allergies GERD (gastroesophageal reflux disease) YASMIN (obstructive sleep apnea) Pulmonary nodule Diverticulitis Pancreas cyst Hypertriglyceridemia Crohn's colitis Surgical History Hx of right cataract extraction History of cholecystectomy History of cholecystectomy H/O colonoscopy Family History Father CVD (cardiovascular disease) Mother Hypertension Renal failure Blood disorder Brother Diabetes mellitus Sister Diabetes mellitus Social History Household Members: Family Housing: Apartment Do you presently have visiting nurse or other home services: No Patient Tobacco Use Status: Former Tobacco user Tobacco use type: Cigarette e-Cigarette/Vaping Use: Never Used Second Hand Smoke Exposure: No Substance Use Type: Marijuana service: No Current occupational status: retired Current occupational exposures/hazards: No Cognitive needs: No Hearing needs: No Vision needs: No Questionnaire Thrive Questionnaire Date Thrive assessed: 12/24/24 I am a: Patient What is your living situation today?: I choose not to answer this question Within the past 12 months, did the food you bought not last and you didn't have the money to get more?: I choose not to answer this question Within the past 12 months, did you worry whether your food would run out before you got money to buy more?: I choose not to answer this question Do you have trouble paying for medicines?: I choose not to answer this question Do you have trouble getting transportation to medical appointments?: I choose not to answer this question Do you have trouble paying your heating and electricity bill?: I choose not to answer this question Do you have trouble taking care of your child, family member or friend?: I choose not to answer this question Do you have trouble with day-to-day activities such as bathing, preparing meals, shopping, managing finances, etc.?: I choose not to answer this question Are you currently unemployed and looking for a job?: I choose not to answer this question Are you interested in more education?: I choose not to answer this question Please select the resources that you would like help with: None Currently or been in a relationship where the following occur: I choose not to answer THRIVE Score: 0 TERI-7 AMB Questionnaire TERI-7 Date TERI - 7 assessed: 09/21/24 Source: Developed by Eris Elenaet [employer], Manuel Olson and colleagues, with an educational rubi from [employer]. Review of Systems Const Denies chills, Denies fatigue, Denies fever(s), Denies headache(s) and Denies weakness ENT Denies dizziness and Denies headache(s) Card Denies dyspnea Resp Denies cough, Denies dyspnea, Denies wheezing and Denies other (shortness of breath) Musc Denies numbness and Denies tingling Neuro Denies dizziness, Denies headache(s), Denies numbness, Denies tingling and Denies weakness Psych Denies anxiety and Denies depression Endo Denies fatigue Aller/Immun Denies wheezing Physical exam (Primary Care) Vital Signs: Last Vital Signs Temp 98.2 F 01/28/25 16:04 Pulse 92 01/28/25 16:04 Resp 14 01/28/25 16:04 BP 130/60 01/28/25 16:04 Pulse Ox 97 01/28/25 16:04 Oxygen Delivery Method Room Air 01/28/25 16:04 BMI result Body Mass Index 23.0 Tobacco/Smoking Status: Tobacco use Status Tobacco use date assessed 11/21/23 01/28/25 16:07 Patient Tobacco Use Status Former Tobacco user 01/28/25 16:07 Tobacco use type Cigarette 01/28/25 16:07 e-Cigarette/Vaping Use Never Used 01/28/25 16:07 Thrive Assessment: Date of Thrive Assessment Date Thrive assessed 12/24/24 01/28/25 16:07 Currently or been in a relationship where the following occur: I choose not to answer Const General: well developed; No acute distress Nutritional Appearance: well nourished Orientation/consciousness: patient oriented x3 HENMT Head: Yes normocephalic and Yes atraumatic Eyes General: appearance normal, both eyes and all related structures Pupils: Equal, round and reactive pupils present EOM: EOMs intact bilaterally Resp Effort & Inspection: normal respiratory effort Neuro General: patient oriented x3 and gait normal Cranial nerves: Yes Equal, round and reactive pupils present Psych Affect: normal affect Coding Level of Care Code Est Pt Level 4 (95343) Diagnoses Low back pain M54.50 Abdominal pain R10.30 Abdominal location: lower abdomen, unspecified Rib pain R07.81 Sacral fracture S32.10XA Assessment & Plan Assessment & Plan (1) Low back pain: Code(s): M54.50 - Low back pain, unspecified Category: Medical (2) Abdominal pain: Code(s): R10.9 - Unspecified abdominal pain Category: Medical Qualifiers: Abdominal location: lower abdomen, unspecified Qualified Code(s): R10.30 - Lower abdominal pain, unspecified (3) Rib pain: Code(s): R07.81 - Pleurodynia Category: Medical (4) Sacral fracture: Code(s): S32.10XA - Unspecified fracture of sacrum, initial encounter for closed fracture Category: Medical Plan Recent sacral fracture Advised Relative rest-she will take a couple weeks off of work Ice/heat Topicals such as Aspercreme Lidocaine patch Will give her a script for celecoxib b.i.d. were as she has Crohn's and may be sensitive to other NSAIDs Tylenol PRN Will give her cyclobenzaprine at bedtime to help rest She can also consider a donut cushion Left rib tenderness Can check rib film Medications as above Orders: Orders XR ribs LT 2V Today R07.81 - Pleurodynia Medications: New celecoxib 200 mg (2 x 100 mg) PO BID 120 caps 1RF 30 days cyclobenzaprine 5 mg PO BEDTIME PRN 14 tabs 0RF muscle spasm 14 days Discontinued oxycodone-acetaminophen 5-325 mg (Percocet) MassPat Verified. Partial Fill upon patient request. Discontinued Reason: By Stop Date 1 tab PO BID 3 days PRN 6 tabs 0RF pain
[2025-01-28 16:04] VITALS: BP 130/60; PULSE 92; RESP 14; TEMP 36.8; O2SAT 97; BMI 23.0
--- OUTSIDE RECORDS SUMMARY | 2025-01-28 16:38 | XMS_ITS | Patient Health Record ---
Author Organization [facility] Address [address] [facility] [place] [address] Care Team Providers Care Paper Twister Name Role Phone Lopez Cote MD Primary Care Provider Pina Jackson Unavailable [phone] Allergies Allergen (clinical drug ingredient) Drug/Non Drug [...] 1 capsule with food Orally Once a day; Duration: 30 day(s) 03/20/2014 Unknown ZyrTEC Unknown Glimepiride Not-Taki ng Night Splint AFO - L1930 as directed 04/25/2014 Unknown Gemfibrozil Unknown Lopid Active Flonase Active Famotidine Active Social History Tobacco Use: Social History Observation Description Date Details (start date - stop date) Never Smoker NA - NA Alcohol Screen Question Answer Notes Did you have a drink containing alcohol in the p ast year? No Points 0 Interpretation Negative Tobacco use other than smoking: Question Answer Notes Are you an other tobacco user? 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 Problem Plantar fasciitis, bilateral (M72.2) Active confirmed Vital Signs Blood pressure diastolic 80 mm Hg 10/25/2024 Height 5ft3in in 10/25/2024 Blood pressure systolic 125 mm Hg 10/25/2024 Weight 128 lbs 10/25/2024 BMI 22.67 kg/m2 10/25/2024 Procedures Procedure Date Ordered Date Performed Result Body Sit e 58535-Npmenoxu Plate 10/04/2024 N/A Encounters Encounter Location Date Provider Diagnosis [facility] [address] [place] [address] 07/06/2024 Pina Black Pain in right foot M79.671 ; Calcaneal spur, right foot M77.31 ; Plantar fasciitis, bilateral M72.2 ; Other myositis of right foot M60.871 ; Bursitis of right foot M77.51 ; Pain in left foot M79.672 ; Other myositis of left foot M60.872 and Bursitis of left foot M77.[address] [address] 10/04/2024 Pina Black Plantar fasciitis, bilateral M72.2 ; Ingrown nail L60.0 ; Pain in right foot M79.671 ; Calcaneal spur, right foot M77.31 ; Other myositis of right foot M60.871 ; Bursitis of right foot M77.51 ; Pain in left foot M79.672 ; Other myositis of left foot M60.872 and Bursitis of left foot M77.52 [facility] [address] 10/25/2024 Pina Black Ingrowing nail L60.0 [facility] [address] 05/09/2024 [facility] [address] [address] 07/06/2024 [facility] [address] [place] [address] 10/05/2024 Pina Bryant Assessments Encounter Date Diagnosis (ICD Code) Assessment Notes Treatment Notes Treatment Clinical Notes Section Notes 07/06/2024 Pain in right foot (ICD-10 - M79.671) 10/04/2024 Ingrown nail (ICD-10 - L60.0) 10/04/2024 Plantar fasciitis, bilateral (ICD-10 - M72.2) 10/25/2024 Ingrowing nail (ICD-10 - L60.0) 10/04/2024 Pain in right foot (ICD-10 - M79.671) 07/06/2024 Calcaneal spur, right foot (ICD-10 - M77.31) 07/06/2024 Other myositis of right foot (ICD-10 - M60.871) 07/06/2024 Plantar fasciitis, bilateral (ICD-10 - M72.2) Patient Educated with: HEEL CORD STRETCHES.pdf (HEEL CORD STRETCHES.pdf) Patient Educated with: RICE THERAPY.pdf (RICE THERAPY.pdf) 10/04/2024 Calcaneal spur, right foot (ICD-10 - M77.31) 10/04/2024 Other myositis of right foot (ICD-10 - M60.871) 07/06/2024 Bursitis of right foot (ICD-10 - M77.51) 07/06/2024 Pain in left foot (ICD-10 - M79.672) 10/04/2024 Bursitis of right foot (ICD-10 - M77.51) 10/04/2024 Pain in left foot (ICD-10 - M79.672) 07/06/2024 Other myositis of left foot (ICD-10 - M60.872) 07/06/2024 Bursitis of left foot (ICD-10 - M77.52) 10/04/2024 Other myositis of left foot (ICD-10 - M60.872) 10/04/2024 Bursitis of left foot (ICD-10 - M77.52) Plan Of Treatment Pending Test Test Name Order Date 62067-Nsxpyarw Plate 10/04/2024 Insurance Providers Payer Name Payer Address Payer Phone Subscriber Number Group Number Insured Name Patient Relationship to Insured Coverage Start Date Coverage End Date Medicare [facility] [address] [place] [address] [id number] Renu Orozco Self - patient is the insured 0 [employer] ([employer]) [address] [place] [address] [phone] [id number] Renu Orozco Self - patient is the insured 0 Medical (General) History Medical History History ICD Code Glaucoma Chicken pox Measles Mumps Lyme disease Sinus conditions Arthritis CAD (Cholesterol) Cancer Cataracts covid-19 Crohns disease type II diabetes Diverticulosis Gall bladder problems Osteoporosis Sciatica thyroid pancreatic tumor Surgical History Surgery Date(Month/Year) cholecystectomy 12/1997
--- OUTSIDE RECORDS SUMMARY | 2025-01-28 16:38 | XMS_ITS | Data Portability ---
Author Organization LAMBERT Peewee [facility], [facility] Address [address] [place] [address] Assessment No assessment recorded. Plan of Treatment [...] Organization Details Recorded Time No complaint s [id number] Active Status: 'I'; Not Available [facility] 4 09:16:57 Impingeme nt syndrome of left shoulder region [id number] 104 Active 2019 Problem Code: M75.42; Problem Code Type: ICD-10; Status: 'A'; Not Available [facility] 4 11:42:01 Problem Notes None recorded. Procedures Surgical History Date Name Laterality Status Provider Name and Address Organization Details Recorded Time 5 Hip Kenalog 1cc Injection, L/R completed Bjorn Fair PA-C [address] [place] [address], [phone], [facility] 11/08/2024 15:14:32 4 Hip Kenalog 1cc Injection, L/R completed Bjorn Fair PA-C [address] [place] [address], [phone], [facility] 04/17/2024 15:57:41 4 Hip Kenalog 1cc Injection, L/R completed Bjorn Fair PA-C [address] [place] [address], [address], [facility] 10/27/2023 15:48:44 Imaging Results None recorded. Procedure Notes None recorded. Medical Equipment None Reported. Allergies Allergen ID Allergen Name Allergen Category Reaction Reaction Severity Criticality Documentation Date Start Date Code Code System Note Provider Name and Address Organization Details Recorded Time 195782 Product containin g 3-hydroxy -3-methyl glutaryl- coenzyme A reductase inhibitor (product) medicatio n Not available Not available Not available 10/27/2023 36135 009 SNOMED FELTON lo [facility] 4 15:03:33 302964 Solu-Medr ol medicatio n Not available Not available Not available 10/27/2023 21346 6 RxNorm FELTON lo [facility] 4 15:04:10 43368 Product containin g penicilli n (product) medicatio n anaphylax is Not available Not available 09/19/20232018 83412 8001 SNOMED Not Available [facility] 4 14:23:13 Medications Name Sig Start Date [...] Updated DateTime 10/27/2023 160.02 cm FELTON MUELLER [facility] 10/27/2023 14:57:25 Date Recorded Body height Body mass index (BMI) Body weight Provider Name and Address Organization Details Last Updated DateTime 11/08/2024 160.02 cm 24.4 kg/m2 26819.75 g Yocasta Parekh [facility] 11/08/2024 14:57:47 Date Recorded Body height Body mass index (BMI) Body weight Provider Name and Address Organization Details Last Updated DateTime 04/17/2024 160.02 cm 24.4 kg/m2 79773.75 g ANSHUL PABLO [facility] 04/17/2024 15:17:50 Social History None recorded. [...] SNOMED-CT Code Diagnosis ICD10 Code Diagnosis Note [id number] RAFAL Galvin [address] [place] [address] 10/27/2023 14:44:33 11/16/2023 12:40:14 Trochanteric bursitis of left hip 4533343015 91933 M70.62 You have been provided with a [...] following the injection. This is called a flare . To help minimize the chances of this, please see the post-injec tion instructio ns above.Ther e is a less than 1% chance of an infection. If you notice any signs of infection (redness, warmth, drainage, fever greater than 100 degrees) please call our office or contact us through the portal [facility]. [id number] RAFAL Galvin [address] [place] [address] 04/17/2024 14:50:20 05/11/2024 15:11:28 Trochanteric bursitis of left hip [id number] 45927 M70.62 You have been provided with a [...] following the injection. This is called a flare . To help minimize the chances of this, please see the post-injec tion instructio ns above.Ther e is a less than 1% chance of an infection. If you notice any signs of infection (redness, warmth, drainage, fever greater than 100 degrees) please call our office or contact us through the portal [facility]. [id number] RAFAL Galvin [address] [place] [address] 11/08/2024 14:47:05 11/21/2024 10:24:21 Trochanteric bursitis of left hip [id number] 66115 M70.62 You have been provided with a [...] following the injection. This is called a flare . To help minimize the chances of [...] Recorded Advance Directives Directive None Recorded Payers Insurance Date Sequence Insurance Name Policy Number Policy Law Covered Member ID Law Member ID Guarantor Name 11/08/2024 1 [place] [employer] Renu Orozco [id number] Renu Orozco 11/21/2024 2 [facility] INDEMNITY PLAN (MEDICARE SUPPLEMENT) [id number] Renu Hymanu [id number] Renu Orozco Notes Date Note Type Note Provider Name [...] follow-up as directed. Bjorn Fair PA-C [address] [facility] [address], [place], [address], [facility] 10/27/2023 15:48:58 04/17/2024 text/html I am seeing [...] follow-up as directed. Bjorn Fair PA-C [address] [facility] [address] [place] [address], [address], [facility] 04/17/2024 15:57:52 11/08/2024 text/html I am seeing the patient today under the supervision of Dr. Boyd who was available but who did [...] follow-up as directed. Bjorn Fair PA-C [address] [facility] [address], [place], [address], [facility] 11/08/2024 15:14:53 OBGyn Episode No OBEpisode recorded.
== END 2025-01-28 17:06 | disposition home or self-care (01) ==
LOC: HO.HMCFM 15:26
PROVIDERS: PCP Family Medicine; Visit Provider Family Medicine
DX: M54.50 Low back pain, unspecified (principal); R10.30 Lower abdominal pain, unspecified; R07.81 Pleurodynia; S32.10XA Unspecified fracture of sacrum, initial encounter for closed fracture

== ENCOUNTER → 2025-01-28 15:25 | Outpatient (BNVA) | payer MEDICARE, OTHER, SELFPAY | PROVIDERS: PCP Family Medicine; Visit Provider Family Medicine | DX: M54.50 Low back pain, unspecified (principal); R10.30 Lower abdominal pain, unspecified; R07.81 Pleurodynia; S32.10XD Unspecified fracture of sacrum, subsequent encounter for fracture with routine healing; Z87.891 Personal history of nicotine dependence | CPT/HCPCS: 99212 ==

== ENCOUNTER 2025-01-29 10:32 | Outpatient (REF) | payer MEDICARE, OTHER, SELFPAY ==
--- NOTE | ~2025-01-29 | XR_ITS ---
EXAMINATION: XR RIBS 2 VIEWS LEFT HISTORY: R07.81 - Pleurodynia COMPARISON: Correlation is made with PA and lateral views of the chest dated 11/22/2023. FINDINGS: Three views of the left ribs are submitted. Osseous mineralization is normal. No fracture is seen. XR/XR ribs LT 2V IMPRESSION: No evidence of fracture of the left ribs. Electronically signed by: Yasmani Carson MD 01/29/2025 11:18 AM EDT
--- OUTSIDE RECORDS SUMMARY | 2025-01-29 11:50 | XMS_ITS | Patient Health Record ---
Author Organization [facility] Address [address] [facility] [place] [address] Care Team Providers Care Capture Manager Name Role Phone Lopez Cote MD Primary Care Provider Pina Jackson Unavailable [phone] Allergies Allergen (clinical drug ingredient) Drug/Non Drug [...] W/U Status Risk Notes Problem Interstitial myositis (24556944) Interstitial myositis of left foot (M60.172) Active confirmed Problem Plantar fasciitis, bilateral (M72.2) Active confirmed Vital Signs Blood pressure diastolic 80 mm Hg 10/25/2024 Height 5ft3in in 10/25/2024 Blood pressure systolic 125 mm Hg 10/25/2024 Weight 128 lbs 10/25/2024 BMI 22.67 kg/m2 10/25/2024 Procedures Procedure Date Ordered Date Performed Result Body Sit e 37976-Ycplubrt Plate 10/04/2024 N/A Encounters Encounter Location Date Provider Diagnosis [facility] [address] [place] [address] 07/06/2024 Pina Black Pain in right foot M79.671 ; Calcaneal spur, right foot M77.31 ; Plantar fasciitis, bilateral M72.2 ; Other myositis of right foot M60.871 ; Bursitis of right foot M77.51 ; Pain in left foot M79.672 ; Other myositis of left foot M60.872 and Bursitis of left foot M77.[address] [address] 10/04/2024 Pina Black Plantar fasciitis, bilateral M72.2 ; Ingrown nail L60.0 ; Pain in right foot M79.671 ; Calcaneal spur, right foot M77.31 ; Other myositis of right foot M60.871 ; Bursitis of right foot M77.51 ; Pain in left foot M79.672 ; Other myositis of left foot M60.872 and Bursitis of left foot M77.52 [facility] [address] 10/25/2024 Pina Black Ingrowing nail L60.0 [facility] [address] 05/09/2024 [facility] [address] [address] 07/06/2024 [facility] [place] [address] [place] [address] 10/05/2024 Pina Bryant Assessments Encounter Date Diagnosis [...] Treatment Pending Test Test Name Order Date 31932-Mewvjefr Plate 10/04/2024 Insurance Providers Payer Name Payer Address Payer Phone Subscriber Number Group Number Insured Name Patient Relationship to Insured Coverage Start Date Coverage End Date Medicare National [facility] [address] [place] [address] [id number] Renu Orozco Self - patient is the insured 0 [employer] ([employer]) [address] [place] [address] [phone] [id number] Renu Orozco Self - patient is the insured 0 Medical (General) History Medical History History ICD Code Glaucoma Chicken pox Measles Mumps Lyme disease Sinus conditions Arthritis CAD (Cholesterol) Cancer Cataracts covid-19 Crohns disease type II diabetes Diverticulosis Gall bladder problems Osteoporosis Sciatica thyroid pancreatic tumor Surgical History Surgery Date(Month/Year) cholecystectomy 12/1997
== END 2025-01-29 10:33 | disposition home or self-care (01) ==
LOC: HO.XRAY 10:32
PROVIDERS: PCP Family Medicine; Visit Provider Family Medicine
DX: R07.81 Pleurodynia (principal)
CPT/HCPCS: 71100

== ENCOUNTER → 2025-01-29 10:37 | Outpatient (BNV) | payer MEDICARE, OTHER, SELFPAY | PROVIDERS: PCP Family Medicine; Visit Provider Radiology Diagnostic Radiology | DX: R07.89 Other chest pain (principal) | CPT/HCPCS: 71100 ==

== ENCOUNTER 2025-04-02 08:35 | Outpatient (AMB) | payer MEDICARE, OTHER, SELFPAY ==
--- NOTE | 2025-04-02 08:40 | MHC.PC.OV ---
Vital Signs 04/02/25 08:46 BMI Reason not done Patient refused/unable BP 136/82 Blood Pressure Location Rt brachial Position Sitting Respiration 14 Pulse 88 Pulse Source Pulse Oximeter Pulse Oximetry (%) 99 Oxygen Delivery Method Room Air Intake Visit Reasons: f/u preDM Intake Note: Follow up diabetes Auto Body Straightener Required: No Allergies methylprednisolone (From Solu-Medrol) Allergy (Severe, Verified 04/02/25 08:42) Rash, facial swelling Penicillins Allergy (Severe, Verified 04/02/25 08:42) ANAPHYLAXIS Ivbzawg-ASA-KbK Reductase Inhibitor (CONRYHT-HED-UAU REDUCTASE INHIBITOR) Allergy (Intermediate, Verified 04/02/25 08:42) muscle aches Medication List - Last Reconciled 04/02/25 by Lopez Cote MD cholecalciferol (vitamin D3) 50 mcg PO DAILY 90 days cyanocobalamin (vitamin B-12) 1,000 mcg IM DIRECTED cyclobenzaprine 5 mg PO BEDTIME PRN 14 days diclofenac sodium 1% (Arthritis Pain (diclofenac)) 4 grams topical BID 30 days famotidine 40 mg PO BID fluticasone propionate 50 mcg/actuation 1 spray intranasal DAILY gemfibrozil 600 mg PO BID 90 days glimepiride 1 mg PO QAM 30 days loratadine (Claritin) 10 mg PO DAILY ondansetron 4 mg PO Q6H PRN syringe with needle, safety (BD Integra Syringe) As directed Tobacco use date assessed: 04/02/25 Fall risk assessment: 1 Fall in past year Last assessed Fall Risk: 04/02/25 Dental Screening Dental Screen Date: 04/02/25 Did you have a dental visit in the last 12 months?: Yes Did you have a dental problem in the last 6 months where you did not have access to dental care?: No Was dental information given to patient?: Patient has dentist HPI f/u preDM HPI Details 70 y/o female presents to f/u diabetes. A1c today 04/02/25 6.2%. She is on glimepiride 1mg daily. Pt notes she has been taking glimepiride a little less. Pt notes ever since she had fallen she had been experiencing tailbone pain. Had not been able to tolerate advil. PFSH Medical History Arthritis Hx of Lyme disease Environmental allergies Seasonal allergies GERD (gastroesophageal reflux disease) YASMIN (obstructive sleep apnea) Pulmonary nodule Diverticulitis Pancreas cyst Hypertriglyceridemia Crohn's colitis Surgical History Hx of right cataract extraction History of cholecystectomy History of cholecystectomy H/O colonoscopy Family History Father CVD (cardiovascular disease) Mother Hypertension Renal failure Blood disorder Brother Diabetes mellitus Sister Diabetes mellitus Social History Household Members: Family Housing: Apartment Do you presently have visiting nurse or other home services: No Patient Tobacco Use Status: Former Tobacco user Tobacco use type: Cigarette e-Cigarette/Vaping Use: Never Used Second Hand Smoke Exposure: No Substance Use Type: Marijuana service: No Current occupational status: retired Current occupational exposures/hazards: No Cognitive needs: No Hearing needs: No Vision needs: No Questionnaire Thrive Questionnaire Date Thrive assessed: 12/24/24 I am a: Patient What is your living situation today?: I choose not to answer this question Within the past 12 months, did the food you bought not last and you didn't have the money to get more?: I choose not to answer this question Within the past 12 months, did you worry whether your food would run out before you got money to buy more?: I choose not to answer this question Do you have trouble paying for medicines?: I choose not to answer this question Do you have trouble getting transportation to medical appointments?: I choose not to answer this question Do you have trouble paying your heating and electricity bill?: I choose not to answer this question Do you have trouble taking care of your child, family member or friend?: I choose not to answer this question Do you have trouble with day-to-day activities such as bathing, preparing meals, shopping, managing finances, etc.?: I choose not to answer this question Are you currently unemployed and looking for a job?: I choose not to answer this question Are you interested in more education?: I choose not to answer this question Please select the resources that you would like help with: None Currently or been in a relationship where the following occur: I choose not to answer THRIVE Score: 0 AUDIT C Alcohol Use Questionnaire (AUDIT-C) 1. How often do you have a drink containing alcohol?: Monthly or less 2. How many drinks containing alcohol do you have on a typical day when you are drinking?: 1 or 2 3. How often do you have six or more drinks on one occasion?: Never Total Score: 1 TERI-7 AMB Questionnaire TERI-7 Date TERI - 7 assessed: 09/21/24 Source: Developed by Drs. Yasmani Rodriguez, Sophia Torres, Manuel Olson and colleagues, with an educational rubi from [employer]. Review of Systems Const Denies chills, Denies fatigue, Denies fever(s), Denies headache(s) and Denies weakness ENT Denies dizziness and Denies headache(s) Card Denies dyspnea Resp Denies cough, Denies dyspnea, Denies wheezing and Denies other (shortness of breath) Musc Denies numbness and Denies tingling Neuro Denies dizziness, Denies headache(s), Denies numbness, Denies tingling and Denies weakness Psych Denies anxiety and Denies depression Endo Denies fatigue Aller/Immun Denies wheezing Physical exam (Primary Care) Vital Signs: Last Vital Signs Pulse 88 04/02/25 08:46 Resp 14 04/02/25 08:46 BP 136/82 04/02/25 08:46 Pulse Ox 99 04/02/25 08:46 Oxygen Delivery Method Room Air 04/02/25 08:46 Tobacco/Smoking Status: Tobacco use Status Tobacco use date assessed 04/02/25 04/02/25 08:50 Patient Tobacco Use Status Former Tobacco user 04/02/25 08:41 Tobacco use type Cigarette 04/02/25 08:41 e-Cigarette/Vaping Use Never Used 04/02/25 08:41 Thrive Assessment: Date of Thrive Assessment Date Thrive assessed 12/24/24 04/02/25 08:41 Currently or been in a relationship where the following occur: I choose not to answer Const General: well developed; No acute distress Nutritional Appearance: well nourished Orientation/consciousness: patient oriented x3 HENMT Head: Yes normocephalic and Yes atraumatic Eyes General: appearance normal, both eyes and all related structures Pupils: Equal, round and reactive pupils present EOM: EOMs intact bilaterally Resp Effort & Inspection: normal respiratory effort Neuro General: patient oriented x3 and gait normal Cranial nerves: Yes Equal, round and reactive pupils present Psych Affect: normal affect Results AMB Hemoglobin A1c AMB Hemoglobin A1c 6.2 % Last Edit by Arleth Daniel CMA on 04/02/25 09:01 Results Reviewed Results Reviewed: Laboratory Last Values Hgb A1c (Clinic) 6.2 % (4.0-6.0) H 04/02/25 08:50 Coding Level of Care Code Est Pt Level 4 (00700) Diagnoses Diabetes E11.9 Iliotibial band syndrome M76.30 Coccyx pain M53.3 Assessment & Plan Assessment & Plan (1) Diabetes: Code(s): E11.9 - Type 2 diabetes mellitus without complications Category: Medical Plan: Patient is taking glimepiride every other day as previously discussed and she is tolerating better this way. A1c has climbed a little but still shows good control at 6.2%. Goal is less than 7% Continue current medication Keep working at a diet low in sugars and starches (2) Iliotibial band syndrome: Code(s): M76.30 - Iliotibial band syndrome, unspecified leg Category: Medical Plan: Left ITB band pain She has had physical therapy for this in the past which was successful. Will restart physical therapy (3) Coccyx pain: Code(s): M53.3 - Sacrococcygeal disorders, not elsewhere classified Category: Medical Plan: Coccygeal fracture and coccyx pain. Pain with sitting but standing relieves this She will get a donut cushion She can use some Tylenol. Does not tolerate NSAIDs due to Crohn's Orders: Orders AMB Hemoglobin A1c Today E11.9 - Type 2 diabetes mellitus without complications PT Evaluation and Treatment Today M76.30 - Iliotibial band syndrome, unspecified leg
[2025-04-02 08:46] VITALS: BP 136/82; PULSE 88; RESP 14; O2SAT 99
--- OUTSIDE RECORDS SUMMARY | 2025-04-02 10:17 | XMS_ITS | Encounter Summary ---
Author Organization [facility] Address [address] [facility] [address] [place] [address] Phone Care Team Providers Care Deputy Sheriff K9 Handler Name Role Phone Lopez Cote MD Primary Care Provider Alma Delia Graves MD, PhD Unavailable [phone] Encounter Details Date Type Department Care Team (Late st Contact Info) Description 06/27/2023 Procedure Pass [facility], [address] [address] Social History Tobacco Use Types Packs/Day Years Used Date Smoking Tobacco: Former Smokeless Tobacco: Never Education Answer Date Recorded Are you interested in more education? Not on fer e 11/12/2022 Are you concerned about learning? Not on file 11/12/2022 No 11/12/2022 No 11/12/2022 Digital Access Answer Date Recorded No 12/11/2022 No 12/11/2022 Reliable internet access at home? Not on file 12/11/2022 Device with a working camera? Not on file Comments Unknown Sex and Gender Information Value Date Recorded Sex Assigned at Female 05/15/2021 9:51 AM EDT Legal Sex Female 9:52 AM EDT Gender Identity Female 05/15/2021 9:51 AM EDT Sexual Orientation Not on file documented as of this encounter Plan of Treatment Upcoming Encounters Date Type Department Care Team (Late st Contact Info) Description 05/23/2025 9:30 AM EST Office Visit [facility] [address] [place] [address] Gordo Lagos DO [address] [facility], [address] [place] [address] [email or web address] 07/01/2025 11:30 AM EST Office Visit [facility] COMPREHENSIVE [facility]ALMOLOGY [facility] [address] [facility] 3rd [place] [address] Gurjit Powell MD 22 [facility], [address] [place] [address] [email or web address] documented as of this encounter Visit Diagnoses Not on filedocumented in this encounter Care Teams Deputy Sheriff K9 Handler Relationship Specialty Start Date End Date Lopez Cote MD [address] [place] [id number] PCP - General 05/15/21 Alma Delia Graves MD, PhD [address] [address] [email or web address] Surgeon Surgical Oncology 05/25/21 documented as of this encounter Additional Source Comments The information contained in this document represents components of the legal health record. It is not the complete legal health record.[facility]
--- OUTSIDE RECORDS SUMMARY | 2025-04-02 10:17 | XMS_ITS | Encounter Summary ---
Author Organization [facility] Address [address] [place] [address] Phone Care Team Providers Care Security Installation Sales Technician Name Role Phone Lopez oCte MD Primary Care Provider Alma Delia Graves MD, PhD Unavailable [phone] Encounter Details Date Type Department Care Team (Late st Contact Info) Description 10/11/2022 Procedure Pass [address] [address] Social History Tobacco Use Types Packs/Day Years Used Date Smoking Tobacco: Former Smokeless Tobacco: Never Comments Unknown Sex and Gender Information Value Date Recorded Sex Assigned at Female 05/15/2021 9:51 AM EDT Legal Sex Female 9:52 AM EDT Gender Identity Female 05/15/2021 9:51 AM EDT Sexual Orientation Not on file documented as of this encounter Plan of Treatment Upcoming Encounters Date Type Department Care Team (Late st Contact Info) Description 05/23/2025 9:30 AM EST Office Visit [facility] [address] [place] [address] Gordo Lagos DO 234 [facility], [address] [place] [address] 07/01/2025 11:30 AM EST Office Visit [facility] COMPREHENSIVE OPHTHALMOLOGY [facility] [address] [facility] 3rd [place] [address] Gurjit Powell MD 22 [facility], [address] [place] [address] [email or web address] documented as of this encounter Visit Diagnoses Not on filedocumented in this encounter Care Teams Security Installation Sales Technician Relationship Specialty Start Date End Date Lopez Cote MD [address] [place] [id number] PCP - General 05/15/21 Alma Delia Graves MD, PhD [address] [address] [email or web address] Surgeon Surgical Oncology 05/25/21 documented as of this encounter Additional Source Comments The information contained in this document represents components of the legal health record. It is not the complete legal health record.[facility]
--- OUTSIDE RECORDS SUMMARY | 2025-04-02 10:17 | XMS_ITS | Encounter Summary ---
Author Organization [facility] Address [address] [facility] [address] [place] [address] Phone Care Team Providers Care Pipe Fitter Name Role Phone Lopez Cote MD Primary Care Provider Alma Delia Graves MD, PhD Unavailable [phone] Reason for Referral * MRI/CAT Scan - Closed Specialty Diagnoses / Procedures Referred By Juliocesar anderson Referred To Contact Radiology Diagnoses Crohn's disease with complication, unspecified gastrointestinal tract location Procedures MRI Enterography Abdomen/Pelvis MRI PELVIS (GI/) Marti Crenshaw PA-C Phone: tel: fax: mailto: Referral ID Status Reason Start Date Expiration Date Visits Re quested Visits Authorized [id number] Closed 01/05/2024 01/04/2025 1 1 Encounter Details Date Type Department Care Team (Latest Contact Info) Description 01/05/2024 Transcribe Orders Virtual Department [address] [place] [address] Marti Crenshaw PA-C [address] [place] [address] [email or web address] Crohn's disease with complication, unspecified gastrointestinal tract location (Primary Dx) Social History Tobacco Use Types Packs/Day Years [...] Description 05/23/2025 9:30 AM EST Office Visit [facility] [address] [place] [address] Gordo Lagos DO 234 [facility], [address] [place] [address] 07/01/2025 11:30 AM EST Office Visit [facility] COMPREHENSIVE OPHTHALMOLOGY [address] 3rd [place] [address] Gurjit Powell MD 22 [facility], [address]rd [place] [address] [email or web address] documented as of this encounter Results * MRI ENTEROGRAPHY ABDOMEN AND PELVIS WITH AND WITHOUT CONTRAST (02/10/2024 10:11 AM EDT) Anatomical Region Laterality Modality Pelvis Magnetic Resonan ce 02/14/2024 10:2 5 AM EDT Impressions 02/14/2024 10:49 AM EDT 1. Moderate circumferential wall thickening involving the terminal ileum segment measuring approximate 5 cm with homogeneous inner wall enhancement. No significant upstream dilatation but findings are suspicious for mild underlying stricture at this location. 2. No fistula, sinus tract or abscess. 3. No other areas of bowel wall thickening. 4. Pancreatic mass, similar to prior study of 06/14/2023. It is not well evaluated using this technique. Follow-up as per clinical protocol. This remains suspicious for neuroendocrine tumor. Other tiny pancreatic cysts are also again noted, poorly characterized. Narrative 02/14/2024 10:49 AM EDT MRI ENTEROGRAPHY ABDOMEN AND PELVIS WITH AND WITHOUT CONTRAST Referring clinician's provided indication for this examination in [facility]: Outside Radiology Order; crohnjannie TECHNIQUE: MRI enterography with and without IV contrast. MR enterography was performed following oral contrast administration. This examination is tailored to evaluate for inflammatory changes in the bowel. COMPARISON: No prior MR enterography was are available for review. Prior MRI abdomen dated 06/14/2023 is reviewed. FINDINGS: Bowel: No bowel obstruction. There is moderate circumferential wall thickening (measuring up to 6 mm) involving the terminal ileum over a segment measuring approximately 5 cm in length with homogeneous inner wall enhancement. No significant upstream dilatation. Findings are suspicious for mild underlying stricture. No fistula, sinus tract or abscess. No other areas of bowel wall thickening. Peritoneum/Retroperitoneum: No free fluid in the abdomen or pelvis. Lymph Nodes: No enlarged lymph nodes in the abdomen or pelvis. Other solid organs: Solid organs of the abdomen and pelvis are not well characterized using this technique. Within those limitations, note is again made of a rounded lesion in the anterior aspect of the body/tail junction of the pancreas with restricted diffusion (10:59), similar to 03/14/2023 given differences in technique. Scattered sub-5 mm cysts in the pancreas are also noted. Vessels: No abdominal aortic aneurysm. Patent portal vein. Bones/Soft Tissues: No focal marrow replacing lesions. Procedure Note Fish Gonzales MD - 02/14/2024 MRI ENTEROGRAPHY ABDOMEN AND PELVIS WITH AND WITHOUT CONTRAST Referring clinician's provided indication for this examination in Epic:Outside Radiology Order; crohns TECHNIQUE: MRI enterography with and without IV contrast. MR enterographywas performed following oral contrast administration. This examination istailored to evaluate for inflammatory changes in the bowel. COMPARISON: No prior MR enterography was are available for review. PriorMRI abdomen dated 06/14/2023 is reviewed. FINDINGS: Bowel: No bowel obstruction. There is moderate circumferential wall thickening (measuring up to 6 mm)involving the terminal ileum over a segment measuring approximately 5 cmin length with homogeneous inner wall enhancement. No significant upstreamdilatation. Findings are suspicious for mild underlying stricture. No fistula, sinus tract or abscess. No other areas of bowel wall thickening. Peritoneum/Retroperitoneum: No free fluid in the abdomen or pelvis. Lymph Nodes: No enlarged lymph nodes in the abdomen or pelvis. Other solid organs: Solid organs of the abdomen and pelvis are not wellcharacterized using this technique. Within those limitations, note is again made of a rounded lesion in theanterior aspect of the body/tail junction of the pancreas with restricteddiffusion (10:59), similar to 03/14/2023 given differences in technique.Scattered sub-5 mm cysts in the pancreas are also noted. Vessels: No abdominal aortic aneurysm. Patent portal vein. Bones/Soft Tissues: No focal marrow replacing lesions. IMPRESSION: 1. Moderate circumferential wall thickening involving the terminal ileumsegment measuring approximate 5 cm with homogeneous inner wallenhancement. No significant upstream dilatation but findings aresuspicious for mild underlying stricture at this location. 2. No fistula, sinus tract or abscess. 3. No other areas of bowel wall thickening. 4. Pancreatic mass, similar to prior study of 06/14/2023. It is not wellevaluated using this technique. Follow-up as per clinical protocol. Thisremains suspicious for neuroendocrine tumor. Other tiny pancreatic cystsare also again noted, poorly characterized. Marti DAMICO MR ABDOMEN Final Result documented in this encounter Visit Diagnoses Diagnosis Crohn's disease with complication, unspecified gastrointestinal tract location- Primary Crohn's disease with complication, unspecified gastrointestinal tract location documented in this encounter Care Teams Pipe Fitter Relationship Specialty Start Date End Date Lopez Cote MD [address] [place] [address] PCP - General 05/15/21 Alma Delia Graves MD, PhD [address] [address] [email or web address] Surgeon Surgical Oncology 05/25/21 documented as of this encounter Additional Source Comments The information contained in this document represents components of the legal health record. It is not the complete legal health record.[facility]
--- OUTSIDE RECORDS SUMMARY | 2025-04-02 10:17 | XMS_ITS | Encounter Summary ---
Author Organization [facility] Address [address] [facility] [address] [place] [address] Phone Care Team Providers Care Audit Machine Operator Name Role Phone Lopez Cote MD Primary Care Provider Alma Deila Graves MD, PhD Unavailable [phone] Encounter Details Date Type Department Care Team (Late st Contact Info) Description 07/27/2023 Procedure Pass [facility], [address] [address] Social History Tobacco Use Types Packs/Day Years [...] Description 05/23/2025 9:30 AM EST Office Visit [facility] [address] [place] [address] Gordo Lagos DO 234 [facility], [address] [place] [address] [email or web address] 07/01/2025 11:30 AM EST Office Visit [facility]IVE [facility]MOLOGY [facility] [address] [facility] 3rd [place] [address] Gurjit Powell MD 22 [facility], [address] [place] [address] [email or web address] documented as of this encounter Visit Diagnoses Not on filedocumented in this encounter Care Teams Audit Machine Operator Relationship Specialty Start Date End Date Lopez Cote MD [address] [place] [address] PCP - General 05/15/21 Alma Delia Graves MD, PhD [address] [address] [email or web address] Surgeon Surgical Oncology 05/25/21 documented as of this encounter Additional Source Comments The information contained in this document represents components of the legal health record. It is not the complete legal health record.[facility]
--- OUTSIDE RECORDS SUMMARY | 2025-04-02 10:17 | XMS_ITS | Encounter Summary ---
Author Organization [facility] Address [address] [facility] [address] [place] [address] Phone Care Team Providers Care Staff Mechanical Engineer Name Role Phone Lopez Cote MD Primary Care Provider Alma Delia Graves MD, PhD Unavailable [phone] Encounter Details Date Type Department Care Team (Late st Contact Info) Description 01/05/2024 Procedure Pass [facility], [address] [address] Social History Tobacco Use Types Packs/Day Years [...] Description 05/23/2025 9:30 AM EST Office Visit [facility] [address] [place] [address] Gordo Lagos DO 234 [facility], [address] [place] [address] [email or web address] 07/01/2025 11:30 AM EST Office Visit [facility]ENSIVE [facility]PH[facility]ALMOLOGY [facility] 22 [facility] 3rd Floor [place] [address] Gurjit Powell MD [address] [facility], [address] [place] [address] [email or web address] documented as of this encounter Visit Diagnoses Not on filedocumented in this encounter Care Teams Staff Mechanical Engineer Relationship Specialty Start Date End Date Lopez Cote MD [address] [place] [address] PCP - General 05/15/21 Alma Delia Graves MD, PhD [address] [address] [email or web address] Surgeon Surgical Oncology 05/25/21 documented as of this encounter Additional Source Comments The information contained in this document represents components of the legal health record. It is not the complete legal health record.[facility]
--- OUTSIDE RECORDS SUMMARY | 2025-04-02 10:17 | XMS_ITS | Clinical Summary ---
Author Organization Formerly [facility] Address [email or web address] [facility] [address] [place] [phone] Phone Care Team Providers Care Requirements Engineer Name Role Phone Lopez Cote MD Primary Care Provider Alma Delia Graves MD, PhD Unavailable [phone] Allergies Active Allergy Reactions Criticality Noted Date Comments Penicillins 05/18/2021 Methylprednisolone Sodium Succ 05/18 Oevkdwx-Tij-Kfc Reductase Inhibitors 05/18/2021 Medications gemfibroziL (LOPID) 600 MG tablet Take 600 mg by mouth 2 (two) times a day before meals. Active cyanocobalamin , vitamin B-12, 1,000 mcg/mL Kit Inject as directed every 30 (thirty) days. Use as directed Active famotidine (PEPCID) 40 MG tablet Take 40 mg by mouth daily. Active cholecalcifero l (VITAMIN D3) 2,000 unit tablet Take 2,000 Units by mouth 3 (three) times a week. Active fluticasone propionate (FLONASE) 50 mcg/actuation nasal spray 1 spray by Nasal route daily. Active loratadine (CLARITIN) 10 mg tablet Take 10 mg by mouth daily. Active alendronate (FOSAMAX) 70 MG tablet Take 1 tablet (70 mg total) by mouth every 7 days. Take in the morning with a full glass of water, on an empty stomach, and do not take anything else by mouth or lie down for the next 30 min. 12 tablet 3 07/04/20 23 Active Additional Information Patient not taking.Reported on 03/02/2025 sodium fluoride-potas sium nitrate (PREVIDENT 5000 SENSITIVE) 1.1-5 % Pste APPLY A SMALL AMOUNT TO TEETH ONCE A DAY Active morphine (MSIR) 15 MG tablet Take 1 tablet (15 mg total) by mouth every 6 (six) hours as needed for pain (specific location in comments). Partial fill ok 10 tablet 01/20/20 025 Discontinued albuterol 90 mcg/actuation inhaler USE 2 PUFFS 4 TIMES A DAY NEEDED FOR SHORTNESS OF BREATH OR WHEEZING FOR 30 DAYS 025 Discontinued sulfamethoxazo le-trimethopri m (BACTRIM DS) 800-160 mg per tablet Take 1 tablet (160 mg of trimethoprim total) by mouth 2 (two) times a day for 3 days. Take w food, yogurt, probiotics. Finish all. 6 tablet 03/02/20 025 Active Problems Problem Noted Date Diagnosed Date Cyst of pancreas 05/26/2021 Encounters Date Type Department Care Team Description 03/26/2025 1:00 PM EDT Telemedicine - audio only [facility] Neurosurgery [address] [facility], 5th Floor, [address] [place] [address] Erickson Iraheta, SHANTELL, DNP Meningioma (Primary Dx) 03/12/2025 Telephone [facility] Neurosurgery [address] [facility], 5th Floor, [address] [place] [address] Elen Munoz MD 03/02/2025 10:30 AM EDT Office Visit [facility] at [address] [address] Samra Walter FNP Acute UTI (urinary tract infection) (Primary Dx) 02/26/2025 9:12 AM EDT - 02/26/2025 11:59 PM EDT Hospital Encounter [facility], [address] [address] Elen Munoz MD Discharge Disposition: Home or Self Care 02/08/2025 6:13 PM EDT - 02/08/2025 10:57 PM EDT Emergency [facility] Emergency [address] [place] [id number] Celestino Gallo MD Discharge Disposition: Home or Self Care 02/08/2025 Procedure [facility], [address] [address] 01/19/2025 Telephone [facility] Emergency [address] [place] [address] Blayne Marr PA-C 01/19/[address] [address] 01/18/2025 6:16 PM EDT - 01/19/2025 1:59 AM EDT Emergency [facility] Emergency [address] [place] [phone] Starla Robert MD Discharge Disposition: Home or Self Care 03/29/[address] [address] from Last 3 Months Family History Medical History Relation Comments Glaucoma Mother Hyperparathyroidism Neg Hx Relation Status Comments Mother Social History Tobacco Use Types Packs/Day Years Used Date Smoking Tobacco: Former Smokeless Tobacco: Never Alcohol Use Standard Drinks/Week Comments Not Currently 0 (1 standard drink = 0.6 oz pur e alcohol) Child or Family Care Answer Date Record ed Do you have problems with on e of the following making it difficult for you to work, study, or receive health care? I choose not to answer 03/25/2025 Education Answer Date Recorded Are you interested in more education? Not on fer e 11/12/2022 Are you concerned about learning? Not on file 11/12/2022 No 11/12/2022 No 11/12/2022 Food Answer Date Recorded Within the past 6 months we worried whether our food would run out before we got money to buy more. Never True 03/25/2025 Within the past 6 months the food we bought just didn't last and we didn't have enough money to get more. Never True Residential Stability Answer Date Recor ded What is your housing situation today? I have denisa nath 03/25/2025 How many times have you moved in the past 12 mon ths? One time 03/25/2025 Paying for Meds Answer Date Recorded Do you have trouble paying for medicines? No 03/25/2025 Paying Utility Bills Answer Date Record ed Do you have trouble paying your heating or elect ricity bill? No 03/25/2025 Transportation Answer Date Recorded Has the lack of transportati on kept you from medical appointments or from getting medications? No 03/25/2025 Digital Access Answer Date Recorded No 03/25/2025 No 03/25/2025 Do you have reliable internet access at home? I choose not to answer 03/25/2025 Do you have a device (e.g., phone, tablet, computer) with a working camera? I choose not to answer 03/25/2025 Intimate Partner Violence Answer Date R ecorded Are you denied basic needs s uch as food, clothing, or medical care? No 02/08/2025 In the past 12 months have y ou been in a relationship with a person who hurts, threatens, or tries to control you? No 02/08/2025 Are you denied basic needs s uch as food, clothing, or medical care? No 02/08/2025 In the past 12 months have y ou been in a relationship with a person who hurts, threatens, or tries to control you? No 02/08/2025 Comments Unknown Sex and Gender Information Value Date Recorded Sex Assigned at Female 05/15/2021 9:51 AM EDT Legal Sex Female 9:52 AM EDT Gender Identity Female 05/15/2021 9:51 AM EDT Sexual Orientation Not on file Last Filed Vital Signs Vital Sign Reading Time Taken Comments Blood Pressure 158/68 03/02/2025 11:12 AM EDT Pulse 65 03/02/2025 11:12 AM EDT Temperature 36.2 C (97.1 F) 03/02/2025 11:12 AM EDT Respiratory Rate 18 03/02/2025 11:12 AM EDT Oxygen Saturation 100% 03/02/2025 11:12 AM EDT Inhaled Oxygen Concentration - - Weight 59 kg (130 lb) 03/02/2025 11:12 AM EDT Height 160 cm (5' 3 ) 03/02/2025 11:12 AM EDT Body Mass Index 23.03 03/02/2025 11:12 AM EDT Plan of Treatment Upcoming Encounters Date Type Department Care Team (Late st Contact Info) Description 05/23/2025 9:30 AM EST Office Visit [facility] [address] [place] [address] Gordo Lagos DO [address] [facility], [address] [place] [address] 07/01/2025 11:30 AM EST Office Visit [facility] [address] [facility] 3rd Floor [place] [phone] Gurjit Powell MD [address] [facility], 3rd [place] [address] [email or web address] Maintenance Due Date Last Done Comments LIPID PANEL 1955 DEPRESSION SCREENING 1967 SMOKING Hx and SMOKELESS TOBACCO SCREENING 01/16/1968 HEPATITIS C SCREENING 1973 MAMMOGRAM 1995 COLOGUARD 01/16/2000 COLONOSCOPY 01/16/2000 COLORECTAL CANCER SCREENING 01/16/2000 FIT TEST 01/16/2000 FOBT 01/16/2000 SIGMOIDOSCOPY 01/16/2000 VIRTUAL COLONOSCOPY 01/16/2000 ZOSTER VACCINES (1 of 2) 2005 OSTEOPOROSIS SCREENING INITI AL (ONE-TIME) 01/16/2020 PNEUMOCOCCAL VACCINES (50+ years) (2 of 2 - PCV) 01/23/2021 01/24/2020 INFLUENZA VACCINE (#1) 2025 COVID-19 VACCINE (4 - 2024-2 6 season) 2025 05/18/2021, 10/24/2020, 10/03/2020 Adult Td,Tdap Booster 01/31/2027 01/31/2017 RSV VACCINE (1 - 1-dose 75+ series) 2030 HEPATITIS A VACCINES Aged Out No long er eligible based on patient's age to complete this topic HIB VACCINES Aged Out No longer eligi ble based on patient's age to complete this topic MENINGOCOCCAL VACCINES (ACWY) Aged Out No longer eligible based on patient's age to complete this topic MENINGOCOCCAL VACCINES (B) Aged Out N o longer eligible based on patient's age to complete this topic Medical Devices Not on file Procedures Procedure Name Priority Date/Time Associated Diagnosis Comments URINE CULTURE Routine 03/02/2025 12:00 PM EDT Acute UTI (urinary tract infection) POCT URINE DIPSTICK Routine 03/02/2025 1 1:02 AM EDT MRI BRAIN WITH AND WITHOUT CONTRAST Routine 02/26/2025 11:[address] ABDOMEN/PELVIS WITH CONTRAST Routine 02/08/2025 8:42 PM EDT URINE SEDIMENT STAT 02/08/2025 6:16 PM EDT URINALYSIS W/REFLEX URINE CULTURE STAT 02/08/2025 6:16 PM EDT LIPASE STAT 02/08/2025 4:49 PM EDT LFTS (HEPATIC PANEL) STAT 02/08/2025 4:49 PM EDT BASIC METABOLIC PANEL STAT 02/08/2025 4:49 PM EDT CBC AND DIFFERENTIAL STAT 02/08/2025 4:[address] PELVIS (BONY PELVIS) WITHOUT CONTRAST Routine 01/19/2025 1:03 AM EDT XR PELVIS 1-2 VIEW Routine 01/18/2025 11 :31 PM EDT XR SACRUM AND COCCYX Routine 01/18/2025 11:31 PM EDT LIPASE STAT 01/18/2025 6:51 PM EDT LFTS (HEPATIC PANEL) STAT 01/18/2025 6:51 PM EDT BASIC METABOLIC PANEL STAT 01/18/2025 6:51 PM EDT CBC AND DIFFERENTIAL STAT 01/18/2025 6:51 PM EDT URINE SEDIMENT STAT 01/18/2025 6:20 PM EDT URINALYSIS W/REFLEX URINE CULTURE STAT 01/18/2025 6:20 PM EDT from Last 3 Months Results * (ABNORMAL) Urine Culture (03/02/2025 12:00 PM EDT) Special Requests None 03/02/2025 12:00 PM EDT [facility] Urine Culture 10,000 to 100,000 colony forming units per mL MIXED LEENA (3 OR MORE COLONY TYPES) Culture indicates contamination . Please resubmit if necessary.(A) 03/04/2025 9:20 AM EDT [facility] Urine (Urine) 03/02/2025 12: 00 PM EDT 03/02/2025 2:26 PM EDT Comment:CLEAN CATCH~CC Samra Walter [facility] - GENERAL ORDE BRENDEN Final Result [facility] [address] [place] [address] * (ABNORMAL) POCT Urine Dipstick (Automated) (03/02/2025 11:02 AM EDT) COLOR LT YELLOW [facility] TURBIDITY Slightly Cloudy [facility] GLUCOSE, POCT Negative Negative [facility] KETONE, POCT Negative Negative [facility] OCCULT BLOOD, POCT Trace Intact(A) Negative [facility] SPECIFIC GRAVITY, POCT <1.005 1.001 - 1.030 [facility] ALBUMIN, POCT Negative Negative [facility] Bili Negative Negative [facility] Urobilinogen 0.2 <1.0 [facility] NITRITE, POCT Negative Negative [facility] PH, POCT 5.5 5.0 - 8.0 [facility] WBC SCREEN, POCT 1+(A) Negative [facility] 03/02/2025 11:0 2 AM EDT 03/02/2025 11:05 AM EDT Samra Walter INTAKE RN POINT OF CARE TEST ORDERABL ES Final Result [facility] [address] [address], [facility] [phone] * MRI BRAIN WITH AND WITHOUT CONTRAST (02/26/2025 11:05 AM EDT) Anatomical Region Laterality Modality Head Magnetic Resonan ce 02/27/2025 11:2 6 AM EDT Impressions 02/27/2025 11:34 AM EDT 1. No significant change in 10 mm dural based enhancing lesion overlying the LEFT superior frontal lobe, likely meningioma. Narrative 02/27/2025 11:34 AM EDT MRI BRAIN WITH AND WITHOUT CONTRAST Referring clinician's provided indication for this examination in Epic: * Meningioma, monitor TECHNIQUE: MRI BRAIN WITH AND WITHOUT CONTRAST Multi-sequence, multi-planar MRI of the brain was performed before and after intravenous contrast. COMPARISON: MRI BRAIN WITH AND WITHOUT CONTRAST FINDINGS: Brain Parenchyma: No evidence of acute infarct, mass, hemorrhage or abnormal enhancement. There are scattered foci of T2 hyperintensity in the white matter, likely a manifestation of chronic small vessel disease. Ventricular System and Extra-Axial Spaces: There is no evidence of midline shift or hydrocephalus. Redemonstration of nodular dural-based enhancing lesion overlying the LEFT superior frontal: Measuring up to 10 mm, similar compared with prior. There is hyperostosis of the adjacent frontal bone with mild intraosseous extension. Extracranial Structures: Expected arterial flow signal is observed at the skull base. Procedure Note Slade Ballesteros MD, PhD - 02/27/2025 MRI BRAIN WITH AND WITHOUT CONTRAST Referring clinician's provided indication for this examination in [facility]: *Meningioma, monitor TECHNIQUE: MRI BRAIN WITH AND WITHOUT CONTRAST Multi-sequence, multi-planar MRI of the brain was performed before andafter intravenous contrast. COMPARISON: MRI BRAIN WITH AND WITHOUT CONTRAST FINDINGS: Brain Parenchyma: No evidence of acute infarct, mass, hemorrhage orabnormal enhancement. There are scattered foci of T2 hyperintensity in thewhite matter, likely a manifestation of chronic small vessel disease. Ventricular System and Extra-Axial Spaces: There is no evidence of midlineshift or hydrocephalus. Redemonstration of nodular dural-based enhancinglesion overlying the LEFT superior frontal: Measuring up to 10 mm, similarcompared with prior. There is hyperostosis of the adjacent frontal bonewith mild intraosseous extension. Extracranial Structures: Expected arterial flow signal is observed at theskull base. IMPRESSION: 1. No significant change in 10 mm dural based enhancing lesion overlyingthe LEFT superior frontal lobe, likely meningioma. us Elen Munoz MD IMG MR HEAD/NECK Final Result * CT ABDOMEN/PELVIS WITH CONTRAST (02/08/2025 8:42 PM EDT) Anatomical Region Laterality Modality Abdomen, Pelvis Computed Tomogra phy 02/08/2025 9:57 PM EDT Impressions 02/08/2025 10:02 PM EDT No acute abnormality within the abdomen or pelvis. Narrative 02/08/2025 10:[address] ABDOMEN/PELVIS WITH CONTRAST Referring clinician's provided indication for this examination in [facility]: * RLQ abdominal pain, appendicitis suspected (Age >= 14y); RLQ pain, suspect crohn's flare vs. appy. TECHNIQUE: CT of the abdomen and pelvis was performed after administration of intravenous contrast using tailored dose modulation techniques. Images were reconstructed in the axial, coronal, and sagittal planes. COMPARISON: CT PELVIS (BONY PELVIS) WITHOUT CONTRAST ; MRI CHOLANGIOPANCREATOGRAPHY (MRCP) WITH AND WITHOUT CONTRAST FINDINGS: Lower Chest: No consolidation or effusions. Liver: A few scattered cysts measuring up to 1 cm in the left lobe. Biliary: Prior cholecystectomy. No biliary ductal dilatation. Spleen: Subcentimeter cyst. No splenomegaly. Pancreas: No ductal dilatation, peripancreatic fluid, or stranding. Adrenal Glands: No nodules. Kidneys/Ureters: Normal. No stones or hydronephrosis. Bowel: Normal appendix. No bowel obstruction or wall thickening. Colonic diverticulosis without diverticulitis. Peritoneum/Retroperitoneum: No pneumoperitoneum or fluid. Lymph Nodes: No lymphadenopathy. Pelvic Organs/Bladder: No mass. Vessels: No abdominal aortic aneurysm. Bones/Soft Tissues: No destructive osseous lesions. L4-5 grade 1 anterolisthesis. Procedure Note Caity Felton MD - 02/08/2025 CT ABDOMEN/PELVIS WITH CONTRAST Referring clinician's provided indication for this examination in Epic: *RLQ abdominal pain, appendicitis suspected (Age >= 14y); RLQ pain, suspectcrohn's flare vs. appy. TECHNIQUE: CT of the abdomen and pelvis was performed after administrationof intravenous contrast using tailored dose modulation techniques. Imageswere reconstructed in the axial, coronal, and sagittal planes. COMPARISON: CT PELVIS (BONY PELVIS) WITHOUT CONTRAST ; MRICHOLANGIOPANCREATOGRAPHY (MRCP) WITH AND WITHOUT CONTRAST FINDINGS: Lower Chest: No consolidation or effusions. Liver: A few scattered cysts measuring up to 1 cm in the left lobe. Biliary: Prior cholecystectomy. No biliary ductal dilatation. Spleen: Subcentimeter cyst. No splenomegaly. Pancreas: No ductal dilatation, peripancreatic fluid, or stranding. Adrenal Glands: No nodules. Kidneys/Ureters: Normal. No stones or hydronephrosis. Bowel: Normal appendix. No bowel obstruction or wall thickening. Colonicdiverticulosis without diverticulitis. Peritoneum/Retroperitoneum: No pneumoperitoneum or fluid. Lymph Nodes: No lymphadenopathy. Pelvic Organs/Bladder: No mass. Vessels: No abdominal aortic aneurysm. Bones/Soft Tissues: No destructive osseous lesions. L4-5 grade 1anterolisthesis. IMPRESSION: No acute abnormality within the abdomen or pelvis. Celestino Gallo MD IMG CT ABD/PELVIS Final Result * (ABNORMAL) Urinalysis w/reflex Urine Culture (02/08/2025 6:16 PM EDT) Only the most recent of2 resultswithin the time period is included. COLOR Yellow Yellow [facility] CLARITY Clear [facility] GLUCOSE Negative Negative [facility] BILI Negative Negative [facility] KETONES Negative Negative [facility] SPECIFIC GRAVITY 1.020 1.005 - 1.030 [facility] BLOOD Negative Negative [facility] PH 6.0 5.0 - 8.0 [facility] Protein-UA Negative Negative [facility] NITRITE Negative Negative [facility] Leukocyte esterase, ur 1+(A) Negative [facility] Urine (Urine) 02/08/2025 6:1 6 PM EDT 02/08/2025 7:13 PM EDT Josue Fernandez PA-C URINE ORDERABLES Final Result [address] [address] * (ABNORMAL) Urine sediment (02/08/2025 6:16 PM EDT) Only the most recent of2 resultswithin the time period is included. WBC 0-4(A) NONE SEEN /hpf [facility] RBC 0-2(A) NONE SEEN /hpf [facility] URINE EPITHELIAL 0-4(A) NONE SEEN [facility] MUCUS Trace(A) NONE SEEN /hpf [facility] BACTERIA Trace(A) NONE SEEN /hpf [facility] 02/08/2025 6:16 PM EDT 02/08/2025 7:13 PM EDT Josue Fernandez PA-C URINE ORDERABLES Final Result Performing Organization Address [facility] Co de Phone Number [address] [address] * (ABNORMAL) LFTs (hepatic panel) (02/08/2025 4:49 PM EDT) Only the most recent of2 resultswithin the time period is included. ALKALINE PHOSPHATASE 122(H) 39 - 117 U/L [facility] TOTAL BILIRUBIN <0.2 0.0 - 1.2 mg/dL [facility] DIRECT BILIRUBIN <0.1 0.0 - 0.2 mg/dL [facility] Bilirubin (Indirect) NOT CALCULATED 0 - 1.5 mg/dL [facility] AST 14 0 - 37 U/L [facility] ALT 13 0 - 40 U/L [facility] TOTAL PROTEIN 7.8 6.5 - 8.0 g/dL [facility] ALBUMIN 4.6 3.9 - 4.8 g/dL [facility] GLOBULIN 3.2 1 - 4.8 g/dL [facility] A/G Ratio 1.44 1.00 - 4.80 RATIO [facility] Blood 02/08/2025 4:49 PM EDT 02/08/2025 5:18 PM EDT Josue Fernandez PA-C LAB BLOOD ORDERABLES Final Re sult Performing Organization Address [facility] Co de Phone Number [address] [address] * (ABNORMAL) CBC and differential (02/08/2025 4:49 PM EDT) Only the most recent of2 resultswithin the time period is included. WBC 6.93 4.00 - 11.00 K/uL [facility] RBC 4.32 4.00 - 5.20 M/uL [facility] HGB 12.8 12.0 - 16.0 g/dL [facility] HCT 39.0 36.0 - 46.0 % [facility] PLT 409 150 - 450 K/uL [facility] MCV 90.3 80.0 - 100.0 fL [facility] MCH 29.6 27.0 - 31.0 pg [facility] MCHC 32.8 32.0 - 36.0 g/dL [facility] RDW 12.4 11.5 - 14.5 % [facility] MPV 9.9 8.4 - 12.0 fL [facility] NRBC 0.00 0.00 /100 WBCs [facility] ABSOLUTE NRBC 0.00 0.00 K/uL [facility] DIFF METHOD Auto [facility] NEUTS 47.2(L) 48.0 - 76.0 % [facility] LYMPHS 36.1 18.0 - 41.0 % [facility] MONOS 12.3(H) 4.0 - 11.0 % [facility] EOS 3.5 0.0 - 5.0 % [facility] BASOS 0.6 0.0 - 1.5 % [facility] Granulocytes, immature (%) 0.3 0.0 - 0.9 % [facility] ABSOLUTE NEUTS 3.28 1.92 - 7.60 K/uL [facility] ABSOLUTE LYMPHS 2.50 0.72 - 4.10 K/uL [facility] ABSOLUTE MONOS 0.85 0.16 - 1.10 K/uL [facility] ABSOLUTE EOS 0.24 0.00 - 0.50 K/uL [facility] ABSOLUTE BASOS 0.04 0.00 - 0.15 K/uL [facility] Granulocytes, immature 0.02 0.00 - 0.09 K/uL [facility] Blood 02/08/2025 4:49 PM EDT 02/08/2025 5:18 PM EDT us Josue Fernandez PA-C LAB BLOOD ORDERABLES Final Re sult [facility] [address] [place] [address] * Lipase (02/08/2025 4:49 PM EDT) Only the most recent of2 resultswithin the time period is included. LIPASE 28 16 - 63 U/L [facility] Blood 02/08/2025 4:49 PM EDT 02/08/2025 5:18 PM EDT Josue DODD-Trae LAB BLOOD ORDERABLES Final Re sult Performing Organization Address [facility] Co de Phone Number [address] [address] * (ABNORMAL) Basic metabolic panel (02/08/2025 4:49 PM EDT) Only the most recent of2 resultswithin the time period is included. SODIUM 140 133 - 146 mmol/L [facility] CHLORIDE 103 96 - 108 mmol/L [facility] POTASSIUM 4.7 3.3 - 5.1 mmol/L [facility] CO2 24 21 - 35 mmol/L [facility] BUN 19 6 - 19 mg/dL [facility] CREATININE 0.70 0.5 - 1.5 mg/dL [facility] GLUCOSE 97 70 - 99 mg/dL [facility] CALCIUM 10.6(H) 8.4 - 10.3 mg/dL [facility] EGFR 93 >59 mL/min/1.7 3m2 [facility] Comment:Estimated glomerular filtration rate calculated using the CKD-EPI refit equation. ANION GAP 18 10 - 20 mmol/L [facility] Blood 02/08/2025 4:49 PM EDT 02/08/2025 5:18 PM EDT Josue Fernandez PA-C LAB BLOOD ORDERABLES Final Re sult Performing Organization Address City/[facility] Co de Phone Number [address] [address] * CT PELVIS (BONY PELVIS) WITHOUT CONTRAST (01/19/2025 1:03 AM EDT) Anatomical Region Laterality Modality Pelvis Computed Tomogra phy 01/19/2025 1:27 AM EDT Impressions 01/19/2025 1:41 AM EDT No acute fracture with degenerative changes noted. Narrative 01/19/2025 1:[address] PELVIS (BONY PELVIS) WITHOUT CONTRAST Referring clinician's provided indication for this examination in [facility]: * Pelvic fracture TECHNIQUE: Multidetector-row CT of the bony pelvis, without intravenous contrast using dose-modulation techniques. Images were reconstructed in the axial, coronal, and sagittal planes. COMPARISON: X-ray lumbar spine, sacrum, and coccyx from same day. FINDINGS: Bones and Joints: No acute fracture. Degenerative change in the partially visualized lumbar spine with grade 1 anterolisthesis of L4 on L5 with associated facet arthropathy. Intervertebral disc space narrowing with vacuum disc phenomenon at L5-S1. Sacroiliac joints are intact with degenerative changes noted. Pubic symphysis is intact. Soft Tissues: No acute abnormality in the visualized portion of the lower abdomen and pelvis. Appendix is seen in the right lower quadrant and is unremarkable. Submucosal fat deposition in the terminal ileum likely reflecting sequelae of prior ablation. Colonic diverticulosis. Mild subcutaneous stranding in the left posterior gluteal soft tissues which may reflect soft tissue contusion given recent trauma. Procedure Note Bjorn Saez MD - 01/19/2025 CT PELVIS (BONY PELVIS) WITHOUT CONTRAST Referring clinician's provided indication for this examination in [facility]: *Pelvic fracture TECHNIQUE: Multidetector-row CT of the bony pelvis, without intravenouscontrast using dose-modulation techniques. Images were reconstructed inthe axial, coronal, and sagittal planes. COMPARISON: X-ray lumbar spine, sacrum, and coccyx from same day. FINDINGS: Bones and Joints: No acute fracture. Degenerative change in the partiallyvisualized lumbar spine with grade 1 anterolisthesis of L4 on L5 withassociated facet arthropathy. Intervertebral disc space narrowing withvacuum disc phenomenon at L5-S1. Sacroiliac joints are intact withdegenerative changes noted. Pubic symphysis is intact. Soft Tissues: No acute abnormality in the visualized portion of the lowerabdomen and pelvis. Appendix is seen in the right lower quadrant and isunremarkable. Submucosal fat deposition in the terminal ileum likelyreflecting sequelae of prior ablation. Colonic diverticulosis. Mildsubcutaneous stranding in the left posterior gluteal soft tissues whichmay reflect soft tissue contusion given recent trauma. IMPRESSION: No acute fracture with degenerative changes noted. Starla Robert MD IMG CT XSPECIALTY ORDERABLES Final Result * XR PELVIS 1-2 VIEW (01/18/2025 11:31 PM EDT) Anatomical Region Laterality Modality Pelvis Computed Radiogr aphy 01/19/2025 12:1 0 AM EDT Impressions 01/19/2025 12:19 AM EDT FINDINGS/IMPRESSION: Subtle anterior cortical irregularity of the lower sacrum, at approximately level of the S4 vertebral body, may relate to nondisplaced fracture versus artifact related to projection. Osseous structures otherwise appear intact. No dislocation. Lower lumbar spine degenerative changes. Joint spaces are maintained. Narrative 01/19/2025 12:19 AM EDT XR SACRUM AND COCCYX, XR PELVIS 1-2 VIEW Referring clinician's provided indication for this examination in Epic: Trauma COMPARISON: CT PET ABDOMEN/PELVIS WITH CONTRAST Procedure Note Russ Dunn MD - 01/19/2025 XR SACRUM AND COCCYX, XR PELVIS 1-2 VIEW Referring clinician's provided indication for this examination in [facility]:Trauma COMPARISON: CT PET ABDOMEN/PELVIS WITH CONTRAST IMPRESSION: FINDINGS/IMPRESSION: Subtle anterior cortical irregularity of the lower sacrum, atapproximately level of the S4 vertebral body, may relate to nondisplacedfracture versus artifact related to projection. Osseous structures otherwise appear intact. No dislocation. Lower lumbarspine degenerative changes. Joint spaces are maintained. us Starla Robert MD G XR PELVIS Final Result * XR Sacrum and Coccyx (01/18/2025 11:31 PM EDT) Anatomical Region Laterality Modality L-spine Computed Radiogr aphy 01/19/2025 12:1 0 AM EDT Impressions 01/19/2025 12:19 AM EDT FINDINGS/IMPRESSION: Subtle anterior cortical irregularity of the lower sacrum, at approximately level of the S4 vertebral body, may relate to nondisplaced fracture versus artifact related to projection. Osseous structures otherwise appear intact. No dislocation. Lower lumbar spine degenerative changes. Joint spaces are maintained. Narrative 01/19/2025 12:19 AM EDT XR SACRUM AND COCCYX, XR PELVIS 1-2 VIEW Referring clinician's provided indication for this examination in [facility]: Trauma COMPARISON: CT PET ABDOMEN/PELVIS WITH CONTRAST Procedure Note Russ Dunn MD - 01/19/2025 XR SACRUM AND COCCYX, XR PELVIS 1-2 VIEW Referring clinician's provided indication for this examination in [facility]:Trauma COMPARISON: CT PET ABDOMEN/PELVIS WITH CONTRAST IMPRESSION: FINDINGS/IMPRESSION: Subtle anterior cortical irregularity of the lower sacrum, atapproximately level of the S4 vertebral body, may relate to nondisplacedfracture versus artifact related to projection. Osseous structures otherwise appear intact. No dislocation. Lower lumbarspine degenerative changes. Joint spaces are maintained. Starla Robert MD IMG XR SPINE Final Result from Last 3 Months Insurance [facility] MEDICARE SUPPLEMENT [facility] MEDICARE SUPPLEMENT MEDICARE PART A & B Member Subscriber Plan / Payer (Ef fective 2019-Present) Name:Renu Orozco Member ID:[id number] Relation to Subscriber:Self Name:Renu Orozco Subscriber ID:[id number] Payer ID:[id number] Group ID:Not on file Type:Medicare Address: [employer] [address] [place] [id number] [place] [address] EXTENSION MEDICARE SUPPLEMENT MEDICARE PART A & B [facility] EXTENSION MEDICARE SUPPLEMENT MEDICARE PART A & B [employer] MEDICARE SUPPLEMENT MEDICARE PART A & B [employer] MEDICARE SUPPLEMENT MEDICARE PART A & B [facility] EXTENSION MEDICARE SUPPLEMENT MEDICARE PART A & B [facility] EXTENSION MEDICARE SUPPLEMENT MEDICARE PART A & B [facility] EX[employer]ION MEDICARE SUPPLEMENT Care Teams Requirements Engineer Relationship Specialty Start Date End Date Lopez Cote MD [address] [place] [address] PCP - General 05/15/21 Alma Delia Graves MD, PhD [address] [address] [email or web address] Surgeon Surgical Oncology 05/25/21 Additional Source Comments The information contained in this document represents components of the legal health record. It is not the complete legal health record.[facility]
--- OUTSIDE RECORDS SUMMARY | 2025-04-02 10:18 | XMS_ITS | Encounter Summary ---
Author Organization [facility] Address [address] [place] [address] Phone Care Team Providers Care Fire Technology Instructor Name Role Phone Lopez Cote MD Primary Care Provider Alma Delia rGaves MD, PhD Unavailable [phone] Encounter Details Date Type Department Care Team (Late st Contact Info) Description 05/26/2023 Procedure Pass [facility], Jonas [address] [facility], 2nd Floor, [address] [place] [address] Social History Tobacco Use Types Packs/Day Years [...] Description 05/23/2025 9:30 AM EST Office Visit [facility] [address] [place] [address] Gordo Lagos DO 234 [facility], [address] [place] [address] [email or web address] 07/01/2025 11:30 AM EST Office Visit [facility] [address] [facility] 3rd [place] [address] Gurjit Powell MD [address] [facility], [address] [place] [address] [email or web address] documented as of this encounter Visit Diagnoses Not on filedocumented in this encounter Care Teams Fire Technology Instructor Relationship Specialty Start Date End Date Lopez Cote MD [address] [place] [address] PCP - General 05/15/21 Alma Delia Graves MD, PhD [address] [address] [email or web address] Surgeon Surgical Oncology 05/25/21 documented as of this encounter Additional Source Comments The information contained in this document represents components of the legal health record. It is not the complete legal health record.[facility]
--- OUTSIDE RECORDS SUMMARY | 2025-04-02 10:18 | XMS_ITS | Encounter Summary ---
Author Organization [facility] Address [address] [place] [address] Phone Care Team Providers Care Positive Printer Operator Name Role Phone Lopez Cote MD Primary Care Provider Alma Delia Graves MD, PhD Unavailable [phone] Encounter Details Date Type Department Care Team (Late st Contact Info) Description 02/08/2025 Procedure Pass [facility], [facility] Scan - [address] [id number] Social History Tobacco Use Types Packs/Day Years Used Date Smoking Tobacco: Former Smokeless Tobacco: Never Alcohol Use Standard Drinks/Week Comments Not Currently 0 (1 standard drink = 0.6 oz pur e alcohol) Education Answer Date Recorded Are you interested in more education? Not on fer e 11/12/2022 Are you concerned about learning? Not on file 11/12/2022 No 11/12/2022 No 11/12/2022 Food Answer Date Recorded Within the past 6 months we worried whether our food would run out before we got money to buy more. Never True 02/08/2025 Within the past 6 months the food we bought just didn't last and we didn't have enough money to get more. Never True Residential Stability Answer Date Recor ded What is your housing situation today? I have denisa sing 02/08/2025 How many times have you move d in the past 12 months? Zero (I did not move) 02/08/2025 Paying for Meds Answer Date Recorded Do you have trouble paying for medicines? No 02/08/2025 Paying Utility Bills Answer Date Record ed Do you have trouble paying your heating or elect ricity bill? No 02/08/2025 Transportation Answer Date Recorded Has the lack of transportati on kept you from medical appointments or from getting medications? No 02/08/2025 Digital Access Answer Date Recorded No 02/08/2025 Yes 02/08/2025 Do you have reliable internet access at home? Ye s 02/08/2025 Do you have a device (e.g., phone, tablet, computer) with a working camera? Yes 02/08/2025 Intimate Partner Violence Answer Date R ecorded [...] on file documented as of this encounter Functional Status * Calculated C-SSRS Risk Score (Lifetime/Recent) Answer Date of Assessment Author No Risk Indicated 02/08/2025 4:36 PM EDT Ángela Simon RN * [place] Suicide Severity Rating Scale (Screener/Recent Self-Report) Question Answer Date of Assessment Author 1. Wish to be (Past 1 Month) No 02/08/2025 4:36 PM STEVET aGry Garces RN 2. Non-Specific Active Suicidal Thoughts (Past 1 Month) No 02/08/2025 4:36 PM EDT Gary Garces RN 6. Suicidal Behavior (Lifetime) No 02/08/2025 4:36 PM EDT Gary Garces RN documented as of this encounter Plan of Treatment Upcoming Encounters Date Type Department Care Team (Late st Contact Info) Description 05/23/2025 9:30 AM EST Office Visit [facility] [address] [place] [address] Gordo Lagos DO 234 [facility], [address] [place] [address] [email or web address] 07/01/2025 11:30 AM EST Office Visit [facility] 22 [facility] 3rd [place] [address] Gurjit Powell MD [address] [facility], [address] [place] [address] [email or web address] documented as of this encounter Visit Diagnoses Not on filedocumented in this encounter Care Teams Positive Printer Operator Relationship Specialty Start Date End Date Lopez Cote MD [address] [place] [address] PCP - General 05/15/21 Alma Delia Graves MD, PhD [address] [address] [email or web address] Surgeon Surgical Oncology 05/25/21 documented as of this encounter Additional Source Comments The information contained in this document represents components of the legal health record. It is not the complete legal health record.[facility]
--- OUTSIDE RECORDS SUMMARY | 2025-04-02 10:18 | XMS_ITS | Encounter Summary ---
Author Organization [facility] Address [address] [facility] [address] [place] [address] Phone Care Team Providers Care Design Printer Balloon Name Role Phone Lopez Cote MD Primary Care Provider Alma Delia Graves MD, PhD Unavailable [phone] Encounter Details Date Type Department Care Team (Late st Contact Info) Description 03/14/2023 Procedure Pass [facility], [address] [address] Social History Tobacco Use Types Packs/Day Years [...] Description 05/23/2025 9:30 AM EST Office Visit [facility] [address] [place] [address] Gordo Lagos DO 234 [facility], [address] [place] [address] [email or web address] 07/01/2025 11:30 AM EST Office Visit [facility] 22 [facility] 3rd [place] [address] Gurjit Powell MD 22 [facility], [address] [place] [address] [email or web address] documented as of this encounter Visit Diagnoses Not on filedocumented in this encounter Care Teams Design Printer Balloon Relationship Specialty Start Date End Date Lopez Cote MD [address] [place] [address] PCP - General 05/15/21 Alma Delia Graves MD, PhD [address] [address] [email or web address] Surgeon Surgical Oncology 05/25/21 documented as of this encounter Additional Source Comments The information contained in this document represents components of the legal health record. It is not the complete legal health record.[facility]
--- OUTSIDE RECORDS SUMMARY | 2025-04-02 10:18 | XMS_ITS | Encounter Summary ---
Author Organization [facility] Address [address] [place] [address] Phone Care Team Providers Care Herpetology Teacher Name Role Phone Lopez Cote MD Primary Care Provider Alma Delia Graves MD, PhD Unavailable [phone] Encounter Details Date Type Department Care Team (Late st Contact Info) Description 03/29/2024 Procedure Pass [facility], [address] [address] Social History Tobacco Use Types Packs/Day Years [...] Description 05/23/2025 9:30 AM EST Office [facility] [address] [place] [address] Gordo Lagos DO [address] [facility], [address] [place] [address] [email or web address] 07/01/2025 11:30 AM EST Office Visit [facility] [place] [facility] 22 [facility] 3rd [place] [address] Gurjit Powell MD 22 [facility], [address] [place] [address] [email or web address] documented as of this encounter Visit Diagnoses Not on filedocumented in this encounter Care Teams Herpetology Teacher Relationship Specialty Start Date End Date Lopez Cote MD [address] [place] [id number] PCP - General 05/15/21 Alma Delia Graves MD, PhD [address] [address] [email or web address] Surgeon Surgical Oncology 05/25/21 documented as of this encounter Additional Source Comments The information contained in this document represents components of the legal health record. It is not the complete legal health record.[facility]
--- OUTSIDE RECORDS SUMMARY | 2025-04-02 10:18 | XMS_ITS | Encounter Summary ---
Author Organization [facility] Address [address] [place] [address] Phone Care Team Providers Care Floorhand Name Role Phone Lopez Cote MD Primary Care Provider Alma Delia Graves MD, PhD Unavailable [phone] Encounter Details Date Type Department Care Team (Late st Contact Info) Description 06/02/2022 Procedure Pass [facility], [employer] [address] [place] [address], 2nd [place] [address] Social History Tobacco Use Types Packs/Day Years [...] Description 05/23/2025 9:30 AM EST Office Visit [facility] [address] [place] [address] Gordo Lagos DO 234 [facility], [address] [place] [address] 07/01/2025 11:30 AM EST Office Visit [facility] [place] [facility] 22 [facility] 3rd [place] [address] Gurjit Powell MD 22 [facility], [address] [place] [address] [email or web address] documented as of this encounter Visit Diagnoses Not on filedocumented in this encounter Care Teams Floorhand Relationship Specialty Start Date End Date Lopez Cote MD [address] [place] [address] PCP - General 05/15/21 Alma Delia Graves MD, PhD [address] [address] [email or web address] Surgeon Surgical Oncology 05/25/21 documented as of this encounter Additional Source Comments The information contained in this document represents components of the legal health record. It is not the complete legal health record.[facility]
--- OUTSIDE RECORDS SUMMARY | 2025-04-02 10:18 | XMS_ITS | Encounter Summary ---
Author Organization [facility] Address [address] [facility] [address] [place] [address] Phone Care Team Providers Care Non Linear Editor Name Role Phone Lopez Cote MD Primary Care Provider Alma Delia Graves MD, PhD Unavailable [phone] Reason for Referral * MRI/CAT Scan - Closed Specialty Diagnoses / Procedures Referred By Contac t Referred To Contact Radiology Diagnoses Neuroendocrine tumor of pancreas Procedures CT PET Abdomen/Pelvis Franco Kelley MD, MPH Phone: tel: fax: mailto:[email or web address] Referral ID Status Reason Start Date Expiration Date Visits Re quested Visits Authorized [id number] Closed 06/02/2022 06/02/2023 1 1 * MRI/CAT Scan - Closed Specialty Diagnoses / Procedures Referred By Contmiguel t Referred To Contact Radiology Diagnoses Neuroendocrine tumor of pancreas Procedures CT PET Chest Franco Kelley MD, MPH Phone: tel: fax: mailto:[email or web address] Referral ID Status Reason Start Date Expiration Date Visits Re quested Visits Authorized [id number] Closed 06/02/2022 06/02/2023 1 1 Encounter Details Date Type Department Care Team (Latest Contact Info) Description 06/02/2022 Ancillary Orders [facility] [address] [facility] [address], 5th [place] [address] Franco Kelley MD, MPH [address] [facility] [address] [place] [address] [email or web address] Neuroendocrine tumor of pancreas Social History Tobacco Use Types Packs/Day Years [...] Description 05/23/2025 9:30 AM EST Office Visit [facility] [address] [address] Gordo Lagos DO [address] [facility], [address] [place] [address] 07/01/2025 11:30 AM EST Office Visit [facility] [address] [facility] 3rd [place] [address] Gurjit Powell MD [address] [facility], 3rd [place] [address] [email or web address] documented as of this encounter Results * CT PET ABDOMEN/PELVIS WITH CONTRAST (06/02/2022 12:56 PM EST) Anatomical Region Laterality Modality Abdomen, Pelvis Positron Emissio n Tomography (PET) 06/02/2022 1:20 PM EST Impressions 06/02/2022 2:59 PM EST 1. Unchanged 12 mm pancreatic body mass, concerning for neuroendocrine tumor. 2. No abdominopelvic metastases. ATTESTATION: I, Dr. Angel Mcdaniel as teaching physician, have reviewed the images for this case and if necessary edited the report originally created by Dr. Marah Silva. Narrative 06/02/2022 2:[address] PET ABDOMEN/PELVIS WITH CONTRAST TECHNIQUE: Multidetector-row CT of the abdomen and pelvis was performed after administration of intravenous contrast using tailored dose modulation techniques. Images were reconstructed in the axial, coronal, and sagittal planes. COMPARISON: MRI ABDOMEN OUTSIDE WITH INTERPRETATION OR CONSULT FINDINGS: Lower Chest: No pleural effusion. Liver: No suspicious focal lesions. Unchanged left hepatic cyst. Biliary: No biliary ductal dilatation. Prior cholecystectomy. Spleen: No splenomegaly or focal lesions. Pancreas: 12 mm pancreatic body lesion (10:58), unchanged. Unchanged additional subcentimeter scattered hypodensities, likely cysts. Adrenal Glands: No nodules. Kidneys/Ureters: No solid masses or hydronephrosis. No stones. Simple bilateral renal cysts. Bowel: No distention or wall thickening. Colonic diverticulosis without diverticulitis. Peritoneum/Retroperitoneum: No masses, pneumoperitoneum, or fluid. Lymph Nodes: No lymphadenopathy. Pelvic Organs/Bladder: No masses. Vessels: No abdominal aortic aneurysm. Common hepatic artery arising from the abdominal aorta. Bones/Soft Tissues: No suspicious osseous lesions. Grade 1 anterolisthesis of L4 over L5. Mild degenerative changes Procedure Note Angel Mcdaniel, [facility] - 06/02/2022 CT PET ABDOMEN/PELVIS WITH CONTRAST TECHNIQUE: Multidetector-row CT of the abdomen and pelvis was performedafter administration of intravenous contrast using tailored dosemodulation techniques. Images were reconstructed in the axial, coronal,and sagittal planes. COMPARISON: MRI ABDOMEN OUTSIDE WITH INTERPRETATION OR [id number] FINDINGS: Lower Chest: No pleural effusion. Liver: No suspicious focal lesions. Unchanged left hepatic cyst. Biliary: No biliary ductal dilatation. Prior cholecystectomy. Spleen: No splenomegaly or focal lesions. Pancreas: 12 mm pancreatic body lesion (10:58), unchanged. Unchangedadditional subcentimeter scattered hypodensities, likely cysts. Adrenal Glands: No nodules. Kidneys/Ureters: No solid masses or hydronephrosis. No stones. Simplebilateral renal cysts. Bowel: No distention or wall thickening. Colonic diverticulosis withoutdiverticulitis. Peritoneum/Retroperitoneum: No masses, pneumoperitoneum, or fluid. Lymph Nodes: No lymphadenopathy. Pelvic Organs/Bladder: No masses. Vessels: No abdominal aortic aneurysm. Common hepatic artery arising fromthe abdominal aorta. Bones/Soft Tissues: No suspicious osseous lesions. Grade 1 anterolisthesisof L4 over L5. Mild degenerative changes IMPRESSION: 1. Unchanged 12 mm pancreatic body mass, concerning for neuroendocrinetumor. 2. No abdominopelvic metastases. ATTESTATION: I, Dr. Angel Mcdaniel as teaching physician, have reviewedthe images for this case and if necessary edited the report originallycreated by Dr. Marah Silva. [facility] Roselia Kelley MD, MPH IMG CT PETCT Final Result * CT PET CHEST WITH CONTRAST (06/02/2022 12:56 PM EST) Anatomical Region Laterality Modality Chest Positron Emissio n Tomography (PET) 06/02/2022 2:00 PM EST Impressions 06/02/2022 2:47 PM EST Staging for pancreatic neuroendocrine cancer. No evidence of metastatic disease in the thorax. Narrative 06/02/2022 2:[address] PET CHEST WITH CONTRAST TECHNIQUE: Multidetector CT of the chest was performed with intravenous contrast using tailored dose modulation techniques. COMPARISON: CT CHEST OUTSIDE WITH INTERPRETATION OR CONSULT FINDINGS: Devices/Tubes/Lines: None. Lungs: Focal bronchiectasis is again noted in the inferior lingula and right middle lobe. Scattered mucus plugging in the distal subsegmental bronchi. Mild biapical pleural-parenchymal scarring. Bilateral lower lobe dependent atelectasis. No suspicious pulmonary nodules or consolidation. Pleura: No pleural effusion or pneumothorax. Mediastinum: No thyroid nodules. Cardiac chambers are normal in size. No pericardial effusion. Minimal coronary artery calcification. Lymph Nodes: No enlarged supraclavicular, axillary, mediastinal, or hilar lymph nodes. Upper Abdomen: Please see concurrent abdominal CT for abdominal findings. Chest Wall: Normal. No chest wall mass. Bones: Diffuse osteopenia. Degenerative changes of the bones. No suspicious lytic or blastic lesions. Procedure Note Ericka Milligan DO - 06/02/2022 CT PET CHEST WITH CONTRAST TECHNIQUE: Multidetector CT of the chest was performed with intravenouscontrast using tailored dose modulation techniques. COMPARISON: CT CHEST OUTSIDE WITH INTERPRETATION OR CONSULT FINDINGS: Devices/Tubes/Lines: None. Lungs: Focal bronchiectasis is again noted in the inferior lingula andright middle lobe. Scattered mucus plugging in the distal subsegmentalbronchi. Mild biapical pleural-parenchymal scarring. Bilateral lower lobedependent atelectasis. No suspicious pulmonary nodules or consolidation. Pleura: No pleural effusion or pneumothorax. Mediastinum: No thyroid nodules. Cardiac chambers are normal in size. Nopericardial effusion. Minimal coronary artery calcification. Lymph Nodes: No enlarged supraclavicular, axillary, mediastinal, or hilarlymph nodes. Upper Abdomen: Please see concurrent abdominal CT for abdominalfindings. Chest Wall: Normal. No chest wall mass. Bones: Diffuse osteopenia. Degenerative changes of the bones. Nosuspicious lytic or blastic lesions. IMPRESSION: Staging for pancreatic neuroendocrine cancer. No evidence of metastatic disease in the thorax. 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 Surgeon Surgical Oncology 05/25/21 documented as of this encounter Additional Source Comments The information contained in this document represents components of the legal health record. It is not the complete legal health record.[facility]
--- OUTSIDE RECORDS SUMMARY | 2025-04-02 10:18 | XMS_ITS | Encounter Summary ---
Author Organization [facility] Address [address] [place] [address] Phone Care Team Providers Care Head Of Sales Name Role Phone Lopez Cote MD Primary Care Provider Alma Delia Graves MD, PhD Unavailable [phone] Encounter Details Date Type Department Care Team (Late st Contact Info) Description 06/03/2022 Procedure Pass MRI, [facility] [address] [place] [address] Social History Tobacco Use Types Packs/Day Years [...] Description 05/23/2025 9:30 AM EST Office Visit [facility] Medicine [address] [place], [place] [phone] Gordo Lagos DO [address] [facility], [address] [place], [place] [phone] 07/01/2025 11:30 AM EST Office Visit [facility] [address] [facility] 3rd [place] [address] Gurjit Powell MD 22 [facility], 3rd [place] [address] [email or web address] documented as of this encounter Visit Diagnoses Not on filedocumented in this encounter Care Teams Head Of Sales Relationship Specialty Start Date End Date Lopez Cote MD [address] [place] [address] PCP - General 05/15/21 Alma Delia Graves MD, PhD [address] [address] [email or web address] Surgeon Surgical Oncology 05/25/21 documented as of this encounter Additional Source Comments The information contained in this document represents components of the legal health record. It is not the complete legal health record.[facility]
--- OUTSIDE RECORDS SUMMARY | 2025-04-02 10:18 | XMS_ITS | Encounter Summary ---
Author Organization [facility] Address [address] [place] [address] Phone Care Team Providers Care Pediatric Physician Assistant Name Role Phone Lopez Cote MD Primary Care Provider Alma Delia Graves MD, PhD Unavailable [phone] Encounter Details Date Type Department Care Team (Late st Contact Info) Description 01/19/2025 Procedure Pass [facility], Ct Scan - [address] [id number] Social History Tobacco Use Types Packs/Day Years [...] with a working camera? Not on file Intimate Partner Violence Answer Date R ecorded Are you denied basic needs s uch as food, clothing, or medical care? No 01/18/2025 In the past 12 months have y ou been in a relationship with a person who hurts, threatens, or tries to control you? No 01/18/2025 Are you denied basic needs s uch as food, clothing, or medical care? No 01/18/2025 In the past 12 months have y ou been in a relationship with a person who hurts, threatens, or tries to control you? No 01/18/2025 Comments Unknown Sex and Gender Information Value Date Recorded Sex Assigned at Female 05/15/2021 9:51 AM EDT Legal Sex Female 9:52 AM EDT Gender Identity Female 05/15/2021 9:51 AM EDT Sexual Orientation Not on file documented as of this encounter Plan of Treatment Upcoming Encounters Date Type Department Care Team (Late st Contact Info) Description 05/23/2025 9:30 AM EST Office Visit [facility] [address] [place] [address] Gordo Lagos, 234 [facility], [address] [place] [address] [email or web address] 07/01/2025 11:30 AM EST Office [facility] [address] [facility] 3rd [place] [address] Gurjit Powell MD [address] [facility], [address] [place] [address] [email or web address] documented as of this encounter Visit Diagnoses Not on filedocumented in this encounter Care Teams Pediatric Physician Assistant Relationship Specialty Start Date End Date Lopez Cote MD [address] [place] [address] PCP - General 05/15/21 Alma Delia Graves MD, PhD [address] [address] [email or web address] Surgeon Surgical Oncology 05/25/21 documented as of this encounter Additional Source Comments The information contained in this document represents components of the legal health record. It is not the complete legal health record.[facility]
--- OUTSIDE RECORDS SUMMARY | 2025-04-02 10:18 | XMS_ITS | Encounter Summary ---
Author Organization [facility] Address [address] [place] [address] Phone Care Team Providers Care Glue Jointer Operator Name Role Phone Lopez Cote MD Primary Care Provider Alma Delia Graves MD, PhD Unavailable [phone] Encounter Details Date Type Department Care Team (Late st Contact Info) Description 06/21/2022 Procedure Pass [address] [address] Social History Tobacco Use Types Packs/Day Years [...] Description 05/23/2025 9:30 AM EST Office Visit [facility] [address] [place] [address] Gordo Lagos DO [address] [facility], [address] [place] [address] 07/01/2025 11:30 AM EST Office Visit [facility] [address] [facility] 3rd [place] [address] Gurjit Powell MD 22 [facility], 3rd [place] [address] [email or web address] documented as of this encounter Visit Diagnoses Not on filedocumented in this encounter Care Teams Glue Jointer Operator Relationship Specialty Start Date End Date Lopez Cote MD [address] [place] [address] PCP - General 05/15/21 Alma Delia Graves MD, PhD [address] [address] [email or web address] Surgeon Surgical Oncology 05/25/21 documented as of this encounter Additional Source Comments The information contained in this document represents components of the legal health record. It is not the complete legal health record.[facility]
--- OUTSIDE RECORDS SUMMARY | 2025-04-02 10:18 | XMS_ITS | Encounter Summary ---
Author Organization [facility] Address [address] [place] [address] Phone Care Team Providers Care Theater Teacher Name Role Phone Lopez Cote MD Primary Care Provider Alma Delia Graves MD, PhD Unavailable [phone] Encounter Details Date Type Department Care Team (Late st Contact Info) Description 06/02/2022 Procedure Pass [facility], [facility] [address] [place] [address], 2nd [place] [address] Social History Tobacco Use Types Packs/Day Years [...] Description 05/23/2025 9:30 AM EST Office Visit [facility] [address] [place] [address] Gordo Lagos DO 234 [facility], [address] [place] [address] 07/01/2025 11:30 AM EST Office Visit [facility] [address] [facility] 3rd [place] [address] Gurjit Powell MD 22 [facility], 3rd [place] [address] [email or web address] documented as of this encounter Visit Diagnoses Not on filedocumented in this encounter Care Teams Theater Teacher Relationship Specialty Start Date End Date Lopez Cote MD [address] [place] [address] PCP - General 05/15/21 Alma Delia Graves MD, PhD [address] [address] [email or web address] Surgeon Surgical Oncology 05/25/21 documented as of this encounter Additional Source Comments The information contained in this document represents components of the legal health record. It is not the complete legal health record.[facility]
--- OUTSIDE RECORDS SUMMARY | 2025-04-02 10:18 | XMS_ITS | Patient Health Record ---
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 Problem Plantar fascial fibromatosis (44110524) Plantar fasciitis, bilateral (M72.2) Active confirmed Vital Signs Blood pressure diastolic 80 mm Hg 10/25/2024 Height 5ft3in in 10/25/2024 Blood pressure systolic 125 mm Hg 10/25/2024 Weight 128 lbs 10/25/2024 BMI 22.67 kg/m2 10/25/2024 Procedures Procedure Date Ordered Date Performed Result Body Sit e 34205-Neiqzlxy Plate 10/04/2024 N/A Encounters Encounter Location Date Provider Diagnosis [address] [address] 07/06/2024 Pina Black Pain in right foot M79.671 ; Calcaneal spur, right foot M77.31 ; Plantar fasciitis, bilateral M72.2 ; Other myositis of right foot M60.871 ; Bursitis of right foot M77.51 ; Pain in left foot M79.672 ; Other myositis of left foot M60.872 and Bursitis of left foot M77.[address] [address] 10/04/2024 Pina Black Plantar fasciitis, bilateral M72.2 ; Ingrown nail L60.0 ; Pain in right foot M79.671 ; Calcaneal spur, right foot M77.31 ; Other myositis of right foot M60.871 ; Bursitis of right foot M77.51 ; Pain in left foot M79.672 ; Other myositis of left foot M60.872 and Bursitis of left foot M77.[address] [facility] [address] 10/25/2024 Pina Black Ingrowing nail L60.[address] [address] 05/09/2024 Pina Black [facility] [address] 07/06/2024 Pinayokasta Bryant [facility] [place] [address] [place] [address] 10/05/2024 Pina Bryant Assessments Encounter Date Diagnosis [...] Treatment Pending Test Test Name Order Date 91339-Hpwejwpd Plate 10/04/2024 Insurance Providers Payer Name Payer Address Payer Phone Subscriber Number Group Number Insured Name Patient Relationship to Insured Coverage Start Date Coverage End Date Medicare National Govt Sv[employer] [address] [place] [address] [id number] Renu Orozco Self - patient is the insured 0 [employer] ([employer]) [address] [place] [phone] [id number] Renu Orozco Self - patient is the insured 0 Medical (General) History Medical History History ICD Code Glaucoma Chicken pox Measles Mumps Lyme disease Sinus conditions Arthritis CAD (Cholesterol) Cancer Cataracts covid-19 Crohns disease type II diabetes Diverticulosis Gall bladder problems Osteoporosis Sciatica thyroid pancreatic tumor Surgical History Surgery Date(Month/Year) cholecystectomy 12/1997
== END 2025-04-02 09:27 | disposition home or self-care (01) ==
LOC: HO.HMCFM 08:36
PROVIDERS: PCP Family Medicine; Visit Provider Family Medicine
DX: E11.9 Type 2 diabetes mellitus without complications (principal); M76.30 Iliotibial band syndrome, unspecified leg; M53.3 Sacrococcygeal disorders, not elsewhere classified

== ENCOUNTER → 2025-04-02 08:35 | Outpatient (BNVA) | payer MEDICARE, OTHER, SELFPAY | PROVIDERS: PCP Family Medicine; Visit Provider Family Medicine | DX: E11.9 Type 2 diabetes mellitus without complications (principal); M53.3 Sacrococcygeal disorders, not elsewhere classified; M76.30 Iliotibial band syndrome, unspecified leg | CPT/HCPCS: 83036; 99212 ==

== ENCOUNTER 2025-05-21 14:15 | Outpatient (REF) | payer MEDICARE, OTHER, SELFPAY ==
--- NOTE | ~2025-05-21 | MM_ITS ---
STUDY: DUAL ENERGY X-RAY ABSORPTIOMETRY / DXA REASON FOR EXAM: Female, 70 years old M81.0 - Age-related osteoporosis without current pathological fracture TECHNIQUE: Bone Mineral Density (BMD) measurements of the lumbar spine and left hip were obtained using [employer] COMPARISON: May 18, 2023 FINDINGS: L1-L4 BMD: 1.060 g/cm2 L1-L4 T score: -1.0. This corresponds to Normal bone density. This represents a 7.4* % increase in bone density compared with prior exam from May 18, 2023. Left femoral neck BMD: 0.644 g/cm2 Left femoral neck T score: -2.8. This corresponds to osteoporosis. Left total hip BMD: 0.735 g/cm2 Left total hip T score: -2.2. This corresponds to osteopenia. This represents a -0.1 % decrease in bone density compared with prior exam from May 18, 2023. * - Indicates a statistically significant change. FRAX score: 10 year risk of major osteoporotic fracture 39.2%, 10 year risk of hip fracture 14.4% MM/XR DEXA axial skeleton IMPRESSION: Osteoporosis Reference Information: The T-score is the number of standard deviations above or below the standard which is normal for young adults at their peak bone mineral density. The World Health Organization (WHO) interprets the T-scores as follows: At or above -1 SD Normal bone density Between -1 and -2.5 SD Osteopenia At or below -2.5 SD Osteoporosis Electronically signed by: Nicolasa Jay MD 05/29/2025 02:33 PM [facility]
--- OUTSIDE RECORDS SUMMARY | 2025-05-21 17:16 | XMS_ITS | Patient Health Record ---
Author Organization [facility] Address [address] [facility] [place] [address] Care Team Providers Care Newspaper Manager Name Role Phone Lopez Cote MD Primary Care Provider Pina Jackson Unavailable [phone] Allergies Allergen (clinical drug ingredient) Drug/Non Drug [...] W/U Status Risk Notes Problem Interstitial myositis (23597361) Interstitial myositis of left foot (M60.172) Active confirmed Problem Plantar fascial fibromatosis (16535895) Plantar fasciitis, bilateral (M72.2) Active confirmed Vital Signs Blood pressure diastolic 80 mm Hg 10/25/2024 Height 5ft3in in 10/25/2024 Blood pressure systolic 125 mm Hg 10/25/2024 Weight 128 lbs 10/25/2024 BMI 22.67 kg/m2 10/25/2024 Procedures Procedure Date Ordered Date Performed Result Body Sit e 72324-Jqijlpyn Plate 10/04/2024 N/A Encounters Encounter Location Date Provider Diagnosis [address] [address] 07/06/2024 Pina Black Pain in right foot M79.671 ; Calcaneal spur, right foot M77.31 ; Plantar fasciitis, bilateral M72.2 ; Other myositis of right foot M60.871 ; Bursitis of right foot M77.51 ; Pain in left foot M79.672 ; Other myositis of left foot M60.872 and Bursitis of left foot M77.[address] [address] 10/04/2024 Pina Black Plantar fasciitis, bilateral M72.2 ; Ingrown nail L60.0 ; Pain in right foot M79.671 ; Calcaneal spur, right foot M77.31 ; Other myositis of right foot M60.871 ; Bursitis of right foot M77.51 ; Pain in left foot M79.672 ; Other myositis of left foot M60.872 and Bursitis of left foot M77.[address] [facility] [address] 10/25/2024 Pina Black Ingrowing nail L60.[address] [address] 07/06/2024 Pina Black [facility] [address] 10/05/2024 Pina Bryant Assessments Encounter Date Diagnosis [...] Treatment Pending Test Test Name Order Date 44159-Slxhubur Plate 10/04/2024 Insurance Providers Payer Name Payer Address Payer Phone Subscriber Number Group Number Insured Name Patient Relationship to Insured Coverage Start Date Coverage End Date Medicare National Govt Svcs Inc [address] [place] [address] [id number] Marksandy Eduaril Self - patient is the insured 0 [employer] ([employer]) [address] [place] [address] [phone] [id number] MarkchloeEduar correail Self - patient is the insured 0 Medical (General) History Medical History History ICD Code Glaucoma Chicken pox Measles Mumps Lyme disease Sinus conditions Arthritis CAD (Cholesterol) Cancer Cataracts covid-19 Crohns disease type II diabetes Diverticulosis Gall bladder problems Osteoporosis Sciatica thyroid pancreatic tumor Surgical History Surgery Date(Month/Year) cholecystectomy 12/1997
--- OUTSIDE RECORDS SUMMARY | 2025-05-21 17:16 | XMS_ITS | Encounter Summary ---
Author Organization Formerly [facility] Address [address] [place] [address] Phone Care Team Providers Care 4Th Grade Teacher Name Role Phone Lopez Cote MD Primary Care Provider Alma Delia Graves MD, PhD Unavailable [phone] Encounter Details Date Type Department Care Team (Late st Contact Info) Description 01/19/2025 Procedure Pass [facility], Ct Scan - [address] [id number] Social History Tobacco Use Types Packs/Day Years [...] Care Team (Late st Contact Info) Description 07/19/2024 Procedure Pass [address] [address] 05/23/2025 9:30 AM EST Office Visit [address] [address] Gordo Lagos, 234 [facility], [address] [place] [address] [email or web address] 07/01/2025 11:30 AM EST Office Visit [facility] COMPRE[facility]ENSIVE [facility]PHTHALMOLOGY [facility] 22 [facility] 3rd [place] [phone] Gurjit Powell MD 22 [facility], 3rd [place] [address] [email or web address] 07/19/2025 10:00 AM EST Appointment [address] [address] Franco Kelley MD, MPH [address] [place] [address] [email or web address] documented as of this encounter Visit Diagnoses Not on filedocumented in this encounter Care Teams 4Th Grade Teacher Relationship Specialty Start Date End Date Lopez Cote MD PCP - General 05/15/21 Alma Delia Graves MD, PhD [address] [place] [id number] [email or web address] Surgeon Surgical Oncology 05/25/21 documented as of this encounter Additional Source Comments The information contained in this document represents components of the legal health record. It is not the complete legal health record.[facility]
--- OUTSIDE RECORDS SUMMARY | 2025-05-21 17:16 | XMS_ITS | Encounter Summary ---
Author Organization [facility] Address [address] [place] [address] Phone Care Team Providers Care Credit Risk Modeler Name Role Phone Lopez Cote MD Primary Care Provider Alma Delia Graves MD, PhD Unavailable [phone] Encounter Details Date Type Department Care Team (Late st Contact Info) Description 06/21/2022 Procedure Pass [address] [address] Social History Tobacco Use Types Packs/Day Years [...] st Contact Info) Description 07/19/2024 Procedure Pass [address] [address] 05/23/2025 9:30 AM EST Office Visit [facility] [address] [place] [address] Gordo Lagos, DO 234 [facility], [address] [place], [place] [phone] [email or web address] 07/01/2025 11:30 AM EST Office Visit [facility] COMPREHENSIVE [facility]THALMOLOGY [facility] [address] 3rd [place] [address] Gurjit Powell MD 22 [facility], 3rd [place] [address] [email or web address] 07/19/2025 10:00 AM EST Appointment [facility] [address] [place] [address] Franco Kelley MD, MPH [address] [place] [address] [email or web address] documented as of this encounter Visit Diagnoses Not on filedocumented in this encounter Care Teams Credit Risk Modeler Relationship Specialty Start Date End Date Lopez Cote MD PCP - General 05/15/21 Alma Delia Graves MD, PhD [address] [place] [address] [email or web address] Surgeon Surgical Oncology 05/25/21 documented as of this encounter Additional Source Comments The information contained in this document represents components of the legal health record. It is not the complete legal health record.[facility]
--- OUTSIDE RECORDS SUMMARY | 2025-05-21 17:16 | XMS_ITS | Encounter Summary ---
Author Organization [facility] Address [address] [facility] [address] [place] [address] Phone Care Team Providers Care Chargeback Analyst Name Role Phone Lopez Cote MD Primary Care Provider Alma Delia Graves MD, PhD Unavailable [phone] Encounter Details Date Type Department Care Team (Late st Contact Info) Description 06/27/2023 Procedure Pass [facility], [address] [address] Social History Tobacco Use Types Packs/Day Years [...] st Contact Info) Description 07/19/2024 Procedure Pass [address] [address] 05/23/2025 9:30 AM EST Office Visit [facility] [address] [place] [address] Gordo Lagos DO 234 [facility], [address] [place] [address] [email or web address] 07/01/2025 11:30 AM EST Office Visit [facility] 22 [facility] 3rd [place] [phone] Gurjit Powell MD 22 [facility], 3rd [place] [address] [email or web address] 07/19/2025 10:00 AM EST Appointment [address] [address] Franco Kelley MD, MPH [address] [address] [email or web address] documented as of this encounter Visit Diagnoses Not on filedocumented in this encounter Care Teams Chargeback Analyst Relationship Specialty Start Date End Date Lopez Cote MD PCP - General 05/15/21 Alma Delia Graves MD, PhD 55 [facility] [address] [place] [address] [email or web address] Surgeon Surgical Oncology 05/25/21 documented as of this encounter Additional Source Comments The information contained in this document represents components of the legal health record. It is not the complete legal health record.[facility]
--- OUTSIDE RECORDS SUMMARY | 2025-05-21 17:16 | XMS_ITS | Clinical Summary ---
Author Organization [facility] Address [address] [facility] [address] [place] [address] Phone Care Team Providers Care Speech And Language Specialist Name Role Phone Lopez Cote MD Primary Care Provider Alma Delia Graves MD, PhD Unavailable [phone] Allergies Active Allergy Reactions Criticality Noted Date Comments Penicillins 05/18/2021 Methylprednisolone Sodium Succ 05/18 Gjgdvem-Xrr-Rno Reductase Inhibitors 05/18/2021 Medications gemfibroziL (LOPID) 600 MG tablet Take 600 mg by mouth 2 (two) times a day before meals. Active cyanocobalamin, vitamin B-12, 1,000 mcg/mL Kit Inject as directed every 30 (thirty) days. Use as directed Active famotidine (PEPCID) 40 MG tablet Take 40 mg by mouth daily. Active cholecalciferol (VITAMIN D3) 2,000 unit tablet Take 2,000 [...] the next 30 min. 12 tablet 3 3 Active sodium fluoride-potass ium nitrate (PREVIDENT 5000 SENSITIVE) 1.1-5 % Pste APPLY A SMALL AMOUNT TO TEETH ONCE A DAY Active cefdinir (OMNICEF) 300 MG capsuleIndicati ons:Acute non-recurrent maxillary sinusitis Take 1 capsule (300 mg total) by mouth 2 (two) times a day for 7 days. 14 capsule 5 05/13/20 25 Active Problems Problem Noted Date Diagnosed Date Acute non-recurrent maxillary sinusitis 05/06/20 Cyst of pancreas 05/26/2021 Encounters Date Type Department Care Team Description 05/06/2025 10:10 AM EDT Office Visit [facility] [address] [address] Samra Walter, Nga Odonnell PA-C Acute non-recurrent maxillary sinusitis (Primary Dx) 04/30/2025 Telephone [facility] Gastro[facility]ology Clinic [address] [place] [address] Toan Hicks MD Schedule colonoscopy 04/19/2025 2:47 PM EDT - 04/19/2025 11:59 PM EDT Hospital Encounter [facility] [address] [place] [address] Toan Hicks MD Discharge Disposition: Home or Self Care 04/19/2025 Transcribe Orders [facility] [address] [place] [address] Toan Hicks MD Crohn's disease with complication, unspecified gastrointestinal tract location (Primary Dx) 03/26/2025 1:00 PM EDT Telemedicine - audio only [facility] [address] [facility], 5th Floor, [address] [place] [address] Erickson Iraheta, SHANTELL, DNP Meningioma (Primary Dx) 03/12/2025 Telephone [facility] [address] [facility], 5th Floor, [address] [place] [address] Elen Munoz MD 03/02/2025 10:30 AM EDT Office Visit [facility] at [address] [address] Samra Walter, CARLEY Acute UTI (urinary tract infection) (Primary Dx) 02/26/2025 9:12 AM EDT - 02/26/2025 11:59 PM EDT Hospital Encounter [address] [address] Elen Munoz MD Discharge Disposition: Home or Self Care 03/29/2024 Procedure Pass [address] [address] from Last 3 Months Family History Medical [...] housing situation today? I have denisa sing 03/25/2025 How many times have you moved [...] as food, clothing, or medical care? No 05/16/2025 In the past 12 months have y ou been in a relationship with a person who hurts, threatens, or tries to control you? No 05/16/2025 Are you denied basic needs s uch as food, clothing, or medical care? No 05/16/2025 In the past 12 months have y ou been in a relationship with a person who hurts, threatens, or tries to control you? No 05/16/2025 Comments Unknown Sex and Gender Information Value Date Recorded Sex Assigned at Female 05/15/2021 9:51 AM EDT Legal Sex Female 9:52 AM EDT Gender Identity Female 05/15/2021 9:51 AM EDT Sexual Orientation Not on file Last Filed Vital Signs Vital Sign Reading Time Taken Comments Blood Pressure 145/76 05/06/2025 10:10 AM EDT Pulse 68 05/06/2025 10:10 AM EDT Temperature 36.3 C (97.3 F) 05/06/2025 10:10 AM EDT Respiratory Rate 18 05/06/2025 10:10 AM EDT Oxygen Saturation 100% 05/06/2025 10:10 AM EDT Inhaled Oxygen Concentration - - Weight 59 kg (130 lb) 03/02/2025 11:12 AM EDT Height 160 cm (5' 3 ) 03/02/2025 11:12 AM EDT Body Mass Index 23.03 03/02/2025 11:12 AM EDT Plan of Treatment Upcoming Encounters Date Type Department Care Team (Late st Contact Info) Description 07/19/2024 Procedure Pass [facility] [address] [place] [address] 05/23/2025 9:30 AM EST Office Visit [facility] [address] [place] [address] Gordo Lagos DO 234 [facility], [address] [place] [address] [email or web address] 07/01/2025 11:30 AM EST Office Visit [facility] COM[facility]MOLOGY [facility] 22 [facility] 3rd [place] [phone] Gurjit Powell MD 22 [facility], 3rd [place] [address] [email or web address] 07/19/2025 10:00 AM EST Appointment [facility] [address] [place] [address] Franco Kelley MD, MPH [address] [place] [address] [email or web address] Health Maintenance Due Date Last Done Comments LIPID PANEL 1955 SMOKING Hx and SMOKELESS TOBACCO SCREENING 01/16/1968 MAMMOGRAM 1995 COLOGUARD 01/16/2000 COLONOSCOPY 01/16/2000 COLORECTAL CANCER SCREENING 01/16/2000 FIT TEST 01/16/2000 FOBT 01/16/2000 SIGMOIDOSCOPY 01/16/2000 VIRTUAL COLONOSCOPY 01/16/2000 ZOSTER VACCINES (1 of 2) 2005 OSTEOPOROSIS SCREENING INITI AL (ONE-TIME) 01/16/2020 PNEUMOCOCCAL VACCINES (50+ years) (2 of 2 - PCV) 01/23/2021 01/24/2020 INFLUENZA VACCINE (#1) 2025 COVID-19 VACCINE ( - 2024-2 6 season) 2025 05/18/2021, 10/24/2020, 10/03/2020 DEPRESSION SCREENING 05/16/2026 05/16/2025 Adult Td,Tdap Booster 01/31/2027 01/31/2017 RSV VACCINE (1 - 1-dose 75+ series) 2030 HEPATITIS C SCREENING Completed 10/01/2024 , 10/04/2023 HEPATITIS A VACCINES Aged Out No long [...] Procedure Name Priority Date/Time Associated Diagnosis Comments CBC Routine 04/19/2025 2:59 PM EDT Crohn's disease with complication, unspecified gastrointestinal tract location COMPREHENSIVE METABOLIC PANEL (CMP) Routine 04/19/2025 2:59 PM EDT Crohn's disease with complication, unspecified gastrointestinal tract location C-REACTIVE PROTEIN (CRP) Routine 04/19/2025 2:59 PM EDT Crohn's disease with complication, unspecified gastrointestinal tract location URINE CULTURE Routine 03/02/2025 12:00 PM EDT Acute UTI (urinary tract infection) POCT URINE DIPSTICK Routine 03/02/2025 1 1:02 AM EDT MRI BRAIN WITH AND WITHOUT CONTRAST Routine 02/26/2025 11:05 AM EDT Meningioma HEPATITIS B SURFACE ANTIGEN Routine 10/01/2024 1:16 PM EDT Diagnosis unknown from Last 3 Months or Most Recently Relevant to Health Maintenance Results * (ABNORMAL) Comprehensive metabolic panel (04/19/2025 2:59 PM EDT) SODIUM 142 133 - 146 mmol/L [facility] POTASSIUM 4.6 3.3 - 5.1 mmol/L [facility] CHLORIDE 106 96 - 108 mmol/L [facility] CO2 24 21 - 35 mmol/L [facility] BUN 21(H) 6 - 19 mg/dL [facility] CREATININE 0.90 0.5 - 1.5 mg/dL [facility] GLUCOSE 127(H) 70 - 99 mg/dL [facility] ALBUMIN 4.3 3.9 - 4.8 g/dL [facility] TOTAL PROTEIN 7.3 6.5 - 8.0 g/dL [facility] CALCIUM 10.2 8.4 - 10.3 mg/dL [facility] ALKALINE PHOSPHATASE 102 39 - 117 U/L [facility] TOTAL BILIRUBIN <0.2 0.0 - 1.2 mg/dL [facility] AST 16 0 - 37 U/L [facility] ALT 9 0 - 40 U/L [facility] GLOBULIN 3.0 1 - 4.8 g/dL [facility] EGFR 69 >59 mL/min/1.7 3m2 [facility] Comment:Estimated glomerular filtration rate calculated using the CKD-EPI refit equation. ANION GAP 17 10 - 20 mmol/L [facility] Blood 04/19/2025 2:59 PM EDT 04/19/2025 3:03 PM EDT us Toan Hicks MD LAB BLOOD BKR ORDERABLES Final Result [facility] [address] [place], [place] [id number] * CBC (04/19/2025 2:59 PM EDT) WBC 8.54 4.00 - 11.00 K/uL [facility] RBC 4.11 4.00 - 5.20 M/uL [facility] HGB 12.3 12.0 - 16.0 g/dL [facility] HCT 37.4 36.0 - 46.0 % [facility] PLT 447 150 - 450 K/uL [facility] MCV 91.0 80.0 - 100.0 fL [facility] MCH 29.9 27.0 - 31.0 pg [facility] MCHC 32.9 32.0 - 36.0 g/dL [facility] RDW 12.7 11.5 - 14.5 % [facility] MPV 10.3 8.4 - 12.0 fL [facility] NRBC 0.00 0.00 /100 WBCs [facility] ABSOLUTE NRBC 0.00 0.00 K/uL [facility] Blood 04/19/2025 2:59 PM EDT 04/19/2025 3:03 PM EDT Toan Hicks MD LAB BLOOD BKR ORDERABLES Final Result Performing Organization Address [facility] Co de Phone Number [address] [address] * C-Reactive Protein (04/19/2025 2:59 PM EDT) C REACTIVE PROTEIN <3.0 0.0 - 4.0 mg/L [facility] Blood 04/19/2025 2:59 PM EDT 04/19/2025 3:03 PM EDT Toan Hicks MD LAB BLOOD BKR ORDERABLES Final Result Performing Organization Address [facility] Co de Phone Number [address] [address] * (ABNORMAL) Urine Culture (03/02/2025 12:00 PM EDT) Special Requests None 03/02/2025 12:00 PM EDT [facility] Urine Culture 10,000 to 100,000 colony forming units per mL MIXED LEENA (3 OR MORE COLONY TYPES) Culture indicates contamination . Please resubmit if necessary.(A) 03/04/2025 9:20 AM EDT [facility] Urine (Urine) 03/02/2025 12: 00 PM EDT 03/02/2025 2:26 PM EDT Comment:CLEAN CATCH~CC us Samra HOWE LAB MICROBIOLOGY CULTURE OR DERABLES Final Result Performing Organization Address [facility]/ZIP Co de Phone Number [address] [address] * (ABNORMAL) POCT Urine Dipstick (Automated) (03/02/2025 11:02 AM EDT) COLOR LT YELLOW [facility] TURBIDITY Slightly Cloudy [facility] GLUCOSE, POCT Negative Negative [facility] KETONE, POCT Negative Negative [facility] OCCULT BLOOD, POCT Trace Intact(A) Negative [facility] SPECIFIC GRAVITY, POCT <1.005 1.001 - 1.030 [facility] ALBUMIN, POCT Negative Negative [facility] Bili Negative Negative [facility] Urobilinogen 0.2 <1.0 [facility] NITRITE, POCT Negative Negative [facility] PH, POCT 5.5 5.0 - 8.0 [facility] WBC SCREEN, POCT 1+(A) Negative [facility] 03/02/2025 11:0 2 AM EDT 03/02/2025 11:05 AM EDT Samra Walter RIGGING SLINGER LAB POCT ENTER/EDIT ORDERAB LES Final Result [facility] [place] [id number], [facility] [phone] * MRI BRAIN WITH AND WITHOUT CONTRAST [...] clinician's provided indication for this examination in [facility]: * Meningioma, monitor TECHNIQUE: MRI BRAIN WITH [...] provided indication for this examination in Epic: *Meningioma, monitor TECHNIQUE: MRI BRAIN WITH AND [...] MD IMG MR HEAD/NECK Final Result * Hepatitis B surface antigen (10/01/2024 1:16 PM EDT) HBV SURFACE ANTIGEN NON-REACTI VE NON-REACTI VE [facility] Blood 10/01/2024 1:16 PM EDT 10/01/2024 1:18 PM EDT us Lopez Cote MD LAB BLOOD BKR ORDERABLE S Final Result [facility] [address] [place] [address] from Last 3 Months or Most Recently Relevant to Health Maintenance Insurance MEDICARE PART A & B [facility] MEDICARE SUPPLEMENT MEDICARE PART A & B [facility] MEDICARE SUPPLEMENT MEDICARE PART A & B [facility] [employer] MEDICARE SUPPLEMENT MEDICARE PART A & B [employer] MEDICARE SUPPLEMENT MEDICARE PART A & B [employer] MEDICARE SUPPLEMENT MEDICARE PART A & B [employer] MEDICARE SUPPLEMENT MEDICARE PART A & B [facility] [employer] MEDICARE SUPPLEMENT MEDICARE PART A & B [facility] MEDICARE SUPPLEMENT MEDICARE PART A & B [facility] MEDICARE SUPPLEMENT Care Teams Speech And Language Specialist Relationship Specialty Start Date End Date Lopez Cote MD PCP - General 05/15/21 Alma Delia Graves MD, PhD [address] [address] [email or web address] Surgeon Surgical Oncology 05/25/21 Additional Source Comments The information contained in this document represents components of the legal health record. It is not the complete legal health record.[facility]
--- OUTSIDE RECORDS SUMMARY | 2025-05-21 17:16 | XMS_ITS | Encounter Summary ---
Author Organization [facility] Address [address] [facility] [address] [place] [address] Phone Care Team Providers Care Paving Plant Operator Name Role Phone Lopez Cote MD Primary Care Provider Alma Delia Graves MD, PhD Unavailable [phone] Reason for Referral * MRI/CAT Scan - Closed Specialty Diagnoses / Procedures Referred By Juliocesar anderson Referred To Contact Radiology Diagnoses Crohn's disease with complication, unspecified gastrointestinal tract location Procedures MRI Enterography Abdomen/Pelvis MRI PELVIS (GI/) Marti Crenshaw PA-C Phone: tel: fax: [email or web address] Referral ID Status Reason Start Date Expiration Date Visits Re quested Visits Authorized [id number] Closed 01/05/2024 01/04/2025 1 1 Encounter Details Date Type Department Care Team (Latest Contact Info) Description 01/05/2024 Transcribe Orders Virtual Department [address] [place] [address] Marti Crenshaw PA-C [address] [place] [address] [email or web address] Crohn's disease with complication, unspecified gastrointestinal tract location (Primary Dx) Social History Tobacco Use Types Packs/Day Years Used Date Smoking Tobacco: Former Smokeless Tobacco: Never Education Answer Date Recorded Are you interested in more education? Not on efr e 11/12/2022 Are you concerned about learning? [...] st Contact Info) Description 07/19/2024 Procedure Pass [address] [address] 05/23/2025 9:30 AM EST Office Visit [facility] [address] [address] Gordo Lagos DO [address] [facility], [address] [place] [address] 07/01/2025 11:30 AM EST Office Visit [facility] OPHTHAL[facility]OLOGY [address] 3rd [place] [phone] Gurjit Powell MD 22 [facility] 3rd [place] [address] [email or web address] 07/19/2025 10:00 AM EST Appointment [address] [address] Franco Kelley MD, MPH [address] [address] [email or web address] documented as of this encounter Results * [...] provided indication for this examination in Epic: Outside Radiology Order; crohns TECHNIQUE: MRI enterography with [...] cystsare also again noted, poorly characterized. Marti Crenshaw PA-C IMG MR ABDOMEN Final Result documented in this encounter Visit Diagnoses Diagnosis Crohn's disease with complication, unspecified gastrointestinal tract location- Primary Crohn's disease with complication, unspecified gastrointestinal tract location documented in this encounter Care Teams Paving Plant Operator Relationship Specialty Start Date End Date Lopez Cote MD PCP - General 05/15/21 Alma Delia Graves MD, PhD [address] [address] [email or web address] Surgeon Surgical Oncology 05/25/21 documented as of this encounter Additional Source Comments The information contained in this document represents components of the legal health record. It is not the complete legal health record.[facility]
--- OUTSIDE RECORDS SUMMARY | 2025-05-21 17:16 | XMS_ITS | Data Portability ---
Author Organization LAMBERT Peewee Myles [facility], [employer] Address [address] [place] [address] Assessment No assessment recorded. Plan of Treatment [...] Organization Details Recorded Time No complaint s [id number] Active Status: 'I'; Not Available [facility] 4 09:16:57 Impingeme nt syndrome of left shoulder region [id number] 104 Active 2019 Problem Code: M75.42; Problem Code Type: ICD-10; Status: 'A'; Not Available [facility] 4 11:42:01 Problem Notes None recorded. Procedures Surgical History Date Name Laterality Status Provider Name and Address Organization Details Recorded Time 5 JZHip Inj completed JU Galvin-C [address] [facility], [place], [address], [facility] 04/15/2025 11:32:10 5 Hip Kenalog 1cc Injection, L/R completed Bjorn Fair PA-C [address] [facility], [place], [address], [facility] 11/08/2024 15:14:32 4 Hip Kenalog 1cc Injection, L/R completed JU Galvin-C [address] [facility], [place], [address], [facility] 04/17/2024 15:57:41 4 Hip Kenalog 1cc Injection, L/R completed Bjorn Fair PA-C [address] [facility], [place], [address], [facility] 10/27/2023 15:48:44 Imaging Results None recorded. Procedure Notes None recorded. Medical Equipment None Reported. Allergies Allergen ID Allergen Name Allergen Category Reaction Reaction Severity Criticality Documentation Date Start Date Code Code System Note Provider Name and Address Organization Details Recorded Time 106970 Product containin g 3-hydroxy -3-methyl glutaryl- coenzyme A reductase inhibitor (product) medicatio n Not available Not available Not available 10/27/2023 01079 009 [facility] 4 15:03:33 186282 Solu-Medr ol medicatio n Not available Not available Not available 10/27/202390744 6 RxNorm FELTON lo [place] - [facility] 4 15:04:10 74232 Product containin g penicilli n (product) medicatio n anaphylax is Not available Not available 09/19/20232018 12834 8001 SNOMED Not Available [facility] 4 14:23:13 Medications Name Sig Start Date Stop Date Status Note LastModified by Organization Details LastModified Time celecoxib 200 mg capsule TAKE 1 CAPSULE BY MOUTH TWICE A DAY active Not Available Not Available No t Available azithromyci n 250 mg tablet TAKE 2 TABLETS BY MOUTH TODAY, THEN TAKE 1 TABLET DAILY FOR 4 DAYS DIRECTED 04/10 completed Not Available Not Available Not Available famotidine 40 mg tablet TAKE 1 TABLET BY MOUTH TWICE A DAY active Not Available Not Available No t Available alendronate 70 mg tablet PLEASE SEE ATTACHED FOR DETAILED DIRECTION S 04/10 completed Not Available Not Available Not Available sulfamethox azole 800 mg-trimetho prim 160 mg tablet TAKE 1 TABLET BY MOUTH TWICE A DAY FOR 3 DAYS (TAKE WITH FOOD,YOGU RT,PROBIO TICS, FINISH ALL) 04/12 completed Not Available Not Available Not Available glimepiride 1 mg tablet TAKE 1 TABLET BY MOUTH EVERY MORNING WITH BREAKFAST active Not Available Not Available No t Available oxycodone-a cetaminophe n 5 mg-325 mg tablet TAKE 1 TABLET ORALLY 2 TIMES A DAY NEEDED FOR PAIN FOR 3 DAYS active Not Available Not Available No t Available imiquimod 5 % topical cream packet PLEASE SEE ATTACHED FOR DETAILED DIRECTION S active Not Available Not Available No t Available gemfibrozil 600 mg tablet TAKE 1 TABLET BY MOUTH TWICE A DAY active Not Available Not Available No t Available cyanocobala min (vit B-12) 1,000 mcg/mL injection solution INJECT 1,000 MCG INTRAMUSC ULARY DIRECTED active Not Available Not Available No t Available budesonide DR - ER 3 mg capsule,del ayed,extend ed release OPEN 3 CAPSULES AND MIX WITH APPLE SAUCE AND TAKE BY MOUTH DAILY active Not Available Not Available No t Available levofloxaci n 500 mg tablet TAKE 1 TABLET BY MOUTH ONCE A DAY FOR 7 DAYS 09/24 /2025 completed Not Available Not Available Not Available albuterol sulfate HFA 90 mcg/actuati on aerosol inhaler USE 2 PUFFS 4 TIMES A DAY NEEDED FOR SHORTNESS OF BREATH OR WHEEZING FOR 30 DAYS 04/10 completed Not Available Not Available Not Available morphine 15 mg immediate release tablet TAKE 1 TABLET BY MOUTH EVERY 4 TO 6 HOURS NEEDED FOR PAIN 04/10 completed Not Available Not Available Not Available Heartburn Relief 254 mg-237.5 mg/5 mL oral suspension 10 ML ORALLY 4 TIMES A DAY NEEDED FOR DYSPEPSIA 04/10 completed Not Available Not Available Not Available moxifloxaci n 0.5 % eye drops INSTILL 1 DROP IN OPERATIVE EYE 3 TIMES A DAY STARTING 1 DAY PRE-OP, CONTINUE FOR 7 DAYS AFTER 04/10 completed Not Available Not Available Not Available sodium fluoride 1.1 %-potassium nitrate 5 % dental paste BRUSH FOR 2 MIN AT BEDTIME SPIT OUT DO NOT RINSE active Not Available Not Available No t Available BD Integra Syringe 3 mL 25 gauge x 1 USE DIRECTED active Not Available Not Available No t Available sodium,pota ssium,mag sulfates 17.5 gram-3.13 gram-1.6 gram oral soln DILUTE DRINK 1/2 AT 6-8 PM AND HALF AT 11 PM- 1AM active Not Available Not Available No t Available Vitamin D3 50 mcg (2,000 unit) capsule TAKE 1 CAPSULE BY MOUTH EVERY DAY active Not Available Not Available No t Available Prolensa 0.07 % eye drops INSTILL 1 DROP IN OPERATIVE EYE DAILY FOR 21 DAYS. START 1 DAY PRE-OP 04/10 completed Not Available Not Available Not Available Lotemax SM 0.38 % eye gel drops USE 1 APPLICATI ON INTO THE OPERATIVE EYE TWICE A DAY FOR 21 DAYS THEN ONCE A DAY FOR 7 DAYS 04/10 completed Not Available Not Available Not Available Vitals Date Recorded Body height Provider Name an d Address Organization Details Last Updated DateTime 10/27/2023 160.02 cm FELTON MUELLER [place] - [facility] 10/27/2023 14:57:25 Date Recorded Body height Body mass index (BMI) Body weight Provider Name and Address Organization Details Last Updated DateTime 11/08/2024 160.02 cm 24.4 kg/m2 74051.75 g Yocasta Parekh [place] - [facility] 11/08/2024 14:57:47 Date Recorded Body height Body mass index (BMI) Body weight Provider Name and Address Organization Details Last Updated DateTime 04/15/2025 160.02 cm 24.4 kg/m2 65696.75 g Yocasta Parekh [facility] 04/15/2025 10:35:26 Date Recorded Body height Body mass index (BMI) Body weight Provider Name and Address Organization Details Last Updated DateTime 04/17/2024 160.02 cm 24.4 kg/m2 03647.75 g ANSHUL PABLO [facility] 04/17/2024 15:17:50 Social History None recorded. Functional Status None recorded. Mental Status None recorded. Family History Nothing Reported. Medical History Condition Response Arthritis Y Cholesterol Y Osteoporosis Y Gynecological HistoryNo gynecological history recorded. Obstetrics History GPAL:G 0 P 0 0 0 0 Past Encounters Encounter ID Performer Location Encounter Start Date Encounter Closed Date Diagnosis/Indication Diagnosis SNOMED-CT Code Diagnosis ICD10 Code Diagnosis IMO Codes Diagnosis Note [id number] RAFAL Galvin [address] [place] [address] 10/27/2023 14:44:33 11/16/2023 12:40:14 Trochanteric bursitis of left hip [id number] 49707 M70.62 You have been provided with a [...] following the injection. This is called a f lare . To help minimize the chances of this, please see the post-injec tion instructio ns above.Ther e is a less than 1% chance of an infection. If you notice any signs of infection (redness, warmth, drainage, fever greater than 100 degrees) please call our office or contact us through the portal [facility]. [id number] RAFAL Galvin [address] [place] [address] 04/17/2024 14:50:20 05/11/2024 15:11:28 Trochanteric bursitis of left hip 7950799141 95381 M70.62 You have been provided with a [...] following the injection. This is called a f lare . To help minimize the chances of this, please see the post-injec tion instructio ns above.Ther e is a less than 1% chance of an infection. If you notice any signs of infection (redness, warmth, drainage, fever greater than 100 degrees) please call our office or contact us through the portal [facility]. [id number] RAFAL Galvin [address] floor [address] [place] [address] 11/08/2024 14:47:05 11/21/2024 10:24:21 Trochanteric bursitis of left hip [id number] 21641 M70.62 0396070 You have been provided with a cortisone [...] following the injection. This is called a f lare . To help minimize the chances of this, please see the post-injec tion instructio ns above.Ther e is a less than 1% chance of an infection. If you notice any signs of infection (redness, warmth, drainage, fever greater than 100 degrees) please call our office or contact us through the portal [facility]. [id number] RAFAL Galvin [address] floor [address] [place] [address] 04/15/2025 10:10:58 04/22/2025 15:40:53 Greater trochanteric pain syndrome of left lower limb [id number] 0904056 M25.552 [id number] Sacroiliac disorder 2027 65530 M53.3 867726 Health Concerns Section Related Observation LastModified by Organization Detai ls LastModified Time None Recorded Concern Status LastModified by Organization Details LastModified Time None Recorded Advance Directives Directive None Recorded Payers Insurance Date Sequence Insurance Name Policy Number Policy Law Covered Member ID Law Member ID Guarantor Name 04/15/2025 1 [place] [employer] Renu Orozco [id number] Renu Orozco 04/22/2025 2 [facility] (MEDICARE SUPPLEMENT) [id number] Renu Orozco [id number] Renu Orozco Notes Date Note Type Note [...] and follow-up as directed. Bjorn Fair PA-C [address] [place] [address] [address], [place], [address], [facility] - [facility] 10/27/2023 15:48:58 04/17/2024 text/html I am seeing [...] follow-up as directed. Bjorn Fair PA-C [address], [place], [address], [facility] - [facility] 04/17/2024 15:57:52 11/08/2024 text/html I am seeing [...] follow-up as directed. Bjorn Fair PA-C [address], [place], [address], [facility] 11/08/2024 15:14:53 04/15/2025 text/html I am seeing the patient today under the supervision of Dr. Snyder who was available but who did not see the patient. The patient presents today for follow-up. Has known trochanteric bursitis of the Left hip. Has had previous cortisone injection which gave relief until recently. Patient reported a couple weeks ago did fall on her left side injuring her tailbone. Patient sustained a fracture of that area. Seems to have exacerbated her IT band given the rest she was on now still has some pain discomfort in the posterior lateral aspect of that hip. PAST MEDICAL/SURGICAL HISTORY Past medical history is [...] No significant pain with straight leg raise. Patient has fairly significant tenderness over the left SI joint. No significant tailbone pain. ASSESSMENT Symptomatic trochanteric bursitis of the Left hip. With SI joint pathology PLAN I reviewed the findings with the patient, discussed different treatment options which included medications physical therapy and injections The patient wishes to proceed with cortisone injection. Please see procedure note. Monitor the effects and follow-up as directed. As for the SI joint did discuss the role of physical therapy cortisone injections. At this point recommend following up with her back specialist for further evaluation and management of such. Bjorn Fair PA-C [address], [place], [address], [facility] 04/15/2025 11:33:28 OBGyn Episode No OBEpisode recorded.
--- OUTSIDE RECORDS SUMMARY | 2025-05-21 17:16 | XMS_ITS | Encounter Summary ---
Author Organization [facility] Address [address] [facility] [address] [place] [address] Phone Care Team Providers Care Carboy Filler Name Role Phone Lopez Cote MD Primary Care Provider Alma Delia Graves MD, PhD Unavailable [phone] Encounter Details Date Type Department Care Team (Late st Contact Info) Description 01/05/2024 Procedure Pass [facility], [address] [address] Social History Tobacco Use Types Packs/Day Years [...] st Contact Info) Description 07/19/2024 Procedure Pass [address] [address] 05/23/2025 9:30 AM EST Office Visit [facility] [address] [place] [address] Gordo Lagos DO 234 [facility], [address] [place] [address] [email or web address] 07/01/2025 11:30 AM EST Office Visit [facility] O[facility]OLOGY [facility] [address] [facility] 3rd [place] [address] Gurjit Powell MD 22 [facility], [address] [place] [address] [email or web address] 07/19/2025 10:00 AM EST Appointment [address] [address] Franco Kleley MD, MPH [address] [address] [email or web address] documented as of this encounter Visit Diagnoses Not on filedocumented in this encounter Care Teams Carboy Filler Relationship Specialty Start Date End Date Lopez Cote MD PCP - General 05/15/21 Alma Delia Graves MD, PhD 55 [facility] [address] [place] [address] [email or web address] Surgeon Surgical Oncology 05/25/21 documented as of this encounter Additional Source Comments The information contained in this document represents components of the legal health record. It is not the complete legal health record.[facility]
--- OUTSIDE RECORDS SUMMARY | 2025-05-21 17:16 | XMS_ITS | Encounter Summary ---
Author Organization [facility] Address [address] [facility] [address] [place] [address] Phone Care Team Providers Care Fur Finisher Tailor Name Role Phone Lopez Cote MD Primary Care Provider Alma Delia Graves MD, PhD Unavailable [phone] Encounter Details Date Type Department Care Team (Late st Contact Info) Description 07/27/2023 Procedure Pass [facility], [address] [address] Social History Tobacco Use Types Packs/Day Years [...] st Contact Info) Description 07/19/2024 Procedure Pass [address] [address] 05/23/2025 9:30 AM EST Office Visit [facility] Medical [facility] [address] [place] [address] Gordo Lagos DO 234 [facility], [address] [place] [address] [email or web address] 07/01/2025 11:30 AM EST Office Visit [facility] O[facility] 22 [facility] 3rd [place] [address] Gurjit Powell MD [address] [facility], [address] [place] [address] [email or web address] 07/19/2025 10:00 AM EST Appointment [address] [address] Franco Kelley MD, MPH [address] [address] [email or web address] documented as of this encounter Visit Diagnoses Not on filedocumented in this encounter Care Teams Fur Finisher Tailor Relationship Specialty Start Date End Date Lopez Cote MD PCP - General 05/15/21 Alma Delia Graves MD, PhD [address] [facility] [address] [place] [address] [email or web address] Surgeon Surgical Oncology 05/25/21 documented as of this encounter Additional Source Comments The information contained in this document represents components of the legal health record. It is not the complete legal health record.[facility]
--- OUTSIDE RECORDS SUMMARY | 2025-05-21 17:16 | XMS_ITS | Encounter Summary ---
Author Organization [facility] Address [address] [place] [address] Phone Care Team Providers Care Packing Shed Supervisor Name Role Phone Lopez Cote MD Primary Care Provider Alma Delia Graves MD, PhD Unavailable [phone] Encounter Details Date Type Department Care Team (Late st Contact Info) Description 10/11/2022 Procedure Pass [address] [address] Social History Tobacco Use Types Packs/Day Years [...] st Contact Info) Description 07/19/2024 Procedure Pass [address] [address] 05/23/2025 9:30 AM EST Office Visit [facility] [address] [place] [address] Gordo Lagos, DO [address] [facility], [address] [place], [place] [id number] [email or web address] 07/01/2025 11:30 AM EST Office Visit [facility] O[facility]MOLOGY [facility] [address] [place] 3rd [place] [address] Gurjit Powell MD 22 [facility], 3rd [place] [address] [email or web address] 07/19/2025 10:00 AM EST Appointment [facility] [address] [place] [address] Franco Kelley MD, MPH [address] [place] [address] [email or web address] documented as of this encounter Visit Diagnoses Not on filedocumented in this encounter Care Teams Packing Shed Supervisor Relationship Specialty Start Date End Date Lopez Cote MD PCP - General 05/15/21 Alma Delia Graves MD, PhD [address] [place] [address] [email or web address] Surgeon Surgical Oncology 05/25/21 documented as of this encounter Additional Source Comments The information contained in this document represents components of the legal health record. It is not the complete legal health record.[facility]
--- OUTSIDE RECORDS SUMMARY | 2025-05-21 17:16 | XMS_ITS | Encounter Summary ---
Author Organization [facility] Address [address] [place] [address] Phone Care Team Providers Care Gristmiller Name Role Phone Lopez Cote MD Primary Care Provider Alma Delia Graves MD, PhD Unavailable [phone] Reason for Visit * Reason Onset Date Comments Schedule colonoscopy 04/30/2025 Encounter Details Date Type Department Care Team (Late st Contact Info) Description 04/30/2025 Telephone [facility] Clinic [address] [place] [address] Toan Hicks MD [address] [address] [email or web address] Schedule colonoscopy Social History Tobacco Use Types Packs/Day Years [...] is your housing situation today? I have ednisa nath 03/25/2025 How many times have you moved in the past 12 tue th? One time 03/25/2025 Paying for Meds Answer [...] on file documented as of this encounter Progress Notes * Trixie Kelly - 04/30/2025 10:36 AM EDT Pt calling in requesting call back to schedule colonoscopy. Pt was seen on 04/16 by JOSEFA and never received call to schedule documented in this encounter Plan of Treatment Upcoming Encounters Date Type Department Care Team (Late st Contact Info) Description 07/19/2024 Procedure Pass [address] [address] 05/23/2025 9:30 AM EST Office Visit [facility] [address] [place] [address] Gordo Lagos, [address] [facility], [address] [place] [address] [email or web address] 07/01/2025 11:30 AM EST Office Visit [facility] O[facility] 22 [facility] 3rd [place] [address] Gurjit Powell MD 22 [facility], [address]rd [place] [address] [email or web address] 07/19/2025 10:00 AM EST Appointment [address] [address] Franco Kelley MD, MPH [address] [place] [address] [email or web address] documented as of this encounter Visit Diagnoses Not on filedocumented in this encounter Care Teams Gristmiller Relationship Specialty Start Date End Date Lopez Cote MD PCP - General 05/15/21 Alma Delia Graves MD, PhD [address] [address] [email or web address] Surgeon Surgical Oncology 05/25/21 documented as of this encounter Additional Source Comments The information contained in this document represents components of the legal health record. It is not the complete legal health record.[facility]
--- OUTSIDE RECORDS SUMMARY | 2025-05-21 17:16 | XMS_ITS | Encounter Summary ---
Author Organization [facility] Address [address] [facility] [address] [place] [address] Phone Care Team Providers Care Global Regulatory Affairs Manager Name Role Phone Lopez Cote MD Primary Care Provider Alma Delia Graves MD, PhD Unavailable [phone] Encounter Details Date Type Department Care Team (Late st Contact Info) Description 03/14/2023 Procedure Pass [facility], [address] [address] Social History Tobacco Use Types Packs/Day Years [...] st Contact Info) Description 07/19/2024 Procedure Pass [address] [address] 05/23/2025 9:30 AM EST Office Visit [facility] Medical [facility] [address] [place] [address] Gordo Lagos DO 234 [facility], [address] [place] [address] [email or web address] 07/01/2025 11:30 AM EST Office Visit [facility] 22 [facility] 3rd [place] [address] Gurjit Powell MD 22 [facility], [address]rd [place] [address] [email or web address] 07/19/2025 10:00 AM EST Appointment [address] [address] Franco Kelley MD, MPH [address] [address] [email or web address] documented as of this encounter Visit Diagnoses Not on filedocumented in this encounter Care Teams Global Regulatory Affairs Manager Relationship Specialty Start Date End Date Lopez Cote MD PCP - General 05/15/21 Alma Delia Graves MD, PhD 55 [facility] [address] [place] [address] [email or web address] Surgeon Surgical Oncology 05/25/21 documented as of this encounter Additional Source Comments The information contained in this document represents components of the legal health record. It is not the complete legal health record.[facility]
--- OUTSIDE RECORDS SUMMARY | 2025-05-21 17:17 | XMS_ITS | Encounter Summary ---
Author Organization [facility] Address [address] [place] [address] Phone Care Team Providers Care Building Inspection Engineer Name Role Phone Lopez Cote MD Primary Care Provider Alma Delia Graves MD, PhD Unavailable [phone] Encounter Details Date Type Department Care Team (Late st Contact Info) Description 06/02/2022 Procedure Pass [address], 2nd [place] [address] Social History Tobacco Use Types Packs/Day Years [...] st Contact Info) Description 07/19/2024 Procedure Pass [facility] 30 [place] [address] 05/23/2025 9:30 AM EST Office Visit [facility] 234 [place], [place] [phone] Gordo Lagos, 234 [facility], [address] [place] [address] [email or web address] 07/01/2025 11:30 AM EST Office Visit [facility] [address] 3rd [place] [address] Gurjit Powell MD 22 [facility], 3rd [place] [address] [email or web address] 07/19/2025 10:00 AM EST Appointment [facility] 30 [place] [address] Franco Kelley MD, MPH [address] [place] [address] [email or web address] documented as of this encounter Visit Diagnoses Not on filedocumented in this encounter Care Teams Building Inspection Engineer Relationship Specialty Start Date End Date Lopez Cote MD PCP - General 05/15/21 Alma Delia Graves MD, PhD [address] [place] [address] [email or web address] Surgeon Surgical Oncology 05/25/21 documented as of this encounter Additional Source Comments The information contained in this document represents components of the legal health record. It is not the complete legal health record.[facility]
--- OUTSIDE RECORDS SUMMARY | 2025-05-21 17:17 | XMS_ITS | Encounter Summary ---
Author Organization [facility] Address [address] [place] [address] Phone Care Team Providers Care Wool Carder Name Role Phone Lopez Cote MD Primary Care Provider Alma Delia Graves MD, PhD Unavailable [phone] Encounter Details Date Type Department Care Team (Late st Contact Info) Description 06/02/2022 Procedure Pass [address], 2nd [place] [address] Social History Tobacco Use Types [...] st Contact Info) Description 07/19/2024 Procedure Pass [facility] 30 [place] [address] 05/23/2025 9:30 AM EST Office Visit [facility] 234 [place], [place] [phone] Gordo Lagos, 234 [facility], [address] [place] [address] [email or web address] 07/01/2025 11:30 AM EST Office Visit [facility] [address] 3rd [place] [address] Gurjit Powell MD 22 [facility], 3rd [place] [address] [email or web address] 07/19/2025 10:00 AM EST Appointment [facility] 30 [place] [address] Franco Kelley MD, MPH [address] [place] [address] [email or web address] documented as of this encounter Visit Diagnoses Not on filedocumented in this encounter Care Teams Wool Carder Relationship Specialty Start Date End Date Lopez Cote MD PCP - General 05/15/21 Alma Delia Graves MD, PhD [address] [place] [address] [email or web address] Surgeon Surgical Oncology 05/25/21 documented as of this encounter Additional Source Comments The information contained in this document represents components of the legal health record. It is not the complete legal health record.[facility]
--- OUTSIDE RECORDS SUMMARY | 2025-05-21 17:17 | XMS_ITS | Encounter Summary ---
Author Organization [facility] Address [address] [place] [address] Phone Care Team Providers Care Agency Sales Development Associate Name Role Phone Lopez Cote MD Primary Care Provider Alma Delia Graves MD, PhD Unavailable [phone] Encounter Details Date Type Department Care Team (Late st Contact Info) Description 03/29/2024 Procedure Pass [facility], [address] [address] Social History Tobacco Use Types Packs/Day Years [...] st Contact Info) Description 07/19/2024 Procedure Pass [address] [address] 05/23/2025 9:30 AM EST Office Visit [facility] 234 [place] [address] Gordo Lagos DO 234 [facility], [address] [place] [address] [email or web address] 07/01/2025 11:30 AM EST Office Visit [facility] 22 [facility] 3rd [place] [address] Gurjit Powell MD [address] [facility], [address] [place] [address] [email or web address] 07/19/2025 10:00 AM EST Appointment [address] [address] Franco Kelley MD, MPH [address] [address] [email or web address] documented as of this encounter Visit Diagnoses Not on filedocumented in this encounter Care Teams Agency Sales Development Associate Relationship Specialty Start Date End Date Lopez Cote MD PCP - General 05/15/21 Alma Delia Graves MD, PhD [address] [address] [email or web address] Surgeon Surgical Oncology 05/25/21 documented as of this encounter Additional Source Comments The information contained in this document represents components of the legal health record. It is not the complete legal health record.[facility]
--- OUTSIDE RECORDS SUMMARY | 2025-05-21 17:17 | XMS_ITS | Encounter Summary ---
Author Organization [facility] Address [address] [place] [address] Phone Care Team Providers Care Maintenance Dispatcher Name Role Phone Lopez Cote MD Primary Care Provider Alma Delia Graves MD, PhD Unavailable [phone] Encounter Details Date Type Department Care Team (Late st Contact Info) Description 06/03/2022 Procedure Pass [facility], [facility] [address] [place] [address] Social History Tobacco Use Types Packs/Day Years [...] st Contact Info) Description 07/19/2024 Procedure Pass [facility], [facility] 30 [place] [address] 05/23/2025 9:30 AM EST Office Visit [facility] 234 [place] [address] Gordo Lagos, DO 234 [facility], [address] [place] [address] 07/01/2025 11:30 AM EST Office Visit [facility] [address] 3rd [place] [address] Gurjit Powell MD 22 [facility], 3rd [place] [address] [email or web address] 07/19/2025 10:00 AM EST Appointment [facility] 30 [place] [address] Franco Kelley MD, MPH [address] [place] [address] [email or web address] documented as of this encounter Visit Diagnoses Not on filedocumented in this encounter Care Teams Maintenance Dispatcher Relationship Specialty Start Date End Date Lopez Cote MD PCP - General 05/15/21 Alma Delia Graves MD, PhD [address] [place] [address] [email or web address] Surgeon Surgical Oncology 05/25/21 documented as of this encounter Additional Source Comments The information contained in this document represents components of the legal health record. It is not the complete legal health record.[facility]
--- OUTSIDE RECORDS SUMMARY | 2025-05-21 17:17 | XMS_ITS | Encounter Summary ---
Author Organization [facility] Address [address] [employer] [address] [facility] [address] [place] [address] Phone Care Team Providers Care Supervisor Cytology Name Role Phone Lopez Cote MD Primary Care Provider Alma Delia Graves MD, PhD Unavailable [phone] Reason for Referral * MRI/CAT Scan - Closed Specialty Diagnoses / Procedures Referred By Contac t Referred To Contact Radiology Diagnoses Neuroendocrine tumor of pancreas Procedures CT PET Abdomen/Pelvis Franco Kelley MD, MPH Phone: tel: fax: mailto:[email or web address] Referral ID Status Reason Start Date Expiration Date Visits Re quested Visits Authorized [id number] Closed 06/02/2022 06/02/2023 1 1 * MRI/CAT Scan - Closed Specialty Diagnoses / Procedures Referred By Contmiguel t Referred To Contact Radiology Diagnoses Neuroendocrine tumor of pancreas Procedures CT PET Chest Franco Kelley MD, MPH Phone: tel: fax: mailto:[email or web address] Referral ID Status Reason Start Date Expiration Date Visits Re quested Visits Authorized [id number] Closed 06/02/2022 06/02/2023 1 1 Encounter Details Date Type Department Care Team (Latest Contact Info) Description 06/02/2022 Ancillary Orders [facility] 55 [facility] Building, 5th [place] [address] Franco Kelley MD, MPH [address] [address] [email or web address] Neuroendocrine tumor of pancreas Social [...] st Contact Info) Description 07/19/2024 Procedure Pass [address] [address] 05/23/2025 9:30 AM EST Office Visit [facility] [address] [address] Gordo Lagos DO [address] [place] [address], [address] [place] [address] [email or web address] 07/01/2025 11:30 AM EST Office Visit [facility] 22 [facility] 3rd [place] [address] Gurjit Powell MD 22 [facility], 3rd [place] [address] [email or web address] [email or web address] [facility] 07/19/2025 10:00 AM EST Appointment [facility] 30 [place] [address] Franco Kelley MD, MPH [address] [address] [email or web address] documented as of this encounter Results * [...] Mild degenerative changes Procedure Note Angel Mcdaniel, [facility] - 06/02/2022 CT PET ABDOMEN/PELVIS WITH CONTRAST TECHNIQUE: Multidetector-row CT of the abdomen and pelvis was performedafter administration of intravenous contrast using tailored dosemodulation techniques. Images were reconstructed in the axial, coronal,and sagittal planes. COMPARISON: MRI ABDOMEN OUTSIDE WITH INTERPRETATION OR [id number] FINDINGS: Lower Chest: No pleural effusion. Liver: [...] necessary edited the report originallycreated by Dr. Maarh Silva. [facility] Roselia Kelley MD, MPH IM CT PETCT Final Result * CT PET [...] lytic or blastic lesions. Procedure Note Ericka Milligan, - 06/02/2022 CT PET CHEST WITH CONTRAST [...] evidence of metastatic disease in the thorax. 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 It is not the complete legal health record.[facility]
--- OUTSIDE RECORDS SUMMARY | 2025-05-21 17:17 | XMS_ITS | Encounter Summary ---
Author Organization [facility] Address [address] [place] [address] Phone Care Team Providers Care Bi Analyst Name Role Phone Lopez Cote MD Primary Care Provider Alma Delia Graves MD, PhD Unavailable [phone] Encounter Details Date Type Department Care Team (Late st Contact Info) Description 05/26/2023 Procedure Pass [facility], [place] [address] [facility], 2nd Floor, [address] [place] [address] Social History Tobacco Use Types Packs/Day Years [...] st Contact Info) Description 07/19/2024 Procedure Pass [address] [address] 05/23/2025 9:30 AM EST Office Visit [facility] 234 [place] [address] Gordo Lagos DO 234 [facility], [address] [place] [address] [email or web address] 07/01/2025 11:30 AM EST Office Visit [facility] [address] [facility] 3rd [place] [address] Gurjit Powell MD 22 [facility], 3rd [place] [address] [email or web address] 07/19/2025 10:00 AM EST Appointment [address] [address] Franco Kelley MD, MPH [address] [address] [email or web address] documented as of this encounter Visit Diagnoses Not on filedocumented in this encounter Care Teams Bi Analyst Relationship Specialty Start Date End Date Lopez Cote MD PCP - General 05/15/21 Alma Delia Graves MD, PhD [address] [facility] [address] [place] [address] [email or web address] Surgeon Surgical Oncology 05/25/21 documented as of this encounter Additional Source Comments The information contained in this document represents components of the legal health record. It is not the complete legal health record.[facility]
--- OUTSIDE RECORDS SUMMARY | 2025-05-21 17:17 | XMS_ITS | Encounter Summary ---
Author Organization [facility] Address [address] [place] [address] Phone Care Team Providers Care Aquatic Scientist Name Role Phone Lopez Cote MD Primary Care Provider Alma Delia Graves MD, PhD Unavailable Encounter Details Date Type Department Care Team (Late st Contact Info) Description 02/08/2025 Procedure Pass [facility], Ct Scan - [address] [address] Social History Tobacco Use Types Packs/Day Years [...] 4:36 PM EDT Ángela Simon RN * [place] Suicide Severity Rating Scale (Screener/Recent Self-Report) Question Answer Date of Assessment Author 1. Wish to be (Past 1 Month) No 02/08/2025 4:36 PM STEVET Gary Garces RN 2. Non-Specific Active Suicidal Thoughts (Past 1 Month) No 02/08/2025 4:36 PM EDT Gary Garces RN 6. Suicidal Behavior (Lifetime) No 02/08/2025 4:36 PM EDT Gary Garces RN documented as of this encounter Plan of Treatment Upcoming Encounters Date Type Department Care Team (Late st Contact Info) Description 07/19/2024 Procedure Pass [address] [address] 05/23/2025 9:30 AM EST Office Visit [facility] [address] [place] [address] Gordo Lagos, 234 [facility], [address] [place] [address] [email or web address] 07/01/2025 11:30 AM EST Office Visit [facility] [address] [facility] 3rd [place] [address] Gurjit Powell MD [address] [address] [email or web address] 07/19/2025 10:00 AM EST Appointment [address] [address] Franco Kelley MD, MPH [address] [place] [address] [email or web address] documented as of this encounter Visit Diagnoses Not on filedocumented in this encounter Care Teams Aquatic Scientist Relationship Specialty Start Date End Date Lopez Cote MD PCP - General 05/15/21 Alma Delia Graves MD, PhD [address] [place] [address] [email or web address] Surgeon Surgical Oncology 05/25/21 documented as of this encounter Additional Source Comments The information contained in this document represents components of the legal health record. It is not the complete legal health record.[facility]
== END 2025-05-21 14:16 | disposition home or self-care (01) ==
LOC: HO.MAMMO 14:15
PROVIDERS: PCP Family Medicine; Visit Provider Family Medicine
DX: M81.0 Age-related osteoporosis without current pathological fracture (principal)
CPT/HCPCS: 77080

== ENCOUNTER → 2025-05-21 14:30 | Outpatient (BNV) | payer MEDICARE, OTHER, SELFPAY | PROVIDERS: PCP Family Medicine; Visit Provider Radiology Body Imaging | DX: E28.39 Other primary ovarian failure (principal) | CPT/HCPCS: 77080 ==

== ENCOUNTER 2025-05-28 14:59 | Outpatient (REF) | payer MEDICARE, OTHER, SELFPAY ==
--- OUTSIDE RECORDS SUMMARY | 2025-05-23 09:30 | XMS_ITS | Encounter Summary ---
Author Organization [facility] Address [address] [facility] [address] [place] [address] Phone Care Team Providers Care Car Seat Upholsterer Name Role Phone Alma Delia Graves MD, PhD Unavailable [phone] Gordo Lagos DO Primary Care Provider [phone] Reason for Referral * Consultation (Within 2 weeks) - Authorized Specialty Diagnoses / Procedures Referred By Juliocesar anderson Referred To Contact Diagnoses Chronic throat clearing Gordo Lagos DO [address] [facility] 7 [place] [address] Phone: tel: fax: mailto:[email or web address] Allie Zaman MD 100 [facility] [address] [place] [address] Phone: tel: fax: mailto:[email or web address] Referral ID Status Reason Start Date Expiration Date V isits Requested Visits Authorized [id number] Authorized 05/23/2025 05/23/2026 6 6 Reason for Visit * Reason Comments New Patient Had a tailbone injur y, needs a ENT doc, needs colonoscopy. Gained weight due to tailbone injury. Tries to stay active. Encounter Details Date Type Department Care Team (Late st Contact Info) Description 05/23/2025 9:30 AM EST Office Visit [facility] Medicine [address] [place] [address] Gordo Lagos, 234 [facility], [address] [place] [address] [email or web address] Pancreatic lesion (Primary Dx); Chronic throat clearing; Hyperparathyroidism; Brain tumor; Laboratory examination ordered as part of a routine general medical examination; Elevated glucose level; Screening for condition Social History Tobacco Use Types Packs/Day Years Used Date Smoking Tobacco: Former Cigarettes 0.5 2 2 003 - 2005 Smokeless Tobacco: Never Tobacco Cessation:Counseling Given: Not Answered Alcohol Use Standard Drinks/Week Comments Not Currently [...] AM EDT Sexual Orientation Not on file Occupation Industry Job Start Date Job End Date retired Not on file Not on file Not on file documented as of this encounter Last Filed Vital Signs Vital Sign Reading Time Taken Comments Blood Pressure 128/70 05/23/2025 10:04 AM EST Pulse 82 05/23/2025 10:04 AM EST Temperature 36.4 C (97.5 F) 05/23/2025 9:40 AM EST Respiratory Rate - - Oxygen Saturation 98% 05/23/2025 9:40 AM EST Inhaled Oxygen Concentration - - Weight 63.8 kg (140 lb 9.6 oz) 05/23/2025 9:40 A M EST Height 160 cm (5' 3 ) 05/23/2025 9:40 AM EST Body Mass Index 24.91 05/23/2025 9:40 AM EST documented in this encounter Progress Notes * Gordo aLgos, DO - 05/23/2025 9:30 AM EST HPI Renu Orozco presents as a new patient to [facility]. she was a previous patient of a PCP of [facility]. She notes that she has a pancreatic oncologist at [facility]: Dr. Kelley. She has a pancreatic lesion since May 2023- likely a neuroendocrine tumor. She is getting an annular MRI of this. She also has a brain tumor, last MRI was on 02/26/25- likely a meningioma. She might go for radiation for this. She notes that she had a tailbone injury recently and this is discouraging her exercise routine thus she has gained some weight recently. She notes that she tries to stay active. She would like to see an ear nose and throat doctor for a throat issues, she was told that there brit flap. She denies any pain or issues with breathing. She has a H/O hyperparathyroidism. She needs to have a colonoscopy. She is due for a colonoscopy. I reviewed her adult health database form today. she has no other concerns today. Review of Systems Constitutional: Positive for unexpected weight change. HENT: Positive for voice change (throat clearing.). Negative for changes in hearing. Eyes: Negative for unexpected vision change. Respiratory: Negative for cough and shortness of breath. Cardiovascular: Negative for chest pain and palpitations. Gastrointestinal: Negative for abdominal pain, blood in stool, constipation and diarrhea. Genitourinary: Negative for problems with urination, pain with intercourse and blood in urine. Neurological: Positive for dizziness. Negative for headaches and changes in memory. Skin: Negative for persistent rash and breast concerns. Musculoskeletal: Positive for joint pain. Social History Social History Narrative She is retired. She lives with her daughter. She likes to walk, dance, read, she likes her family, and go for rides. Vitals: 05/23/25 0940 05/23/25 1004 BP: (!) 158/86 128/70 Pulse: (!) 108 82 Temp: 36.4 ??C (97.5 ??F) TempSrc: Temporal SpO2: 98% Weight: 63.8 kg (140 lb 9.6 oz) Height: 160 cm (5' 3 ) Physical Exam Constitutional: Appearance: Normal appearance. Comments: Female. HENT: Head: Normocephalic. Cardiovascular: Rate and Rhythm: Normal rate and regular rhythm. Pulses: Normal pulses. Heart sounds: Normal heart sounds. No murmur heard. No friction rub. No gallop. Pulmonary: Effort: Pulmonary effort is normal. Breath sounds: Normal breath sounds. No wheezing or rhonchi. Musculoskeletal: General: No swelling. Normal range of motion. Cervical back: Neck supple. Skin: General: Skin is warm. Neurological: Mental Status: She is alert. Psychiatric: Mood and Affect: Mood normal. Assessment and Plan Pancreatic lesion Renu presents as a new patient to [facility]. I reviewed her previous medical record indetail today. It appears that she gets the majority of her specialty care through [facility]. Shehas a pancreatic oncologist at [facility]: Dr. Kelley. She has a pancreatic lesion since May 2023- likely a neuroendocrine tumor. She is getting an annular MRI of this. Follow-up in 3 months forMedicare wellness. She will call if there are any other issues or concerns. She understands and agrees. Brain tumor Renu presents as a new patient to [facility]. I reviewed her previous medical record indetail today. It appears that she gets the majority of her specialty care through [facility]. I reviewed her last MRI-on 02/26/25- likely a meningioma. She is followed by Dr. Munoz at [facility]. I informed her to call if there are any other issues or concerns-I will see her back in 3 months fora Medicare wellness. She understands and agrees. Chronic throat clearing Renu notes that she has been having issues with throat clearing for years and would like to see an ENT-referral placed today. She was appreciative. Hyperparathyroidism eRnu has a history of hyperparathyroidism. I ordered labs today and I will update her with the results. Elevated glucose level Renu notes that her last A1c was elevated-I ordered repeat lab work today and I will update her with the results. Laboratory examination ordered as part of a routine general medical examination I ordered lab work today to be done prior to next visit. I will update her with the results. Screening for condition I ordered a colonoscopy referral as she is due and I also ordered a mammogram and bone density as she is due. Future Appointments Date Time Provider Department Center 07/01/2025 11:30 AM Gurjit Powell MD [facility] None 07/19/2025 10:00 AM [facility] MR 1.5T MAIN (WIDE BORE) [facility] Main 10/24/2025 9:30 AM Gordo Lagos, [facility] None Orders Placed This Encounter Procedures Mammogram Screening (Bilateral) Standing Status: Future Expected Date: 05/23/2025 Expiration Date: 08/23/2025 Is the patient experiencing any current breast concerns?: No Does this exam need to be performed at your institution* for the purpose of imaging care coordination?: No DXA Screening Standing Status: Future Expected Date: 06/06/2025 Expiration Date: 05/23/2027 Does this exam need to be performed at your institution* for the purpose of imaging care coordination?: No Release to patient: Immediate [1] Lipid Panel Standing Status: Future Expected Date: 05/23/2025 Expiration Date: 05/23/2026 Parathyroid Hormone (PTH) Standing Status: Future Expected Date: 05/23/2025 Expiration Date: 05/23/2026 Lipid Panel Standing Status: Future Expected Date: 05/23/2025 Expiration Date: 05/23/2026 Thyroid Stimulating Hormone (TSH), with Reflex Standing Status: Future Expected Date: 05/23/2025 Expiration Date: 05/23/2026 Hemoglobin A1c Standing Status: Future Expected Date: 05/23/2025 Expiration Date: 05/23/2026 Ambulatory referral to External Otolaryngology Referral Priority: Within 2 weeks Referral Type: Consultation Referred to Provider: Allie Zaman MD Number of Visits Requested: 1 Expiration Date: 05/23/2026 Current Outpatient Medications Medication Sig Dispense Refill Last Dispense alendronate (FOSAMAX) 70 MG tablet Take 1 tablet (70 mg total) by mouth every 7 days. Take in the morning with a full glass of water, on an empty stomach, and do not take anything else by mouth or lie down for the next 30 min. 12 tablet 3 Unknown (outside pharmacy) cholecalciferol (VITAMIN D3) 2,000 unit tablet Take 2,000 Units by mouth 3 (three) times a week. Unknown (patient-reported) cyanocobalamin, vitamin B-12, 1,000 mcg/mL Kit Inject as directed every 30 (thirty) days. Use as directed Unknown (patient-reported) famotidine (PEPCID) 40 MG tablet Take 40 mg by mouth daily. Unknown (patient-reported) fluticasone propionate (FLONASE) 50 mcg/actuation nasal spray 1 spray by Nasal route daily. Unknown(patient-reported) gemfibroziL (LOPID) 600 MG tablet Take 600 mg by mouth 2 (two) times a day before meals. Unknown (patient-reported) loratadine (CLARITIN) 10 mg tablet Take 10 mg by mouth daily. Unknown (patient-reported) sodium fluoride-potassium nitrate (PREVIDENT 5000 SENSITIVE) 1.1-5 % Pste APPLY A SMALL AMOUNT TO TEETH ONCE A DAY Unknown (patient-reported) No current facility-administered medications for this visit. documented in this encounter Miscellaneous Notes * Assessment & Plan Note - Gordo Lagos DO - 05/23/2025 10:13 AM ESTAssociated Problem(s): Screening for condition I ordered a colonoscopy referral as she is due and I also ordered a mammogram and bone density as she is due. * Assessment & Plan Note - Gordo Lagos DO - 05/23/2025 10:13 AM ESTAssociated Problem(s): Laboratory examination ordered as part of a routine general medical examination I ordered lab work today to be done prior to next visit. I will update her with the results. * Assessment & Plan Note - Gordo Lagos DO - 05/23/2025 10:13 AM ESTAssociated Problem(s): Elevated glucose level Renu notes that her last A1c was elevated-I ordered repeat lab work today and I will update her with the results. * Assessment & Plan Note - Gordo Lagos DO - 05/23/2025 10:11 AM ESTAssociated Problem(s): Hyperparathyroidism Renu has a history of hyperparathyroidism. I ordered labs today and I will update her with the results. * Assessment & Plan Note - Gordo Lagos DO - 05/23/2025 10:10 AM ESTAssociated Problem(s): Chronic throat clearing Renu notes that she has been having issues with throat clearing for years and would like to see an ENT-referral placed today. She was appreciative. * Assessment & Plan Note - Gordo Lagos DO - 05/23/2025 10:01 AM ESTAssociated Problem(s): Brain tumor Renu presents as a new patient to [facility]. I reviewed her previous medical record indetail today. It appears that she gets the majority of her specialty care through [facility]. I reviewed her last MRI-on 02/26/25- likely a meningioma. She is followed by Dr. Munoz at [facility]. I informed her to call if there are any other issues or concerns-I will see her back in 3 months fora Medicare wellness. She understands and agrees. * Assessment & Plan Note - Gordo Lagos DO - 05/23/2025 9:53 AM ESTAssociated Problem(s): Pancreatic lesion Renu presents as a new patient to [facility]. I reviewed her previous medical record indetail today. It appears that she gets the majority of her specialty care through [facility]. Shehas a pancreatic oncologist at [facility]: Dr. Kelley. She has a pancreatic lesion since May 2023- likely a neuroendocrine tumor. She is getting an annular MRI of this. Follow-up in 3 months forMedicare wellness. She will call if there are any other issues or concerns. She understands and agrees. documented in this encounter Plan of Treatment Upcoming Encounters Date Type Department Care Team (Late st Contact Info) Description 07/19/2024 Procedure Pass [address] [address] 05/23/2025 Procedure Pass [address] [address] 07/01/2025 11:30 AM EST Office Visit [facility] O[facility]TH[facility]OLOGY [facility] [address] [facility] 3rd [place] [address] Gurjit Powell MD 22 [facility], 3rd [place] [address] [email or web address] 07/19/2025 10:00 AM EST Appointment [address] [address] Franco Kelley MD, MPH [address] [place] [address] [email or web address] 09/23/2025 8:50 AM EDT Office Visit [facility] [address] [place] [address] Fish Monge DO 22 [place] [address] 10/24/2025 9:30 AM EDT Office Visit [facility] [address] [place] [address] Gordo Lagos DO 234 [facility], [address] [place] [address] 02/07/2026 9:45 AM EDT Appointment [address] [address] Gordo Lagos, DO [address] [facility], [address] [place] [address] [email or web address] Scheduled Orders Name Type Priority Associated Diagnoses Orde r Schedule DXA Screening Imaging Routine Screening for condition Expected: 06/06/2025, Expires: 05/23/2027 Scheduled Procedures Name Priority Associated Diagnoses Date/Ti me COLONOSCOPY Screening for condition Scheduled Referrals Name Type Priority Associated Diagnoses Order Schedule Ambulatory referral to External Otolaryngology Outpatient Referral Routine Chronic throat clearing Ordered: 05/23/2025 documented as of this encounter Results * (ABNORMAL) Hemoglobin A1c (05/24/2025 8:18 AM EST) Hemoglobin A1c 5.8(H) 4.3 - 5.6 % 05/24/2025 11:49 AM EST [facility] Calculated Mean Blood Glucose 120 mg/dL 05/24/2025 11:49 AM [facility] Comment:There is no [facility] normal range for the Estimated Average Glucose (EAG). However, a HbA1c of 5.6% (upper limit of normal) represents an EAG of 114 mg/dL. The diagnostic HbA1c level for diabetes is greater than or equal to 6.5%, which represents an EAG greater than or equal to 140 mg/dL. Blood (Blood) Venipuncture / Unknown 05/24/2025 8:18 AM EST 05/24/2025 8:18 AM EST Gordo Lagos DO LAB BLOOD BKR ORDERABLES Final R esult [facility] [address] [place] [address] * Thyroid Stimulating Hormone (TSH), with Reflex (05/24/2025 8:18 AM EST) TSH 1.18 0.40 - 5.90 uIU/mL 05/24/2025 11:28 AM [facility] Blood (Blood) Venipuncture / Unknown 05/24/2025 8:18 AM EST 05/24/2025 8:18 AM EST Gordo Lagos DO LAB BLOOD BKR ORDERABLES Final R [facility] Performing Organization Address City/[facility]/ZIP Co de Phone Number [address] [address] * (ABNORMAL) Parathyroid Hormone (PTH) (05/24/2025 8:18 AM EST) Parathyroid Hormone (PTH) 74(H) 15 - 65 pg/mL 05/24/2025 11:08 AM [facility] Blood (Blood) Venipuncture / Unknown 05/24/2025 8:18 AM EST 05/24/2025 8:18 AM EST Gordo Lagos DO LAB BLOOD BKR ORDERABLES Final R [facility] Performing Organization Address [facility] Co de Phone Number [address] [address] * Lipid Panel (05/24/2025 8:18 AM EST) Cholesterol 199 <200 mg/dL 05/24/2025 11:28 AM [facility] HDL 52 >=40 mg/dL 05/24/2025 11:28 AM [facility] Calculated LDL 122 <130 mg/dL 05/24/2025 11:28 AM [facility] Comment:LDL is calculated us ing the Chairez-NIH equation (DAR Cardiol. 2019November 15;5(5):540-548). Non-HDL Cholesterol 147 mg/dL 05/24/2025 11:28 AM [facility] Comment:Guidelines suggest a non-HDL cholesterol goal 30 mg/dL higher than the patient-specific LDL cholesterol goal. Cardiac Risk Ratio 3.8 0.0 - 5.0 2024 11:28 AM [facility] Triglycerides 142 <=150 mg/dL 05/24/2025 11:28 AM [facility] Blood (Blood) Venipuncture / Unknown 05/24/2025 8:18 AM EST 05/24/2025 8:18 AM EST us Gordo Lagos DO LAB BLOOD BKR ORDERABLES Final R esult [facility] [address] [place] [address] documented in this encounter Visit Diagnoses Diagnosis Pancreatic lesion- Primary Chronic throat clearing Hyperparathyroidism Hyperparathyroidism, unspecified Brain tumor Neoplasm of unspecified nature of brain Laboratory examination ordered as part of a routine general medical examination Elevated glucose level Screening for condition Screening for unspecified condition documented in this encounter Additional Health Concerns Assessment Noted Time PHQ-2 Depression Total Score: 1 05/16/20 25 6:06 PM EDT documented as of this encounter Care Teams Car Seat Upholsterer Relationship Specialty Start Date End Date Gordo Lagos DO [address] [place] [address], [address] [place] [address] [email or web address] PCP - General Family Medicine 05/23/25 Alma Delia Graves MD, PhD [address] [address] [email or web address] Surgeon Surgical Oncology 05/25/21 documented as of this encounter Additional Source Comments The information contained in this document represents components of the legal health record. It is not the complete legal health record.[facility]
--- OUTSIDE RECORDS SUMMARY | 2025-05-28 16:42 | XMS_ITS | Encounter Summary ---
Author Organization [facility] Address [address] [place] [address] Phone Care Team Providers Care Perlite Grinder Name Role Phone Lopez Cote MD Primary Care Provider Alma Delia Graves MD, PhD Unavailable [phone] Gordo Lagos DO Primary Care Provider [phone] Reason for Visit * Reason Onset Date Comments Schedule colonoscopy 04/30/2025 Encounter Details Date Type Department Care Team ([facility] st Contact Info) Description 04/30/2025 Telephone [facility] Gastroenterology Clinic [address] [place] [address] Toan Hicks MD [address] [place] [address] [email or web address] Schedule colonoscopy Social History Tobacco Use Types [...] you moved in the past 12 tue ths? One time 03/25/2025 Paying for Meds [...] st Contact Info) Description 07/19/2024 Procedure Pass [address] [address] 05/23/2025 Procedure Pass [address] [address] 07/01/2025 11:30 AM EST Office Visit [facility] OPHTHALMOLOGY [address] 3rd Floor [place] [address] Gurjit Powell MD [address] [address] [email or web address] 07/19/2025 10:00 AM EST Appointment [address] [address] Franco Kelley MD, MPH [address] [place] [address] [email or web address] 09/23/2025 8:50 AM EDT Office Visit [facility] 22 [place] [address] Fish Monge DO 22 [place] [address] 10/24/2025 9:30 AM EDT Office Visit [facility] [address] [place] [address] Gordo Lagos, DO 234 [facility], [address] [place] [address] [email or web address] 02/07/2026 9:45 AM EDT Appointment [facility] [address] [place] [address] Gordo Lagos DO 234 [facility], [facility] [address] [address] [email or web address] Scheduled Procedures Name Priority Associated Diagnoses Date/Ti me COLONOSCOPY Screening for condition documented as of this encounter Visit Diagnoses Not on filedocumented in this encounter Care Teams Perlite Grinder Relationship Specialty Start Date End Date Lopez Cote MD PCP - General 05/15/21 05/22/25 Gordo Lagos DO [address] [facility], [address] [place] [address] [email or web address] PCP - General Family Medicine 05/23/25 Alma Delia Graves MD, PhD [address] [place] [address] [email or web address] Surgeon Surgical Oncology 05/25/21 documented as of this encounter Additional Source Comments The information contained in this document represents components of the legal health record. It is not the complete legal health record.[facility]
--- OUTSIDE RECORDS SUMMARY | 2025-05-28 16:42 | XMS_ITS | Encounter Summary ---
Author Organization [facility] Address [address] [place] [address] Phone Care Team Providers Care Concrete Spreader Name Role Phone Lopez Cote MD Primary Care Provider Alma Delia Graves MD, PhD Unavailable [phone] Gordo Lagos DO Primary Care Provider [phone] Encounter Details Date Type Department Care Team (Late st Contact Info) Description 07/27/2023 Procedure Pass [facility] [address] [place] [address] Social History Tobacco Use Types Packs/Day Years [...] st Contact Info) Description 07/19/2024 Procedure Pass [address] [address] 05/23/2025 Procedure Pass [address] [address] 07/01/2025 11:30 AM EST Office Visit [facility] 22 [facility] 3rd [place] [address] Gurjit Powell MD 22 [facility], [address] [place] [address] [email or web address] 07/19/2025 10:00 AM EST Appointment [address] [address] Franco Kelley MD, MPH [address] [place] [address] [email or web address] 09/23/2025 8:50 AM EDT Office Visit [facility] [address] [place] [address] Fihs Monge DO 22 [place] [address] 10/24/2025 9:30 AM EDT Office Visit [facility] [address] [place] [address] Gordo Lagos, DO 234 [facility], [address] [place] [address] 02/07/2026 9:45 AM EDT Appointment [address] [address] Gordo Lagos DO 234 [facility], [address] [place] [address] [email or web address] Scheduled Procedures Name Priority Associated Diagnoses Date/Ti me COLONOSCOPY Screening for condition documented as of this encounter Visit Diagnoses Not on filedocumented in this encounter Care Teams Concrete Spreader Relationship Specialty Start Date End Date Lopez Cote MD PCP - General 05/15/21 05/22/25 Gordo Lagos DO 234 [facility], [address] [place] [address] [email or web address] PCP - General Family Medicine 05/23/25 Alma Delia Graves MD, PhD [address] [place] [address] [email or web address] Surgeon Surgical Oncology 05/25/21 documented as of this encounter Additional Source Comments The information contained in this document represents components of the legal health record. It is not the complete legal health record.[facility]
--- OUTSIDE RECORDS SUMMARY | 2025-05-28 16:42 | XMS_ITS | Encounter Summary ---
Author Organization [facility] Address [address] [facility] [address] [place] [address] Phone Care Team Providers Care Chief Mate Name Role Phone Lopez Cote MD Primary Care Provider Alma Delia Graves MD, PhD Unavailable [phone] Gordo Lagos DO Primary Care Provider [phone] Encounter Details Date Type Department Care Team (Late st Contact Info) Description 10/11/[address] [address] Social History Tobacco Use Types Packs/Day Years [...] (Late st Contact Info) Description 07/19/[address] [address] 05/23/[address] [address] 07/01/2025 11:30 AM EST Office Visit [facility]THALMOLOGY [facility] 22 [facility] 3rd [place] [address] Gurjit Powell MD 22 [facility], 3rd [place] [address] [email or web address] 07/19/2025 10:00 AM EST Appointment [address] [address] Franco Kelley MD, MPH [address] [place] [address] [email or web address] 09/23/2025 8:50 AM EDT Office Visit [facility] [address] [place] [address] Fish Monge DO [address] [place] [address] 10/24/2025 9:30 AM EDT Office Visit [facility] Medical [address] [address] Gordo Lagos, DO [address] [place] [address] 02/07/2026 9:45 AM EDT Appointment [address] [address] Gordo Lagos DO [address] [address] Scheduled Procedures Name Priority Associated Diagnoses Date/Ti me COLONOSCOPY Screening for condition documented as of this encounter Visit Diagnoses Not on filedocumented in this encounter Care Teams Chief Mate Relationship Specialty Start Date End Date Lopez Cote MD PCP - General 05/15/21 05/22/25 Gordo Lagos DO [address] [place] [address] [address] [place] [address] [email or web address] PCP - General Family Medicine 05/23/25 Alma Delia Graves MD, PhD [address] [place] [address] [email or web address] Surgeon Surgical Oncology 05/25/21 documented as of this encounter Additional Source Comments The information contained in this document represents components of the legal health record. It is not the complete legal health record.[facility]
--- OUTSIDE RECORDS SUMMARY | 2025-05-28 16:42 | XMS_ITS | Encounter Summary ---
Author Organization [facility] Address [address] [address] [facility] [address] [place] [address] Phone Care Team Providers Care Director Of Cardiopulmonary Services Name Role Phone Alma Delia Graves MD, PhD Unavailable [phone] Gordo Lagos DO Primary Care Provider [phone] Encounter Details Date Type Department Care Team (Latest Contact Info) Description 05/23/2025 Transcribe Orders Virtual Department [address] [place] [address] Gordo Lagos DO 234 [facility], [facility] 7 [place] [address] [email or web address] Breast screening (Primary Dx) Social History Tobacco Use Types Packs/Day Years Used Date Smoking Tobacco: Former Cigarettes 0.5 2 2 003 - 2005 Smokeless Tobacco: Never Alcohol Use Standard Drinks/Week [...] st Contact Info) Description 07/19/2024 Procedure Pass [address] [address] 05/23/2025 Procedure Pass [address] [address] 07/01/2025 11:30 AM EST Office Visit [facility] 22 [facility] 3rd [place] [address] Gurjit Powell MD 22 [facility] 3rd [place] [address] [email or web address] 07/19/2025 10:00 AM EST Appointment [address] [address] Franco Kelley MD, MPH [address] [place] [phone] [email or web address] 09/23/2025 8:50 AM EDT Office Visit [facility] [address] [place] [address] Fish Monge DO [address] [place] [address] 10/24/2025 9:30 AM EDT Office Visit [facility] [address] [address] Gordo Lagos, DO [address] [place] [address], [facility] 7 [place] [address] 02/07/2026 9:45 AM EDT Appointment [address] [address] Gordo Lagos, DO [address] [place] [address], [facility] 7 [place] [address] [email or web address] Scheduled Orders Name Type Priority Associated Diagnoses Orde r Schedule Mammogram Screening (Bilateral) Imaging Routine Breast screening Expected: 05/23/2025, Expires: 05/23/2026 Scheduled Procedures Name Priority Associated Diagnoses Date/Ti me COLONOSCOPY Screening for condition documented as of this encounter Visit Diagnoses Diagnosis Breast screening- Primary Breast screening, unspecified documented in this encounter Additional Health Concerns Assessment Noted Time PHQ-2 Depression Total Score: 1 05/16/20 25 6:06 PM EDT documented as of this encounter Care Teams Director Of Cardiopulmonary Services Relationship Specialty Start Date End Date Gordo Lagos DO [address] [place] [address], [address] [place] [address] [email or web address] PCP - General Family Medicine 05/23/25 Alma Delia Graves MD, PhD [address] [place] [phone] [email or web address] Surgeon Surgical Oncology 05/25/21 documented as of this encounter Additional Source Comments The information contained in this document represents components of the legal health record. It is not the complete legal health record.[facility]
--- OUTSIDE RECORDS SUMMARY | 2025-05-28 16:42 | XMS_ITS | Encounter Summary ---
Author Organization [facility] Address [address] [facility] [address] [place] [address] Phone Care Team Providers Care Probation Worker Name Role Phone Lopez Cote MD Primary Care Provider Alma Delia Graves MD, PhD Unavailable [phone] Gordo Lagos DO Primary Care Provider [phone] Reason for Referral * MRI/CAT Scan - Closed Specialty Diagnoses / Procedures Referred By Juliocesar anderson Referred To Contact Radiology Diagnoses Crohn's disease with complication, unspecified gastrointestinal tract location Procedures MRI Enterography Abdomen/Pelvis MRI PELVIS (GI/) Marti Crenshaw PA-C Phone: tel: fax: [email or web address] Referral ID Status Reason Start Date Expiration Date Visits Re quested Visits Authorized [id number] Closed 01/05/2024 01/04/2025 1 1 Encounter Details Date Type Department Care Team (Latest Contact Info) Description 01/05/2024 Transcribe Orders [facility] Department [address] [place] [address] Marti Crenshaw PA-C [address] [place] [address] [email or web address] Crohn's disease with complication, unspecified gastrointestinal [...] st Contact Info) Description 07/19/2024 Procedure Pass [address] [address] 05/23/2025 Procedure Pass [address] [address] 07/01/2025 11:30 AM EST Office Visit [facility] 22 [facility] 3rd [place] [address] Gurjit Powell MD 22 [facility] 3rd [place] [address] [email or web address] 07/19/2025 10:00 AM EST Appointment [address] [address] Franco Kelley MD, MPH [address] [place] [phone] [email or web address] 09/23/2025 8:50 AM EDT Office Visit [facility] [address] [place] [address] Fish Monge DO 22 [place] [address] 10/24/2025 9:30 AM EDT Office Visit [facility] [address] [place] [address] Gordo Lagos, 234 [facility] 7 [place], [place] [phone] [email or web address] 02/07/2026 9:45 AM EDT Appointment [facility] [address] [place] [address] Gordo Lagos, 234 [facility] 7 [place] [address] [email or web address] Scheduled Procedures Name Priority Associated Diagnoses Date/Ti me COLONOSCOPY Screening for condition documented as of this encounter Results * [...] clinician's provided indication for this examination in [facility]: Outside Radiology Order; crohns TECHNIQUE: MRI enterography [...] clinician's provided indication for this examination in [facility]:Outside Radiology Order; crohns TECHNIQUE: MRI enterography with [...] again noted, poorly characterized. Marti Crenshaw PA-C IM MR ABDOMEN Final Result documented in this encounter Visit Diagnoses Diagnosis Crohn's disease with complication, unspecified gastrointestinal tract location- Primary Crohn's disease with complication, unspecified gastrointestinal tract location documented in this encounter Care Teams Probation Worker Relationship Specialty Start Date End Date Lopez Cote MD PCP - General 05/15/21 05/22/25 Gordo Lagos DO [address] [place] [address], [address] [place] [address] [email or web address] PCP - General Family Medicine 05/23/25 Alma Delia Graves MD, PhD [address] [place] [phone] [email or web address] Surgeon Surgical Oncology 05/25/21 documented as of this encounter Additional Source Comments The information contained in this document represents components of the legal health record. It is not the complete legal health record.[facility]
--- OUTSIDE RECORDS SUMMARY | 2025-05-28 16:42 | XMS_ITS | Clinical Summary ---
Author Organization [facility] Address [address] [facility] [address] [place] [address] Phone Care Team Providers Care Flame Gouger Name Role Phone Alma Delia Graves MD, PhD Unavailable [phone] Gordo Lagos DO Primary Care Provider [phone] Allergies Active Allergy Reactions Criticality Noted Date Comments Penicillins 05/18/2021 Methylprednisolone Sodium Succ 05/18 Jbjqeyq-Jci-Qym Reductase Inhibitors 05/18/2021 Medications gemfibroziL (LOPID) 600 [...] Active Problems Problem Noted Date Diagnosed Date Prediabetes 05/24/2025 Brain tumor 05/23/2025 Assessment & Plan (05/23/2025 10:10 AM EST): Renu presents as a new patient to [facility]. I reviewed her previous medical record in detail today. It appears that she gets the majority of her specialty care through [facility]. I reviewed her last MRI-on 02/26/25- likely a meningioma. She is followed by Dr. Munoz at [facility]. I informed her to call if there are any other issues or concerns-I will see her back in 3 months for a Medicare wellness. She understands and agrees. 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 I reviewed her previous medical record in detail today. It appears that she gets the majority of her specialty care through [facility]. She has a pancreatic oncologist at [facility]: Dr. Kelley. She has a pancreatic lesion since May 2023- likely a neuroendocrine tumor. She is getting an annular MRI of this. Follow-up in 3 months for Medicare wellness. She will call if there are any other issues or concerns. She understands and agrees. Screening for condition 05/23/2025 Assessment & Plan (05/23/2025 10:13 AM EST): I ordered a colonoscopy referral as she is due and I also ordered a mammogram and bone density as she is due. Chronic throat clearing 05/23/2025 Assessment & Plan (05/23/2025 10:10 AM EST): Renu notes that she has been having issues with throat clearing for years and would like to see an ENT-referral placed today. She was appreciative. Laboratory examination order ed as part of a routine general medical examination 05/23/2025 Assessment & Plan (05/23/2025 10:13 AM EST): I ordered lab work today to be done prior to next visit. I will update her with the results. Elevated glucose level 05/23/2025 Assessment & Plan (05/23/2025 10:13 AM EST): Renu notes that her last A1c was elevated-I ordered repeat lab work today and I will update her with the results. Acute non-recurrent maxillary sinusitis 05/06/20 25 Hyperparathyroidism 04/28/2023 Overview (05/23/2025): Appt in oct for 3d CT scan of parathyroid Assessment & Plan (05/23/2025 10:11 AM EST): Renu has a history of hyperparathyroidism. I ordered labs today and I will update her with the results. Cyst of pancreas 05/26/2021 Gastroesophageal reflux disease 06/26/2019 Hypercholesterolemia 04/13/2019 Benign neoplasm of skin of trunk 03/12/2014 Encounters Date Type Department Care Team Description 05/24/2025 Telephone [facility] [address] [place] [address] Gordo Lagos DO 05/23/2025 9:30 AM EST Office Visit [facility] [address] [place] [address] Gordo Lagos, Pancreatic lesion (Primary Dx); Chronic throat clearing; Hyperparathyroidism; Brain tumor; Laboratory examination ordered as part of a routine general medical examination; Elevated glucose level; Screening for condition 05/23/2025 Transcribe Orders Virtual Department [address] [place] [address] Gordo Lagos DO Breast screening (Primary Dx) 05/06/2025 10:10 AM EDT Office Visit [facility] at [address] [address] Samra Walter FNP Lucas, Karen Stefanie, PA-C Acute non-recurrent maxillary sinusitis (Primary Dx) 04/30/2025 Telephone [facility] [address] [place] [address] Toan Hicks MD Schedule colonoscopy 04/19/2025 2:47 PM EDT - 04/19/2025 11:59 PM EDT Hospital Encounter [facility] [address] [place] [address] Toan Hicks MD Discharge Disposition: Home or Self Care 04/19/2025 Transcribe Orders [facility]le[facility] [address] [place] [address] Toan Hicks MD Crohn's disease with complication, unspecified gastrointestinal tract location (Primary Dx) 03/26/2025 1:00 PM EDT Telemedicine - audio only [facility] [address] [facility], 5th Floor, [address] [place] [address] Erickson Iraheta, SHANTELL, DNP Meningioma (Primary Dx) 03/12/2025 Telephone [facility] [place] [address] [place] [address], 5th Floor, [address] [place] [address] Elen Munoz MD 03/02/2025 10:30 AM EDT Office Visit [facility] at [address] [address] Samra Walter FNP Acute UTI (urinary tract infection) (Primary Dx) 02/26/2025 9:12 AM EDT - 02/26/2025 11:59 PM EDT Hospital Encounter [address] [address] Elen Munoz MD Discharge Disposition: Home or Self Care 03/29/2024 Procedure Pass [address] [address] from Last 3 Months Family History Medical [...] file Not on file Not on file Last Filed Vital Signs Vital Sign Reading Time Taken Comments Blood Pressure 128/70 05/23/2025 10:04 AM EST Pulse 82 05/23/2025 10:04 AM EST Temperature 36.4 C (97.5 F) 05/23/2025 9:40 AM EST Respiratory Rate 18 05/06/2025 10:10 AM EDT Oxygen Saturation 98% 05/23/2025 9:40 AM EST Inhaled Oxygen Concentration - - Weight 63.8 kg (140 lb 9.6 oz) 05/23/2025 9:40 A M EST Height 160 cm (5' 3 ) 05/23/2025 9:40 AM EST Body Mass Index 24.91 05/23/2025 9:40 AM EST Plan of Treatment Upcoming Encounters Date Type Department Care Team (Late st Contact Info) Description 07/19/2024 Procedure Pass [address] [address] 05/23/2025 Procedure Pass [address] [address] 07/01/2025 11:30 AM EST Office Visit [facility]OLOGY [address] 3rd Floor [place] [phone] Gurjit Powell MD 22 [facility] 3rd [place] [address] [email or web address] 07/19/2025 10:00 AM EST Appointment [address] [address] Franco Kelley MD, MPH [address] [place] [address] [email or web address] 09/23/2025 8:50 AM EDT Office Visit [facility] 22 [place] [address] Fish Monge DO 22 [place] [address] 10/24/2025 9:30 AM EDT Office Visit [facility] [address] [address] Gordo Lagos, DO 234 [facility] 7 [place] [address] 02/07/2026 9:45 AM EDT Appointment [address] [address] Gordo Lagos, DO 234 [facility] 7 [place] [address] [email or web address] Scheduled Procedures Name Priority Associated Diagnoses Date/Ti me COLONOSCOPY Screening for condition Health Maintenance Due Date Last Done Comments MAMMOGRAM 1995 COLOGUARD 01/16/2000 COLONOSCOPY 01/16/2000 COLORECTAL CANCER SCREENING 01/16/2000 FIT TEST 01/16/2000 FOBT 01/16/2000 SIGMOIDOSCOPY 01/16/2000 VIRTUAL COLONOSCOPY 01/16/2000 ZOSTER VACCINES (1 of 2) 2005 OSTEOPOROSIS SCREENING INITIAL (ONE-TIME) 01/16/2020 INFLUENZA VACCINE (#1) 2026 Postp oned from 02/15/2025 (Patient Declines / Guardian Declines) DEPRESSION SCREENING 05/16/2026 05/16/2025 COVID-19 VACCINE (2024-2 6 season) 2026 05/18/2021, 10/24/2020, 10/03/2020 Postponed from 03/18/2025 (Patient Declines / Guardian Declines) PNEUMOCOCCAL VACCINES (50+ years) (2 of 2 - PCV) 05/23/2026 01/24/2020 Postponed from 03/2021 (Patient Declines / Guardian Declines) Adult Td,Tdap Booster 01/31/2027 01/31/2017 RSV VACCINE (1 - 1-dose 75+ series) 2030 LIPID PANEL 05/24/2030 05/24/2025 HEPATITIS C SCREENING Completed 10/01/2024 , 10/04/2023 SMOKING STATUS SCREENING (Once After 26 Yrs) Completed 05/23/2025 HEPATITIS A VACCINES Aged Out No long er eligible based on patient's age to complete this topic HIB VACCINES Aged Out No longer eligi ble based on patient's age to complete this topic IPV VACCINES Aged Out No longer eligi ble based on patient's age to complete this topic MENINGOCOCCAL VACCINES (ACWY) Aged Out No longer eligible based on patient's age to complete this topic MENINGOCOCCAL VACCINES (B) Aged Out N o longer eligible based on patient's age to complete this topic Medical Devices Not on file Procedures Procedure Name Priority Date/Time Associated Diagnosis Comments HEMOGLOBIN A1C Routine 05/24/2025 8:18 AM EST Elevated glucose level TSH WITH REFLEX Routine 05/24/2025 8:18 AM EST Hyperparathyroidism Laboratory examination ordered as part of a routine general medical examination PARATHYROID HORMONE (PTH) Routine 05/24/2025 8:18 AM EST Hyperparathyroidism LIPID PANEL Routine 05/24/2025 8:18 AM EST Laboratory examination ordered as part of a routine general medical examination CBC Routine 04/19/2025 2:59 PM EDT Crohn's [...] Recently Relevant to Health Maintenance Results * Thyroid Stimulating Hormone (TSH), with Reflex (05/24/2025 8:18 AM EST) TSH 1.18 0.40 - 5.90 uIU/mL 05/24/2025 11:28 AM EST [facility] Blood (Blood) Venipuncture / Unknown 05/24/2025 8:18 AM EST 05/24/2025 8:18 AM EST Gordo Lagos DO LAB BLOOD BKR ORDERABLES Final R [facility] Performing Organization Address City/[facility]/ZIP Co de Phone Number [address] [address] * (ABNORMAL) Parathyroid Hormone (PTH) (05/24/2025 8:18 AM EST) Parathyroid Hormone (PTH) 74(H) 15 - 65 pg/mL 05/24/2025 11:08 AM EST [facility] Blood (Blood) Venipuncture / Unknown 05/24/2025 8:18 AM EST 05/24/2025 8:18 AM EST Gordo Lagos DO LAB BLOOD BKR ORDERABLES Final R esult [address] [address] * (ABNORMAL) Hemoglobin A1c (05/24/2025 8:18 AM EST) Hemoglobin A1c 5.8(H) 4.3 - 5.6 % 05/24/2025 11:49 AM [facility] Calculated Mean Blood Glucose 120 mg/dL 05/24/2025 11:49 AM [facility] Comment:There is no [facility] normal range for the Estimated Average Glucose [...] LAB BLOOD BKR ORDERABLES Final R esult [address] [address] * Lipid Panel (05/24/2025 8:18 AM EST) Cholesterol 199 <200 mg/dL 05/24/2025 11:28 AM [facility] HDL 52 >=40 mg/dL 05/24/2025 11:28 AM [facility] Calculated LDL 122 <130 mg/dL 05/24/2025 11:28 AM [facility] Comment:LDL is calculated us ing the Chairez-NIH equation (DAR Cardiol. 2019November 15;5(5):540-548). Non-HDL Cholesterol 147 mg/dL 05/24/2025 11:28 AM [facility] Comment:Guidelines suggest a non-HDL cholesterol goal 30 mg/dL higher than the patient-specific LDL cholesterol goal. Cardiac Risk Ratio 3.8 0.0 - 5.0 2024 11:28 AM [facility] Triglycerides 142 <=150 mg/dL 05/24/2025 11:28 AM EST [facility] Blood (Blood) Venipuncture / Unknown 05/24/2025 8:18 AM EST 05/24/2025 8:18 AM EST us Gordo Lagos DO LAB BLOOD BKR ORDERABLES Final R esult Performing Organization Address City/[facility]/ZIP Co de Phone Number [address] [address] * (ABNORMAL) Comprehensive metabolic panel (04/19/2025 2:59 PM EDT) SODIUM 142 133 - 146 mmol/L [facility] POTASSIUM 4.6 3.3 - 5.1 mmol/L [facility] CHLORIDE 106 96 - 108 mmol/L [facility] CO2 24 21 - 35 mmol/L [facility] BUN 21(H) 6 - 19 mg/dL [facility] CREATININE 0.90 0.5 - 1.5 mg/dL [facility] GLUCOSE 127(H) 70 - 99 mg/dL [facility] ALBUMIN 4.3 3.9 - 4.8 g/dL [facility] TOTAL PROTEIN 7.3 6.5 - 8.0 g/dL [facility] CALCIUM 10.2 8.4 - 10.3 mg/dL [facility] ALKALINE PHOSPHATASE 102 39 - 117 U/L [facility] TOTAL BILIRUBIN <0.2 0.0 - 1.2 mg/dL [facility] AST 16 0 - 37 U/L [facility] ALT 9 0 - 40 U/L [facility] GLOBULIN 3.0 1 - 4.8 g/dL [facility] EGFR 69 >59 mL/min/1.7 3m2 [facility] Comment:Estimated glomerular filtration rate calculated using the CKD-EPI refit equation. ANION GAP 17 10 - 20 mmol/L [facility] Blood 04/19/2025 2:59 PM EDT 04/19/2025 3:03 PM EDT us Toan Hicks MD LAB BLOOD BKR ORDERABLES Final Result [address] [address] * CBC (04/19/2025 2:59 PM EDT) WBC 8.54 4.00 - 11.00 K/uL [facility] RBC 4.11 4.00 - 5.20 M/uL [facility] HGB 12.3 12.0 - 16.0 g/dL [facility] HCT 37.4 36.0 - 46.0 % [facility] PLT 447 150 - 450 K/uL [facility] MCV 91.0 80.0 - 100.0 fL [facility] MCH 29.9 27.0 - 31.0 pg [facility] MCHC 32.9 32.0 - 36.0 g/dL [facility] RDW 12.7 11.5 - 14.5 % [facility] MPV 10.3 8.4 - 12.0 fL [facility] NRBC 0.00 0.00 /100 WBCs [facility] ABSOLUTE NRBC 0.00 0.00 K/uL [facility] Blood 04/19/2025 2:59 PM EDT 04/19/2025 3:03 PM EDT Toan Hicks MD LAB BLOOD BKR ORDERABLES Final Result Performing Organization Address [facility] Co de Phone Number [address] [address] * C-Reactive Protein (04/19/2025 2:59 PM EDT) C REACTIVE PROTEIN <3.0 0.0 - 4.0 mg/L [facility] Blood 04/19/2025 2:59 PM EDT 04/19/2025 3:03 PM EDT Toan Hicks MD LAB BLOOD BKR ORDERABLES Final Result Performing Organization Address City/[facility]/ZIP Co de Phone Number [address] [address] * (ABNORMAL) Urine Culture (03/02/2025 12:00 PM EDT) Special Requests None 03/02/2025 12:00 PM EDT [facility] Urine Culture 10,000 to 100,000 colony forming units per mL MIXED LEENA (3 OR MORE COLONY TYPES) Culture indicates contamination . Please resubmit if necessary.(A) 03/04/2025 9:20 AM EDT [facility] Urine (Urine) 03/02/2025 12: 00 PM EDT 03/02/2025 2:26 PM EDT Comment:CLEAN CATCH~CC Samra Walter [facility] LAB MICROBIOLOGY CULTURE OR DERABLES Final Result [facility] [address] [place] [address] * (ABNORMAL) POCT Urine Dipstick (Automated) (03/02/2025 11:02 AM EDT) COLOR LT YELLOW [facility] TURBIDITY Slightly Cloudy [facility] GLUCOSE, POCT Negative Negative [facility] KETONE, POCT Negative Negative [facility] OCCULT BLOOD, POCT Trace Intact(A) Negative [facility] SPECIFIC GRAVITY, POCT <1.005 1.001 - 1.030 [facility] ALBUMIN, POCT Negative Negative [facility] Bili Negative Negative [facility] Urobilinogen 0.2 <1.0 [facility] NITRITE, POCT Negative Negative [facility] PH, POCT 5.5 5.0 - 8.0 [facility] WBC SCREEN, POCT 1+(A) Negative [facility] 03/02/2025 11:0 2 AM EDT 03/02/2025 11:05 AM EDT Samra Walter TRANSPORTATION MAINTENANCE OPERATOR LAB POCT ENTER/EDIT ORDERAB LES Final Result [facility] AT [address] [address], [facility] [phone] * MRI BRAIN WITH AND WITHOUT CONTRAST [...] clinician's provided indication for this examination in [facility]: * Meningioma, monitor TECHNIQUE: MRI BRAIN [...] clinician's provided indication for this examination in [facility]: *Meningioma, monitor TECHNIQUE: MRI BRAIN WITH AND [...] HBV SURFACE ANTIGEN NON-REACTI VE NON-REACTI VE [facility] Blood 10/01/2024 1:16 PM EDT 10/01/2024 1:18 PM EDT us Lopez Cote MD LAB BLOOD BKR ORDERABLE S Final Result [facility] [address] [place] [address] from Last 3 Months or Most Recently Relevant to Health Maintenance Insurance MEDICARE PART A & B [facility] MEDICARE SUPPLEMENT MEDICARE PART A & B [facility] MEDICARE SUPPLEMENT MEDICARE PART A & B [facility] MEDICARE SUPPLEMENT MEDICARE PART A & B [facility] [place] [id number] MEDICARE PART A & B [employer] MEDICARE SUPPLEMENT MEDICARE PART A & B [employer] MEDICARE SUPPLEMENT MEDICARE PART A & B [facility] MEDICARE SUPPLEMENT MEDICARE PART A & [facility] MEDIC[facility] SUPPLEMENT MEDICARE PART A & B [facility] MEDICARE SUPPLEMENT Care Teams Flame Gouger Relationship Specialty Start Date End Date Gordo Lagos DO [address] [place] [address], [address] [place] [address] [email or web address] PCP - General Family Medicine 05/23/25 Alma Delia Graves MD, PhD [address] [address] [email or web address] Surgeon Surgical Oncology 05/25/21 Additional Source Comments The information contained in this document represents components of the legal health record. It is not the complete legal health record.[facility]
--- OUTSIDE RECORDS SUMMARY | 2025-05-28 16:42 | XMS_ITS | Encounter Summary ---
Author Organization [facility] Address [address] [place] [address] Phone Care Team Providers Care Rn Telephonic Name Role Phone Lopez Cote MD Primary Care Provider Alma Delia Graves MD, PhD Unavailable [phone] Gordo Lagos DO Primary Care Provider [phone] Encounter Details Date Type Department Care Team (Late st Contact Info) Description 01/05/2024 Procedure Pass [facility], [facility] [address] [place] [address] Social History Tobacco Use Types Packs/Day Years [...] st Contact Info) Description 07/19/2024 Procedure Pass [address] [address] 05/23/2025 Procedure Pass [address] [address] 07/01/2025 11:30 AM EST Office Visit [facility] [address] [facility] 3rd [place] [address] Gurjit Powell MD 22 [facility], [address] [place] [address] [email or web address] 07/19/2025 10:00 AM EST Appointment [address] [address] Franco Kelley MD, MPH [address] [place] [address] [email or web address] 09/23/2025 8:50 AM EDT Office Visit [facility] [address] [place] [address] Fish Monge DO 22 [place] [address] 10/24/2025 9:30 AM EDT Office Visit [facility] [address] [place] [address] Gordo Lagos, DO 234 [facility], [address] [place] [address] 02/07/2026 9:45 AM EDT Appointment [address] [address] Gordo Lagos DO 234 [facility], [address] [place] [address] [email or web address] Scheduled Procedures Name Priority Associated Diagnoses Date/Ti me COLONOSCOPY Screening for condition documented as of this encounter Visit Diagnoses Not on filedocumented in this encounter Care Teams Rn Telephonic Relationship Specialty Start Date End Date Lopez Cote MD PCP - General 05/15/21 05/22/25 Gordo Lagos DO 234 [facility], [address] [place] [address] [email or web address] PCP - General Family Medicine 05/23/25 Alma Delia Graves MD, PhD [address] [place] [address] [email or web address] Surgeon Surgical Oncology 05/25/21 documented as of this encounter Additional Source Comments The information contained in this document represents components of the legal health record. It is not the complete legal health record.[facility]
--- OUTSIDE RECORDS SUMMARY | 2025-05-28 16:42 | XMS_ITS | Encounter Summary ---
Author Organization [facility] Address [address] [place] [address] Phone Care Team Providers Care Security Services Manager Name Role Phone Lopez Cote MD Primary Care Provider Alma Delia Graves MD, PhD Unavailable [phone] Gordo Lagos DO Primary Care Provider [phone] Encounter Details Date Type Department Care Team (Late st Contact Info) Description 06/27/2023 Procedure Pass [facility], [facility] [address] [place] [address] Social History Tobacco Use Types Packs/Day Years [...] st Contact Info) Description 07/19/2024 Procedure Pass [address] [address] 05/23/2025 Procedure Pass [address] [address] 07/01/2025 11:30 AM EST Office Visit [facility] 22 [facility] 3rd [place] [address] Gurjit Powell MD 22 [facility], [address] [place] [address] [email or web address] 07/19/2025 10:00 AM EST Appointment [address] [address] Franco Kelley MD, MPH [address] [place] [address] [email or web address] 09/23/2025 8:50 AM EDT Office Visit [facility] [address] [place] [address] Fish Monge DO 22 [place] [address] 10/24/2025 9:30 AM EDT Office Visit [facility] [address] [place] [address] Gordo Lagos, DO 234 [facility], [address] [place] [address] 02/07/2026 9:45 AM EDT Appointment [address] [address] Gordo Lagos DO 234 [facility], [address] [place] [address] [email or web address] Scheduled Procedures Name Priority Associated Diagnoses Date/Ti me COLONOSCOPY Screening for condition documented as of this encounter Visit Diagnoses Not on filedocumented in this encounter Care Teams Security Services Manager Relationship Specialty Start Date End Date Lopez Cote MD PCP - General 05/15/21 05/22/25 Gordo Lagos DO 234 [facility], [address] [place] [address] [email or web address] PCP - General Family Medicine 05/23/25 Alma Delia Graves MD, PhD [address] [place] [address] [email or web address] Surgeon Surgical Oncology 05/25/21 documented as of this encounter Additional Source Comments The information contained in this document represents components of the legal health record. It is not the complete legal health record.[facility]
--- OUTSIDE RECORDS SUMMARY | 2025-05-28 16:42 | XMS_ITS | Encounter Summary ---
Author Organization [facility] Address [address] [facility] [address] [place] [address] Phone Care Team Providers Care Bulk Intake Worker Name Role Phone Alma Delia Graves MD, PhD Unavailable [phone] Gordo Lagos DO Primary Care Provider [phone] Reason for Referral * Consultation (Within 2 weeks) - New Request Specialty Diagnoses / Procedures Referred By Juliocesar anderson Referred To Contact Endocrinology Diagnoses Hyperparathyroidism Gordo Lagos DO 234 [facility] 7 [place] [address] Phone: tel: fax: mailto:[email or web address] Ilene Rehman MD 22 [facility] 3rd [place] [address] Phone: tel: fax: mailto:[email or web address] Referral ID Status Reason Start Date Expiration Date V isits Requested Visits Authorized [id number] New Request 05/24/2025 05/24/2026 1 1 Encounter Details Date Type Department Care Team ([facility] Contact Info) Description 05/24/2025 Telephone [facility] [address] [place] [address] Gordo Lagos, DO 234 [facility], [address] [place] [address] [email or web address] Social History Tobacco Use Types Packs/Day Years [...] as of this encounter Progress Notes * Gordo Lagos DO - 05/24/2025 6:01 PM EST Referral placed to endocrine for consult regarding elevated PTH. documented in this encounter Plan of Treatment Upcoming Encounters Date Type Department Care Team (Late st Contact Info) Description 07/19/2024 Procedure Pass [address] [address] 05/23/2025 Procedure Pass [address] [address] 07/01/2025 11:30 AM EST Office Visit [facility] 22 [facility] 3rd [place] [address] Gurjit Powell MD 22 [facility], 3rd [place] [address] [email or web address] 07/19/2025 10:00 AM EST Appointment [address] [address] Franco Kelley MD, MPH [address] [place] [address] [email or web address] [email or web address] [email or web address] 09/23/2025 8:50 AM EDT Office Visit [facility] 22 [place] [address] Fish Monge DO 22 [place] [address] 10/24/2025 9:30 AM EDT Office Visit [facility] 234 [place] [address] Gordo Lagos DO 234 [facility] 7 [place] [address] [email or web address] 02/07/2026 9:45 AM EDT Appointment [facility] 30 [place] [address] Gordo Lagos DO 234 [facility] 7 [place] [address] Scheduled Orders Name Type Priority Associated Diagnoses Orde r Schedule Hemoglobin A1c Lab Routine Prediabetes Expected: 05/24/2025, Expires: 05/24/2026 Scheduled Procedures Name Priority Associated Diagnoses Date/Ti nc COLONOSCOPY Screening for condition Scheduled Referrals Name Type Priority Associated Diagnoses Order Schedule Ambulatory referral to [facility] Endocrinology Outpatient Referral Routine Hyperparathyroidism Ordered: 05/24/2025 documented as of this encounter Visit Diagnoses Diagnosis Hyperparathyroidism- Primary Hyperparathyroidism, unspecified Prediabetes Other abnormal glucose documented in this encounter Additional Health Concerns Assessment Noted Time PHQ-2 Depression Total Score: 1 05/16/20 25 6:06 PM EDT documented as of this encounter Care Teams Bulk Intake Worker Relationship Specialty Start Date End Date Gordo Lagos DO 234 [facility] 7 [place] [address] [email or web address] PCP - General Family Medicine 05/23/25 Alma Delia Graves MD, PhD [address] [address] [email or web address] [email or web address] Surgeon Surgical Oncology 05/25/21 documented as of this encounter Additional Source Comments The information contained in this document represents components of the legal health record. It is not the complete legal health record.[facility]
--- OUTSIDE RECORDS SUMMARY | 2025-05-28 16:43 | XMS_ITS | Encounter Summary ---
Author Organization [facility] Address [address] [facility] [address] [place] [address] Phone Care Team Providers Care Naval Gunfire Liaison Officer Name Role Phone Lopez Cote MD Primary Care Provider Alma Delia Graves MD, PhD Unavailable [phone] Gordo Lagos DO Primary Care Provider [phone] Encounter Details Date Type Department Care Team (Late st Contact Info) Description 06/02/2022 Procedure Pass [address], 2nd [place] [address] Social History Tobacco Use Types Packs/Day Years [...] st Contact Info) Description 07/19/2024 Procedure Pass [address] [address] 05/23/2025 Procedure Pass [address] [address] 07/01/2025 11:30 AM EST Office [facility] 22 [facility] 3rd [place] [address] Gurjit Powell MD 22 [facility], 3rd [place] [address] [email or web address] 07/19/2025 10:00 AM EST Appointment [address] [address] Franco Kelley MD, MPH [address] [place] [address] [email or web address] 09/23/2025 8:50 AM EDT Office Visit [facility] [address] [place] [address] Fish Monge DO [address] [place] [address] 10/24/2025 9:30 AM EDT Office Visit [facility] [address] [address] Gordo Lagos, DO [address] [address] 02/07/2026 9:45 AM EDT Appointment [address] [address] Gordo Lagos, DO [address] [address] Scheduled Procedures Name Priority Associated Diagnoses Date/Ti me COLONOSCOPY Screening for condition documented as of this encounter Visit Diagnoses Not on filedocumented in this encounter Care Teams Naval Gunfire Liaison Officer Relationship Specialty Start Date End Date Lopez Cote MD PCP - General 05/15/21 05/22/25 Gordo Lagos DO [address] [place] [address] [address] [place] [address] [email or web address] PCP - General Family Medicine 05/23/25 Alma Delia Graves MD, PhD [address] [place] [address] [email or web address] Surgeon Surgical Oncology 05/25/21 documented as of this encounter Additional Source Comments The information contained in this document represents components of the legal health record. It is not the complete legal health record.[facility]
--- OUTSIDE RECORDS SUMMARY | 2025-05-28 16:43 | XMS_ITS | Data Portability ---
Author Organization LAMBERT Peewee Myles [facility], [facility] Address [address] [place] [address] Assessment No assessment recorded. Plan of Treatment [...] Organization Details Recorded Time No complaint s [id number] Active Status: 'I'; Not Available formerly [facility] 4 09:16:57 Impingeme nt syndrome of left shoulder region [id number] 104 Active 2019 Problem Code: M75.42; Problem Code Type: ICD-10; Status: 'A'; Not Available formerly [facility] 4 11:42:01 Problem Notes None recorded. Procedures Surgical History Date Name Laterality Status Provider Name and Address Organization Details Recorded Time 5 JZHip Inj completed JU Galvin-C [address] Formerly named [facility], [place], [address], [facility] 04/15/2025 11:32:10 5 Hip Kenalog 1cc Injection, L/R completed Bjorn Fair PA-C [address] Formerly named [facility], [place], [address], [facility] 11/08/2024 15:14:32 4 Hip Kenalog 1cc Injection, L/R completed JU Galvin-C [address] Formerly named [facility], [place], [address], [facility] 04/17/2024 15:57:41 4 Hip Kenalog 1cc Injection, L/R completed Bjorn Fair PA-C [address] Formerly named [facility], [place], [address], [facility] 10/27/2023 15:48:44 Imaging Results None recorded. Procedure Notes None recorded. Medical Equipment None Reported. Allergies Allergen ID Allergen Name Allergen Category Reaction Reaction Severity Criticality Documentation Date Start Date Code Code System Note Provider Name and Address Organization Details Recorded Time 215403 Product containin g 3-hydroxy -3-methyl glutaryl- coenzyme A reductase inhibitor (product) medicatio n Not available Not available Not available 10/27/2023 03087 009 [facility] 4 15:03:33 895687 Solu-Medr ol medicatio n Not available Not available Not available 10/27/202379371 6 RxNorm FELTON lo [place] [facility] 4 15:04:10 [address] Product containin g penicilli n (product) medicatio n anaphylax is Not available Not available 09/19/20232018 82026 8001 SNOMED Not Available [facility] 4 14:23:13 Medications Name Sig Start Date [...] Updated DateTime 10/27/2023 160.02 cm FELTON MUELLER [place] [facility] 10/27/2023 14:57:25 Date Recorded Body height Body mass index (BMI) Body weight Provider Name and Address Organization Details Last Updated DateTime 11/08/2024 160.02 cm 24.4 kg/m2 43091.75 g Yocasta Parekh [place] [facility] 11/08/2024 14:57:47 Date Recorded Body height Body mass index (BMI) Body weight Provider Name and Address Organization Details Last Updated DateTime 04/15/2025 160.02 cm 24.4 kg/m2 01804.75 g Yocasta Parekh [facility] 04/15/2025 10:35:26 Date Recorded Body height Body mass index (BMI) Body weight Provider Name and Address Organization Details Last Updated DateTime 04/17/2024 160.02 cm 24.4 kg/m2 40527.75 g ANSHUL PABLO [facility] 04/17/2024 15:17:50 Social History None recorded. Functional [...] ICD10 Code Diagnosis IMO Codes Diagnosis Note [id number] RAFAL Galvin 3rd floor [address] [place] [address] 10/27/2023 14:44:33 11/16/2023 12:40:14 Trochanteric bursitis of left hip [id number] 17964 M70.62 You have been provided with a [...] or contact us through the portal [facility]. [id number] RAFAL Galvin 2nd floor [address] [place] [address] 04/17/2024 14:50:20 05/11/2024 15:11:28 Trochanteric bursitis of left hip 7279280567 05353 M70.62 You have been provided with a [...] or contact us through the portal [facility]. [id number] RAFAL Galvin 2nd floor [address] [place] [address] 11/08/2024 14:47:05 11/21/2024 10:24:21 Trochanteric bursitis of left hip 8923084997 21313 M70.62 0820854 You have been provided with a cortisone [...] office or contact us through the portal [facility]. [id number] RAFAL Galvin 2nd floor [address] [place] [address] 04/15/2025 10:10:58 04/22/2025 15:40:53 Greater trochanteric pain syndrome of left lower limb 7273459528 6913086 M25.552 [id number] Sacroiliac disorder 2027 [address] M53.3 088507 Health Concerns Section Related Observation LastModified by Organization Detai ls LastModified Time None Recorded Concern Status LastModified by Organization Details LastModified Time None Recorded Advance Directives Directive None Recorded Payers Insurance Date Sequence Insurance Name Policy Number Policy Law Covered Member ID Law Member ID Guarantor Name 04/15/2025 1 [place] [employer] Renu Orozco [id number] Renu Orozco 04/22/2025 2 [facility] INDEMNITY PLAN (MEDICARE SUPPLEMENT) [id number] Renu Orozco [id number] Renu Orozco Notes Date Note Type Note [...] and follow-up as directed. Bjorn Fair PA-C [address] [place] [address] [address], [place], [address], [facility] [place] [facility] 10/27/2023 15:48:58 04/17/2024 text/html I am seeing [...] follow-up as directed. Bjorn Fair PA-C [address] [employer] [address], [place], [address], [facility] [place] [facility] 04/17/2024 15:57:52 11/08/2024 text/html I am seeing [...] follow-up as directed. Bjorn Fair PA-C [address], [place], [address], [facility] 11/08/2024 15:14:53 04/15/2025 text/html I am seeing [...] Fair PA-C [address], [place], [address], [facility] 04/15/2025 11:33:28 OBGyn Episode No OBEpisode recorded.
--- OUTSIDE RECORDS SUMMARY | 2025-05-28 16:43 | XMS_ITS | Encounter Summary ---
Author Organization [facility] Address [address] [place] [address] Phone Care Team Providers Care Infection Preventionist Name Role Phone Lopez Cote MD Primary Care Provider Alma Delia Graves MD, PhD Unavailable [phone] Gordo Lagos DO Primary Care Provider [phone] Encounter Details Date Type Department Care Team (Late st Contact Info) Description 02/08/2025 Procedure Pass [facility], Ct Scan - [address] [id number] Social History Tobacco Use Types Packs/Day Years [...] housing situation today? I have denisa nath 02/08/2025 How many times have you move [...] 4:36 PM EDT Ángela Simon RN * [place] Suicide Severity Rating Scale (Screener/Recent Self-Report) Question Answer Date of Assessment Author 1. Wish to be (Past 1 Month) No 02/08/2025 4:36 PM STEVET Gary Garces RN 2. Non-Specific Active Suicidal Thoughts (Past 1 Month) No 02/08/2025 4:36 PM EDT Gary Garces, RN 6. Suicidal Behavior (Lifetime) No 02/08/2025 4:36 PM EDT Gary Garces RN documented as of this encounter Plan of Treatment Upcoming Encounters Date Type Department Care Team (Late st Contact Info) Description 07/19/2024 Procedure Pass [address] [address] 05/23/2025 Procedure Pass [address] [address] 07/01/2025 11:30 AM EST Office Visit [facility] [employer] [facility] 22 [facility] 3rd [place] [address] Gurjit Powell MD [address] [address] [email or web address] 07/19/2025 10:00 AM EST Appointment [address] [address] Franco Kelley MD, MPH [address] [place] [address] [email or web address] 09/23/2025 8:50 AM EDT Office Visit [facility] 22 [place] [address] Fish Monge DO 22 [place] [address] 10/24/2025 9:30 AM EDT Office Visit [facility] 234 [place] [address] Gordo Lagos DO 234 [facility], [address] [place], [place] [address] [email or web address] 02/07/2026 9:45 AM EDT Appointment [facility], [facility] 30 [place] [address] Gordo Lagos DO 234 [facility] 7 [place] [address] [email or web address] Scheduled Procedures Name Priority Associated Diagnoses Date/Ti me COLONOSCOPY Screening for condition documented as of this encounter Visit Diagnoses Not on filedocumented in this encounter Care Teams Infection Preventionist Relationship Specialty Start Date End Date Lopez Cote MD PCP - General 05/15/21 05/22/25 Gordo Lagos DO 234 [facility] 7 [place] [address] [email or web address] PCP - General Family Medicine 05/23/25 Alma Delia Graves MD, PhD [address] [place] [address] [email or web address] Surgeon Surgical Oncology 05/25/21 documented as of this encounter Additional Source Comments The information contained in this document represents components of the legal health record. It is not the complete legal health record.[facility]
--- OUTSIDE RECORDS SUMMARY | 2025-05-28 16:43 | XMS_ITS | Encounter Summary ---
Author Organization [facility] Address [address] [place] [address] Phone Care Team Providers Care Sports Apparel Internship Name Role Phone Lopez Cote MD Primary Care Provider Alma Delia Graves MD, PhD Unavailable [phone] Gordo Lagos DO Primary Care Provider [phone] Encounter Details Date Type Department Care Team (Late st Contact Info) Description 06/03/2022 Procedure Pass [facility] [address] [place] [address] Social History Tobacco Use Types Packs/Day Years [...] Contact Info) Description 07/19/2024 Procedure Pass [address] [address] 05/23/2025 Procedure Pass [address] [address] 07/01/2025 11:30 AM EST Office Visit [facility] 22 [facility] 3rd [place] [address] Gurjit Powell MD 22 [facility], 3rd [place] [address] [email or web address] 07/19/2025 10:00 AM EST Appointment [address] [address] Franco Kelley MD, MPH [address] [address] [email or web address] 09/23/2025 8:50 AM EDT Office Visit [facility] [address] [place] [address] Fish Monge [address] [address] 10/24/2025 9:30 AM EDT Office Visit [facility] [address] [address] Gordo Lagos, DO [address] [place] [address] 02/07/2026 9:45 AM EDT Appointment [address] [address] Gordo Lagos, DO [address] [address] Scheduled Procedures Name Priority Associated Diagnoses Date/Ti me COLONOSCOPY Screening for condition documented as of this encounter Visit Diagnoses Not on filedocumented in this encounter Care Teams Sports Apparel Internship Relationship Specialty Start Date End Date Lopez Cote MD PCP - General 05/15/21 05/22/25 Gordo Lagos DO [address] [place] [address] [address] [place] [address] [email or web address] PCP - General Family Medicine 05/23/25 Alma Delia Graves MD, PhD [address] [place] [address] [email or web address] Surgeon Surgical Oncology 05/25/21 documented as of this encounter Additional Source Comments The information contained in this document represents components of the legal health record. It is not the complete legal health record.[facility]
--- OUTSIDE RECORDS SUMMARY | 2025-05-28 16:43 | XMS_ITS | Encounter Summary ---
Author Organization [facility] Address [address] [facility] [address] [place] [address] Phone Care Team Providers Care Director Patient Accounting Name Role Phone Lopez Cote MD Primary Care Provider Alma Delia Graves MD, PhD Unavailable [phone] Gordo Lagos DO Primary Care Provider [phone] Reason for Referral * MRI/CAT Scan - Closed Specialty Diagnoses / Procedures Referred By Juliocesar anderson Referred To Contact Radiology Diagnoses Neuroendocrine tumor of pancreas Procedures CT PET Abdomen/Pelvis Franco Kelley MD, MPH Phone: tel: fax: mailto:[email or web address] Referral ID Status Reason Start Date Expiration Date Visits Re quested Visits Authorized [id number] Closed 06/02/2022 06/02/2023 1 1 * MRI/CAT Scan - Closed Specialty Diagnoses / Procedures Referred By Juliocesar anderson Referred To Contact Radiology Diagnoses Neuroendocrine tumor of pancreas Procedures CT PET Chest Franco Kelley MD, MPH Phone: tel: fax: mailto:[email or web address] Referral ID Status Reason Start Date Expiration Date Visits Re quested Visits Authorized [id number] Closed 06/02/2022 06/02/2023 1 1 Encounter Details Date Type Department Care Team (Latest Contact Info) Description 06/02/2022 Ancillary Orders [facility] [address] [facility], 5th [place] [address] Franco Kelley MD, MPH [address] [address] [email or web address] Neuroendocrine tumor of pancreas Social History Tobacco [...] st Contact Info) Description 07/19/2024 Procedure Pass [address] [address] 05/23/2025 Procedure Pass [address] [address] 07/01/2025 11:30 AM EST Office Visit [facility]PH[facility] [address] 3rd [place] [address] Gurjit Powell MD [address] [address] [email or web address] 07/19/2025 10:00 AM EST Appointment [address] [address] Franco Kelley MD, MPH [address] [place] [address] [email or web address] 09/23/2025 8:50 AM EDT Office Visit [facility] 22 [place] [address] Fish Monge DO 22 [place] [address] 10/24/2025 9:30 AM EDT Office Visit [address] [address] Gordo Lagos, 234 [facility], [address] [place] [address] [email or web address] 02/07/2026 9:45 AM EDT Appointment [facility] 30 [place] [address] Gordo Lagos, DO 234 [facility], [address] [place] [address] [email or web address] Scheduled Procedures Name Priority Associated Diagnoses Date/Ti [...] Mild degenerative changes Procedure Note Angel Mcdaniel, [facility] - 06/02/2022 CT PET ABDOMEN/PELVIS WITH CONTRAST TECHNIQUE: Multidetector-row CT of the abdomen and pelvis was performedafter administration of intravenous contrast using tailored dosemodulation techniques. Images were reconstructed in the axial, coronal,and sagittal planes. COMPARISON: MRI ABDOMEN OUTSIDE WITH INTERPRETATION OR [id number] FINDINGS: Lower Chest: No pleural effusion. Liver: [...] the report originallycreated by Dr. Marah Silva. [facility] Roselia Kelley MD, MPH IMG CT PETCT [...] evidence of metastatic disease in the thorax. [facility] Roselia Kelley MD, MPH IMG CT PETCT Final Result documented in this encounter Visit Diagnoses Diagnosis Neuroendocrine tumor of pancreas Neuroendocrine tumor of pancreas documented in this encounter Care Teams Director Patient Accounting Relationship Specialty Start Date End Date Lopez Cote MD PCP - General 05/15/21 05/22/25 Gordo Lagos DO [address] [place] [address], [address] [place] [address] [email or web address] PCP - General Family Medicine 05/23/25 Alma Delia Graves MD, PhD [address] [place] [address] [email or web address] Surgeon Surgical Oncology 05/25/21 documented as of this encounter Additional Source Comments The information contained in this document represents components of the legal health record. It is not the complete legal health record.[facility]
--- OUTSIDE RECORDS SUMMARY | 2025-05-28 16:43 | XMS_ITS | Encounter Summary ---
Author Organization [facility] Address [address] [place] [address] Phone Care Team Providers Care Clothing Worker Name Role Phone Loepz Cote MD Primary Care Provider Alma Delia Graves MD, PhD Unavailable [phone] Gordo Lagos DO Primary Care Provider Encounter Details Date Type Department Care Team (Late st Contact Info) Description 03/29/2024 Procedure Pass [facility], [facility] 30 [place] [address] Social History Tobacco Use Types Packs/Day Years [...] (Late st Contact Info) Description 07/19/[address] [address] 05/23/[address] [address] 07/01/2025 11:30 AM EST Office Visit [facility] OPHTH[facility] [address] 3rd [place] [address] Gurjit Powell MD [address] [address] [email or web address] 07/19/2025 10:00 AM EST Appointment [address] [address] Franco Kelley MD, MPH [address] [place] [address] [email or web address] 09/23/2025 8:50 AM EDT Office Visit [facility] 22 [place] [address] Fish Monge DO 22 [place] [address] 10/24/2025 9:30 AM EDT Office Visit [facility] [address] [place] [address] Gordo Lagos DO 234 [facility], [address] [place] [address] 02/07/2026 9:45 AM EDT Appointment [facility], [facility] 30 [place] [address] Gordo Lagos DO 234 [facility], [address] [place] [address] [email or web address] Scheduled Procedures Name Priority Associated Diagnoses Date/Ti me COLONOSCOPY Screening for condition documented as of this encounter Visit Diagnoses Not on filedocumented in this encounter Care Teams Clothing Worker Relationship Specialty Start Date End Date Lopez Cote MD PCP - General 05/15/21 05/22/25 Gordo Lagos DO 234 [facility], [facility] 7 [place] [address] [email or web address] PCP - General Family Medicine 05/23/25 Alma Delia Graves MD, PhD [address] [place] [address] [email or web address] Surgeon Surgical Oncology 05/25/21 documented as of this encounter Additional Source Comments The information contained in this document represents components of the legal health record. It is not the complete legal health record.[facility]
--- OUTSIDE RECORDS SUMMARY | 2025-05-28 16:43 | XMS_ITS | Encounter Summary ---
Author Organization [facility] Address [address] [place] [address] Phone Care Team Providers Care Knife Glazer Name Role Phone Lopez Cote MD Primary Care Provider Alma Delia Graves MD, PhD Unavailable [phone] Gordo Lagos DO Primary Care Provider [phone] Encounter Details Date Type Department Care Team (Late st Contact Info) Description 03/14/2023 Procedure Pass [facility], [facility] 30 [place] [address] Social History Tobacco Use Types Packs/Day Years [...] Contact Info) Description 07/19/2024 Procedure Pass [address] [address] 05/23/2025 Procedure Pass [address] [address] 07/01/2025 11:30 AM EST Office Visit [facility] 22 [facility] 3rd [place] [address] Gurjit Powell MD 22 [facility], [address] [place] [address] [email or web address] 07/19/2025 10:00 AM EST Appointment [address] [address] Franco Kelley MD, MPH [address] [place] [address] [email or web address] 09/23/2025 8:50 AM EDT Office Visit [facility] [address] [place] [address] Fish Monge DO 22 [place] [address] 10/24/2025 9:30 AM EDT Office Visit [facility] 234 [place] [address] Gordo Lagos, DO 234 [facility], [address] [place] [address] 02/07/2026 9:45 AM EDT Appointment [address] [address] Gordo Lagos DO 234 [facility], [address] [place] [address] [email or web address] Scheduled Procedures Name Priority Associated Diagnoses Date/Ti me COLONOSCOPY Screening for condition documented as of this encounter Visit Diagnoses Not on filedocumented in this encounter Care Teams Knife Glazer Relationship Specialty Start Date End Date Lopez Cote MD PCP - General 05/15/21 05/22/25 Gordo Lagos DO 234 [facility], [address] [place] [address] [email or web address] PCP - General Family Medicine 05/23/25 Alma Delia Graves MD, PhD [address] [place] [address] [email or web address] Surgeon Surgical Oncology 05/25/21 documented as of this encounter Additional Source Comments The information contained in this document represents components of the legal health record. It is not the complete legal health record.[facility]
--- OUTSIDE RECORDS SUMMARY | 2025-05-28 16:43 | XMS_ITS | Patient Health Record ---
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 Problem Plantar fascial fibromatosis (94382454) Plantar fasciitis, bilateral (M72.2) Active confirmed Vital Signs Blood pressure diastolic 80 mm Hg 10/25/2024 Height 5ft3in in 10/25/2024 Blood pressure systolic 125 mm Hg 10/25/2024 Weight 128 lbs 10/25/2024 BMI 22.67 kg/m2 10/25/2024 Procedures Procedure Date Ordered Date Performed Result Body Sit e 02753-Rcjmajhv Plate 10/04/2024 N/A Encounters Encounter Location Date Provider Diagnosis [address] [address] 07/06/2024 Pina Black Pain in right foot M79.671 ; Calcaneal spur, right foot M77.31 ; Plantar fasciitis, bilateral M72.2 ; Other myositis of right foot M60.871 ; Bursitis of right foot M77.51 ; Pain in left foot M79.672 ; Other myositis of left foot M60.872 and Bursitis of left foot M77.[address] [address] 10/04/2024 Pina Black Plantar fasciitis, bilateral M72.2 ; Ingrown nail L60.0 ; Pain in right foot M79.671 ; Calcaneal spur, right foot M77.31 ; Other myositis of right foot M60.871 ; Bursitis of right foot M77.51 ; Pain in left foot M79.672 ; Other myositis of left foot M60.872 and Bursitis of left foot M77.[address] [facility] [address] 10/25/2024 Pina Black Ingrowing nail L60.[address] [address] 07/06/2024 Pina Black [facility] [address] 10/05/2024 Pina Bryant Assessments Encounter Date Diagnosis [...] Treatment Pending Test Test Name Order Date [id number]-[id number] Plate 10/04/2024 Insurance Providers Payer Name Payer Address Payer Phone Subscriber Number Group Number Insured Name Patient Relationship to Insured Coverage Start Date Coverage End Date Medicare National Govt Sv[employer] Inc [address] [place] [address] [id number] Marksandy Eduaril Self - patient is the insured 0 [employer] ([employer]) [address] [place] [address] [phone] [id number] MarkchloeEduar correail Self - patient is the insured 0 Medical (General) History Medical History History ICD Code Glaucoma Chicken pox Measles Mumps Lyme disease Sinus conditions Arthritis CAD (Cholesterol) Cancer Cataracts covid-19 Crohns disease type II diabetes Diverticulosis Gall bladder problems Osteoporosis Sciatica thyroid pancreatic tumor Surgical History Surgery Date(Month/Year) cholecystectomy 12/1997
--- OUTSIDE RECORDS SUMMARY | 2025-05-28 16:43 | XMS_ITS | Encounter Summary ---
Author Organization [facility] Address [address] [facility] [place] [address] [place] [address] Phone Care Team Providers Care Yarn Worker Name Role Phone Lopez Cote MD Primary Care Provider Alma Delia Graves MD, PhD Unavailable [phone] Gordo Lagos DO Primary Care Provider [phone] Encounter Details Date Type Department Care Team (Late st Contact Info) Description 06/21/[address] [address] Social History Tobacco Use Types Packs/Day Years [...] (Late st Contact Info) Description 07/19/[address] [address] 05/23/[address] [address] 07/01/2025 11:30 AM EST Office Visit [facility] 3rd [place] [address] Gurjit Powell MD 22 [facility], 3rd [place] [address] [email or web address] 07/19/2025 10:00 AM EST Appointment [address] [address] Franco Kelley MD, MPH [address] [place] [address] [email or web address] 09/23/2025 8:50 AM EDT Office Visit [facility] [address] [place] [address] Fish Monge DO [address] [place] [address] 10/24/2025 9:30 AM EDT Office Visit [facility] Medical [address] [address] Gordo Lagos, DO [address] [place] [address] 02/07/2026 9:45 AM EDT Appointment [address] [address] Gordo Lagos DO [address] [address] Scheduled Procedures Name Priority Associated Diagnoses Date/Ti me COLONOSCOPY Screening for condition documented as of this encounter Visit Diagnoses Not on filedocumented in this encounter Care Teams Yarn Worker Relationship Specialty Start Date End Date Lopez Cote MD PCP - General 05/15/21 05/22/25 Gordo Lagos DO [address] [place] [address] [address] [place] [address] [email or web address] PCP - General Family Medicine 05/23/25 Alma Delia Graves MD, PhD [address] [place] [address] [email or web address] Surgeon Surgical Oncology 05/25/21 documented as of this encounter Additional Source Comments The information contained in this document represents components of the legal health record. It is not the complete legal health record.[facility]
--- OUTSIDE RECORDS SUMMARY | 2025-05-28 16:43 | XMS_ITS | Encounter Summary ---
Author Organization [facility] Address [address] [place] [address] Phone Care Team Providers Care Facs Teacher Name Role Phone Lopez Cote MD Primary Care Provider Alma Delia Graves MD, PhD Unavailable [phone] Gordo Lagos DO Primary Care Provider [phone] Encounter Details Date Type Department Care Team (Late st Contact Info) Description 05/26/2023 Procedure Pass [facility], [place] [address] [facility], 2nd Floor, [address] [place] [address] Social History Tobacco Use Types Packs/Day Years [...] st Contact Info) Description 07/19/2024 Procedure Pass [address] [address] 05/23/2025 Procedure Pass [address] [address] 07/01/2025 11:30 AM EST Office Visit [facility] 22 [facility] 3rd [place] [address] Gurjit Powell MD [address] [address] [email or web address] 07/19/2025 10:00 AM EST Appointment [address] [address] Franco Kelley MD, MPH [address] [address] [email or web address] 09/23/2025 8:50 AM EDT Office Visit [facility] [address] [place] [address] Fish Monge DO 22 [place] [address] 10/24/2025 9:30 AM EDT Office Visit [facility] 234 [place] [address] Gordo Lagos, DO 234 [facility], [address] [place] [address] 02/07/2026 9:45 AM EDT Appointment [address] [address] Gordo Lagos DO 234 [facility] 7 [place] [address] [email or web address] Scheduled Procedures Name Priority Associated Diagnoses Date/Ti me COLONOSCOPY Screening for condition documented as of this encounter Visit Diagnoses Not on filedocumented in this encounter Care Teams Facs Teacher Relationship Specialty Start Date End Date Lopez Cote MD PCP - General 05/15/21 05/22/25 Gordo Lagos DO 234 [facility] 7 [place] [address] [email or web address] PCP - General Family Medicine 05/23/25 Alma Delia Graves MD, PhD [address] [place] [address] [email or web address] Surgeon Surgical Oncology 05/25/21 documented as of this encounter Additional Source Comments The information contained in this document represents components of the legal health record. It is not the complete legal health record.[facility]
--- OUTSIDE RECORDS SUMMARY | 2025-05-28 16:43 | XMS_ITS | Encounter Summary ---
Author Organization [facility] Address [address] [facility] [address] [place] [address] Phone Care Team Providers Care Correctional Captain Name Role Phone Lopez Cote MD Primary Care Provider Alma Delia Graves MD, PhD Unavailable [phone] Gordo Lagos DO Primary Care Provider [phone] Encounter Details Date Type Department Care Team (Late st Contact Info) Description 06/02/2022 Procedure Pass [address], 2nd [place] [address] Social History Tobacco Use Types Packs/Day Years [...] st Contact Info) Description 07/19/2024 Procedure Pass [address] [address] 05/23/2025 Procedure Pass [address] [address] 07/01/2025 11:30 AM EST Office [facility] 22 [facility] 3rd [place] [address] Gurjit Powell MD 22 [facility], 3rd [place] [address] [email or web address] 07/19/2025 10:00 AM EST Appointment [address] [address] Franco Kelley MD, MPH [address] [place] [address] [email or web address] 09/23/2025 8:50 AM EDT Office Visit [facility] [address] [place] [address] Fish Monge DO [address] [place] [address] 10/24/2025 9:30 AM EDT Office Visit [facility] Medical [address] [address] Gordo Lagos, DO [address] [address] 02/07/2026 9:45 AM EDT Appointment [address] [address] Gordo Lagos, DO [address] [address] Scheduled Procedures Name Priority Associated Diagnoses Date/Ti me COLONOSCOPY Screening for condition documented as of this encounter Visit Diagnoses Not on filedocumented in this encounter Care Teams Correctional Captain Relationship Specialty Start Date End Date Lopez Cote MD PCP - General 05/15/21 05/22/25 Gordo Lagos DO [address] [place] [address] [address] [place] [address] [email or web address] PCP - General Family Medicine 05/23/25 Alma Delia Graves MD, PhD [address] [place] [address] [email or web address] Surgeon Surgical Oncology 05/25/21 documented as of this encounter Additional Source Comments The information contained in this document represents components of the legal health record. It is not the complete legal health record.[facility]
--- OUTSIDE RECORDS SUMMARY | 2025-05-28 16:43 | XMS_ITS | Encounter Summary ---
Author Organization [facility] Address [address] [place] [address] Phone Care Team Providers Care Flue Gas Analyst Name Role Phone Lopez Cote MD Primary Care Provider Alma Delia Graves MD, PhD Unavailable [phone] Gordo Lagos DO Primary Care Provider [phone] Encounter Details Date Type Department Care Team (Late st Contact Info) Description 01/19/2025 Procedure Pass [facility], Ct Scan - [address] [id number] Social History Tobacco Use Types Packs/Day Years [...] st Contact Info) Description 07/19/2024 Procedure Pass [address] [address] 05/23/2025 Procedure Pass [address] [address] 07/01/2025 11:30 AM EST Office Visit [facility]PHTHALMOLOGY [address] 3rd [place] [address] Gurjit Powell MD [address] [place] [address] Teo@[email or web address] 07/19/2025 10:00 AM EST Appointment [address] [address] Franco Kelley MD, MPH [address] [place] [address] [email or web address] 09/23/2025 8:50 AM EDT Office Visit [facility] [address] [place] [address] Fish Monge DO [address] [place] [address] 10/24/2025 9:30 AM EDT Office Visit [facility] 234 [place] [address] Gordo Lagos DO 234 [facility] 7 [place] [address] [email or web address] 02/07/2026 9:45 AM EDT Appointment [facility] 30 [place] [address] Gordo Lagos, 234 [facility] 7 [place] [address] [email or web address] Scheduled Procedures Name Priority Associated Diagnoses Date/Ti me COLONOSCOPY Screening for condition documented as of this encounter Visit Diagnoses Not on filedocumented in this encounter Care Teams Flue Gas Analyst Relationship Specialty Start Date End Date Lopez Cote MD PCP - General 05/15/21 05/22/25 Gordo Lagos DO 234 [facility] 7 [place] [address] [email or web address] PCP - General Family Medicine 05/23/25 Alma Delia Graves MD, PhD [address] [place] [address] [email or web address] Surgeon Surgical Oncology 05/25/21 documented as of this encounter Additional Source Comments The information contained in this document represents components of the legal health record. It is not the complete legal health record.[facility]
== END 2025-05-28 15:00 | disposition home or self-care (01) ==
LOC: HO.MAMMO 14:59
PROVIDERS: PCP Family Medicine; Visit Provider Family Medicine
DX: Z13.89 Encounter for screening for other disorder (principal)